=== PATIENT | female | born 1985 | race Caucasian/White ===

== ENCOUNTER 2020-06-14 09:11 | Outpatient (CLI) | payer OTHER, SELFPAY ==
--- NOTE | 2020-06-14 09:13 | US_ITS ---
WS: [id number] BIOPHYSICAL PROFILE AND LIMITED OB. HISTORY: SUPERVISION OF NORMAL COMPARISON: None available. Presentation: Cephalic. Cervix: Closed and normal length. Cervical length 4.1 cm. Placenta: Anterior, no previa or abruption. Grade: 1 HEART: FHR of 138BPM. measurements: BPD = 8.0 cm = 32w2d HC = 29.3 cm = 32w2d AC = 27.1 cm = 31w1d FL = 6.0 cm = 31w1d FARIDA: 10.8 centimeters, between the fifth and 50th percentile. Largest vertical pocket 3.3 cm. EFW: 1755g; 43rd %. AGA by ultrasound: 31w5d LUZ by ultrasound: 08/11/2020 Biometry is internally concordant. No prior studies for comparison. Biophysical profile: Parameters are as follows: Breathin Movement: 2 Tone: 2 Fluid volume: 2 US/US OB lmt w/ BPP wo NST IMPRESSION: 1. Biophysical profile score: 8/8. 2. Single intrauterine gestation of 31w5d and 08/11/2020. 3. Normal amniotic fluid index. 4. Estimated weight 1755 g at the 43rd percentile.
== END 2020-06-14 09:12 | disposition home or self-care (01) ==
PROVIDERS: PCP Family Medicine; Visit Provider Family Medicine
DX: O09.90 Supervision of high risk pregnancy, unspecified, unspecified trimester (principal); O24.419 Gestational diabetes mellitus in pregnancy, unspecified control; Z3A.31 31 weeks gestation of pregnancy
CPT/HCPCS: 76815; 76819

== ENCOUNTER 2020-06-14 10:11 | Outpatient (CLI) | payer OTHER, SELFPAY ==
[2020-06-14 10:22] VITALS: TEMP 36.4
[2020-06-14 10:23] VITALS: BP 116/64; PULSE 93
[2020-06-14 10:30] VITALS: RESP 18
[2020-06-14 10:35] VITALS: BMI 35.2
[2020-06-14 10:45] VITALS: BP 118/66; PULSE 102
[2020-06-14 10:50] VITALS: BP 118/66; PULSE 102; RESP 18
== END 2020-06-14 11:00 | disposition home or self-care (01) ==
LOC: OPOB 10:14 → OBGYN 10:18
PROVIDERS: PCP Family Medicine; Visit Provider Family Medicine
DX: O26.899 Other specified pregnancy related conditions, unspecified trimester (principal); Z3A.00 Weeks of gestation of pregnancy not specified
CPT/HCPCS: 59025; 99211

== ENCOUNTER 2020-06-21 09:59 | Outpatient (CLI) | payer OTHER, SELFPAY ==
--- NOTE | 2020-06-21 | US_ITS ---
WS: [id number] ULTRASOUND OB LIMITED TECHNIQUE: Limited ultrasound examination of the fetus. CLINICAL INFORMATION: HIGH RISK /GESTATIONAL DIABETES COMPARISON: June 14, 2020 FINDINGS: Cervix measures 5.4 cm Single interuterine gestation. presentation is vertex Placental location is anterior. Placenta grade: 0. heart rate 160 BPM. Normal FARIDA 12.6 cm. Anatomy: EGA by ultrasound: Dating measurements not obtained today. US/US OB lmt w/ BPP wo NST IMPRESSION: 1. Single intrauterine gestation with vertex presentation. 2. BPP 8 out of 8. 3. Normal cervix. 4. FARIDA normal.
--- NOTE | 2020-06-21 10:03 | US_ITS ---
WS: [id number] ULTRASOUND OB LIMITED TECHNIQUE: Limited ultrasound examination of the fetus. CLINICAL INFORMATION: HIGH RISK /GESTATIONAL DIABETES COMPARISON: June 14, 2020 FINDINGS: Cervix measures 5.4 cm Single interuterine gestation. presentation is vertex Placental location is anterior. Placenta grade: 0. heart rate 160 BPM. Normal FARIDA 12.6 cm. Anatomy: EGA by ultrasound: Dating measurements not obtained today.
== END 2020-06-21 10:00 | disposition home or self-care (01) ==
LOC: US 10:00
PROVIDERS: PCP Family Medicine; Visit Provider Family Medicine
DX: O09.899 Supervision of other high risk pregnancies, unspecified trimester (principal); O24.419 Gestational diabetes mellitus in pregnancy, unspecified control
CPT/HCPCS: 76815; 76816; 76819

== ENCOUNTER 2020-06-21 10:50 | Outpatient (CLI) | payer OTHER, SELFPAY ==
[2020-06-21 11:02] VITALS: BP 127/77; PULSE 96
[2020-06-21 11:11] VITALS: BMI 35.2
[2020-06-21 11:17] VITALS: BP 119/69; PULSE 90
[2020-06-21 11:26] VITALS: BP 119/69; PULSE 90
== END 2020-06-21 11:27 | disposition home or self-care (01) ==
LOC: OPOB 10:51 → OBGYN 10:57
PROVIDERS: PCP Family Medicine; Visit Provider Family Medicine
DX: O26.899 Other specified pregnancy related conditions, unspecified trimester (principal); Z3A.00 Weeks of gestation of pregnancy not specified
CPT/HCPCS: 59025

== ENCOUNTER 2020-06-28 08:58 | Outpatient (CLI) | payer OTHER, SELFPAY ==
--- NOTE | 2020-06-28 09:04 | US_ITS ---
WS: [id number] BIOPHYSICAL PROFILE AND LIMITED OB. HISTORY: HIGH RISK /GESTATIONAL DIABETES COMPARISON: 06/21/2020 Presentation: Vertex. Cervix: Closed, 3.8 cm in length. Placenta: Anterior, no previa or abruption. Grade: 1. HEART: FHR of 141BPM. FARIDA: 14.1 centimeters, near the 50th percentile. Biophysical profile: Parameters are as follows: Breathin Movement: 2 Tone: 2 Fluid volume: 2 Largest vertical pocket of amniotic fluid is 5.3 cm. US/US OB F/U w BPP wo NST IMPRESSION: 1. Biophysical profile score: 8/8. 2. Normal amniotic fluid index.
== END 2020-06-28 08:59 | disposition home or self-care (01) ==
LOC: RAD 09:02
PROVIDERS: PCP Family Medicine; Visit Provider Family Medicine
DX: O09.90 Supervision of high risk pregnancy, unspecified, unspecified trimester (principal); O24.419 Gestational diabetes mellitus in pregnancy, unspecified control
CPT/HCPCS: 76816; 76819

== ENCOUNTER 2020-06-28 09:39 | Outpatient (CLI) | payer OTHER, SELFPAY ==
[2020-06-28 10:08] VITALS: BP 119/69; PULSE 98
[2020-06-28 10:10] VITALS: BMI 35.3
[2020-06-28 10:13] VITALS: TEMP 36.8
== END 2020-06-28 10:16 | disposition home or self-care (01) ==
LOC: OPOB 09:40 → OBGYN 09:41
PROVIDERS: PCP Family Medicine; Visit Provider Family Medicine
DX: O26.899 Other specified pregnancy related conditions, unspecified trimester (principal); Z3A.00 Weeks of gestation of pregnancy not specified
CPT/HCPCS: 59025

== ENCOUNTER 2020-07-05 09:04 | Outpatient (CLI) | payer OTHER, SELFPAY ==
--- NOTE | 2020-07-05 09:11 | US_ITS ---
WS: [id number] ULTRASOUND OB LIMITED TECHNIQUE: Limited ultrasound examination of the fetus. CLINICAL INFORMATION: HIGH RISK /GESTATIONAL DIABETES COMPARISON: June 28, 2020 FINDINGS: Normal cervix measuring 4.1 cm Single interuterine gestation. presentation is vertex Placental location is anterior. heart rate 147 BPM. Normal FARIDA Biophysical profile 8 out of 8. breathin movement: 2 tone: 2 Amniotic fluid: 2 IMPRESSION Normal biophysical profile 8 out of 8
== END 2020-07-05 09:05 | disposition home or self-care (01) ==
LOC: RAD 09:06
PROVIDERS: PCP Family Medicine; Visit Provider Family Medicine
DX: O09.90 Supervision of high risk pregnancy, unspecified, unspecified trimester (principal); O24.419 Gestational diabetes mellitus in pregnancy, unspecified control
CPT/HCPCS: 76815; 76819

== ENCOUNTER 2020-07-05 10:20 | Outpatient (CLI) | payer OTHER, SELFPAY ==
[2020-07-05 10:25] VITALS: BP 134/77; PULSE 83; TEMP 36.5
[2020-07-05 10:30] VITALS: BMI 38.9
[2020-07-05 10:45] VITALS: BP 133/77; PULSE 100
[2020-07-05 11:05] VITALS: BP 137/79; PULSE 106
[2020-07-05 11:10] VITALS: BP 137/79; PULSE 106; RESP 16; TEMP 36.5
== END 2020-07-05 11:10 | disposition home or self-care (01) ==
LOC: OPOB 10:20 → OBGYN 10:21
PROVIDERS: PCP Family Medicine; Visit Provider Family Medicine
DX: O24.419 Gestational diabetes mellitus in pregnancy, unspecified control (principal); Z3A.00 Weeks of gestation of pregnancy not specified
CPT/HCPCS: 59025; 99211

== ENCOUNTER 2020-07-09 09:25 | Outpatient (CLI) | payer OTHER, SELFPAY ==
[2020-07-09 09:37] VITALS: BMI 35.4
[2020-07-09 10:00] VITALS: BP 118/70; PULSE 89
[2020-07-09 10:04] VITALS: BP 118/70; PULSE 89; RESP 18; TEMP 36.7
== END 2020-07-09 11:00 | disposition home or self-care (01) ==
LOC: OPOB 09:28 → OBGYN 09:30
PROVIDERS: PCP Family Medicine; Visit Provider Family Medicine
DX: O24.419 Gestational diabetes mellitus in pregnancy, unspecified control (principal); Z3A.00 Weeks of gestation of pregnancy not specified
CPT/HCPCS: 59025; 99211

== ENCOUNTER 2020-07-12 10:07 | Outpatient (CLI) | payer OTHER, SELFPAY ==
[2020-07-12 10:10] VITALS: BMI 36.2
[2020-07-12 10:12] VITALS: BP 133/70; PULSE 85
[2020-07-12 10:27] VITALS: BP 123/68; PULSE 89
[2020-07-12 10:42] VITALS: BP 123/67; PULSE 88
[2020-07-12 10:56] VITALS: BP 123/67; PULSE 88
== END 2020-07-12 10:57 | disposition home or self-care (01) ==
LOC: OPOB 10:08 → OBGYN 10:09
PROVIDERS: PCP Family Medicine; Visit Provider Family Medicine
DX: O24.419 Gestational diabetes mellitus in pregnancy, unspecified control (principal); Z3A.00 Weeks of gestation of pregnancy not specified
CPT/HCPCS: 59025

== ENCOUNTER 2020-07-16 09:22 | Outpatient (CLI) | payer OTHER, SELFPAY ==
[2020-07-16 09:29] VITALS: BP 128/68; PULSE 85; RESP 16
[2020-07-16 09:52] VITALS: BMI 36.2
[2020-07-16 10:02] VITALS: BP 131/78; PULSE 85
[2020-07-16 10:13] VITALS: BP 131/78; PULSE 85; RESP 16
== END 2020-07-16 10:06 | disposition home or self-care (01) ==
LOC: OPOB 09:26 → OBGYN 09:27
PROVIDERS: PCP Family Medicine; Visit Provider Family Medicine
DX: O24.419 Gestational diabetes mellitus in pregnancy, unspecified control (principal); Z3A.00 Weeks of gestation of pregnancy not specified
CPT/HCPCS: 59025

== ENCOUNTER 2020-07-19 09:56 | Observation (INO) | payer OTHER, SELFPAY ==
[2020-07-19 10:09] VITALS: TEMP 36.1
[2020-07-19 10:25] VITALS: BP 131/76; PULSE 93
[2020-07-19 10:55] VITALS: BP 131/76; PULSE 93
== END 2020-07-19 10:40 | disposition home or self-care (01) ==
PROVIDERS: Admitting Provider Family Medicine; PCP Family Medicine; Visit Provider Family Medicine
DX: O24.419 Gestational diabetes mellitus in pregnancy, unspecified control (principal); Z3A.00 Weeks of gestation of pregnancy not specified
CPT/HCPCS: G0378; G0379

== ENCOUNTER 2020-07-23 13:35 | Outpatient (CLI) | payer OTHER, SELFPAY ==
[2020-07-23 13:49] VITALS: BP 117/72; PULSE 82
[2020-07-23 13:53] VITALS: RESP 16
[2020-07-23 13:54] VITALS: BMI 35.5
[2020-07-23 14:04] VITALS: BP 116/66; PULSE 83
== END 2020-07-23 14:24 | disposition home or self-care (01) ==
LOC: OPOB 13:44 → OBGYN 13:45
PROVIDERS: PCP Family Medicine; Visit Provider Family Medicine
DX: O24.419 Gestational diabetes mellitus in pregnancy, unspecified control (principal); Z3A.00 Weeks of gestation of pregnancy not specified
CPT/HCPCS: 59025

== ENCOUNTER 2020-07-26 09:01 | Outpatient (RCR) | payer OTHER, SELFPAY ==
--- NOTE | 2020-07-12 09:18 | US_ITS ---
WS: [id number] BIOPHYSICAL PROFILE AND LIMITED OB. HISTORY: HIGH RISK /GESTATIONAL DIABETES COMPARISON: 07/05/2020, 06/14/2020 Presentation: Vertex. Cervix: Closed and normal length. Placenta: Anterior, no previa or abruption. Grade: 1 HEART: FHR of 131BPM. Biophysical profile: Parameters are as follows: Breathin Movement: 2 Tone: 2 Fluid volume: 2 Amniotic fluid index: 15.2 cm which is near the 50th percentile. Largest single vertical pocket of fl uid is 4.7 cm. US/US OB lmt w/ BPP wo NST IMPRESSION: 1. Biophysical profile score: 8/8. 2. Vertex. 3. Normal amniotic fluid index.
--- NOTE | 2020-07-19 09:07 | US_ITS ---
WS: [id number] ULTRASOUND OB LIMITED TECHNIQUE: Limited ultrasound examination of the fetus. CLINICAL INFORMATION: SUPERVISION HIGH RISK COMPARISON: None. FINDINGS: Cervix measures 3.8 cm Single interuterine gestation. presentation is cephalic Placental location is anterior. Placenta grade: 1 heart rate 150 BPM. Normal FARIDA Anatomy: BDP: 9.4 cm = 38w3d HC: 34.2 cm = 39w3d AC: 33.7 cm = 37w4d FEMUR LENGTH: 7.4 cm = 37w6d Estimated weight: 3355 g., %. EGA by ultrasound: 38w2d LUZ by ultrasound: 07/31/2020 Biophysical profile 8 out of 8. breathin movement: 2 tone: 2 Amniotic fluid: 2 Normal biophysical profile 8 out of 8 US/[place] [id number] IMPRESSION: Normal biophysical profile 8 out of 8
--- NOTE | 2020-07-26 09:07 | US_ITS ---
WS: [id number] ULTRASOUND OB LIMITED TECHNIQUE: Limited ultrasound examination of the fetus. CLINICAL INFORMATION: HIGH RISK /GESTATIONAL DIABETES COMPARISON: None. FINDINGS: Cervix measures 4.1 cm Single interuterine gestation. presentation is breech Placental location is anterior. Placenta grade: 1 heart rate 133 BPM. Normal FARIDA Biophysical profile 8 out of 8. breathin movement: 2 tone: 2 Amniotic fluid: 2 US/US OB F/U w BPP wo NST IMPRESSION: 1. Presentation is breech. 2. Normal biophysical profile 8 out of 8 3. Cervix measures 4.1 cm .
== END 2020-08-08 23:59 | disposition home or self-care (01) ==
LOC: RAD 09:01
PROVIDERS: PCP Family Medicine; Visit Provider Family Medicine
DX: O09.00 Supervision of pregnancy with history of infertility, unspecified trimester (principal)
CPT/HCPCS: 76815; 76816; 76819

== ENCOUNTER 2020-07-26 09:44 | Outpatient (CLI) | payer OTHER, SELFPAY ==
[2020-07-26 09:54] VITALS: RESP 17; O2SAT 98
[2020-07-26 09:55] VITALS: TEMP 36.2; BMI 37.3
[2020-07-26 09:56] VITALS: BP 125/77; PULSE 76
[2020-07-26 10:14] VITALS: BP 111/66; PULSE 82
== END 2020-07-26 10:25 | disposition home or self-care (01) ==
LOC: OPOB 09:49 → OBGYN 09:50
PROVIDERS: PCP Family Medicine; Visit Provider Family Medicine
DX: O24.419 Gestational diabetes mellitus in pregnancy, unspecified control (principal); Z3A.00 Weeks of gestation of pregnancy not specified
CPT/HCPCS: 59025; 99211

== ENCOUNTER 2020-07-30 10:03 | Outpatient (CLI) | payer OTHER, SELFPAY ==
[2020-07-30 10:09] VITALS: BP 126/78; PULSE 68
[2020-07-30 10:10] VITALS: BMI 35.9
[2020-07-30 10:29] VITALS: BP 127/73; PULSE 75
[2020-07-30 12:35] VITALS: BP 126/73; PULSE 104; TEMP 36.4
--- NOTE | 2020-07-30 14:07 | PC.NURSE ---
THE 1235 VITALS ARE NOT FOR THIS PATIENT. WE HAVE ROOM PLACEMENT ISSUE. PT WAS DISCHARGED AT 1030.
[2020-07-30 14:30] VITALS: BP 126/73; PULSE 104; TEMP 36.4
== END 2020-07-30 12:40 | disposition home or self-care (01) ==
LOC: OPOB 10:04 → OBGYN 10:05
PROVIDERS: PCP Family Medicine; Visit Provider Family Medicine
DX: O24.419 Gestational diabetes mellitus in pregnancy, unspecified control (principal); Z3A.00 Weeks of gestation of pregnancy not specified
CPT/HCPCS: 59025; 99211

== ENCOUNTER 2020-08-02 18:13 | Inpatient (IN) | payer OTHER, SELFPAY ==
[2020-08-02] VITALS (13 sets, daily range): BP systolic 125–145; BP diastolic 72–88; PULSE 65–85; RESP 17; TEMP 36.4–36.8; BMI 36.7
[2020-08-02] MEDS: miSOPROStol 100 mcg tablet 25 MCG VAGINAL (19:41)
[2020-08-02 20:00] LABS: Basophils % 0.3 %; Eosinophils # 0.1 10^3/uL (0.0-0.8); Eosinophils % 0.6 %; Hematocrit 33.4 % (37.0-47.0); Hemoglobin 11.6 g/dL (11.5-15.3); Lymphocytes # 2.2 10^3/uL (0.8-4.8); Lymphocytes % 22.5 %; Mean Corpuscular HGB Conc 34.7 g/dL (30.0-36.0); Mean Corpuscular Hemoglobin 31.7 pg (28.0-34.0); Mean Corpuscular Volume 91.3 fL (81-99); Monocytes # 0.5 10^3/uL (0.2-0.9); Monocytes % 5.4 %; Neutrophils # 6.96 10^3/uL (1.8-7.7); Neutrophils % 70.9 %; Nucleated Red Blood Cells % 0 %; Platelet Count 205 10^3/cmm (130-400); Red Blood Count 3.66 10^6/uL (4.1-5.3); Red Cell Distribution Width 14.8 % (12.1-15.1); White Blood Count 9.8 10^3/uL (4.0-10.0)
--- NOTE | 2020-08-02 21:06 | PM.HP ---
Providers/Chief Complaint Admitting Physician: Kurt Carpio MD Primary Care Provider: Kurt Carpio MD History of Present Illness Tiffany Solomon is a 34 year old @ 39.1 weeks by LMP consistent with 8 week US. Her is complicated by gestational diabetes that is diet controlled, history of blood transfusion as a child. The patient presents for induction of labor secondary to gestational diabetes. The patient is feeling well at this time. She denies any fevers, cough, headache, nausea, vomiting, diarrhea, constipation, dysuria, leakage of fluid, vaginal bleeding. She is feeling well at this time. Medications/Allergies Home Medications Medication Instructions Recorded Confirmed Last Taken Type 1 cap PO DAILY 06/21/20 08/02/20 07/09/20 History 0800 Allergies Allergy/AdvReac Type Severity Reaction Status Date / Time No Known Allergies Allergy Verified 08/02/20 18:23 PFSH Acute PFSH: Surgical History (Updated 08/02/20 @ 21:08 by Kurt Carpio MD) No significant past surgical history Social History (Updated 08/02/20 @ 21:09 by Kurt Carpio MD) Smoking and tobacco status: never smoked Alcohol intake: never Substance/Drug Use: never Female Reproductive History: : 5 Vitals/I&O/Wt Last Vital Signs Temp 97.5 F L 08/02/20 18:28 Pulse 70 08/02/20 20:29 Resp 17 08/02/20 18:51 BP 138/77 08/02/20 20:29 Weight last 48 hrs Weight 214 lb Physical Exam Narrative: EXAM NARRATIVE: General: Alert and oriented x3 Eyes: Pupils equal round and reactive to light and accommodation Mouth: Mucous membranes moist, pharynx non-erythematous Cardiac: Regular rate and rhythm without murmurs Lungs: Clear to auscultation bilaterally without wheezes, crackles or rhonchi Abdomen: Soft, non-tender, fundus consistent with gestational age Extremities: Trace edema in the bilateral lower extremities Data : 08/02/20 19:10 A&P Additional A&P Information Patient is doing well at this time. We will proceed with induction of labor using Cytotec. She is 1 cm and thick upon admission. The patient is GBS negative. She is Covid negative. There is a category 1 heart tone tracing. Routine induction was discussed with the patient. All questions were answered. We will monitor blood sugars and give insulin if needed. Proceed with routine induction otherwise. Attestations Medical Necessity Statement*: The patient will be here for greater than 2 midnights due to routine intrapartum and management of labor and delivery. 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
[2020-08-02 21:15] LABS: Glucose Point of Care 104 mg/dL (70-110)
[2020-08-02] MEDS: dextrose 5%-lactated ringers 1,000 ML 125 ML IV (22:14)
[2020-08-03] VITALS (76 sets, daily range): BP systolic 89–148; BP diastolic 51–95; PULSE 62–100; RESP 15–18; TEMP 36.3–36.8; O2SAT 96–100
[2020-08-03 00:06] LABS: Glucose Point of Care 77 mg/dL (70-110)
[2020-08-03 03:19] LABS: Glucose Point of Care 73 mg/dL (70-110)
[2020-08-03] MEDS: oxytocin 30 UNIT/500 ML BAG IV (06:21)
[2020-08-03 06:33] LABS: Glucose Point of Care 89 mg/dL (70-110)
[2020-08-03 08:44] LABS: Glucose Point of Care 94 mg/dL (70-110)
[2020-08-03] MEDS: lactated ringers 1,000 ML 999 ML IV ×3 (10:20→16:07)
[2020-08-03 12:21] LABS: Glucose Point of Care 68 mg/dL (70-110)
[2020-08-03] MEDS: dextrose 50% syringe 50 mL 25 ML IVP (13:13)
[2020-08-03] MEDS: dextrose 5%-lactated ringers 1,000 ML 125 ML IV (13:18)
[2020-08-03] MEDS: alum-mag-hydroxide-sime 30 mL UDC PO (13:19)
--- NOTE | 2020-08-03 13:28 | P.ANESASSM_ITS ---
Pre-Anesthetic Assessment Pre-Anesthetic Assessment: Height/Weight: Height 1.63 m Weight 97.069 kg Temp Pulse Resp BP Pulse Ox 97.3 F L 70 15 128/78 99 08/03/20 11:47 08/03/20 13:25 08/03/20 09:30 08/03/20 13:25 08/03/20 12:34 Preop Diagnosis: IUP Proposed Procedure: Epidural Familial anesthetic complications: none Last intake: icechips Social: Social History: No alcohol and No tobacco Exam: Pre-Anes Outpt Exam: alert, oriented x 3, clear to auscultation bilaterally and regular rate & rhythm Airway: MP: 3 Dentition: Full Metabolic: Metabolic: Morbid obesity Anesthetic Plan: ASA status: 2 Anesthesia: Regional (specify below) Risk of > 500 ml blood loss (7ml/kg in children): Yes, adequate IV access and fluids planned Meds/Allergies Current Medications: Current Medications Generic Name Dose Route Start Last Admin Trade Name Freq PRN Reason Stop Dose Admin Al Hydrox/Mg Wales[place] x/Simethicone 30 ml 08/02/20 18:51 08/03/20 13:19 Xzol-Jty-Lpzifrx de-Donna 30 Ml Udc PO 30 ml Q4H PRN Administration INDIGESTION Dextrose 25 ml 08/02/20 20:56 08/03/20 13:13 Dextrose 50% Syr be 50 Ml IVP 25 ml ONCE PRN Administration hypoglycemia prot ocol Protocol Dextrose/Lactated Ringer's 1,000 mls @ 125 m ls/hr 08/02/20 19:00 08/03/20 13:18 Dextrose 5%-Lact ated Ringers IV 125 mls/hr .Q8H SHARLENE Administration Lactated Ringer's 1,000 mls @ 999 m ls/hr 08/02/20 18:51 08/03/20 12:17 Lactated Ringers IV Infused .Q1H1M PRN Infusion Per L&D Rescitati on Protocol Oxytocin 30 unit in 500 ml s @ 1 mls/hr 08/03/20 06:15 08/03/20 13:24 Pitocin IV 0 milliunit/min .Q24H SHARLENE 0 mls/hr Titration Protocol 1 MILLIUNIT/MIN Ropivacaine 200 mg in 100 mls @ 13 mls/hr 08/03/20 12:15 08/03/20 12:44 Naropin Premix EPIDURAL 13 mls/hr .Q7H42M SHARLENE Administration Lactated Ringer's 1,000 mls @ 999 m ls/hr 08/03/20 12:01 08/03/20 12:17 Lactated Ringers IV 999 mls/hr .Q1H1M PRN Administration See label comment s PFSH Anesthesia PFSH: Surgical History (Updated 08/02/20 @ 21:08 by Kurt Carpio MD) No significant past surgical history Social History (Updated 08/02/20 @ 21:09 by Kurt Carpio MD) Smoking and tobacco status: never smoked Alcohol intake: never Substance/Drug Use: never Female Reproductive History: : 5 Data Anesthesia CBC & Chem 7: 08/02/20 19:10 Other Labs: Laboratory Results - last 48 hr 08/02/20 08/02/20 08/03/20 19:10 21:10 00:00 WBC 9.8 RBC 3.66 L Hgb 11.6 Hct 33.4 L MCV 91.3 MCH 31.7 MCHC 34.7 RDW 14.8 Plt Count 205 MPV 12.0 H Neut % (Auto) 70.9 Lymph % (Auto) 22.5 [place] % (Auto) 5.4 Eos % (Auto) 0.6 Baso % (Auto) 0.3 Neut # (Auto) 6.96 Lymph # (Auto) 2.2 [place] # (Auto) 0.5 Eos # (Auto) 0.1 Baso # (Auto) 0.0 Nucleated RBC % (auto) 0 Nucleated RBCs # 0.0 POC Glucose 104 77 08/03/20 08/03/20 08/03/20 03:16 06:24 08:40 WBC RBC Hgb Hct MCV MCH MCHC RDW Plt Count MPV Neut % (Auto) Lymph % (Auto) [place] % (Auto) Eos % (Auto) Baso % (Auto) Neut # (Auto) Lymph # (Auto) [place] # (Auto) Eos # (Auto) Baso # (Auto) Nucleated RBC % (auto) Nucleated RBCs # POC Glucose 73 89 94 08/03/20 12:19 WBC RBC Hgb Hct MCV MCH MCHC RDW Plt Count MPV Neut % (Auto) Lymph % (Auto) [place] % (Auto) Eos % (Auto) Baso % (Auto) Neut # (Auto) Lymph # (Auto) [place] # (Auto) Eos # (Auto) Baso # (Auto) Nucleated RBC % (auto) Nucleated RBCs # POC Glucose 68 L Cardiac Studies: No Data to Display
--- NOTE | 2020-08-03 13:29 | ANES.PROC ---
Anesthesia Procedures Procedure/Date: 08/03/20 Epidural: Time Out Performed: Yes Consents Signed: Procedure Consent and NPO Consent Consent: requested by attending/covering physician, from patient, from other, risks and benefits reviewed and patient agrees to proceed Lumbar Level: L3-L4 Epidural position: sitting Epidural procedure: sterile prep of area, 1% lidocaine to numb the area, 18 g needle, negative for paresthesia passed, neg for paresthesia, test dose given, 1.5% xylocaine 1:200k epi (5 cc (divided dose)), 0.2% Ropivacaine bolus ml (5 cc), placed PCEA, no systemic response, sterile dressing applied, L.U.D. no apparent complications and 0.2% Ropiavacaine @ mls/hr (13) Additional Comments: YAZMIN at 7 cm, threaded to 13 cm at the skin
[2020-08-03 13:41] LABS: Glucose Point of Care 127 mg/dL (70-110)
[2020-08-03 15:31] LABS: Glucose Point of Care 86 mg/dL (70-110)
[2020-08-03] MEDS: citric acid-sodium citrate 30 mL UDC PO (16:06)
[2020-08-03] MEDS: metoclopramide 5 mg/mL SDV 2 mL 10 MG IVP (16:06)
[2020-08-03] MEDS: famotidine 20 mg/2 mL INJ IVP (16:06)
[2020-08-03] MEDS: clindamycin 900 MG/50 ML PREMIX 100 MG IV (17:09)
--- NOTE | 2020-08-03 18:13 | P.OP_ITS ---
Operative Report Date of procedure: August 03, 2020 Pre-op Diagnosis: IUP Pre-op Diagnosis: 1. Intrauterine at 39.2 weeks gestation 2. Gestational diabetes diet controlled 3. intolerance of labor with non-reassuring heart tones Post-op Diagnosis: 1. Intrauterine status post primary low transverse section at 39.2 weeks gestation 2. Gestational diabetes diet controlled 3. intolerance of labor with non-reassuring heart tones 4. Delivery of healthy female weighing 7 pounds 7 ounces with Apgars of 6 and 9 Post-op Findings: 1. Intact placenta with moderate to heavy calcifications and area of old necrosis 2. Nuchal cord x1 Procedure Done: Primary low transverse section Specimens removed/disposition: Placenta sent to pathology Pathology: Placenta Surgeon: Kurt Carpio Anesthesia: Epidural Estimated blood loss (mL): 750 Complications: None Condition: stable Disposition: floor Brief History: Tiffany Solomon is a 34 year old G5 Now P3 status post primary low transverse section@ 39.2 weeks by LMP consistent with 8 week US. Her was complicated by gestational diabetes that is diet controlled, history of blood transfusion as a child, now with non-reassuring heart tones. The patient presented to labor and delivery on 08/02/2020 for a scheduled induction secondary to gestational diabetes. She was 1/thick/high upon presentation and she was given Cytotec x1. She made good change with this and by the morning she was 3 cm dilated. The patient was started on IV Pitocin and began to have regular contractions. There were a couple of periods of late decelerations that resolved with position change and decreasing Pitocin dosing. The patient received a laboring epidural and again had some late decelerations that improved with fluid bolus and stopping IV Pitocin. The patient was 4 cm dilated but there was not good pressure on the cervix with contractions and she was not making adequate change. For this reason IV Pitocin was restarted. With this initially the patient did well. AROM was performed to augment labor and clear fluid was noted. Initially there were no late decelerations, however they started approximately 5 to 10 minutes after AROM. The patient was checked and continued to be 4 to 5 cm dilated without any prolapsed cord. Position changes were again done and Pitocin was stopped. IV fluid boluses were done. The patient continued to have late decelerations and because of this it was felt best to proceed with a primary low transverse section due to nonreassuring heart tones. Procedure: After informed consent was obtained, the patient was taken to the operating room and the patient was prepped and draped in a normal sterile fashion in the dorsal supine position. A spinal epidural was placed and adequate anesthesia was confirmed. At 1639 on 08/03/2020, a Pfannenstiel skin incision was made and carried through to the underlying layer of fascia using a scalpel. The fascial incision was then extended laterally using curved Mayos. The fascia was then grasped with Brandie clamps and the underlying rectus muscles were dissected off taking care to avoid injury to the underlying tissues. The peritoneum was entered bluntly with one digit. It was then bluntly. The bladder blade was placed and the vesicouterine peritoneum was well below the lower uterine segment of the uterus. The uterine incision was made in the lower uterine segment in a transverse fashion with the scalpel at 1642. The amniotic membrane was entered bluntly and a small amount of clear fluid was noted. The 's head delivered atraumatically without difficulty at 1643. There was a nuchal cord. The mouth and nose were suctioned. The rest of the delivered without difficulty. The infant was crying immediately upon delivery. The cord was clamped and cut and the infant was handed to the awaiting pediatric nurses. The placenta was then manually expressed. The uterus was then exteriorized from the abdomen and a wet lap was used to clear the uterus of clots and debris. The bladder blade was reinserted and the uterine incision was closed using 0 chromic in a running locking fashion. A second layer of the same suture was used in the same manner. Excellent hemostasis was obtained. Next the posterior cul-de-sac was inspected and was cleared of any blood. The uterus was then placed back into the abdomen. The gutters were cleared of any further clots and debris and the uterine incision was again inspected and hemostasis was noted. The subfascial tissue was inspected for hemostasis and the peritoneum was re-approximated using 2-0 plain in a running fashion. The fascia was then re-approximated using 0 Vicryl in a running fashion. The subcutaneous tissue was inspected for hemostasis. Olesya's fascia was then re- approximated using 3-0 plain in a running fashion. Good hemostasis was noted. The subcutaneous tissue was then re-approximated using a subcuticular stitch. The patient tolerated the procedure well and was recovered in stable condition. Estimated blood loss was 750 mL. Urine in the Conway catheter was clear. The patient was taken to recovery in good condition.
--- NOTE | 2020-08-03 18:20 | PC.NURSE ---
Removed by anesthesia in OR following procedure.
--- NOTE | 2020-08-03 18:50 | PC.NURSE ---
Notified anesthesia at 1556, reaching Will from anesthesia. Will reported he will notify Dr. Peterson of section being called. Notified Dr. Lee of section at 1558, and requested his presence during procedure. At 1600, notified housekeeper cleaning cooking requesting a lug loader nurse for section. Aurora reported she would call the air pollution auditor RN to come in for procedure, which is Donavan Ba.
[2020-08-04] VITALS (9 sets, daily range): BP systolic 116–144; BP diastolic 73–84; PULSE 70–86; RESP 16–18; TEMP 36.7–36.8; O2SAT 100
[2020-08-04] MEDS: ketorolac 30 mg/mL INJ IVP ×2 (00:01→06:22)
[2020-08-04] MEDS: clindamycin 600 MG/50 ML PREMIX 100 MG IV ×2 (00:43→09:04)
[2020-08-04] MEDS: dextrose 5%-lactated ringers 1,000 ML 125 ML IV (04:10)
[2020-08-04 07:40] LABS: Hematocrit 27.6 % (37.0-47.0); Hemoglobin 9.5 g/dL (11.5-15.3); Mean Corpuscular HGB Conc 34.4 g/dL (30.0-36.0); Mean Corpuscular Hemoglobin 32.3 pg (28.0-34.0); Mean Corpuscular Volume 93.9 fL (81-99); Mean Platelet Volume 11.4 fL (7.4-10.4); Platelet Count 154 10^3/cmm (130-400); Red Blood Count 2.94 10^6/uL (4.1-5.3); Red Cell Distribution Width 15.3 % (12.1-15.1); White Blood Count 9.4 10^3/uL (4.0-10.0)
--- NOTE | 2020-08-04 07:44 | PM.PN ---
Subjective Subjective: Interval history: Patient is feeling well at this time. Her pain is well controlled. She is ambulating, and tolerating liquids by mouth. Her bleeding is decreasing well. She has no concerns at this time. Vitals/I&O/Wt Last Vital Signs Temp 98.3 F 08/04/20 02:25 Pulse 70 08/04/20 04:15 Resp 18 08/04/20 04:15 BP 116/73 08/04/20 04:15 Pulse Ox 100 08/04/20 02:25 08/03/20 08/04/20 08/04/20 22:59 06:59 14:59 Intake Total 4191.367 / 6194.084 Output Total 1200 / 1200 700 / 1900 Balance 2991.367 / 4994.084 -700 / 4294.084 Weight last 48 hrs Weight 214 lb Physical Exam Narrative: EXAM NARRATIVE: General: Alert and oriented x3 Cardiac: Regular rate and rhythm without murmurs Lungs: Clear to auscultation bilaterally without wheezes, crackles or rhonchi Abdomen: Soft, non-tender, fundus consistent with gestational age Extremities: +1 pitting edema in the bilateral lower extremities Urinary Catheter Management^: Conway: Cath Placed During This Visit: yes Reason for Continuing Indwelling Catheter: Perioperative Use in Selected Surgeries Urinary Catheter Date of Insertion: 08/03/20 Urinary Catheter Time of Insertion: 13:40 Data : 08/04/20 06:20 A&P Additional A&P Information The patient is doing well after having a section yesterday. We will continue with clindamycin every 8 hours for a total of 3 doses. After this, she may have her IV taken out. We we will remove her Conway catheter today. She may shower. Routine instructions regarding risk for infection and dehiscence of her incision were discussed. Routine care instructions were discussed. We will continue with current care and if she continues to do well plan for discharge home tomorrow. Attestations Medical Necessity Statement*: Patient will be here for greater than 2 midnights due to routine intrapartum and management after section. 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
[2020-08-04] MEDS: ferrous sulfate EC 325 mg Tablet PO (09:04)
[2020-08-04] MEDS: docusate sodium 100 mg Capsule PO ×2 (09:04→21:00)
[2020-08-04] MEDS: prenatal vitamin Capsule 1 CAP PO (09:04)
[2020-08-04] MEDS: oxyCODONE-APAP 5-325 mg Tablet PO ×3 (10:49→20:59)
[2020-08-04] MEDS: ibuprofen 800 mg tablet PO ×2 (16:29→21:00)
[2020-08-05 02:05] VITALS: RESP 18
[2020-08-05] MEDS: oxyCODONE-APAP 5-325 mg Tablet PO ×3 (02:05→12:14)
--- NOTE | 2020-08-05 02:39 | PC.NURSE ---
charted on incorrect patient. SUSAN DOLAN
[2020-08-05 04:00] VITALS: BP 116/74; PULSE 80; RESP 18; TEMP 36.7
[2020-08-05 07:48] VITALS: RESP 15
[2020-08-05] MEDS: prenatal vitamin Capsule 1 CAP PO (07:48)
[2020-08-05] MEDS: ferrous sulfate EC 325 mg Tablet PO (07:48)
--- NOTE | 2020-08-05 08:19 | P.DS_ITS ---
Discharge Providers Date of Admission: 08/02/20 18:13 Date of Discharge: August 05, 2020 Attending Provider at Admission: Kurt Carpio MD Attending Provider at Discharge: Kurt Carpio MD Primary Care Provider: Kurt Carpio MD Diagnoses at Discharge Other Information Additional DC diagnoses/information: 1. Intrauterine status post primary low transverse section at 39.2 weeks gestation 2. Gestational diabetes diet controlled 3. intolerance of labor with non-reassuring heart tones 4. Delivery of healthy infant female weighing 7 pounds 7 ounces with Apgars of 6 and 9 Hospital Course Hospital Course The patient presented for induction of labor secondary to gestational diabetes. She was started on Cytotec and initially made good change, however had late decelerations and for this reason had to have a primary low transverse section. Please see operative note for full details. The patient did not have any complications afterwards. She is currently ambulating, voiding, passing gas and tolerating food by mouth. Her pain is well controlled. Overall she is doing well. We will plan to discharge her home today and follow-up in 2 to 3 days. Routine discharge instructions were discussed. All questions were answered. The patient and her are in agreement with the current plan of care. Physical Exam Narrative: EXAM NARRATIVE: General: Alert and oriented x3 Cardiac: Regular rate and rhythm without murmurs Lungs: Clear to auscultation bilaterally without wheezes, crackles or rhonchi Abdomen: Soft, moderate tenderness to palpation. Fundus is firm and 2 cm below the umbilicus. Incision is clean and dry without signs of infection or dehiscence. Extremities: +1 pitting edema in the bilateral lower extremities Urinary Catheter Management^: Conway: Cath Placed During This Visit: yes, but has since been removed by the nurse Reason for Continuing Indwelling Catheter: Decision to DC Catheter Urinary Catheter Date of Insertion: 08/03/20 Urinary Catheter Time of Insertion: 13:40 Date Urinary Catheter Removed: 08/04/20 Time Urinary Catheter Discontinued: 10:45 Discharge Data Data Completed and Pending: Pending at discharge Category Date Time Status Pathology: Surgic al [PTH] Routine Pth 08/03/20 18:22 Ordered Vitals: Last Vital Signs Temp 98.0 F 08/05/20 04:00 Pulse 80 08/05/20 04:00 Resp 15 03/28/21 07:48 BP 116/74 08/05/20 04:00 Pulse Ox 100 08/04/20 02:25 Discharge Plan Discharge Patient Disposition: Home Condition: Good Prescriptions: New oxycodone-acetaminophen 5-325 mg Tablet 1 - 2 tab PO Q4H PRN (Reason: Moderate To Severe Pain) Qty: 30 RF: 0 ferrous sulfate 325 mg (65 mg iron) Tablet,Delayed Release (Dr/Ec) 325 mg PO BIDWM 15 Days Qty: 30 RF: 0 ibuprofen 800 mg Tablet 800 mg PO TID Qty: 60 RF: 0 Continued capsule 1 cap PO DAILY RF: 0 Discharge Orders: Discharge Order (Routine); Ordered 08/05/20 Ordered By: Kurt Carpio Referrals: Kurt Carpio MD [Primary Care Provider] - 1-3 days (Please call [facility] for an appointment at 2-3 days, 2 weeks and 6 weeks . ) Discharge Diet: Advance as tolerated Discharge Activity: Limit activity as instructed Patient Instructions: , Section (DC), Depression (GEN), and Nipple Soreness (DC), Breast Fullness Versus Breast Engorgement (DC), and Your Diet (DC), Breast Care for the Breast Feeding Mother (DC), Pre-eclampsia and Eclampsia (DC), Bleedi ng (DC), OB Discharge Report, OB Food/Drug Interaction Guide, OB Your Care - [facility] Care, OB Proud Parent Packet, Abnormal Bleeding Activity Restrictions/Additional Instructions: Do not lift anything heavier than your in the car seat for the first 3 weeks, then gradually increase. Nothing per vagina for 6 weeks. If you have any concern for infection in your incision site, please see Dr. Carpio right away. Discharge Attestations Time Spent in Discharge Care*: less than 30 min Quality Metrics Clinical Quality Measures During this hospital stay, did patient experience: None Coding Level of Care Code Acute Chg FW DC note
[2020-08-05 09:00] VITALS: BP 133/82; PULSE 76; RESP 16; TEMP 36.8
[2020-08-05] MEDS: docusate sodium 100 mg Capsule PO (09:05)
[2020-08-05] MEDS: ibuprofen 800 mg tablet PO (09:06)
[2020-08-05 12:14] VITALS: RESP 15
[2020-08-05 12:20] VITALS: BP 138/83; PULSE 94; RESP 16; TEMP 36.7
== END 2020-08-05 12:35 | disposition home or self-care (01) | DRG 788 ==
PROVIDERS: Admitting Provider Family Medicine; PCP Family Medicine; Visit Provider Family Medicine
PROC: 10D00Z1 Extraction of Products of Conception, Low, Open Approach (ICD-10-PCS; CPT 59514; principal; 2020-08-03 17:00)
DX: O24.420 Gestational diabetes mellitus in childbirth, diet controlled (principal); O76 Abnormality in fetal heart rate and rhythm complicating labor and delivery; O69.81X0 Labor and delivery complicated by cord around neck, without compression, not applicable or unspecified; O43.893 Other placental disorders, third trimester; Z37.0 Single live birth; Z3A.39 39 weeks gestation of pregnancy
CPT/HCPCS: 36415; 36416; 51702; 59025; 59409; 82962; 85025; 85027; 88307; G0378; J0690; J1885; J2274; J2405; J2765; J2795; J3010; J3490; J7030

== ENCOUNTER → 2023-11-23 11:38 | Outpatient (BNVA) | payer OTHER, SELFPAY | PROVIDERS: PCP Family Medicine; Visit Provider Family Medicine | DX: Z34.90 Encounter for supervision of normal pregnancy, unspecified, unspecified trimester (principal) | CPT/HCPCS: 80307; 81000; 81025; 83036; 84144; 84443; 84702; 85025; 86592; 86762; 86803; 86850; 86900; 87086; 87340; 87491; 87591; 87624; 87806 ==

== ENCOUNTER 2023-12-03 12:42 | Outpatient (CLI) | payer OTHER, SELFPAY ==
--- NOTE | 2023-12-03 12:45 | US_ITS ---
WS: [id number] Early obstetrical ultrasound. HISTORY: Follow-up ultrasound 11/24/2023. Transvaginal imaging is submitted. Intrauterine gestational sac is identified. Sac measurement corres ponds to a gestation of 6 weeks and 6 days. No significant increase in size of the sac since the prio r study. There is a crown-rump length measuring 0.6 cm which corresponds to a gestation of 6 weeks an d 4 days with no increase in size. No heart rate is identified. The gestational sac is becoming irregular and slightly elongated. The cervix is closed. US/US OB lmt with transvaginal IMPRESSION: 1. Early embryonic demise. There is no growth or cardiac activity identi fied as compared to 11/24/2023. 2. [place]-rump length corresponds to a gestation of 6 weeks and 4 days. There i s been no increase in size of the embryo since 11/24/2023.
== END 2023-12-03 12:43 | disposition home or self-care (01) ==
PROVIDERS: PCP Family Medicine; Visit Provider Family Medicine
DX: O09.529 Supervision of elderly multigravida, unspecified trimester (principal); Z3A.01 Less than 8 weeks gestation of pregnancy
CPT/HCPCS: 76815; 76817; 84702

== ENCOUNTER 2025-04-27 04:57 | Inpatient (IN) | payer OTHER, SELFPAY ==
--- NOTE | 2025-04-12 10:19 | ANES.PREANE2 ---
Pre-Anesthetic Assessment Height/Weight: Height 1.63 m Operation Date: 04/27/25 07:20 Proposed Procedures p Section Repeat With Tubal(Bilateral) - Calvin Maldonado MD Familial anesthetic complications: None Was Beta Alli taken within 24 hours: N/A Was Clonidine taken within 24 hours: N/A Last intake: > 8hrs Social No alcohol and No tobacco Exam alert, oriented x 3, clear to auscultation bilaterally and regular rate & rhythm CV/HEM one blood transfusion at age 7 or 8 d/t low blood cell count, unknown etiology. Wasn't leukemia. Only occurred once, and no issues since. Metabolic gestational DM Anesthetic Plan ASA status: 2 Anesthesia: Regional (specify below) Risk of > 500 ml blood loss (7ml/kg in children): Yes, adequate IV access and fluids planned Medications/Allergies Home Medications ?Medication ?Instructions ?Recorded ?Confirmed ?Last Taken ?Type 1 cap PO DAILY 06/21/20 11/23/23 07/09/20 History 0800 doxylamine succinate 25 mg tablet See Rx Instructions .Route 11/23/23 11/23/23 Unknown Rx .COMPLEX PRN allergy symptoms #30 tabs pyridoxine (vitamin B6) 100 mg 100 mg PO BID PRN Nausea #60 tabs 11/23/23 11/23/23 Unknown Rx tablet misoprostol 200 mcg tablet 200 mcg vaginal ONCE #4 tabs 12/04/23 Unknown Rx Allergies Allergy/AdvReac Type Severity Reaction Status Date / Time No Known Allergies Allergy Verified 08/02/20 18:23 [facility] Anesthesia Surgical History (Updated 11/23/23 @ 11:20 by Kurt Carpio MD) Hx of section No significant past surgical history Social History Smoking and tobacco/nicotine status: never used tobacco/nicotine Alcohol intake: never Substance/Drug Use: never
[2025-04-27] VITALS (54 sets, daily range): BP systolic 97–196; BP diastolic 44–114; PULSE 60–86; RESP 16; TEMP 36.5–36.6; O2SAT 94–99; BMI 36.4
--- OUTSIDE RECORDS SUMMARY | 2025-04-27 05:00 | XMS_ITS | Continuity of Care Document ---
Author Organization [facility], L.LClement[facility], [facility] ([facility]) Address [address] [place] [address] Care Team Providers Care Lump Inspector Name Role Phone MARGE MARIE Primary Care Provider Unavailabl e Assessment No assessment recorded. Plan of Treatment Reminders Order Date Submit Date Provider Last Modified By Organization Details Last Modified Time Details Appointments RETURN OB 2024 10:20A M Calvin Maldonado MD Not available Not available Not available RETURN OB 2024 10:20A M Calvin Maldonado MD Not available Not available Not available Lab None recorded . Referral None recorded . Procedures None recorded . Surgeries None recorded . Imaging None recorded . Medication Orders None recorded . Patient TargetsNo targets recorded. Patient InstructionsNo instructions recorded. Reason for Referral None Reported. Results Created Date Observation Date Name Description Value Unit Range Abnormal Flag Note LastModifiedBy Organization Detail LastModifiedTime 11/03/1911/02/2024 GLUCO SE glucose 121.0 mg/dL 60.0-9 9.0 high Not Available [facility] [address] [facility] [address], [place], [address], 11/02/2024 12:02:10 11/03/19 25 11/03/2024 HIV 1/2 ANTIG EN/AN TIBOD Y,FOU RTH GENER ATION W/RFL HIV final interpretati on HIV Negat carrie HIV-1 antig en and HIV-1 /HIV- 2 antib odies were not detec britney. There is no labor atory evide nce of HIV infec tion. Not Available [address], [address], 11/03/2024 23:21:44 11/03/1911/03/2024 HIV 1/2 ANTIG EN/AN TIBOD Y,FOU RTH GENER ATION W/RFL HIV Ag/Ab, 4TH gen NON-RE ACTIVE non-re active normal Not Available [address], [address], 11/03/2024 23:21:44 11/03/1911/03/2024 URINA LYSIS , COMPL ETE color YELLOW yellow normal Not Available [address], [address], 11/03/2024 23:21:45 11/03/19 25 11/03/2024 URINA LYSIS , COMPL ETE appearance CLEAR clear normal Not Available [address], [address], 11/03/2024 23:21:45 11/03/19 25 11/03/2024 URINA LYSIS , COMPL ETE specific gravity 1.002 1.001- 1.035 normal Not Available [address], [address], 11/03/2024 23:21:45 11/03/1911/03/2024 URINA LYSIS , COMPL ETE pH 6.5 5.0-8. 0 normal Not Available [address], [address], 11/03/2024 23:21:45 11/03/19 25 11/03/2024 URINA LYSIS , COMPL ETE glucose NEGATI VE negati ve normal Not Available [address], [address], 11/03/2024 23:21:45 11/03/19 25 11/03/2024 URINA LYSIS , COMPL ETE bilirubin NEGATI VE negati ve normal Not Available [address], [address], 11/03/2024 23:21:45 11/03/19 25 11/03/2024 URINA LYSIS , COMPL ETE ketones NEGATI VE negati ve normal Not Available [address], [address], 11/03/2024 23:21:45 11/03/19 25 11/03/2024 URINA LYSIS , COMPL ETE occult blood NEGATI VE negati ve normal Not Available [address], [address], 11/03/2024 23:21:45 11/03/19 25 11/03/2024 URINA LYSIS , COMPL ETE protein NEGATI VE negati ve normal Not Available [address], [address], 11/03/2024 23:21:45 11/03/19 25 11/03/2024 URINA LYSIS , COMPL ETE nitrite NEGATI VE negati ve normal Not Available [address], [address], 11/03/2024 23:21:45 11/03/19 25 11/03/2024 URINA LYSIS , COMPL ETE leukocyte esterase NEGATI VE negati ve normal Not Available [address], [address], 11/03/2024 23:21:45 11/03/19 25 11/03/2024 URINA LYSIS , COMPL ETE WBC NONE SEEN /hpf < or = 5 normal Not Available [address], [address], 11/03/2024 23:21:45 11/03/19 25 11/03/2024 URINA LYSIS , COMPL ETE RBC NONE SEEN /hpf < or = 2 normal Not Available [facility] [address], [address], 11/03/2024 23:21:45 11/03/1911/03/2024 URINA LYSIS , COMPL ETE squamous epithelial cells NONE SEEN /hpf < or = 5 normal Not Available [address], [address], 11/03/2024 23:21:45 11/03/1911/03/2024 URINA LYSIS , COMPL ETE bacteria NONE SEEN /hpf none seen normal Not Available [facility] [address], [address], 11/03/2024 23:21:45 11/03/1911/03/2024 URINA LYSIS , COMPL ETE hyaline cast NONE SEEN /lpf none seen normal Not Available [address], [address], 11/03/2024 23:21:45 11/03/1911/03/2024 URINA LYSIS , COMPL ETE note This urine was camilo zed for the prese nce of WBC, RBC, bacte glenys, casts , and other forme d eleme nts. Only those eleme nts seen were repor britney. Not Available [address], [address], 11/03/2024 23:21:45 11/03/1911/03/2024 CBC (INCL UDES DIFF/ PLT) white blood cell count 8.3 thous and/u L 3.8-10 .8 normal Not Available [address], [address], 11/03/2024 23:21:47 11/03/1911/03/2024 CBC (INCL UDES DIFF/ PLT) red blood cell count 3.94 nancy on/uL 3.80-5 .10 normal Not Available [address], [address], 11/03/2024 23:21:47 11/03/1911/03/2024 CBC (INCL UDES DIFF/ PLT) hemoglobin 12.6 g/dL 11.7-1 5.5 normal Not Available [address], [address], 11/03/2024 23:21:47 11/03/1911/03/2024 CBC (INCL UDES DIFF/ PLT) hematocrit 37.7 % 35.0-4 5.0 normal Not Available [facility] [address], [address], 11/03/2024 23:21:47 11/03/1911/03/2024 CBC (INCL UDES DIFF/ PLT) MCV 95.7 fL 80.0-1 00.0 normal Not Available [address], [address], 11/03/2024 23:21:47 11/03/1911/03/2024 CBC (INCL UDES DIFF/ PLT) MCH 32.0 pg 27.0-3 3.0 normal Not Available [address], [address], 11/03/2024 23:21:47 11/03/1911/03/2024 CBC (INCL UDES DIFF/ PLT) MCHC 33.4 g/dL 32.0-3 6.0 normal For adult s, a sligh t decre ase in the calcu lated MCHC value (in the range of 30 to 32 g/dL) is most likel y not clini aisha signi sharan t; merry er, it shoul d be inter prete d with cauti on in corre latio n with other red cell apoorva eters and the patie nt's clini sury condi tion. Not Available [address], [address], 11/03/2024 23:21:47 11/03/1911/03/2024 CBC (INCL UDES DIFF/ PLT) RDW 13.6 % 11.0-1 5.0 normal Not Available [address], [address], 11/03/2024 23:21:47 11/03/1911/03/2024 CBC (INCL UDES DIFF/ PLT) platelet count 259 thous and/u L 140-40 0 normal Not Available [address], [address], 11/03/2024 23:21:47 11/03/1911/03/2024 CBC (INCL UDES DIFF/ PLT) MPV 10.1 fL 7.5-12 .5 normal Not Available [address], [address], 11/03/2024 23:21:47 11/03/19 25 11/03/2024 CBC (INCL UDES DIFF/ PLT) absolute neutrophils 6524 cells /uL 1500-7 800 normal Not Available [address], [address], 11/03/2024 23:21:47 11/03/19 25 11/03/2024 CBC (INCL UDES DIFF/ PLT) absolute lymphocytes 1361 cells /uL 850-39 00 normal Not Available [address], [address], 11/03/2024 23:21:47 11/03/1911/03/2024 CBC (INCL UDES DIFF/ PLT) absolute monocytes 332 cells /uL 200-95 0 normal Not Available [address], [address], 11/03/2024 23:21:47 11/03/19 25 11/03/2024 CBC (INCL UDES DIFF/ PLT) absolute eosinophils 50 cells /uL 15-500 normal Not Available [address], [address], 11/03/2024 23:21:47 11/03/1911/03/2024 CBC (INCL UDES DIFF/ PLT) absolute basophils 33 cells /uL 0-200 normal Not Available [address], [address], 11/03/2024 23:21:47 11/03/1911/03/2024 CBC (INCL UDES DIFF/ PLT) neutrophils 78.6 % normal Not Available [address], [address], 11/03/2024 23:21:47 11/03/1911/03/2024 CBC (INCL UDES DIFF/ PLT) lymphocytes 16.4 % normal Not Available [address], [address], 11/03/2024 23:21:47 11/03/1911/03/2024 CBC (INCL UDES DIFF/ PLT) monocytes 4.0 % normal Not Available [address], [address], 11/03/2024 23:21:47 11/03/1911/03/2024 CBC (INCL UDES DIFF/ PLT) eosinophils 0.6 % normal Not Available [address], [address], 11/03/2024 23:21:47 11/03/1911/03/2024 CBC (INCL UDES DIFF/ PLT) basophils 0.4 % normal Not Available [address], [address], 11/03/2024 23:21:47 11/03/1911/03/2024 HEPAT ITIS B SURFA CE ANTIG EN W/REF L CONFI RM hepatitis B surface antigen NON-RE ACTIVE non-re active normal For addit ional infor mason mei e refer to http: //[facility] [place].que stdia gnost ics.c om/fa q/FAQ 202 (This link is being provi ded for infor matio nal/ educa chitra l purpo ses only. ) Not Available [facility] [address] [address] [place], [address], 11/03/2024 23:21:47 11/03/1911/03/2024 HEPAT ITIS C AB W/REF L TO HCV RNA, QN, PCR hepatitis C antibody NON-RE ACTIVE non-re active normal HCV antib jani was non-r eacti ve. There is no labor atory evide nce of HCV infec tion. In most cases , no furth er actio n is requi red. Howev er, if recen t HCV expos ure is suspe cted, a test for HCV RNA (test code 26716 ) is sugge sted. For addit ional radhar antonino cuevas e refer to http: //[facility] n.kay stdia gnost ics.c om/fa q/FAQ 22v1 (This link is being provi ded for infor matio nal/ educa chitra l purpo ses only. ) Not Available [facility] [address] [address] [place], [address], 11/03/2024 23:21:48 11/03/1911/03/2024 RUBEL LA AB (IGG) , IMMUN E STATU S rubella Ab (IgG), immune status 5.38 index normal Index Inter preta tion ----- ----- ----- ---- <0.90 Not consi stent with immun ity 0.90- 0.99 Equiv ocal > or = 1.00 Consi stent with immun ity The prese nce of rubel la IgG antib jani sugge sts immun izati on or past or curre nt infec tion with rubel la virus . Not Available [facility] [address] [address] [place], [address], 11/03/2024 23:21:49 11/03/1911/03/2024 HEMOG LOBIN A1C hemoglobin A1C 4.7 % <5.7 normal For the purpo se of jose combs for the prese nce of diabe hbarati: <5.7% Consi stent with the absen ce of diabe bharati 5.7-6 .4% Consi stent with incre ased risk for diabe bharati (pred iabet es) > or =6.5% Consi stent with diabe bharati This assay resul t is consi stent with a decre ased risk of diabe bharati. Curre ntly, no conse nsus exist s cipriano shepherd use of hemog lobin A1c for diagn osis of diabe bharati in child lindsey. Accor ding to Ameri can Diabe bharati Assoc iatio n (ADA) guide lines , hemog lobin A1c <7.0% repre sents optim al contr ol in non-p regna nt diabe tic patie nts. Diffe rent metri cs may apply to speci fic patie nt popul ation s. Stand ards of Medic al Care in Diabe bharati(A DA). Not Available [employer] [facility] [address] [place], [address], 11/03/2024 23:21:50 11/03/1911/03/2024 RPR (DX) W/REF L TITER AND T. PALLI DUM AB, IA RPR (DX) w/refl titer and confirmatory testing NON-RE ACTIVE non-re active normal No labor atory evide nce of syphi lis. If recen t expos ure is suspe cted, submi t a new sampl e in 2-4 weeks . Not Available [facility] [address] [place], [address], 11/03/2024 23:21:51 11/03/1911/03/2024 ABO GROUP AND RH TYPE ABO group O Not Available [facility] [address] [place], [address], 11/03/2024 23:21:52 11/03/1911/03/2024 ABO GROUP AND RH TYPE Rh type RH(D) POSITI VE For addit ional infor mason mei e refer to http: //spike benson ics.c om/fa q/FAQ 111 (This link is being provi ded for infor antonino akhtar/ educchiquita parra purpo ses only. ) Not Available [facility] [address] [address] [address], [place], [address], 11/03/2024 23:21:52 11/03/1911/03/2024 DRUG MONIT OR, PANEL 1, SCREE N, URINE amphetamines NEGATI VE NG/mL <500 See Note A See Note A Not Available [facility] [address] [address], [place], [address], 11/03/2024 23:21:53 11/03/1911/03/2024 DRUG MONIT OR, PANEL 1, SCREE N, URINE barbiturates NEGATI VE NG/mL <300 See Note A See Note A Not Available [facility] [address] [address] [address], [place], [address], 11/03/2024 23:21:53 11/03/1911/03/2024 DRUG MONIT OR, PANEL 1, SCREE N, URINE benzodiazepi kendell NEGATI VE NG/mL <100 See Note A See Note A Not Available [facility] [address] [address] [address], [place], [address], 11/03/2024 23:21:53 11/03/1911/03/2024 DRUG MONIT OR, PANEL 1, SCREE N, URINE cocaine metabolite NEGATI VE NG/mL <150 See Note A See Note A Not Available [facility] [address] [address], [place], [address], 11/03/2024 23:21:53 11/03/19 25 11/03/2024 DRUG MONIT OR, PANEL 1, SCREE N, URINE marijuana metabolite NEGATI VE NG/mL <20 See Note A See Note A Not Available [employer] [address] [address], [place], [address], 11/03/2024 23:21:53 11/03/1911/03/2024 DRUG MONIT OR, PANEL 1, SCREE N, URINE methadone metabolite NEGATI VE NG/mL <100 See Note A See Note A Not Available [address] [address], [place], [address], 11/03/2024 23:21:53 11/03/1911/03/2024 DRUG MONIT OR, PANEL 1, SCREE N, URINE opiates NEGATI VE NG/mL <100 See Note A See Note A Not Available [facility] [address] [address] [address], [place], [address], 11/03/2024 23:21:53 11/03/1911/03/2024 DRUG MONIT OR, PANEL 1, SCREE N, URINE oxycodone NEGATI VE NG/mL <100 See Note A See Note A Not Available [address] [address], [place], [address], 11/03/2024 23:21:53 11/03/1911/03/2024 DRUG MONIT OR, PANEL 1, SCREE N, URINE phencyclidin e NEGATI VE NG/mL <25 See Note A See Note A Not Available [facility] [address] [address] [address], [place], [address], 11/03/2024 23:21:53 11/03/1911/03/2024 DRUG MONIT OR, PANEL 1, SCREE N, URINE creatinine 8.6 mg/dL > or = 20.0 low Not Available [address] [address], [place], [address], 11/03/2024 23:21:53 11/03/1911/03/2024 DRUG MONIT OR, PANEL 1, SCREE N, URINE specific gravity 1.003 > or = 1.003 Not Available [address] [address], [place], [address], 11/03/2024 23:21:53 11/03/1911/03/2024 DRUG MONIT OR, PANEL 1, SCREE N, URINE pH 6.6 4.5-9. 0 Not Available [address] [address], [place], [address], 11/03/2024 23:21:53 11/03/1911/03/2024 DRUG MONIT OR, PANEL 1, SCREE N, URINE oxidant NEGATI VE mcg/m L <200 Not Available [facility] [address] [address], [place], [address], 11/03/2024 23:21:53 11/03/1911/03/2024 DRUG MONIT ORING TEMPL ATE notes and comments This drug testi ng is for medic al treat ment only. Camilo sis was perfo rmed as non-f orens ic testi ng and these resul ts shoul d be used only by [facility] ders to rende r diagn osis or treat ment, or to monit or progr ess of medic al condi tions . Note A: The resul ts are presu mptiv e; based only on jose kendall, and they have not been confi rmed by a defin itive lakesha mcgowan. [facility] Provi ders needi ng Inter preta tion simba tance , pleas e conta ct us at 1.877 .40.R XTOX (1.87 7.407 .[phone] ) M-F, 8am to 10pm EST Not Available [address] [address] , [place], [address], 11/03/2024 23:21:53 11/03/1911/03/2024 CULTU RE, URINE , ROUTI NE culture, urine, routine SEE NOTE CULTU RE, URINE , ROUTI NE Micro Numbe r: [id number] Test Statu s: Final Speci men Sourc e: Urine Speci men Quali ty: Adequ ate Resul t: No Growt h Not Available [facility] - [address] [place], [address], 11/03/2024 23:21:54 11/03/19 25 11/07/2024 THINP REP TIS PAP (REFL ) HPV MRNA E6/E7 clinical information: normal Pregn ant Not Available [address], [address], 11/07/2024 18:47:29 11/03/19 25 11/07/2024 THINP REP TIS PAP (REFL ) HPV MRNA E6/E7 LMP: normal NONE GIVEN Not Available [address], [address], 11/07/2024 18:47:29 11/03/19 25 11/07/2024 THINP REP TIS PAP (REFL ) HPV MRNA E6/E7 prev. Pap: normal NONE GIVEN Not Available [address], [address], 11/07/2024 18:47:29 11/03/19 25 11/07/2024 THINP REP TIS PAP (REFL ) HPV MRNA E6/E7 prev. BX: normal NONE GIVEN Not Available [address], [address], 11/07/2024 18:47:29 11/03/19 25 11/07/2024 THINP REP TIS PAP (REFL ) HPV MRNA E6/E7 source: normal Cervi x, Endoc ervix Not Available [address], [address], 11/07/2024 18:47:29 11/03/19 25 11/07/2024 THINP REP TIS PAP (REFL ) HPV MRNA E6/E7 statement of adequacy: normal Satis facto ry for evalu ation . Endoc ervic al/tr ansfo rmati on zone compo nent absen t. Not Available [address], [address], 11/07/2024 18:47:29 11/03/19 25 11/07/2024 THINP REP TIS PAP (REFL ) HPV MRNA E6/E7 interpretati on/result: normal Cytol ogy Resul ts: Negat carrie for intra epith elial lesio n or malig aranza . Not Available [address] [address] [place], [address], 11/07/2024 18:47:29 11/03/1911/07/2024 THINP REP TIS PAP (REFL ) HPV MRNA E6/E7 infection: normal Funga l organ isms morph ologi aisha consi stent with Janie da spp. Not Available [address], [address], 11/07/2024 18:47:29 11/03/19 25 11/07/2024 THINP REP TIS PAP (REFL ) HPV MRNA E6/E7 comment: normal This Pap test has been evalu ated with compu ter simba britney techn ology . Not Available [address] [address] [place], [address], 11/07/2024 18:47:29 11/03/1911/07/2024 THINP REP TIS PAP (REFL ) HPV MRNA E6/E7 cytotechnolo gist: normal MEF, CT( CP) CT scree lauryn locat ion: [address] [address] [place] [address] Not Available [address] [address] [place], [address], 11/07/2024 18:47:29 11/03/19 25 11/07/2024 THINP REP TIS PAP (REFL ) HPV MRNA E6/E7 comment EXPLA NATOR Y NOTE: The Pap is a scree lauryn test for cervi sury cance r. It is not a diagn ostic test and is subje ct to false negat carrie and false posit carrie resul ts. It is most relia ble when a satis facto ry sampl e, regul juliano obtai natalya, is submi tted with relev ant clini sury findi ngs and histo ry, and when the Pap resul t is evalu ated along with histo heriberto and curre nt clini sury infor antonino n. Not Available [facility] [address] [address], [place], [address], 11/07/2024 18:47:29 11/03/1911/02/2024 CT + NG + TV, DNA, urine /swab CT + NG + TV, DNA, urine/swab negati ve Not Available [facility] ([facility]) [address] [place], [address], 11/02/2024 10:59:56 01/21/2001/20/2025 CBC WBC 7.7 x10 4.0-10 .5 Not Available [facility] [address] [facility] [address], [place], [address], 01/20/2025 13:18:07 01/21/2001/20/2025 CBC RBC 3.41 x10 3.50-5 .50 low Not Available [facility] [address] [facility] [address], [place], [address], 01/20/2025 13:18:07 01/21/2001/20/2025 CBC HGB 10.9 g/dL 12.0-1 6.0 low Not Available [facility] [address] [facility] [address], [place], [address], 01/20/2025 13:18:07 01/21/2001/20/2025 CBC HCT 32.5 % 37.0-4 7.0 low Not Available [facility] [address] [facility] [address], [address], 01/20/2025 13:18:07 01/21/2001/20/2025 CBC MCV 95.2 fL 80.0-9 9.9 Not Available [facility] [address] [facility], [place], [address], 01/20/2025 13:18:07 01/21/2001/20/2025 CBC MCH 31.9 pg 27.0-3 2.0 Not Available [facility] [address] [facility], [place], [address], 01/20/2025 13:18:07 01/21/2001/20/2025 CBC MCHC 33.4 g/dL 32.0-3 6.0 Not Available [facility] [address] [facility] [address], [place], [address], 01/20/2025 13:18:07 01/21/2001/20/2025 CBC RDW 15.4 % 11.5-1 4.5 high Not Available [facility] [address] [facility] [address], [place], [address], 01/20/2025 13:18:07 01/21/2001/20/2025 CBC plt 240.5 x10 140.0- 451.0 Not Available [facility] [address] [facility] [address], [place], [address], 01/20/2025 13:18:07 01/21/2001/20/2025 CBC lymphocytes % 14.6 % 20.0-5 0.0 low Not Available [facility] [address] [facility], [place], [address], 01/20/2025 13:18:07 01/21/2001/20/2025 CBC granulcytes % 81.0 % 30.0-7 0.0 high Not Available [facility] [address] [facility], [place], [address], 01/20/2025 13:18:07 01/21/2001/20/2025 CBC monocytes % 3.6 % 2.0-16 .0 Not Available [facility] [address] [facility], [place], [address], 01/20/2025 13:18:07 01/21/2001/20/2025 CBC granulcytes# 6.2 x10 Not Renetta ilable [facility] [address] [facility], [place], [address], 01/20/2025 13:18:07 01/21/2001/20/2025 CBC lymphocytes # 1.1 x10 Not Available [facility] [address] [facility], [place], [address], 01/20/2025 13:18:07 01/21/20 25 01/20/2025 CBC monocytes # 0.3 x10 Not Avai lable [facility] [address] [facility], [place], [address], 01/20/2025 13:18:07 01/21/2001/20/2025 HBA1C hemaglobin A1C 4.2 4.2-6. 5 Not Available [facility] [address] [facility], [place], [address], 01/20/2025 13:18:19 01/21/2001/20/2025 GLUCO SE SCREE N glucose screen 199.0 mg/dL Not Available [facility] [address] [facility], [place], [address], 01/20/2025 14:42:21 02/16/2002/15/2025 CMP (FEMA LE) glucose 100.0 mg/dL 60.0-9 9.0 high Not Available [facility] [address] [facility], [place], [address], 02/15/2025 12:46:12 02/16/2002/15/2025 CMP (FEMA LE) BUN (blood urea nitrogen) 5.0 mg/dL 10.0-2 6.0 low Not Available [facility] [address] [facility], [place], [address], 02/15/2025 12:46:12 02/16/20 25 02/15/2025 CMP (FEMA LE) creatinine (serum) 0.5 mg/dL 0.4-1. 5 Not Available [facility] [address] [facility], [place], [address], 02/15/2025 12:46:12 02/16/2002/15/2025 CMP (FEMA LE) BUN/creatini ne ratio 10.00 ratio Not Available [facility] [address] [facility], [place], [address], 02/15/2025 12:46:12 02/16/2002/15/2025 CMP (FEMA LE) eGFR calculated 147.6 Not Available [facility] [address] [facility], [place], [address], 02/15/2025 12:46:12 02/16/20 25 02/15/2025 CMP (FEMA LE) total protein 6.8 g/dL 6.0-8. 5 Not Available [facility] [address] [facility], [place], [address], 02/15/2025 12:46:12 02/16/2002/15/2025 CMP (FEMA LE) total bilirubin 0.9 mg/dL 0.2-1. 3 Not Available [facility] [address] [facility], [place], [address], 02/15/2025 12:46:12 02/16/20 25 02/15/2025 CMP (FEMA LE) albumin 3.6 g/dL 3.5-5. 5 Not Available [facility] [address] [facility] [address], [place], [address], 02/15/2025 12:46:12 02/16/2002/15/2025 CMP (FEMA LE) globulin 3.2 calc Not Available [facility] [address] [facility] [address], [place], [address], 02/15/2025 12:46:12 02/16/2002/15/2025 CMP (FEMA LE) AST (SGOT) 25.0 U/L 0.0-46 .0 Not Available [facility] [place] [facility] [address] [facility] [address] [address], [place], [address], 02/15/2025 12:46:12 02/16/20 25 02/15/2025 CMP (FEMA LE) altv (SGPT) 14.0 U/L 13.0-6 9.0 normal Not Available [facility] [place] [facility] [address] [facility] [address] [address], [place], [address], 02/15/2025 12:46:12 02/16/2002/15/2025 CMP (FEMA LE) A/G ratio 1.1 ratio Not Available [facility] [address] [facility], [place], [place], [address], 02/15/2025 12:46:12 02/16/2002/15/2025 CMP (FEMA LE) ALP phos 84.0 U/L 30.0-1 40.0 normal Not Available [facility] [address] [facility] [address], [place], [address], 02/15/2025 12:46:12 02/16/20 25 02/15/2025 CMP (FEMA LE) calcium 9.2 mg/dL 8.4-10 .5 Not Available [facility] [address] [facility] [address], [place], [address], 02/15/2025 12:46:12 02/16/2002/15/2025 CMP (FEMA LE) sodium 133.0 mmol/ L 136.0- 145.0 low Not Available [facility] [address] [facility] [address], [place], [address], 02/15/2025 12:46:12 02/16/2002/15/2025 CMP (FEMA LE) potassium 4.2 mmol/ L 3.5-5. 1 Not Available [facility] [address] [facility], [place], [address], 02/15/2025 12:46:12 02/16/2002/15/2025 CMP (FEMA LE) chloride 105.0 mmol/ L 98.0-1 10.0 normal Not Available [facility] [address] [facility] [address], [place], [address], 02/15/2025 12:46:12 02/16/2002/15/2025 CMP (FEMA LE) C02 23.0 mmol/ L 22.0-3 1.0 Not Available [facility] [address] [facility] [address], [place], [address], 02/15/2025 12:46:12 02/16/2002/15/2025 CMP (FEMA LE) anion gap 5.0 calc Not Available [facility] [address] [facility] [address], [place], [address], 02/15/2025 12:46:12 02/16/2002/15/2025 CMP (FEMA LE) osmolality 272.7 calc Not Available [facility] [address] [facility] [address], [place], [address], 02/15/2025 12:46:12 09/29/19 25 09/22/2024 US, obste tric, 1st trime ster No observ ation record ed. [facility] [address] [place], [address], 09/29/2024 09:27:23 01/01/20 25 12/28/2024 imagi ng/di agnos tic resul t No observ ation record ed. [facility] [address] [place], [address], 01/03/2025 06:49:20 02/21/2002/16/2025 US, obste tric, follo w-up No observ ation record ed. [email or web address] [facility] [address] [place], [address], 02/20/2025 11:18:16 04/03/20 25 03/28/2025 , obste tric, follo w-up No observ ation record ed. [email or web address] [facility] [address] [place], [address], 04/03/2025 13:18:29 Result Notes None recorded. Problems Name Problem SNOMED Code Status Onset Date Resolution Date Notes Provider Name and Address Organization Details Recorded Time Transfusion Completed 201109/22/2024 Transfu kevin; At 5-6 years of age; 012 9:50AM by Mini Roger RN, Office Visit; Promote d; acuity set as *; SAUL Miranda [facility] 14:28:45 23968368 Active 2024 SAUL NOVAK null [facility] 14:28:34 Gestational diabetes mellitus 18575689 Active 2024 Calvin Maldonado MD [address] [place] [address], [phone], [facility] 11:00:57 Heartburn 81363237 Active 2024 Calvin Maldonado MD [address] [place], [address], [facility] 11:07:15 Spasm 54061364 Active 2024 Calvin Maldonado MD [address] [place], [address], [facility] 10:33:23 Problem Notes None recorded. Procedures Surgical History Date Name Laterality Status Provider Name and Address Organization Details Recorded Time 11/03/19 25 Date of Last Pap Smear completed Formerly named [facility] 11/29/2024 12:06:07 11/03/19 25 sampling of cervix for Papanicolaou smear completed Formerly named [facility] 11/29/2024 12:06:50 07/15/19 21 section completed Formerly named [facility] 09/22/2024 14:36:06 transfusion of blood product completed Formerly named [facility] 09/22/2024 14:36:27 Imaging Results None recorded. Procedure Notes None recorded. Medical Equipment None Reported. Allergies No known drug allergies Medications Name Sig Start Date Stop Date Status Note LastModified by Organization Details LastModified Time amoxicill in 500 mg capsule TAKE 1 CAPSULE BY MOUTH EVERY 6 HOURS UNTIL GONE 09/22 completed Not Available Not Available Not Available phentermi ne 37.5 mg tablet TAKE ONE TABLET BY MOUTH ONCE DAILY 09/22 completed Not Available Not Available Not Available amoxicill in 875 mg tablet TAKE 1 TABLET BY MOUTH TWICE DAILY UNTIL GONE 09/22 completed Not Available Not Available Not Available famotidin e 20 mg tablet TAKE 1 TABLET BY MOUTH TWICE DAILY active Not Available Not Available No t Available triamcino lone acetonide 0.1 % topical ointment APPLY A THIN LAYER OF OINTMENT TOPICALL Y TO AFFECTED AREA TWICE DAILY 09/22 completed Not Available Not Available Not Available misoprost ol 200 mcg tablet INSERT 4 TABLETS INTO THE VAGINA ONCE. LIE FLAT FOR ONE HOUR AFTER PLACEMEN T 09/22 completed Not Available Not Available Not Available ibuprofen 600 mg tablet TAKE 1 TABLET BY MOUTH EVERY 6 TO 8 HOURS NEEDED 09/22 completed Not Available Not Available Not Available Tri-Sprin tyler (28) 0.18 mg(7)/0.2 15 mg(7)/0.2 5 mg(7)-0.0 35 mg tablet TAKE 1 TABLET BY MOUTH ONCE DAILY 09/16 completed Not Available Not Available Not Available active Not Available Not Avai lable Not Available Ortho Tri-Cycle n (28) 09/18 completed 0; Recorded 12/30/19 12 8:14AM by Jorje Arredondo CMA, Office Visit; Not Available Not Available Not Available PreNexa daily 09/18 completed VO LB/dc; Recorded 07/14/19 12 10:09AM by Mini Roger RN, Office Visit; Refill Quantity : 30; Capsule; Not Available Not Available Not Available TRUEplus Lancets 28 gauge TEST BLOOD SUGAR 1 HOUR POSTPRAN DIAL TIMES 3 AND FASTING active Not Available Not Available No t Available True Metrix Glucose Test Strip USE 1 STRIP TO CHECK GLUCOSE 4 TIMES DAILY active Not Available Not Available No t Available True Metrix Glucose Meter TEST BLOOD SUGAR 1 HOUR POSTPRAN DIAL TIMES 3 AND FASTING active Not Available Not Available No t Available Vitals None Recorded Social History Question Answer Notes LastModified by Organizat ion Details LastModified Time Tobacco Smoking Status Never Smoker SAUL jerome [facility], [facility] 09/22/2024 14:35:01 Are You Blind Or Do You Have Difficulty Seeing? No Information not available 09/22/2024 Are You Deaf Or Do You Have Serious Difficulty Hearing? No Information not available 09/22/2024 What Was The Date Of Your Most Recent Tobacco Screening? 11/02/2024 Information not available 11/02/2024 What Is Your Relationship Status? Information not available 09/22/2024 Are You Sexually Active? Yes Information not available 09/22/2024 Do You Have Difficulty Walking Or Climbing Stairs? No Information not available 09/22/2024 Sex: Unknown Functional Status Question Answer Note LastModified by Organizat ion Details LastModified Time Do you use any illicit or recreational drugs? No [email or web address] Information not available 09/16/2022 Do you or have you ever used any other forms of tobacco or nicotine? No [email or web address] Information not available 09/16/2022 What is your level of alcohol consumption? Occasional Information not available 09/16/2022 Are you currently employed? No Information not available 09/22/2024 Are you able to care for yourself independently? Yes Information not available 09/22/2024 Mental Status Question Answer Note LastModified by Organization D etails LastModified Time Do you have difficulty concentrating, remembering or making decisions? No Information no t available 09/22/2024 Family History Relationship Description Onset Age of this Age Resolved Age Notes LastModified by Organization Details LastModified Time Father Essential hypertension [email or web address] Not available 09/22/2024 14:34:16 Maternal Grandfather Diabetes mellitus [email or web address] Not available 14:34:29 Medical History Condition Response Coronary Artery Disease N Other N Gout N Kidney Stones N Blood Diseases N Hyperthyroidism N Breast Cancer N Blood Transfusion Y Depression N Hypothyroidism N Lung Disease N COPD N Developmental or Behavioral Disorders N Defects or Inherited Disease N Breast Problem N Difficulty Swallowing N Anesthesia Complications N Anxiety Disorder N Meniere's disease N Muscle, Joint, or Bone Problems N Vision or Eye Problems N Arthritis N Infertility N Polyps N Cancer N Stroke N Varicosities N Endometriosis N Bladder or Kidney Problems N High Cholesterol N Liver Disease N Fibromyalgia N Headaches N Kidney Disease N Allergies/Hayfever N Heart Problems N Ear or Hearing Problems N Fatigue N Hospitalizations N Thyroid Problems N GI Problems N ADD/ADHD N Skin Problems N Eating Disorder N Anemia N Constipation N Mental Illness N Ovarian Cancer N Diabetes N Bedwetting N Seizures/Epilepsy N Tuberculosis N Pain N Eczema N Diverticulitis N Abuse/Domestic Violence N Asthma N Reflux/GERD N Hepatitis N Heart Disease N Pulmonary Embolism N Pre-Eclampsia N Hypertension N Chronic Ear Infections N Osteoporosis N Chicken Pox Y Autism Spectrum Disorder (ASD) N Thrombophilias N Gynecological History Statement/Question Response Abnormal Pap N Date of Last Pap Smear 11/02/2024 Obstetrics History GPAL:G 7 P 3 0 3 3 Type Value Full Term 3 Spontaneous 3 Living 3 Total 7 Immunizations Vaccine Type Date Status Note Provider Nam e and Address Organization Details Recorded Time Influenza, split virus, trivalent, preservative 0 completed Not Available [facility] 12/06/2022 02:28:54 Past Encounters Encounter ID Performer Location Encounter Start Date Encounter Closed Date Diagnosis/Indication Diagnosis SNOMED-CT Code Diagnosis ICD10 Code Diagnosis IMO Codes Diagnosis Note [id number] Calvin Maldonado MD [facility] ([facility]) [address] [place] [phone] 01/24/2025 09:45:51 01/24/2025 11:09:12 88940990 Z34.90 Multigravida 288460442 Z 34.82 42904465 Gestationa l diabetes mellitus 01472046 O24.410 73561382 Heartburn 13376538 R12 24208 [id number] Calvin Maldonado MD [facility] ([facility]) [address] [place] [phone] 02/15/2025 09:47:31 02/15/2025 11:37:45 Gestational diabetes mellitus 86239200 O24.410 [id number] - Maintain current dietary and glucose monitoring practices. - No immediate need for medication ; monitor potential increase in glucose levels. 90343844 Z34.9 0 Gestation period, 28 weeks 02885115 Z3A.28 5770369 Spasm 99605883 M62.838 40510 - Increase dietary magnesium and hydration as preventive measures. - Reevaluate if spasms continue or intensify, considerin g electrolyt e testing. [id number] Calvin Maldonado MD [facility] ([facility]) [address] [place] [phone] 02/16/2025 11:57:30 02/17/2025 10:02:55 Health Concerns Section Related Observation LastModified by Organization Detai ls LastModified Time None Recorded Concern Status LastModified by Organization Details LastModified Time None Recorded Payers Encounter Date Sequence Insurance Name Policy Number Policy Walsh Covered Member ID Walsh Member ID Guarantor Name 02/16/2025 1 CHELSY [id number] Tiffany Solomon [id number] Tiffany Solomon OBGyn Episode Ob Episode Information Episode Created Date Number of Fetuses Patient Bloodtype Patient rh Status Prepregnancy Weight lbs Domestic Partner Domestic Partner Phone Father Name [employer] Man Status 09/23/19 25 1 O Positive Wallace OPEN Fetus Data First Name Last Name Admitted to NICU Weight (g) Sex Living Outcome Pediatric Complications Fetus ID Race Codes Race Delivery Type [id number] Luz Calculation Initial Luz Date Initial Exam Date Initial Exam Provider Initial Ultrasound Date Last Menstrual Period Date Ultra Sound Weeks Gestation 09/22/2024 09/22/2024 07/20/2024 7 Eighteen To Twenty Week Luz Update Ultra Sound Date Fundal Height At Umbil Quickening Date Ultra Sound Latest Weeks Gestation Final Luz Confirmed By Final Luz Confirmed Date Final Luz Date Ultra Sound Latest Days Gestation 0 05/10/20 25 0 Pre-tye Flowsheet Flowsheet Date 09/22/2024 Herrera Score Blood Edema Fundus Height Fundus Units Glucose Ketones Leukocytes Nitrite Labor Signs Protein Cervic Dilation Cervic Effacement Cervic Station Type Weight in lbs Pre/Post Dialysis Refused Weight 209.170359593735 BP Diastolic BP Location Tested BP Systolic BP Type 80 140 sitting Fetus Heart Rate Present Fetus Movement Comments Flowsheet Date 09/22/2024 Herrera Score Blood Edema Fundus Height Fundus Units Glucose Ketones Leukocytes Nitrite Labor Signs Protein Cervic Dilation Cervic Effacement Cervic Station Type Weight in lbs Pre/Post Dialysis Refused BP Diastolic BP Location Tested BP Systolic BP Type Fetus Heart Rate Present Fetus Movement Comments u/s on 09/22/24, LUZ 05/10/25 , EGA 7.1, FHR 142 Flowsheet Date 11/02/2024 Herrera Score Blood Edema Fundus Height Fundus Units Glucose Ketones Leukocytes Nitrite Labor Signs Protein Cervic Dilation Cervic Effacement Cervic Station Type Weight in lbs Pre/Post Dialysis Refused Weight 208.214190396772 BP Diastolic BP Location Tested BP Systolic BP Type 76 136 sitting Fetus Heart Rate Present A 164 Present Fetus Movement Comments NOB Flowsheet Date 11/29/2024 Herrera Score Blood Edema Fundus Height Fundus Units Glucose Ketones Leukocytes Nitrite Labor Signs Protein Cervic Dilation Cervic Effacement Cervic Station none none Negative neg Type Weight in lbs Pre/Post Dialysis Refused Weight 205.030454307566 BP Diastolic BP Location Tested BP Systolic BP Type 72 132 sitting Fetus Heart Rate Present A 154 Present Fetus Movement Comments headaches Flowsheet Date 11/29/2024 Herrera Score Blood Edema Fundus Height Fundus Units Glucose Ketones Leukocytes Nitrite Labor Signs Protein Cervic Dilation Cervic Effacement Cervic Station Type Weight in lbs Pre/Post Dialysis Refused BP Diastolic BP Location Tested BP Systolic BP Type Fetus Heart Rate Present Fetus Movement Comments Flowsheet Date 12/28/2024 Herrera Score Blood Edema Fundus Height Fundus Units Glucose Ketones Leukocytes Nitrite Labor Signs Protein Cervic Dilation Cervic Effacement Cervic Station Type Weight in lbs Pre/Post Dialysis Refused BP Diastolic BP Location Tested BP Systolic BP Type Fetus Heart Rate Present Fetus Movement Comments Flowsheet Date 12/28/2024 Herrera Score Blood Edema Fundus Height Fundus Units Glucose Ketones Leukocytes Nitrite Labor Signs Protein Cervic Dilation Cervic Effacement Cervic Station 22 cm none none Negative neg Type Weight in lbs Pre/Post Dialysis Refused Weight 204.472822702314 BP Diastolic BP Location Tested BP Systolic BP Type 68 122 sitting Fetus Heart Rate Present A 152 Present Fetus Movement A Yes Comments feeling well Flowsheet Date 01/24/2025 Herrera Score Blood Edema Fundus Height Fundus Units Glucose Ketones Leukocytes Nitrite Labor Signs Protein Cervic Dilation Cervic Effacement Cervic Station 28 cm none none Negative neg Type Weight in lbs Pre/Post Dialysis Refused Weight 205.679124347579 BP Diastolic BP Location Tested BP Systolic BP Type 70 118 sitting Fetus Heart Rate Present A 144 Present Fetus Movement Comments occ SOB Flowsheet Date 02/15/2025 Herrera Score Blood Edema Fundus Height Fundus Units Glucose Ketones Leukocytes Nitrite Labor Signs Protein Cervic Dilation Cervic Effacement Cervic Station 32 cm none 1+ trace Type Weight in lbs Pre/Post Dialysis Refused Weight 207.391541493034 BP Diastolic BP Location Tested BP Systolic BP Type 62 110 Fetus Heart Rate Present A 144 Present Fetus Movement A Yes Comments BS readings:90-129. occasion al heartburn Flowsheet Date 02/16/2025 Herrera Score Blood Edema Fundus Height Fundus Units Glucose Ketones Leukocytes Nitrite Labor Signs Protein Cervic Dilation Cervic Effacement Cervic Station Type Weight in lbs Pre/Post Dialysis Refused BP Diastolic BP Location Tested BP Systolic BP Type Fetus Heart Rate Present Fetus Movement Comments u/s on 02/16/25, Breech, FARIDA 10.85, LUZ 05/01/25, EGA 29.3, estimated wt: 2#13oz Flowsheet Date 03/01/2025 Herrera Score Blood Edema Fundus Height Fundus Units Glucose Ketones Leukocytes Nitrite Labor Signs Protein Cervic Dilation Cervic Effacement Cervic Station none 1+ trace Type Weight in lbs Pre/Post Dialysis Refused Weight 206.919845323535 BP Diastolic BP Location Tested BP Systolic BP Type 70 L arm 124 sitting Fetus Heart Rate Present A 148 Present Fetus Movement A Yes Comments bs readings: 96-113, heartbu rn after meals Flowsheet Date 03/14/2025 Herrera Score Blood Edema Fundus Height Fundus Units Glucose Ketones Leukocytes Nitrite Labor Signs Protein Cervic Dilation Cervic Effacement Cervic Station 33 cm none 1+ trace Type Weight in lbs Pre/Post Dialysis Refused Weight 208.32898498604 BP Diastolic BP Location Tested BP Systolic BP Type 68 116 Fetus Heart Rate Present A 140 Present Fetus Movement A Yes Comments intermittent sciatic pain, i ntermittent heartburnBS readings: 95-115 Flowsheet Date 03/28/2025 Herrera Score Blood Edema Fundus Height Fundus Units Glucose Ketones Leukocytes Nitrite Labor Signs Protein Cervic Dilation Cervic Effacement Cervic Station Type Weight in lbs Pre/Post Dialysis Refused BP Diastolic BP Location Tested BP Systolic BP Type Fetus Heart Rate Present Fetus Movement Comments u/s on 03/28/25, LUZ 05/03/ 5, EGA 34.6, vertex, FARIDA normal Flowsheet Date 03/28/2025 Herrera Score Blood Edema Fundus Height Fundus Units Glucose Ketones Leukocytes Nitrite Labor Signs Protein Cervic Dilation Cervic Effacement Cervic Station 34 cm 1+ 1+ trace Type Weight in lbs Pre/Post Dialysis Refused Weight 209.957035896925 BP Diastolic BP Location Tested BP Systolic BP Type 68 124 sitting Fetus Heart Rate Present A 144 Present Fetus Movement A Yes Comments bs readings: 97/117. Occasio nal vaginal pressure, heartburn Flowsheet Date 04/12/2025 Herrera Score Blood Edema Fundus Height Fundus Units Glucose Ketones Leukocytes Nitrite Labor Signs Protein Cervic Dilation Cervic Effacement Cervic Station 36 cm none 1+ Negative trace Type Weight in lbs Pre/Post Dialysis Refused Weight 213.53628984648 BP Diastolic BP Location Tested BP Systolic BP Type 74 130 sitting Fetus Heart Rate Present A 136 Present Fetus Movement A Yes Comments mild cramping, nausea, heart burn, occ vaginal pressure, low back pain, group B today BS fasting 91-98/ 1 hour after meals 105-109 Flowsheet Date 04/19/2025 Herrera Score Blood Edema Fundus Height Fundus Units Glucose Ketones Leukocytes Nitrite Labor Signs Protein Cervic Dilation Cervic Effacement Cervic Station 37 cm none trace Negative trace Type Weight in lbs Pre/Post Dialysis Refused Weight 218.767532644213 BP Diastolic BP Location Tested BP Systolic BP Type 74 120 sitting Fetus Heart Rate Present A 134 Present Fetus Movement A Yes Comments headache, sob, edema feet, h eartburn, occ vaginal pressure, pelvic pain, fasting BS-80s, after meals 103-115 Flowsheet Date 04/19/2025 Herrera Score Blood Edema Fundus Height Fundus Units Glucose Ketones Leukocytes Nitrite Labor Signs Protein Cervic Dilation Cervic Effacement Cervic Station Type Weight in lbs Pre/Post Dialysis Refused BP Diastolic BP Location Tested BP Systolic BP Type Fetus Heart Rate Present Fetus Movement Comments u/s on 04/19/25, BPP 8/8, AF I 13.97, Flowsheet Date 04/20/2025 Herrera Score Blood Edema Fundus Height Fundus Units Glucose Ketones Leukocytes Nitrite Labor Signs Protein Cervic Dilation Cervic Effacement Cervic Station Type Weight in lbs Pre/Post Dialysis Refused BP Diastolic BP Location Tested BP Systolic BP Type Fetus Heart Rate Present Fetus Movement Comments Group B strep Negative. OB r ecords sent Flowsheet Date 04/26/2025 Herrera Score Blood Edema Fundus Height Fundus Units Glucose Ketones Leukocytes Nitrite Labor Signs Protein Cervic Dilation Cervic Effacement Cervic Station 38 cm none trace Negative trace Type Weight in lbs Pre/Post Dialysis Refused Weight 214.661396780543 BP Diastolic BP Location Tested BP Systolic BP Type 84 140 sitting Fetus Heart Rate Present A 142 Present Fetus Movement A Yes Comments headache for 4 days, edema f eet/legs, heartburn, vaginal pressure, upper back pain, fasting sugars 80s, after meals 107-115 Flowsheet Date 04/26/2025 Herrera Score Blood Edema Fundus Height Fundus Units Glucose Ketones Leukocytes Nitrite Labor Signs Protein Cervic Dilation Cervic Effacement Cervic Station Type Weight in lbs Pre/Post Dialysis Refused BP Diastolic BP Location Tested BP Systolic BP Type Fetus Heart Rate Present Fetus Movement Comments Menstrual History Last Menstrual Date Menses Monthly On Bcp Conception Prior Menses Frequency Hcg Plus Date Menarche Onset Age 0307/20/2024 Genetic Screening And Infection History Question Response Note Patient's Age Will Be 35 Years Or Older At Estim ated Date of Delivery true Thalassemia (Slovak, Polish, Mediterranean, Or Background): MCV < 80 false Neural Tube Defect (Meningomyelocele, Spina Bifi da, Or Anencephaly) false Congenital Heart Defect false Down Syndrome false Wojciech-Sachs (eg, Congregational, Cajun, Finnish-[place]) f alse Enedelia Disease false Sickle Cell Disease Or Trait () false Hemophilia Or Other Blood Disorders false Muscular Dystrophy false Cystic Fibrosis false Giovanna's Chorea false Intellectual Disability/Autism false If Yes, Was Person Tested For Fragile X? false Other Inherited Genetic Or Chromosomal Disorder false Maternal Metabolic Disorder (eg, Type 1 Diabetes , PKU) false Patient Or Baby's Father Had A Child With Defects Not Listed Above false Medications (including Suppl ements, Vitamins, Herbs, OTC Drugs), Illicit/Recreational Drugs, Alcohol false If Yes, Agent(s) And Strength/Dosage false Any Other Genetic History false Live With Someone With TB Or Exposed To TB false Patient Or Partner Has History Of Genital Herpes false Rash Or Viral Illness Since Last Menstrual Perio d false History Of STD, Gonorrhea, Chlamydia, HPV, Syphi lis false Other Infection History false History of HIV false History of Hepatitis false Prior GBS-infected child false Hemoglobinopathy Or Carrier false Other Structural Defect false Recent Travel History Outside of Country false Mental Retardation/Autism false Delivery Information Delivery Date Delivery Type Labor Anesthesia Weeks Gestation Incision Type Labor Labor Length Hrs Delivered By Post Complications Tubal Sterilization Discharge Date Comments Discharge Information Feeding Method Contraceptive Method Maternal HG B and HCT Levels
--- OUTSIDE RECORDS SUMMARY | 2025-04-27 05:00 | XMS_ITS | Continuity of Care Document ---
Author Organization [facility]LC[facility], [facility] ([facility]) Address [address] [place] [address] Care Team Providers Care Partner Marketing Manager Name Role Phone MARGE MARIE Primary Care [...] 121.0 mg/dL 60.0-9 9.0 high Not Available [facility] [address] [facility] [address], [place], [address], 11/02/2024 12:02:10 11/03/19 25 11/03/2024 HIV 1/2 ANTIG EN/AN TIBOD Y,FOU RTH GENER ATION W/RFL HIV final interpretati on HIV Negat carrie HIV-1 antig en and HIV-1 /HIV- 2 antib odies were not detec britney. There is no labor atory evide nce of HIV infec tion. Not Available [address], [address], 11/03/2024 23:21:44 11/03/1911/03/2024 HIV 1/2 ANTIG EN/AN TIBOD Y,FOU RTH GENER ATION W/RFL HIV Ag/Ab, 4TH gen NON-RE ACTIVE non-re active normal Not Available [address], [address], 11/03/2024 23:21:44 11/03/1911/03/2024 URINA LYSIS , COMPL ETE color YELLOW yellow normal Not Available [address], [address], 11/03/2024 23:21:45 11/03/19 25 11/03/2024 URINA LYSIS , COMPL ETE appearance CLEAR clear normal Not Available [address], [address], 11/03/2024 23:21:45 11/03/19 25 11/03/2024 URINA LYSIS , COMPL ETE specific gravity 1.002 1.001- 1.035 normal Not Available [address], [address], 11/03/2024 23:21:45 11/03/1911/03/2024 URINA LYSIS , COMPL ETE pH 6.5 5.0-8. 0 normal Not Available [address], [address], 11/03/2024 23:21:45 11/03/19 25 11/03/2024 URINA LYSIS , COMPL ETE glucose NEGATI VE negati ve normal Not Available [address], [address], 11/03/2024 23:21:45 11/03/19 25 11/03/2024 URINA LYSIS , COMPL ETE bilirubin NEGATI VE negati ve normal Not Available [address], [address], 11/03/2024 23:21:45 11/03/19 25 11/03/2024 URINA LYSIS , COMPL ETE ketones NEGATI VE negati ve normal Not Available [address], [address], 11/03/2024 23:21:45 11/03/19 25 11/03/2024 URINA LYSIS , COMPL ETE occult blood NEGATI VE negati ve normal Not Available [address], [address], 11/03/2024 23:21:45 11/03/19 25 11/03/2024 URINA LYSIS , COMPL ETE protein NEGATI VE negati ve normal Not Available [address], [address], 11/03/2024 23:21:45 11/03/19 25 11/03/2024 URINA LYSIS , COMPL ETE nitrite NEGATI VE negati ve normal Not Available [address], [address], 11/03/2024 23:21:45 11/03/19 25 11/03/2024 URINA LYSIS , COMPL ETE leukocyte esterase NEGATI VE negati ve normal Not Available [address], [address], 11/03/2024 23:21:45 11/03/19 25 11/03/2024 URINA LYSIS , COMPL ETE WBC NONE SEEN /hpf < or = 5 normal Not Available [address], [address], 11/03/2024 23:21:45 11/03/19 25 11/03/2024 URINA LYSIS , COMPL ETE RBC NONE SEEN /hpf < or = 2 normal Not Available [facility] [address], [address], 11/03/2024 23:21:45 11/03/1911/03/2024 URINA LYSIS , COMPL ETE squamous epithelial cells NONE SEEN /hpf < or = 5 normal Not Available [address], [address], 11/03/2024 23:21:45 11/03/1911/03/2024 URINA LYSIS , COMPL ETE bacteria NONE SEEN /hpf none seen normal Not Available [facility] [address], [address], 11/03/2024 23:21:45 11/03/1911/03/2024 URINA LYSIS , COMPL ETE hyaline cast NONE SEEN /lpf none seen normal Not Available [address], [address], 11/03/2024 23:21:45 11/03/1911/03/2024 URINA LYSIS , COMPL ETE note This urine was camilo zed for the prese nce of WBC, RBC, bacte glenys, casts , and other forme d eleme nts. Only those eleme nts seen were repor britney. Not Available [address], [address], 11/03/2024 23:21:45 11/03/1911/03/2024 CBC (INCL UDES DIFF/ PLT) white blood cell count 8.3 thous and/u L 3.8-10 .8 normal Not Available [address], [address], 11/03/2024 23:21:47 11/03/1911/03/2024 CBC (INCL UDES DIFF/ PLT) red blood cell count 3.94 nancy on/uL 3.80-5 .10 normal Not Available [address], [address], 11/03/2024 23:21:47 11/03/1911/03/2024 CBC (INCL UDES DIFF/ PLT) hemoglobin 12.6 g/dL 11.7-1 5.5 normal Not Available [address], [address], 11/03/2024 23:21:47 11/03/1911/03/2024 CBC (INCL UDES DIFF/ PLT) hematocrit 37.7 % 35.0-4 5.0 normal Not Available [facility] [address], [address], 11/03/2024 23:21:47 11/03/1911/03/2024 CBC (INCL UDES DIFF/ PLT) MCV 95.7 fL 80.0-1 00.0 normal Not Available [address], [address], 11/03/2024 23:21:47 11/03/1911/03/2024 CBC (INCL UDES DIFF/ PLT) MCH 32.0 pg 27.0-3 3.0 normal Not Available [address], [address], 11/03/2024 23:21:47 11/03/1911/03/2024 CBC (INCL UDES DIFF/ [...] nt's clini sury condi tion. Not Available [address], [address], 11/03/2024 23:21:47 11/03/1911/03/2024 CBC (INCL UDES DIFF/ PLT) RDW 13.6 % 11.0-1 5.0 normal Not Available [address], [address], 11/03/2024 23:21:47 11/03/1911/03/2024 CBC (INCL UDES DIFF/ PLT) platelet count 259 thous and/u L 140-40 0 normal Not Available [address], [address], 11/03/2024 23:21:47 11/03/1911/03/2024 CBC (INCL UDES DIFF/ PLT) MPV 10.1 fL 7.5-12 .5 normal Not Available [address], [address], 11/03/2024 23:21:47 11/03/19 25 11/03/2024 CBC (INCL UDES DIFF/ PLT) absolute neutrophils 6524 cells /uL 1500-7 800 normal Not Available [address], [address], 11/03/2024 23:21:47 11/03/19 25 11/03/2024 CBC (INCL UDES DIFF/ PLT) absolute lymphocytes 1361 cells /uL 850-39 00 normal Not Available [address], [address], 11/03/2024 23:21:47 11/03/1911/03/2024 CBC (INCL UDES DIFF/ PLT) absolute monocytes 332 cells /uL 200-95 0 normal Not Available [address], [address], 11/03/2024 23:21:47 11/03/19 25 11/03/2024 CBC (INCL UDES DIFF/ PLT) absolute eosinophils 50 cells /uL 15-500 normal Not Available [address], [address], 11/03/2024 23:21:47 11/03/1911/03/2024 CBC (INCL UDES DIFF/ PLT) absolute basophils 33 cells /uL 0-200 normal Not Available [address], [address], 11/03/2024 23:21:47 11/03/1911/03/2024 CBC (INCL UDES DIFF/ PLT) neutrophils 78.6 % normal Not Available [address], [address], 11/03/2024 23:21:47 11/03/1911/03/2024 CBC (INCL UDES DIFF/ PLT) lymphocytes 16.4 % normal Not Available [address], [address], 11/03/2024 23:21:47 11/03/1911/03/2024 CBC (INCL UDES DIFF/ PLT) monocytes 4.0 % normal Not Available [address], [address], 11/03/2024 23:21:47 11/03/1911/03/2024 CBC (INCL UDES DIFF/ PLT) eosinophils 0.6 % normal Not Available [address], [address], 11/03/2024 23:21:47 11/03/1911/03/2024 CBC (INCL UDES DIFF/ PLT) basophils 0.4 % normal Not Available [address], [address], 11/03/2024 23:21:47 11/03/1911/03/2024 HEPAT ITIS B SURFA CE ANTIG EN W/REF L CONFI RM hepatitis B surface antigen NON-RE ACTIVE non-re active normal For addit ional infor mason mei e refer to http: //[facility].que stdia gnost ics.c om/fa q/FAQ 202 (This link is being provi ded for infor matio nal/ educa chitra l purpo ses only. ) Not Available [facility] [address] [address] [place], [address], 11/03/2024 23:21:47 11/03/1911/03/2024 HEPAT ITIS C AB [...] a test for HCV RNA (test code 74489 ) is sugge sted. For addit ional radhar antonino cuevas e refer to http: //[facility] n.kay stdia gnost ics.c om/fa q/FAQ 22v1 (This link is being provi ded for infor matio nal/ educa chitra l purpo ses only. ) Not Available [facility] [address] [address] [place], [address], 11/03/2024 23:21:48 11/03/1911/03/2024 RUBEL LA AB (IGG) [...] la virus . Not Available [facility] [address] [address] [place], [address], 11/03/2024 23:21:49 11/03/1911/03/2024 HEMOG LOBIN A1C hemoglobin A1C 4.7 % <5.7 normal For the purpo se of jose combs for the prese nce of diabe bharati: <5.7% Consi stent with the absen ce [...] Care in Diabe bharati(A DA). Not Available [facility] [address] [place], [address], 11/03/2024 23:21:50 11/03/1911/03/2024 RPR (DX) W/REF L TITER AND T. PALLI DUM AB, IA RPR (DX) w/refl titer and confirmatory testing NON-RE ACTIVE non-re active normal No labor atory evide nce of syphi lis. If recen t expos ure is suspe cted, submi t a new sampl e in 2-4 weeks . Not Available [facility] [address] [place], [address], 11/03/2024 23:21:51 11/03/1911/03/2024 ABO GROUP AND RH TYPE ABO group O Not Available [facility] [address] [place], [address], 11/03/2024 23:21:52 11/03/1911/03/2024 ABO GROUP AND RH TYPE Rh type RH(D) POSITI VE For addit ional infor mason mei e refer to http: //sp[facility] benson ics.c om/fa q/FAQ 111 (This link is being provi ded for infor antonino akhtar/ educchiquita parra purpo ses only. ) Not Available [facility] [address] [address] [address], [place], [address], 11/03/2024 23:21:52 11/03/1911/03/2024 DRUG MONIT OR, PANEL 1, SCREE N, URINE amphetamines NEGATI VE NG/mL <500 See Note A See Note A Not Available [facility] [address] [address] [address], [place], [address], 11/03/2024 23:21:53 11/03/1911/03/2024 DRUG MONIT OR, PANEL 1, SCREE N, URINE barbiturates NEGATI VE NG/mL <300 See Note A See Note A Not Available [facility] [address] [address] [address], [place], [address], 11/03/2024 23:21:53 11/03/1911/03/2024 DRUG MONIT OR, PANEL 1, SCREE N, URINE benzodiazepi kendell NEGATI VE NG/mL <100 See Note A See Note A Not Available [facility] [address] [address] [address], [place], [address], 11/03/2024 23:21:53 11/03/1911/03/2024 DRUG MONIT OR, PANEL 1, SCREE N, URINE cocaine metabolite NEGATI VE NG/mL <150 See Note A See Note A Not Available [facility] [address] [address] [address], [place], [address], 11/03/2024 23:21:53 11/03/19 25 11/03/2024 DRUG MONIT OR, PANEL 1, SCREE N, URINE marijuana metabolite NEGATI VE NG/mL <20 See Note A See Note A Not Available [facility] [address] [address] [address], [place], [address], 11/03/2024 23:21:53 11/03/1911/03/2024 DRUG MONIT OR, PANEL 1, SCREE N, URINE methadone metabolite NEGATI VE NG/mL <100 See Note A See Note A Not Available [address] [address] [address], [place], [address], 11/03/2024 23:21:53 11/03/1911/03/2024 DRUG MONIT OR, PANEL 1, SCREE N, URINE opiates NEGATI VE NG/mL <100 See Note A See Note A Not Available [facility] [address] [address] [address], [place], [address], 11/03/2024 23:21:53 11/03/1911/03/2024 DRUG MONIT OR, PANEL 1, SCREE N, URINE oxycodone NEGATI VE NG/mL <100 See Note A See Note A Not Available [address] [address] [address], [place], [address], 11/03/2024 23:21:53 11/03/1911/03/2024 DRUG MONIT OR, PANEL 1, SCREE N, URINE phencyclidin e NEGATI VE NG/mL <25 See Note A See Note A Not Available [facility] [address] [address] [address], [place], [address], 11/03/2024 23:21:53 11/03/1911/03/2024 DRUG MONIT OR, PANEL 1, SCREE N, URINE creatinine 8.6 mg/dL > or = 20.0 low Not Available [address] [address] [address], [place], [address], 11/03/2024 23:21:53 11/03/1911/03/2024 DRUG MONIT OR, PANEL 1, SCREE N, URINE specific gravity 1.003 > or = 1.003 Not Available [address] [address] [address], [place], [address], 11/03/2024 23:21:53 11/03/1911/03/2024 DRUG MONIT OR, PANEL 1, SCREE N, URINE pH 6.6 4.5-9. 0 Not Available [address] [address] [address], [place], [address], 11/03/2024 23:21:53 11/03/1911/03/2024 DRUG MONIT OR, PANEL 1, SCREE N, URINE oxidant NEGATI VE mcg/m L <200 Not Available [facility] [address] [address] [address], [place], [address], 11/03/2024 23:21:53 11/03/1911/03/2024 DRUG MONIT ORING TEMPL ATE notes and comments This drug testi ng is for medic al treat ment only. Camilo sis was perfo rmed as non-f orens ic testi ng and these resul ts shoul d be used only by [facility] prov[facility] ders to rende r diagn osis or treat ment, or to monit or progr ess of medic al condi tions . Note A: The resul ts are presu mptiv e; based only on jose kendall, and they have not been confi rmed by a defin itive lakesha mcgowan. [facility] Provi ders needi ng Inter preta tion simba tance , pleas e conta ct us at 1.877 .40.R XTOX (1.87 7.407 .9869 ) M-F, 8am to 10pm EST Not Available [address] [address] [address] , [place], [address], 11/03/2024 23:21:53 11/03/1911/03/2024 CULTU RE, URINE , ROUTI NE culture, urine, routine SEE NOTE CULTU RE, URINE , ROUTI NE Micro Numbe r: [id number] Test Statu s: Final Speci men Sourc e: Urine Speci men Quali ty: Adequ ate Resul t: No Growt h Not Available [facility] - [address] [place], [address], 11/03/2024 23:21:54 11/03/19 25 11/07/2024 THINP REP TIS PAP (REFL ) HPV MRNA E6/E7 clinical information: normal Pregn ant Not Available [address], [address], 11/07/2024 18:47:29 11/03/19 25 11/07/2024 THINP REP TIS PAP (REFL ) HPV MRNA E6/E7 LMP: normal NONE GIVEN Not Available [address], [address], 11/07/2024 18:47:29 11/03/19 25 11/07/2024 THINP REP TIS PAP (REFL ) HPV MRNA E6/E7 prev. Pap: normal NONE GIVEN Not Available [address], [address], 11/07/2024 18:47:29 11/03/19 25 11/07/2024 THINP REP TIS PAP (REFL ) HPV MRNA E6/E7 prev. BX: normal NONE GIVEN Not Available [address], [address], 11/07/2024 18:47:29 11/03/19 25 11/07/2024 THINP REP TIS PAP (REFL ) HPV MRNA E6/E7 source: normal Cervi x, Endoc ervix Not Available [address], [address], 11/07/2024 18:47:29 11/03/19 25 11/07/2024 THINP REP TIS PAP (REFL ) HPV MRNA E6/E7 statement of adequacy: normal Satis facto ry for evalu ation . Endoc ervic al/tr ansfo rmati on zone compo nent absen t. Not Available [address], [address], 11/07/2024 18:47:29 11/03/19 25 11/07/2024 THINP REP TIS PAP (REFL ) HPV MRNA E6/E7 interpretati on/result: normal Cytol ogy Resul ts: Negat carrie for intra epith elial lesio n or malig aranza . Not Available [address] [address] [place], [address], 11/07/2024 18:47:29 11/03/1911/07/2024 THINP REP TIS PAP (REFL ) HPV MRNA E6/E7 infection: normal Funga l organ isms morph ologi aisha consi stent with Janie da spp. Not Available [address], [address], 11/07/2024 18:47:29 11/03/19 25 11/07/2024 THINP REP TIS PAP (REFL ) HPV MRNA E6/E7 comment: normal This Pap test has been evalu ated with compu ter simba britney techn ology . Not Available [address] [address] [place], [address], 11/07/2024 18:47:29 11/03/1911/07/2024 THINP REP TIS PAP (REFL ) HPV MRNA E6/E7 cytotechnolo gist: normal MEF, CT( CP) CT scree lauryn locat ion: [address] [address] [place] [address] Not Available [address] [address] [place], [address], 11/07/2024 18:47:29 11/03/19 25 11/07/2024 THINP REP [...] is submi tted with relev ant clini sruy findi ngs and histo ry, and when the Pap resul t is evalu ated along with histo heriberto and curre nt clini sury infor antonino n. Not Available [facility] [address] [address], [place], [address], 11/07/2024 18:47:29 11/03/1911/02/2024 CT + NG + TV, DNA, urine /swab CT + NG + TV, DNA, urine/swab negati ve Not Available [facility] ([facility]) [address] [place], [address], 11/02/2024 10:59:56 01/21/2001/20/2025 CBC WBC 7.7 x10 4.0-10 .5 Not Available [facility] [address] [facility] [address], [place], [address], 01/20/2025 13:18:07 01/21/2001/20/2025 CBC RBC 3.41 x10 3.50-5 .50 low Not Available [facility] [address] [facility] [address], [place], [address], 01/20/2025 13:18:07 01/21/2001/20/2025 CBC HGB 10.9 g/dL 12.0-1 6.0 low Not Available [facility] [address] [facility] [address], [place], [address], 01/20/2025 13:18:07 01/21/2001/20/2025 CBC HCT 32.5 % 37.0-4 7.0 low Not Available [facility] [address] [facility] [place], [address], 01/20/2025 13:18:07 01/21/2001/20/2025 CBC MCV 95.2 fL 80.0-9 9.9 Not Available [facility] [address] [facility], [place], [address], 01/20/2025 13:18:07 01/21/2001/20/2025 CBC MCH 31.9 pg 27.0-3 2.0 Not Available [facility] [address] [facility], [place], [address], 01/20/2025 13:18:07 01/21/2001/20/2025 CBC MCHC 33.4 g/dL 32.0-3 6.0 Not Available [facility] [address] [facility], [place], [address], 01/20/2025 13:18:07 01/21/2001/20/2025 CBC RDW 15.4 % 11.5-1 4.5 high Not Available [facility] [address] [facility] [address], [place], [address], 01/20/2025 13:18:07 01/21/2001/20/2025 CBC plt 240.5 x10 140.0- 451.0 Not Available [facility] [address] [facility] [address], [place], [address], 01/20/2025 13:18:07 01/21/2001/20/2025 CBC lymphocytes % 14.6 % 20.0-5 0.0 low Not Available [facility] [address] [facility], [place], [address], 01/20/2025 13:18:07 01/21/2001/20/2025 CBC granulcytes % 81.0 % 30.0-7 0.0 high Not Available [facility] [address] [facility], [place], [address], 01/20/2025 13:18:07 01/21/2001/20/2025 CBC monocytes % 3.6 % 2.0-16 .0 Not Available [place] [facility] [address] [facility], [place], [address], 01/20/2025 13:18:07 01/21/2001/20/2025 CBC granulcytes# 6.2 x10 Not Renetta ilable [facility] [address] [facility], [place], [address], 01/20/2025 13:18:07 01/21/2001/20/2025 CBC lymphocytes # 1.1 x10 Not Available [facility] [address] [facility], [place], [address], 01/20/2025 13:18:07 01/21/20 25 01/20/2025 CBC monocytes # 0.3 x10 Not Avai lable [facility] [address] [facility], [place], [address], 01/20/2025 13:18:07 01/21/2001/20/2025 HBA1C hemaglobin A1C 4.2 4.2-6. 5 Not Available [place] [facility] [address] [facility], [place], [address], 01/20/2025 13:18:19 01/21/2001/20/2025 GLUCO SE SCREE N glucose screen 199.0 mg/dL Not Available [place] [facility] [address] [facility], [place], [address], 01/20/2025 14:42:21 02/16/2002/15/2025 CMP (FEMA LE) glucose 100.0 mg/dL 60.0-9 9.0 high Not Available [facility] [address] [facility], [place], [address], 02/15/2025 12:46:12 02/16/2002/15/2025 CMP (FEMA LE) BUN (blood urea nitrogen) 5.0 mg/dL 10.0-2 6.0 low Not Available [facility] [address] [facility], [place], [address], 02/15/2025 12:46:12 02/16/20 25 02/15/2025 CMP (FEMA LE) creatinine (serum) 0.5 mg/dL 0.4-1. 5 Not Available [facility] [address] [facility], [place], [address], 02/15/2025 12:46:12 02/16/2002/15/2025 CMP (FEMA LE) BUN/creatini ne ratio 10.00 ratio Not Available [facility] [address] [facility], [place], [address], 02/15/2025 12:46:12 02/16/2002/15/2025 CMP (FEMA LE) eGFR calculated 147.6 Not Available [facility] [address] [facility], [place], [address], 02/15/2025 12:46:12 02/16/20 25 02/15/2025 CMP (FEMA LE) total protein 6.8 g/dL 6.0-8. 5 Not Available [facility] [address] [facility], [place], [address], 02/15/2025 12:46:12 02/16/2002/15/2025 CMP (FEMA LE) total bilirubin 0.9 mg/dL 0.2-1. 3 Not Available [facility] [address] [facility], [place], [address], 02/15/2025 12:46:12 02/16/20 25 02/15/2025 CMP (FEMA LE) albumin 3.6 g/dL 3.5-5. 5 Not Available [facility] [address] [facility] 1, [place], [address], 02/15/2025 12:46:12 02/16/2002/15/2025 CMP (FEMA LE) globulin 3.2 calc Not Available [facility] [address] [place] [address] [facility], [place], [address], 02/15/2025 12:46:12 02/16/2002/15/2025 CMP (FEMA LE) AST (SGOT) 25.0 U/L 0.0-46 .0 Not Available [facility] [address] [facility], [place], [address], 02/15/2025 12:46:12 02/16/20 25 02/15/2025 CMP (FEMA LE) altv (SGPT) 14.0 U/L 13.0-6 9.0 normal Not Available [facility] [address] [facility], [place], [address], 02/15/2025 12:46:12 02/16/2002/15/2025 CMP (FEMA LE) A/G ratio 1.1 ratio Not Available [facility] [address] [place] [facility], [place], [address], 02/15/2025 12:46:12 02/16/2002/15/2025 CMP (FEMA LE) ALP phos 84.0 U/L 30.0-1 40.0 normal Not Available [facility] [address] [facility], [place], [address], 02/15/2025 12:46:12 02/16/20 25 02/15/2025 CMP (FEMA LE) calcium 9.2 mg/dL 8.4-10 .5 Not Available [facility] [address] [facility] [address], [place], [address], 02/15/2025 12:46:12 02/16/2002/15/2025 CMP (FEMA LE) sodium 133.0 mmol/ L 136.0- 145.0 low Not Available [facility] [address] [facility] [address], [place], [address], 02/15/2025 12:46:12 02/16/2002/15/2025 CMP (FEMA LE) potassium 4.2 mmol/ L 3.5-5. 1 Not Available [facility] [address] [facility], [place], [address], 02/15/2025 12:46:12 02/16/2002/15/2025 CMP (FEMA LE) chloride 105.0 mmol/ L 98.0-1 10.0 normal Not Available Mena Kletsel [facility] [address] [facility] [address], [place], [address], 02/15/2025 12:46:12 02/16/2002/15/2025 CMP (FEMA LE) C02 23.0 mmol/ L 22.0-3 1.0 Not Available Mena K[facility]sel [facility] [address] [facility] [address], [place], [address], 02/15/2025 12:46:12 02/16/2002/15/2025 CMP (FEMA LE) anion gap 5.0 calc Not Available [facility] [address] [facility] [address], [place], [address], 02/15/2025 12:46:12 02/16/2002/15/2025 CMP (FEMA LE) osmolality 272.7 calc Not Available Mena Kletsel [facility] [address] [facility] [address], [place], [address], 02/15/2025 12:46:12 09/29/19 25 09/22/2024 US, obste tric, 1st trime ster No observ ation record ed. [email or web address] [facility] [address] [place], [address], 09/29/2024 09:27:23 01/01/20 25 12/28/2024 imagi ng/di agnos tic resul t No observ ation record ed. [facility] [address] [place], [address], 01/03/2025 06:49:20 02/21/2002/16/2025 US, obste tric, follo w-up No observ ation record ed. [email or web address] [facility] [address], [place], [id number], 02/20/2025 11:18:16 04/03/20 25 03/28/2025 , obste tric, follo w-up No observ ation record ed. [email or web address] [facility] [address] [place], [address], 04/03/2025 13:18:29 Result Notes None recorded. Problems Name Problem SNOMED Code Status Onset Date Resolution Date Notes Provider Name and Address Organization Details Recorded Time Transfusion Completed 201109/22/2024 Transfu kevin; At 5-6 years of age; 012 9:50AM by Mini Roger RN, Office Visit; Promote d; acuity set as *; SAUL Miranda [facility] 14:28:45 87895222 Active 2024 SAUL NOVAK null [facility] 14:28:34 Gestational diabetes mellitus 55528262 Active 2024 Calvin Maldonado MD [address] [place] [address], [phone], [facility] 11:00:57 Heartburn 48975523 Active 2024 Calvin Maldonado MD [address] [place], [address], [facility] 11:07:15 Spasm 90196417 Active 2024 Calvin Maldonado MD [address] [place], [address], [facility] 10:33:23 Problem Notes None recorded. Procedures Surgical History Date Name Laterality Status Provider Name and Address Organization Details Recorded Time 11/03/19 25 Date of Last Pap Smear completed [facility] 11/29/2024 12:06:07 11/03/19 25 sampling of cervix for Papanicolaou smear completed [facility] 11/29/2024 12:06:50 07/15/19 21 section completed [facility] 09/22/2024 14:36:06 transfusion of blood product completed [facility] 09/22/2024 14:36:27 Imaging Results None recorded. [...] Available Not Available No t Available Vitals Date Recorded Body height Body mass index (BMI) Body weight Oxygen saturation Heart rate Respiratory rate Body temperature Systolic And Diastolic Provider Name and Address Organization Details Last Updated DateTime 5 160.02 cm 38.7 kg/m2 54565.9 4 g 95 % 116 /min 18 /min 97.9 [degF] 120/74 mm[Hg] SAUL NOVAK [facility] 5 09:54:50 Social History Question Answer Notes LastModified by Organizat ion Details LastModified Time Tobacco Smoking Status Never Smoker SAUL jerome [facility] 09/22/2024 14:35:01 Are You Blind Or Do [...] use any illicit or recreational drugs? No [email or web address] Information not available 09/16/2022 Do you or have you ever used any other forms of tobacco or nicotine? No [email or web address] Information not available 09/16/2022 What is your [...] History Condition Response Coronary Artery Disease N Gout N Other N Blood Diseases N Kidney Stones N Hyperthyroidism N Breast Cancer N Blood Transfusion Y Depression N Lung Disease N Hypothyroidism N COPD N Developmental or Behavioral Disorders N Defects or Inherited Disease N Breast Problem N Difficulty Swallowing N Anesthesia Complications N Meniere's disease N Anxiety Disorder N Muscle, Joint, or Bone Problems N Vision or Eye Problems N Arthritis N Polyps N Infertility N Cancer N Varicosities N Stroke N Endometriosis N Bladder or Kidney Problems [...] preservative 0 completed Not Available [facility] 12/06/2022 02:28:54 Past Encounters Encounter ID Performer Location Encounter Start Date Encounter Closed Date Diagnosis/Indication Diagnosis SNOMED-CT Code Diagnosis ICD10 Code Diagnosis IMO Codes Diagnosis Note [id number] Calvin Maldonado MD [facility]) [address] [place] [address] 03/28/2025 08:59:26 03/28/2025 13:16:29 [id number] Calvin Maldonado MD [facility]) [address] [place] [address] 03/28/2025 09:30:49 04/14/2025 11:57:50 Gestational diabetes mellitus 90513057 O24.410 88157664 - Maintain current dietary and glucose monitoring practices. - No immediate need for medication ; monitor potential increase in glucose levels. 75518008 Z34.9 0 Gestation period, 33 weeks 35364042 Z3A.33 [id number] Calvin Maldonado MD [facility] ([facility]) [address] [place] [address] 04/12/2025 09:36:17 04/12/2025 10:49:52 Gestational diabetes mellitus 33276677 O24.410 54901187 - Maintain current dietary and glucose monitoring practices. - No immediate need for medication ; monitor potential increase in glucose levels. 29327935 Z34.9 0 Gestation period, 36 weeks 94638632 Z3A.36 [id number] Calvin Maldonado MD [facility] ([facility]) [address] [place] [address] 04/19/2025 09:35:28 04/26/2025 03:59:57 Gestational diabetes mellitus 47964173 O24.410 92406255 - Maintain current dietary and glucose monitoring practices. - No immediate need for medication ; monitor potential increase in glucose levels. Multigravida 297341240 Z 34.83 21110120 Gestation period, 37 weeks 17676044 Z3A.37 [id number] Calvin Maldonado MD [facility]) [address] [place] [address] 04/19/2025 12:53:13 04/19/2025 14:15:35 Health Concerns Section Related Observation LastModified by Organization Detai ls LastModified Time None Recorded Concern Status LastModified by Organization Details LastModified Time None Recorded Payers Encounter Date Sequence Insurance Name Policy Number Policy Walsh Covered Member ID Walsh Member ID Guarantor Name 04/19/2025 1 [employer] [id number] Tiffany Solomon [id number] Tiffany Solomon Notes Date Note Type Note Provider Name and Address Organization Details Recorded Time 5 text/html Diabetes in PregnancyReported by PatientHPIFor associated symptoms, patient reportsheadachesbut reportsno dizziness,no increased thirst, andno increased urination. For context, patient reportsgestational diabetes. For self care, patient reportsmonitoring glucose 3 times per day. For review finger sticks, (80s this morning , other readings have been ranging 103-115). jr ob routineReported by PatientHPIFor associated symptoms, patient reportscontractions (irreg),edema (feet),headache, andbreathlessnessbut reportsno abdominal pain,no cramping,normal movement,no bleeding,no vaginal discharge,no vaginal/vulvar itching or irritation,no dysuria,no frequency,no urgency,no hematuria,no fever,no nausea,no emesis,no constipation,no diarrhea/loose stool,no visual changes, andno dizziness.heartburn, occasional vaginal pressure, pelvic painPt denies any alcohol or tobacco use or drug useROS as noted in the HPI Calvin Maldonado MD [address] [place] [address], [phone], [facility] 04/24/2025 21:47:17 OBGyn Episode Ob Episode Information Episode Created Date Number of Fetuses Patient Bloodtype Patient rh Status Prepregnancy Weight lbs Domestic Partner Domestic Partner Phone Father Name Youth Associate Status 09/23/19 1 O Positive Wallace OPEN Fetus Data [...] Latest Days Gestation 0 05/10/20 25 0 Pre- Flowsheet Flowsheet Date 09/22/2024 Herrera Score Blood Edema Fundus Height Fundus Units Glucose Ketones Leukocytes Nitrite Labor Signs Protein Cervic Dilation Cervic Effacement Cervic Station Type Weight in lbs Pre/Post Dialysis Refused Weight 209.460770332661 BP Diastolic BP Location Tested BP Systolic [...] Weight in lbs Pre/Post Dialysis Refused Weight 208.187719629468 BP Diastolic BP Location Tested BP Systolic BP Type 76 136 sitting Fetus Heart Rate Present A 164 Present Fetus Movement Comments NOB Flowsheet Date 11/29/2024 Herrera Score Blood Edema Fundus Height Fundus Units Glucose Ketones Leukocytes Nitrite Labor Signs Protein Cervic Dilation Cervic Effacement Cervic Station none none Negative neg Type Weight in lbs Pre/Post Dialysis Refused Weight 205.183053527154 BP Diastolic BP Location Tested BP Systolic [...] Weight in lbs Pre/Post Dialysis Refused Weight 204.464527471112 BP Diastolic BP Location Tested BP Systolic [...] Weight in lbs Pre/Post Dialysis Refused Weight 205.115371570236 BP Diastolic BP Location Tested BP Systolic BP Type 70 118 sitting Fetus Heart Rate Present A 144 Present Fetus Movement Comments occ SOB Flowsheet Date 02/15/2025 Herrera Score Blood Edema Fundus Height Fundus Units Glucose Ketones Leukocytes Nitrite Labor Signs Protein Cervic Dilation Cervic Effacement Cervic Station 32 cm none 1+ trace Type Weight in lbs Pre/Post Dialysis Refused Weight 207.363593597902 BP Diastolic BP Location Tested BP Systolic [...] Weight in lbs Pre/Post Dialysis Refused Weight 206.961683717811 BP Diastolic BP Location Tested BP Systolic [...] Weight in lbs Pre/Post Dialysis Refused Weight 208.08950605032 BP Diastolic BP Location Tested BP Systolic [...] Fetus Movement Comments u/s on 03/28/25, LUZ 05/03/2 5, EGA 34.6, vertex, FARIDA normal Flowsheet Date 03/28/2025 Herrera Score Blood Edema Fundus Height Fundus Units Glucose Ketones Leukocytes Nitrite Labor Signs Protein Cervic Dilation Cervic Effacement Cervic Station 34 cm 1+ 1+ trace Type Weight in lbs Pre/Post Dialysis Refused Weight 209.856959041278 BP Diastolic BP Location Tested BP Systolic [...] Weight in lbs Pre/Post Dialysis Refused Weight 213.25306373952 BP Diastolic BP Location Tested BP Systolic [...] Weight in lbs Pre/Post Dialysis Refused Weight 218.906298743730 BP Diastolic BP Location Tested BP Systolic [...] Weight in lbs Pre/Post Dialysis Refused Weight 214.326977507273 BP Diastolic BP Location Tested BP Systolic [...] Estim ated Date of Delivery true Thalassemia (East Timorese, Maltese, Mediterranean, Or Background): MCV < 80 false Neural Tube Defect (Meningomyelocele, Spina Bifi da, Or Anencephaly) false Congenital Heart Defect false Down Syndrome false Wojciech-Sachs (eg, Hindu, Cajun, Lao-Nicaraguan) f alse Enedelia Disease false Sickle Cell Disease Or Trait () false Hemophilia Or Other Blood Disorders false Muscular Dystrophy false Cystic Fibrosis false Dayton's Chorea false Intellectual Disability/Autism false If Yes, [...]
--- OUTSIDE RECORDS SUMMARY | 2025-04-27 05:01 | XMS_ITS | Continuity of Care Document ---
Author Organization [facility], [facility] (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 There is no labor atory evide nce of HIV infec tion. Not Available [address], [address], 11/03/2024 23:21:44 11/03/1911/03/2024 HIV 1/2 ANTIG EN/AN TIBOD Y,FOU RTH GENER ATION W/RFL HIV Ag/Ab, 4TH gen NON-RE ACTIVE non-re active normal Not Available [address], [address], 11/03/2024 23:21:44 11/03/1911/03/2024 URINA LYSIS , COMPL ETE color YELLOW yellow normal Not Available [address], [address], 11/03/2024 23:21:45 11/03/19 25 11/03/2024 URINA LYSIS , COMPL ETE appearance CLEAR clear normal Not Available [address], [address], 11/03/2024 23:21:45 11/03/19 25 11/03/2024 URINA LYSIS , COMPL ETE specific gravity 1.002 1.001- 1.035 normal Not Available [address], [address], 11/03/2024 23:21:45 11/03/1911/03/2024 URINA LYSIS , COMPL ETE pH 6.5 5.0-8. 0 normal Not Available [address], [address], 11/03/2024 23:21:45 11/03/19 25 11/03/2024 URINA LYSIS , COMPL ETE glucose NEGATI VE negati ve normal Not Available [address], [address], 11/03/2024 23:21:45 11/03/19 25 11/03/2024 URINA LYSIS , COMPL ETE bilirubin NEGATI VE negati ve normal Not Available [address], [address], 11/03/2024 23:21:45 11/03/19 25 11/03/2024 URINA LYSIS , COMPL ETE ketones NEGATI VE negati ve normal Not Available [address], [address], 11/03/2024 23:21:45 11/03/19 25 11/03/2024 URINA LYSIS , COMPL ETE occult blood NEGATI VE negati ve normal Not Available [address], [address], 11/03/2024 23:21:45 11/03/19 25 11/03/2024 URINA LYSIS , COMPL ETE protein NEGATI VE negati ve normal Not Available [address], [address], 11/03/2024 23:21:45 11/03/19 25 11/03/2024 URINA LYSIS , COMPL ETE nitrite NEGATI VE negati ve normal Not Available [address], [address], 11/03/2024 23:21:45 11/03/19 25 11/03/2024 URINA LYSIS , COMPL ETE leukocyte esterase NEGATI VE negati ve normal Not Available [address], [address], 11/03/2024 23:21:45 11/03/19 25 11/03/2024 URINA LYSIS , COMPL ETE WBC NONE SEEN /hpf < or = 5 normal Not Available [address], [address], 11/03/2024 23:21:45 11/03/19 25 11/03/2024 URINA LYSIS , COMPL ETE RBC NONE SEEN /hpf < or = 2 normal Not Available [facility] [address], [address], 11/03/2024 23:21:45 11/03/1911/03/2024 URINA LYSIS , COMPL ETE squamous epithelial cells NONE SEEN /hpf < or = 5 normal Not Available [address], [address], 11/03/2024 23:21:45 11/03/1911/03/2024 URINA LYSIS , COMPL ETE bacteria NONE SEEN /hpf none seen normal Not Available [facility] [address], [address], 11/03/2024 23:21:45 11/03/1911/03/2024 URINA LYSIS , COMPL ETE hyaline cast NONE SEEN /lpf none seen normal Not Available [address], [address], 11/03/2024 23:21:45 11/03/1911/03/2024 URINA LYSIS , COMPL ETE note This urine was camilo zed for the prese nce of WBC, RBC, bacte glenys, casts , and other forme d eleme nts. Only those eleme nts seen were repor britney. Not Available [address], [address], 11/03/2024 23:21:45 11/03/1911/03/2024 CBC (INCL UDES DIFF/ PLT) white blood cell count 8.3 thous and/u L 3.8-10 .8 normal Not Available [address], [address], 11/03/2024 23:21:47 11/03/1911/03/2024 CBC (INCL UDES DIFF/ PLT) red blood cell count 3.94 nancy on/uL 3.80-5 .10 normal Not Available [address], [address], 11/03/2024 23:21:47 11/03/1911/03/2024 CBC (INCL UDES DIFF/ PLT) hemoglobin 12.6 g/dL 11.7-1 5.5 normal Not Available [address], [address], 11/03/2024 23:21:47 11/03/1911/03/2024 CBC (INCL UDES DIFF/ PLT) hematocrit 37.7 % 35.0-4 5.0 normal Not Available [facility] [address], [address], 11/03/2024 23:21:47 11/03/1911/03/2024 CBC (INCL UDES DIFF/ PLT) MCV 95.7 fL 80.0-1 00.0 normal Not Available [address], [address], 11/03/2024 23:21:47 11/03/1911/03/2024 CBC (INCL UDES DIFF/ PLT) MCH 32.0 pg 27.0-3 3.0 normal Not Available [address], [address], 11/03/2024 23:21:47 11/03/1911/03/2024 CBC (INCL UDES DIFF/ [...] nt's clini sury condi tion. Not Available [address], [address], 11/03/2024 23:21:47 11/03/1911/03/2024 CBC (INCL UDES DIFF/ PLT) RDW 13.6 % 11.0-1 5.0 normal Not Available [address], [address], 11/03/2024 23:21:47 11/03/1911/03/2024 CBC (INCL UDES DIFF/ PLT) platelet count 259 thous and/u L 140-40 0 normal Not Available [address], [address], 11/03/2024 23:21:47 11/03/1911/03/2024 CBC (INCL UDES DIFF/ PLT) MPV 10.1 fL 7.5-12 .5 normal Not Available [address], [address], 11/03/2024 23:21:47 11/03/19 25 11/03/2024 CBC (INCL UDES DIFF/ PLT) absolute neutrophils 6524 cells /uL 1500-7 800 normal Not Available [address], [address], 11/03/2024 23:21:47 11/03/19 25 11/03/2024 CBC (INCL UDES DIFF/ PLT) absolute lymphocytes 1361 cells /uL 850-39 00 normal Not Available [address], [address], 11/03/2024 23:21:47 11/03/1911/03/2024 CBC (INCL UDES DIFF/ PLT) absolute monocytes 332 cells /uL 200-95 0 normal Not Available [address], [address], 11/03/2024 23:21:47 11/03/19 25 11/03/2024 CBC (INCL UDES DIFF/ PLT) absolute eosinophils 50 cells /uL 15-500 normal Not Available [address], [address], 11/03/2024 23:21:47 11/03/1911/03/2024 CBC (INCL UDES DIFF/ PLT) absolute basophils 33 cells /uL 0-200 normal Not Available [address], [address], 11/03/2024 23:21:47 11/03/1911/03/2024 CBC (INCL UDES DIFF/ PLT) neutrophils 78.6 % normal Not Available [address], [address], 11/03/2024 23:21:47 11/03/1911/03/2024 CBC (INCL UDES DIFF/ PLT) lymphocytes 16.4 % normal Not Available [address], [address], 11/03/2024 23:21:47 11/03/1911/03/2024 CBC (INCL UDES DIFF/ PLT) monocytes 4.0 % normal Not Available [address], [address], 11/03/2024 23:21:47 11/03/1911/03/2024 CBC (INCL UDES DIFF/ PLT) eosinophils 0.6 % normal Not Available [address], [address], 11/03/2024 23:21:47 11/03/1911/03/2024 CBC (INCL UDES DIFF/ PLT) basophils 0.4 % normal Not Available [address], [address], 11/03/2024 23:21:47 11/03/1911/03/2024 HEPAT ITIS B SURFA CE ANTIG EN W/REF L CONFI RM hepatitis B surface antigen NON-RE ACTIVE non-re active normal For addit ional infor mason mei e refer to http: //[facility].que stdia gnost ics.c om/fa q/FAQ 202 (This link is being provi ded for infor matio nal/ educa chitra l purpo ses only. ) Not Available [facility] [address] [address] [place], [address], 11/03/2024 23:21:47 11/03/1911/03/2024 HEPAT ITIS C AB [...] a test for HCV RNA (test code 49871 ) is sugge sted. For addit ional radhar antonino cuevas e refer to http: //[facility] n.kay stdia gnost ics.c om/fa q/FAQ 22v1 (This link is being provi ded for infor matio nal/ educa chitra l purpo ses only. ) Not Available [email or web address] [address] [address] [place], [address], 11/03/2024 23:21:48 11/03/1911/03/2024 RUBEL LA AB (IGG) [...] la virus . Not Available [facility] [address] [address] [place], [address], 11/03/2024 23:21:49 11/03/1911/03/2024 HEMOG LOBIN A1C hemoglobin [...] Care in Diabe bharati(A DA). Not Available [facility] [address] [place], [address], 11/03/2024 23:21:50 11/03/1911/03/2024 RPR (DX) W/REF L TITER AND T. PALLI DUM AB, IA RPR (DX) w/refl titer and confirmatory testing NON-RE ACTIVE non-re active normal No labor atory evide nce of syphi lis. If recen t expos ure is suspe cted, submi t a new sampl e in 2-4 weeks . Not Available [email or web address] [address] [place], [address], 11/03/2024 23:21:51 11/03/1911/03/2024 ABO GROUP AND RH TYPE ABO group O Not Available [email or web address] [address] [place], [address], 11/03/2024 23:21:52 11/03/1911/03/2024 ABO GROUP AND RH TYPE Rh type RH(D) POSITI VE For addit ional infor mason mei e refer to http: //spike benson ics.c om/fa q/FAQ 111 (This link is being provi ded for infor antonino akhtar/ educchiquita parra purpo ses only. ) Not Available [facility] [address] [address] [address], [place], [address], 11/03/2024 23:21:52 11/03/1911/03/2024 DRUG MONIT OR, PANEL 1, SCREE N, URINE amphetamines NEGATI VE NG/mL <500 See Note A See Note A Not Available [email or web address] [address] [address] [address], [place], [address], 11/03/2024 23:21:53 11/03/1911/03/2024 DRUG MONIT OR, PANEL 1, SCREE N, URINE barbiturates NEGATI VE NG/mL <300 See Note A See Note A Not Available [facility] [address] [address] [address], [place], [address], 11/03/2024 23:21:53 11/03/1911/03/2024 DRUG MONIT OR, PANEL 1, SCREE N, URINE benzodiazepi kendell NEGATI VE NG/mL <100 See Note A See Note A Not Available [facility] [address] [address] [address], [place], [address], 11/03/2024 23:21:53 11/03/1911/03/2024 DRUG MONIT OR, PANEL 1, SCREE N, URINE cocaine metabolite NEGATI VE NG/mL <150 See Note A See Note A Not Available [email or web address] [address] [address] [address], [place], [address], 11/03/2024 23:21:53 11/03/19 25 11/03/2024 DRUG MONIT OR, PANEL 1, SCREE N, URINE marijuana metabolite NEGATI VE NG/mL <20 See Note A See Note A Not Available [facility] [address] [address] [address], [place], [address], 11/03/2024 23:21:53 11/03/1911/03/2024 DRUG MONIT OR, PANEL 1, SCREE N, URINE methadone metabolite NEGATI VE NG/mL <100 See Note A See Note A Not Available [address] [address] [address], [place], [address], 11/03/2024 23:21:53 11/03/1911/03/2024 DRUG MONIT OR, PANEL 1, SCREE N, URINE opiates NEGATI VE NG/mL <100 See Note A See Note A Not Available [email or web address] [address] [address] [address], [place], [address], 11/03/2024 23:21:53 11/03/1911/03/2024 DRUG MONIT OR, PANEL 1, SCREE N, URINE oxycodone NEGATI VE NG/mL <100 See Note A See Note A Not Available [address] [address] [address], [place], [address], 11/03/2024 23:21:53 11/03/1911/03/2024 DRUG MONIT OR, PANEL 1, SCREE N, URINE phencyclidin e NEGATI VE NG/mL <25 See Note A See Note A Not Available [email or web address] [address] [address] [address], [place], [address], 11/03/2024 23:21:53 11/03/1911/03/2024 DRUG MONIT OR, PANEL 1, SCREE N, URINE creatinine 8.6 mg/dL > or = 20.0 low Not Available [address] [address] [address], [place], [address], 11/03/2024 23:21:53 11/03/1911/03/2024 DRUG MONIT OR, PANEL 1, SCREE N, URINE specific gravity 1.003 > or = 1.003 Not Available [address] [address] [address], [place], [address], 11/03/2024 23:21:53 11/03/1911/03/2024 DRUG MONIT OR, PANEL 1, SCREE N, URINE pH 6.6 4.5-9. 0 Not Available [address] [address] [address], [place], [address], 11/03/2024 23:21:53 11/03/1911/03/2024 DRUG MONIT OR, PANEL 1, SCREE N, URINE oxidant NEGATI VE mcg/m L <200 Not Available [facility] [address] [address] [address], [place], [address], 11/03/2024 23:21:53 11/03/1911/03/2024 DRUG MONIT ORING TEMPL ATE notes and comments This drug testi ng is for medic al treat ment only. Camilo sis was perfo rmed as non-f orens ic testi ng and these resul ts shoul d be used only by [facility] prov[facility] ders to rende r diagn osis or treat ment, or to monit or progr ess of medic al condi tions . Note A: The resul ts are presu mptiv e; based only on jose kendall, and they have not been confi rmed by a defin itive lakesha mcgowan. [facility] Provi ders needi ng Inter preta tion simba tance , pleas e conta ct us at 1.877 .40.R XTOX (1.87 [phone] .9869 ) M-F, 8am to 10pm EST Not Available [address] [address] [address] , [place], [address], 11/03/2024 23:21:53 11/03/1911/03/2024 CULTU RE, URINE , ROUTI NE culture, urine, routine SEE NOTE CULTU RE, URINE , ROUTI NE Micro Numbe r: [id number] Test Statu s: Final Speci men Sourc e: Urine Speci men Quali ty: Adequ ate Resul t: No Growt h Not Available [facility] - [address] [place], [address], 11/03/2024 23:21:54 11/03/19 25 11/07/2024 THINP REP TIS PAP (REFL ) HPV MRNA E6/E7 clinical information: normal Pregn ant Not Available [address], [address], 11/07/2024 18:47:29 11/03/19 25 11/07/2024 THINP REP TIS PAP (REFL ) HPV MRNA E6/E7 LMP: normal NONE GIVEN Not Available [address], [address], 11/07/2024 18:47:29 11/03/19 25 11/07/2024 THINP REP TIS PAP (REFL ) HPV MRNA E6/E7 prev. Pap: normal NONE GIVEN Not Available [address], [address], 11/07/2024 18:47:29 11/03/19 25 11/07/2024 THINP REP TIS PAP (REFL ) HPV MRNA E6/E7 prev. BX: normal NONE GIVEN Not Available [address], [address], 11/07/2024 18:47:29 11/03/19 25 11/07/2024 THINP REP TIS PAP (REFL ) HPV MRNA E6/E7 source: normal Cervi x, Endoc ervix Not Available [address], [address], 11/07/2024 18:47:29 11/03/19 25 11/07/2024 THINP REP TIS PAP (REFL ) HPV MRNA E6/E7 statement of adequacy: normal Satis facto ry for evalu ation . Endoc ervic al/tr ansfo rmati on zone compo nent absen t. Not Available [address], [address], 11/07/2024 18:47:29 11/03/19 25 11/07/2024 THINP REP TIS PAP (REFL ) HPV MRNA E6/E7 interpretati on/result: normal Cytol ogy Resul ts: Negat carrie for intra epith elial lesio n or malig aranza . Not Available [address] [address] [place], [address], 11/07/2024 18:47:29 11/03/1911/07/2024 THINP REP TIS PAP (REFL ) HPV MRNA E6/E7 infection: normal Funga l organ isms morph ologi aisha consi stent with Janie da spp. Not Available [address], [address], 11/07/2024 18:47:29 11/03/19 25 11/07/2024 THINP REP TIS PAP (REFL ) HPV MRNA E6/E7 comment: normal This Pap test has been evalu ated with compu ter simba britney techn ology . Not Available [address] [address] [place], [address], 11/07/2024 18:47:29 11/03/1911/07/2024 THINP REP TIS PAP (REFL ) HPV MRNA E6/E7 cytotechnolo gist: normal MEF, CT( CP) CT scree lauryn locat ion: [address] [address] [place] [address] Not Available [address] [address] [place], [address], 11/07/2024 18:47:29 11/03/19 25 11/07/2024 THINP REP [...] clini sury infor antonino n. Not Available [email or web address] [address] [address], [place], [address], 11/07/2024 18:47:29 11/03/1911/02/2024 CT + NG + TV, DNA, urine /swab CT + NG + TV, DNA, urine/swab negati ve Not Available [facility]) [address] [place], [address], 11/02/2024 10:59:56 01/21/2001/20/2025 CBC WBC 7.7 x10 4.0-10 .5 Not Available [facility] [address] [facility] [address], [place], [address], 01/20/2025 13:18:07 01/21/2001/20/2025 CBC RBC 3.41 x10 3.50-5 .50 low Not Available [facility] [address] [facility] [address], [place], [address], 01/20/2025 13:18:07 01/21/2001/20/2025 CBC HGB 10.9 g/dL 12.0-1 6.0 low Not Available [facility] [address] [facility] [address], [place], [address], 01/20/2025 13:18:07 01/21/2001/20/2025 CBC HCT 32.5 % 37.0-4 7.0 low Not Available [facility] [address] [facility] [address], [address], 01/20/2025 13:18:07 01/21/2001/20/2025 CBC MCV 95.2 fL 80.0-9 9.9 Not Available [facility] [address] [facility], [place], [address], 01/20/2025 13:18:07 01/21/2001/20/2025 CBC MCH 31.9 pg 27.0-3 2.0 Not Available [facility] [address] [facility] [address], [place], [address], 01/20/2025 13:18:07 01/21/2001/20/2025 CBC MCHC 33.4 g/dL 32.0-3 6.0 Not Available [facility] [address] [facility] [address], [place], [address], 01/20/2025 13:18:07 01/21/2001/20/2025 CBC RDW 15.4 % 11.5-1 4.5 high Not Available [facility] [address] [facility] [address], [place], [address], 01/20/2025 13:18:07 01/21/2001/20/2025 CBC plt 240.5 x10 140.0- 451.0 Not Available [facility] [address] [facility] [address], [place], [address], 01/20/2025 13:18:07 01/21/2001/20/2025 CBC lymphocytes % 14.6 % 20.0-5 0.0 low Not Available [facility] [address] [facility] [address], [place], [address], 01/20/2025 13:18:07 01/21/2001/20/2025 CBC granulcytes % 81.0 % 30.0-7 0.0 high Not Available [facility] [address] [facility] [address], [place], [address], 01/20/2025 13:18:07 01/21/2001/20/2025 CBC monocytes % 3.6 % 2.0-16 .0 Not Available [facility] [address] [facility] [address], [place], [address], 01/20/2025 13:18:07 01/21/2001/20/2025 CBC granulcytes# 6.2 x10 Not Renetta ilable [facility] [address] [facility] [address], [place], [address], 01/20/2025 13:18:07 01/21/2001/20/2025 CBC lymphocytes # 1.1 x10 Not Available [facility] [address] [facility] [address], [place], [address], 01/20/2025 13:18:07 01/21/20 25 01/20/2025 CBC monocytes # 0.3 x10 Not Avai lable [facility] [address] [facility] [address], [place], [address], 01/20/2025 13:18:07 01/21/2001/20/2025 HBA1C hemaglobin A1C 4.2 4.2-6. 5 Not Available [facility] [address] [facility] [address], [place], [address], 01/20/2025 13:18:19 01/21/2001/20/2025 GLUCO SE SCREE N glucose screen 199.0 mg/dL Not Available [facility] [address] [facility] [address], [place], [address], 01/20/2025 14:42:21 02/16/2002/15/2025 CMP (FEMA LE) glucose 100.0 mg/dL 60.0-9 9.0 high Not Available [facility] [address] [facility] [address], [place], [address], 02/15/2025 12:46:12 02/16/2002/15/2025 CMP (FEMA LE) BUN (blood urea nitrogen) 5.0 mg/dL 10.0-2 6.0 low Not Available [facility] [address] [facility] [address] [address], [place], [address], 02/15/2025 12:46:12 02/16/20 25 02/15/2025 CMP (FEMA LE) creatinine (serum) 0.5 mg/dL 0.4-1. 5 Not Available [facility] [address] [facility] MauricioMaria [facility], [place], [address], 02/15/2025 12:46:12 02/16/2002/15/2025 CMP (FEMA LE) BUN/creatini ne ratio 10.00 ratio Not Available [facility] [address] [facility] MauricioMaria [facility], [place], [address], 02/15/2025 12:46:12 02/16/2002/15/2025 CMP (FEMA LE) eGFR calculated 147.6 Not Available [facility] [address] [facility] MauricioMaria [facility], [place], [address], 02/15/2025 12:46:12 02/16/20 25 02/15/2025 CMP (FEMA LE) total protein 6.8 g/dL 6.0-8. 5 Not Available [facility] [address] [facility] MauricioMaria [facility], [place], [address], 02/15/2025 12:46:12 02/16/2002/15/2025 CMP (FEMA LE) total bilirubin 0.9 mg/dL 0.2-1. 3 Not Available [facility] [address] [facility] MauricioMaria [facility], [place], [address], 02/15/2025 12:46:12 02/16/20 25 02/15/2025 CMP (FEMA LE) albumin 3.6 g/dL 3.5-5. 5 Not Available [facility] [address] [facility] 1, [place], [address], 02/15/2025 12:46:12 02/16/2002/15/2025 CMP (FEMA LE) globulin 3.2 calc Not Available [facility] [address] [facility], [place], [address], 02/15/2025 12:46:12 02/16/2002/15/2025 CMP (FEMA LE) AST (SGOT) 25.0 U/L 0.0-46 .0 Not Available [facility] [address] [facility], [place], [address], 02/15/2025 12:46:12 02/16/20 25 02/15/2025 CMP (FEMA LE) altv (SGPT) 14.0 U/L 13.0-6 9.0 normal Not Available [facility] [address] [facility] 1, [place], [address], 02/15/2025 12:46:12 02/16/2002/15/2025 CMP (FEMA LE) A/G ratio 1.1 ratio Not Available [facility] [address] Maur[facility], [place], [address], 02/15/2025 12:46:12 02/16/2002/15/2025 CMP (FEMA LE) ALP phos 84.0 U/L 30.0-1 40.0 normal Not Available [facility] [address] [facility] [address], [place], [address], 02/15/2025 12:46:12 02/16/20 25 02/15/2025 CMP (FEMA LE) calcium 9.2 mg/dL 8.4-10 .5 Not Available [facility] [address] [facility] [address], [place], [address], 02/15/2025 12:46:12 02/16/2002/15/2025 CMP (FEMA LE) sodium 133.0 mmol/ L 136.0- 145.0 low Not Available [facility] [address] [facility] [address], [place], [address], 02/15/2025 12:46:12 02/16/2002/15/2025 CMP (FEMA LE) potassium 4.2 mmol/ L 3.5-5. 1 Not Available [facility] [address] [facility] 1, [place], [address], 02/15/2025 12:46:12 02/16/2002/15/2025 CMP (FEMA LE) chloride 105.0 mmol/ L 98.0-1 10.0 normal Not Available [facility] [address] [facility] 1, [place], [address], 02/15/2025 12:46:12 02/16/2002/15/2025 CMP (FEMA LE) C02 23.0 mmol/ L 22.0-3 1.0 Not Available [facility] [address] [facility] 1, [place], [address], 02/15/2025 12:46:12 02/16/2002/15/2025 CMP (FEMA LE) anion gap 5.0 calc Not Available [facility] [address] [facility] 1, [place], [address], 02/15/2025 12:46:12 02/16/2002/15/2025 CMP (FEMA LE) osmolality 272.7 calc Not Available [facility] [address] [facility] [address], [place], [address], 02/15/2025 12:46:12 09/29/19 25 09/22/2024 US, obste tric, 1st trime ster No observ ation record ed. [facility] [address] [place], [address], 09/29/2024 09:27:23 01/01/20 25 12/28/2024 imagi ng/di agnos tic resul t No observ ation record ed. [facility] [address] [place], [address], 01/03/2025 06:49:20 02/21/2002/16/2025 US, obste tric, follo w-up No observ ation record ed. [email or web address] [facility] [address] [place], [address], 02/20/2025 11:18:16 04/03/20 25 03/28/2025 , obste tric, follo w-up No observ ation record ed. [email or web address] [facility] [address] [place], [address], 04/03/2025 13:18:29 Result Notes None recorded. Problems Name Problem SNOMED Code Status Onset Date Resolution Date Notes Provider Name and Address Organization Details Recorded Time Transfusion Completed 201109/22/2024 Transfu kevin; At 5-6 years of age; 012 9:50AM by Mini Roger RN, Office Visit; Promote d; acuity set as *; SAUL Miranda [facility] 14:28:45 [id number] Active 2024 SAUL NOVAK null [facility] 14:28:34 Gestational diabetes mellitus 35550444 Active 2024 Calvin Maldonado MD [address] [place] [address], [id number], [facility] 11:00:57 Heartburn 10613468 Active 2024 Calvin Maldonado MD [address] [place], [address], [facility] 11:07:15 Spasm [id number] Active 2024 Calvin Maldonado MD [address] [place], [address], [facility] 10:33:23 Problem Notes None recorded. Procedures Surgical History Date Name Laterality Status Provider Name and Address Organization Details Recorded Time 11/03/19 25 Date of Last Pap Smear completed [facility] 11/29/2024 12:06:07 11/03/19 25 sampling of cervix for Papanicolaou smear completed [facility] 11/29/2024 12:06:50 07/15/19 21 section completed [facility] 09/22/2024 14:36:06 transfusion of blood product completed [facility] 09/22/2024 14:36:27 Imaging Results None recorded. [...] height Body mass index (BMI) Body weight Respiratory rate Body temperature Heart rate Oxygen saturation Systolic And Diastolic Provider Name and Address Organization Details Last Updated DateTime 5 160.02 cm 37 kg/m2 99486.5 1 g 18 /min 98 [degF] 74 /min 99 % 124/68 mm[Hg] MAGUI HAHN [facility], [facility] 5 09:42:13 Date Recorded Body height Body mass index (BMI) Body weight Oxygen saturation Heart rate Respiratory rate Body temperature Systolic And Diastolic Provider Name and Address Organization Details Last Updated DateTime 5 160.02 cm 37.8 kg/m2 26009.2 7 g 98 % 63 /min 18 /min 99.2 [degF] 130/74 mm[Hg] SAUL NOVAK [facility] 10:02:38 Social History Question Answer Notes LastModified by Organizat ion Details LastModified Time Tobacco Smoking Status Never Smoker SAUL jerome [facility] 09/22/2024 14:35:01 Are You Blind Or Do [...] use any illicit or recreational drugs? No [email or web address] Information not available 09/16/2022 Do you or have you ever used any other forms of tobacco or nicotine? No [email or web address] Information not available 09/16/2022 What is your [...] Diseases N Kidney Stones N Hyperthyroidism N Blood Transfusion Y Breast Cancer N COPD N Depression N Lung Disease N Hypothyroidism N Defects or Inherited Disease N Developmental or Behavioral Disorders N Breast Problem N Difficulty Swallowing N [...] Problems N GI Problems N ADD/ADHD N Eating Disorder N Skin Problems N Anemia N Constipation N Mental Illness N Diabetes N Ovarian Cancer N Bedwetting N Seizures/Epilepsy N Tuberculosis N Pain N Eczema N Abuse/Domestic Violence N Diverticulitis N Asthma N Reflux/GERD N Hepatitis N Heart Disease N Pulmonary Embolism N Chronic Ear Infections N Pre-Eclampsia N Hypertension N Chicken Pox Y Autism Spectrum Disorder (ASD) N Osteoporosis N Thrombophilias N Gynecological History Statement/Question Response Abnormal Pap N Date of Last Pap Smear 11/02/2024 Obstetrics History GPAL:G 7 P 3 0 3 3 Type Value Full Term 3 Spontaneous 3 Living 3 Total 7 Immunizations Vaccine Type Date Status Note Provider Nam e and Address Organization Details Recorded Time Influenza, split virus, trivalent, preservative 0 completed Not Available [facility] 12/06/2022 02:28:54 Past Encounters Encounter ID Performer Location Encounter Start Date Encounter Closed Date Diagnosis/Indication Diagnosis SNOMED-CT Code Diagnosis ICD10 Code Diagnosis IMO Codes Diagnosis Note [id number] Calvin Maldonado MD [facility] ([facility]) [address] [place] [address] 03/01/2025 09:39:38 03/01/2025 11:23:39 Gestational diabetes mellitus 31889014 O24.410 78027940 - Maintain current dietary and glucose monitoring practices. - No immediate need for medication ; monitor potential increase in glucose levels. 17436405 Z34.9 0 Gestation period, 30 weeks 31943997 Z3A.30 [id number] Calvin Maldonado MD [facility] ([facility]) [address] [place] [phone] 03/14/2025 10:16:59 03/14/2025 10:47:44 Gestational diabetes mellitus 59003066 O24.410 18197254 - Maintain current dietary and glucose monitoring practices. - No immediate need for medication ; monitor potential increase in glucose levels. 65923011 Z34.9 0 Gestation period, 31 weeks 87418627 Z3A.31 [id number] Calvin Maldonado MD [facility] ([facility]) [address] [place] [phone] 03/28/2025 08:59:26 03/28/2025 13:16:29 [id number] Calvin Maldonado MD [facility]) [address] [place] [phone] 03/28/2025 09:30:49 04/14/2025 11:57:50 Gestational diabetes mellitus 49985864 O24.410 87909896 - Maintain current dietary and glucose monitoring practices. - No immediate need for medication ; monitor potential increase in glucose levels. 87924526 Z34.9 0 Gestation period, 33 weeks 67482936 Z3A.33 [id number] Health Concerns Section Related Observation LastModified by Organization Detai ls LastModified Time None Recorded Concern Status LastModified by Organization Details LastModified Time None Recorded Payers Encounter Date Sequence Insurance Name Policy Number Policy Walsh Covered Member ID Walsh Member ID Guarantor Name 03/28/2025 1 CHELSY [id number] Tiffany Solomon [id number] Tiffany Solomon Notes Date Note Type Note Provider Name and Address Organization Details Recorded Time 03/28/2025 text/html Diabetes in PregnancyReported by PatientHPIFor context, patient reportsgestational diabetes. For self care, patient reportsmonitoring glucose 3 times per day. For associated symptoms, patient reportsno dizziness,no headaches,no increased thirst, andno increased urination. For review finger sticks, (106 this morning , other readings have been ranging 97-117). jr ob routineReported by PatientHPIFor associated symptoms, patient reportsnauseabut reportsno abdominal pain,no cramping,no contractions,normal movement,no bleeding,no vaginal discharge,no vaginal/vulvar itching or irritation,no dysuria,no frequency,no urgency,no hematuria,no fever,no emesis,no constipation,no diarrhea/loose stool,no edema,no visual changes,no headache,no dizziness, andno breathlessness.heartbur n, occasional vaginal pressure,Pt denies any alcohol or tobacco use or drug useROS as noted in the HPI Calvin Maldonado MD [address] [place] [address], [phone], [facility] 04/14/2025 10:45:22 04/12/2025 text/html Diabetes in PregnancyReported by PatientHPIFor context, patient reportsgestational diabetes. For self care, patient reportsmonitoring glucose 3 times per day. For associated symptoms, patient reportsno dizziness,no headaches,no increased thirst, andno increased urination. For review finger sticks, (101 this morning , other readings have been ranging 105-109). jr ob routineReported by PatientHPIFor associated symptoms, patient reportscramping (mild)andnauseabut reportsno abdominal pain,no contractions,normal movement,no bleeding,no vaginal discharge,no vaginal/vulvar itching or irritation,no dysuria,no frequency,no urgency,no hematuria,no fever,no emesis,no constipation,no diarrhea/loose stool,no edema,no visual changes,no headache,no dizziness, andno breathlessness.heartbur n, occasional vaginal pressure, low back painPt denies any alcohol or tobacco use or drug useROS as noted in the HPI Calvin Maldonado MD [address] [place] [address], [phone], [facility] 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 Status 09/23/19 25 1 O Positive Wallace [...] Weight in lbs Pre/Post Dialysis Refused Weight 209.593814310659 BP Diastolic BP Location Tested BP Systolic [...] Weight in lbs Pre/Post Dialysis Refused Weight 208.140110278527 BP Diastolic BP Location Tested BP Systolic BP Type 76 136 sitting Fetus Heart Rate Present A 164 Present Fetus Movement Comments NOB Flowsheet Date 11/29/2024 Herrera Score Blood Edema Fundus Height Fundus Units Glucose Ketones Leukocytes Nitrite Labor Signs Protein Cervic Dilation Cervic Effacement Cervic Station none none Negative neg Type Weight in lbs Pre/Post Dialysis Refused Weight 205.671452830960 BP Diastolic BP Location Tested BP Systolic [...] Weight in lbs Pre/Post Dialysis Refused Weight 204.600056937688 BP Diastolic BP Location Tested BP Systolic [...] Weight in lbs Pre/Post Dialysis Refused Weight 205.217028500023 BP Diastolic BP Location Tested BP Systolic BP Type 70 118 sitting Fetus Heart Rate Present A 144 Present Fetus Movement Comments occ SOB Flowsheet Date 02/15/2025 Herrera Score Blood Edema Fundus Height Fundus Units Glucose Ketones Leukocytes Nitrite Labor Signs Protein Cervic Dilation Cervic Effacement Cervic Station 32 cm none 1+ trace Type Weight in lbs Pre/Post Dialysis Refused Weight 207.437150951788 BP Diastolic BP Location Tested BP Systolic [...] Weight in lbs Pre/Post Dialysis Refused Weight 206.876455076169 BP Diastolic BP Location Tested BP Systolic [...] Weight in lbs Pre/Post Dialysis Refused Weight 208.62533735841 BP Diastolic BP Location Tested BP Systolic [...] Fetus Movement Comments u/s on 03/28/25, LUZ 5, EGA 34.6, vertex, FARIDA normal Flowsheet Date 03/28/2025 Herrera Score Blood Edema Fundus Height Fundus Units Glucose Ketones Leukocytes Nitrite Labor Signs Protein Cervic Dilation Cervic Effacement Cervic Station 34 cm 1+ 1+ trace Type Weight in lbs Pre/Post Dialysis Refused Weight 209.343368065956 BP Diastolic BP Location Tested BP Systolic [...] Weight in lbs Pre/Post Dialysis Refused Weight 213.06883940400 BP Diastolic BP Location Tested BP Systolic [...] Weight in lbs Pre/Post Dialysis Refused Weight 218.219897979565 BP Diastolic BP Location Tested BP Systolic [...] Weight in lbs Pre/Post Dialysis Refused Weight 214.498863172430 BP Diastolic BP Location Tested BP Systolic [...] Estim ated Date of Delivery true Thalassemia (Nauruan, Canadian, Mediterranean, Or Background): MCV < 80 false Neural Tube Defect (Meningomyelocele, Spina Bifi da, Or Anencephaly) false Congenital Heart Defect false Down Syndrome false Wojciech-Sachs (eg, Yazidism, Cajun, Niuean-Cypriot) f alse Enedelia Disease false Sickle Cell [...]
--- OUTSIDE RECORDS SUMMARY | 2025-04-27 05:01 | XMS_ITS | Data Portability ---
Author Organization [place] Rajesh Cai [facility], [facility] Address [address] [place] [address] Care Team Providers Care Gate Watch Name Role Phone QUINN, MARGE Primary Care Provider Unavailabl e Assessment Encounter Date Assessment Date Assessment LastModified by Organization Details LastModified Time 04/26/2025 04/26/2025 We once again discussed risks of ltcs and btl. She and her have no further questions and wish to proceed. Not available 04/26/2025 10:30:31 Plan of Treatment Reminders Order Date Submit Date Provider Last Modified By Organization Details Last Modified Time Details Appointments RETURN OB 2024 10:20A M Calvin Maldonado MD Not available Not available Not available RETURN OB 2024 10:20A M Calvin Maldonado MD Not available Not available Not available Lab streptoco ccus group B, culture, unspecifi ed specimen 2024 025 [facility], [address] [place] [address], [facility] [address] [place], [address], 04/16/2025 20:40:16 Referral None recorded. Procedures None recorded. Surgeries None recorded. Imaging US, obstetric , biophysic al profile - [id number] 2024 025 [facility], [address] [place] [address], [address], 04/26/2025 18:35:37 US, obstetric , biophysic al profile - [id number] 2024 025 [email or web address] [facility], [address] [place], [address], 04/19/2025 13:27:31 Medication Orders None recorded. Patient TargetsNo targets recorded. Patient Instructions Encounter Date Encounter Id Patient Instructions Last Modified By Organization Details Last Modified Time 04/26/2025 [id number] section : before your surgery Not available 04/26/2025 10:30:31 Reason for Referral None Reported. Results Created Date Observation Date Name Description Value Unit Range Abnormal Flag Note LastModifiedBy Organization Detail LastModifiedTime 04/03/2003/28/2025 US, obste tric, follo w-up No observ ation record ed. [email or web address] [facility] [address] [place], [address], 04/03/2025 13:18:29 Result Notes None recorded. Problems Name Problem SNOMED Code Status Onset Date Resolution Date Notes Provider Name and Address Organization Details Recorded Time Transfusion Completed 201109/22/2024 Transfu kevin; At 5-6 years of age; 012 9:50AM by Mini Roger RN, Office Visit; Promote d; acuity set as *; [facility] 14:28:45 38705376 Active 2024 SAUL Miranda [facility] L[facility]paCCompa 5 14:28:34 Gestational diabetes mellitus 59116003 Active 2024 Calvin Maldonado MD [address] [place], [address], [facility] 5 11:00:57 Heartburn 67619216 Active 2024 Calvin Maldonado MD [address] [place], [address], [facility] 11:07:15 Spasm 35495756 Active 2024 Calvin Maldonado MD [address] [place] [address], [address], [facility], Viviana 10:33:23 Problem Notes None recorded. Procedures Surgical History Date Name Laterality Status Provider Name and Address Organization Details Recorded Time 11/03/19 25 Date of Last Pap Smear completed [facility], [place] 11/29/2024 12:06:07 11/03/19 25 sampling of cervix for Papanicolaou smear completed [facility], [place] 11/29/2024 12:06:50 07/15/19 21 section completed [facility], [place] 09/22/2024 14:36:06 transfusion of blood product completed [facility], [place] 09/22/2024 14:36:27 Imaging Results None recorded. Procedure [...] 0; Recorded 12/30/19 12 8:14AM by Jorje rAredondo CMA, Office Visit; Not Available Not Available Not Available PreNexa daily 09/18 completed VO LB/dc; Recorded 07/14/19 12 10:09AM by iMni Roger RN, Office Visit; Refill Quantity : [...] Updated DateTime 5 160.02 cm 37.8 kg/m2 91955.2 7 g 98 % 63 /min 18 /min 99.2 [degF] 130/74 mm[Hg] SAUL DOUGLAS [facility] 5 10:02:38 Date Recorded Body height Body mass index (BMI) Body weight Oxygen saturation Heart rate Respiratory rate Body temperature Systolic And Diastolic Provider Name and Address Organization Details Last Updated DateTime 5 160.02 cm 38.7 kg/m2 64755.9 4 g 95 % 116 /min 18 /min 97.9 [degF] 120/74 mm[Hg] SAUL DOUGLAS [facility] 5 09:54:50 Date Recorded Body height Body mass index (BMI) Body weight Oxygen saturation Heart rate Respiratory rate Body temperature Systolic And Diastolic Provider Name and Address Organization Details Last Updated DateTime 5 160.02 cm 38 kg/m2 83515.8 7 g 99 % 61 /min 18 /min 97.8 [degF] 140/84 mm[Hg] SAUL NOVAK [facility] L[facility]CCompa 5 10:03:09 Social History Question Answer Notes LastModified by [employer] Details LastModified Time Tobacco Smoking Status Never Smoker SAUL jerome [facility]CCompa 09/22/2024 14:35:01 Are You Blind Or Do [...] Functional Status Question Answer Note LastModified by [employer] Details LastModified Time Do you use any illicit or recreational drugs? No [email or web address] Information not available 09/16/2022 Do you or have you ever used any other forms of tobacco or nicotine? No Information not available 09/16/2022 What is your level of alcohol consumption? Occasional [email or web address] Information not available 09/16/2022 Are you currently [...] N Breast Cancer N Blood Transfusion Y COPD N Depression N Lung Disease N [...] virus, trivalent, preservative 0 completed Not Available [facility] 12/06/2022 02:28:54 Past Encounters Encounter ID Performer Location Encounter Start Date Encounter Closed Date Diagnosis/Indication Diagnosis SNOMED-CT Code Diagnosis ICD10 Code Diagnosis IMO Codes Diagnosis Note [id number] Marge Quinn DO [facility] ([facility]) [address] [place] [address] 09/16/2022 15:50:03 09/16/2022 18:49:09 Burn of skin 479435460 T30.0 appears to have acute sun reaction vs severe sunburn, 2nd degree, on b/l arms and b/l shins. .cx on sun exposure, suppliment s, prevention . tp to use vit e oil and will give short courese of topical steroids. [id number] Calvin Maldonado MD [facility] ([facility]) [address] [place] [address] 09/22/2024 14:13:13 09/26/2024 10:40:23 Multigravida 817418476 Z34.81 [id number] Calvin Maldonado MD [facility] ([facility]) [address] [place] [address] 09/22/2024 16:26:16 09/23/2024 10:26:58 [id number] Calvin Maldonado MD [facility] ([facility]) [address] [place] [address] 11/02/2024 09:54:22 11/02/2024 11:14:07 Multigravida 230525955 Z34.81 58983146 Gestation period, 13 weeks 35166738 Z3A.13 5904136 Normal pre gnancy in primigravida 8782434996 93197 Z34.01 Z34.02 Z34.03 Past pregn jett history of gestational diabetes mellitus 550626127 Z86.32 5758988 [id number] Calvin Maldonado MD [facility] ([facility]) [address] [place] [address] 11/29/2024 10:40:18 11/29/2024 12:43:16 Normal 33032929 Z34.82 3512131 Gestation period, 16 weeks 54675470 Z3A.16 6900760 [id number] Calvin Maldonado MD [facility] ([facility]) [address] [place] [address] 11/29/2024 12:32:47 11/29/2024 12:49:53 [id number] Calvin Maldonado MD [facility] ([facility]) [address] [place] [address] 5 12/28/2024 10:23:08 12/28/2024 11:45:07 Multigravida 548583333 Z34.82 30669009 Gestation period, 20 weeks 28691899 Z3A.20 9864449 [id number] Calvin Maldonado MD [facility] ([facility]) [address] [place] [address] 5 12/28/2024 09:31:30 12/30/2024 15:46:39 [id number] Calvin Maldonado MD [facility] ([facility]) [address] [place] [address] 01/24/2025 09:45:51 01/24/2025 11:09:12 01364832 Z34.90 Multigravida 732248701 Z 34.82 38074987 Gestationa l diabetes mellitus 45247822 O24.410 84129851 Heartburn 94076292 R12 [id number] Calvin Maldonado MD [facility] ([facility]) [address] [place] [address] 02/15/2025 09:47:31 02/15/2025 11:37:45 Gestational diabetes mellitus 74750412 O24.410 67124324 - Maintain current dietary and glucose monitoring practices. - No immediate need for medication ; monitor potential increase in glucose levels. 40861686 Z34.9 0 Gestation period, 28 weeks 33250454 Z3A.28 6317662 Spasm 62629871 M62.838 98418 - Increase dietary magnesium and hydration as preventive measures. - Reevaluate if spasms continue or intensify, considerin g electrolyt e testing. [id number] Calvin Maldonado MD [facility] ([facility]) [address] [place] [address] 02/16/2025 11:57:30 02/17/2025 10:02:55 [id number] Calvin Maldonado MD [facility] ([facility]) [address] [place] [id number] 03/01/2025 09:39:38 03/01/2025 11:23:39 Gestational diabetes mellitus 59464489 O24.410 08423789 - Maintain current dietary and glucose monitoring practices. - No immediate need for medication ; monitor potential increase in glucose levels. 57822120 Z34.9 0 Gestation period, 30 weeks 90433477 Z3A.30 1690744 [id number] Calvin Maldonado MD [facility] ([facility]) [address] [place] [address] 03/14/2025 10:16:59 03/14/2025 10:47:44 Gestational diabetes mellitus 15956112 O24.410 38707111 - Maintain current dietary and glucose monitoring practices. - No immediate need for medication ; monitor potential increase in glucose levels. 22439531 Z34.9 0 Gestation period, 31 weeks 36082418 Z3A.31 0762827 [id number] Calvin Maldonado MD [facility] ([facility]) [address] [place] [address] 03/28/2025 08:59:26 03/28/2025 13:16:29 [id number] Calvin Maldonado MD [facility] ([facility]) [address] [place] [id number] 5 03/28/2025 09:30:49 04/14/2025 11:57:50 Gestational diabetes mellitus 90607593 O24.410 37694770 - Maintain current dietary and glucose monitoring practices. - No immediate need for medication ; monitor potential increase in glucose levels. 94640416 Z34.9 0 Gestation period, 33 weeks 95679424 Z3A.33 8822049 [id number] Calvin Maldonado MD [facility] ([facility]) [address] [place] [address] 5 04/12/2025 09:36:17 04/12/2025 10:49:52 Gestational diabetes mellitus 01088201 O24.410 25494404 - Maintain current dietary and glucose monitoring practices. - No immediate need for medication ; monitor potential increase in glucose levels. 06017715 Z34.9 0 Gestation period, 36 weeks 78006506 Z3A.36 3705943 [id number] Calvin Maldonado MD [facility]) [address] [place] [address] 04/19/2025 09:35:28 04/26/2025 03:59:57 Gestational diabetes mellitus 05076716 O24.410 65239240 - Maintain current dietary and glucose monitoring practices. - No immediate need for medication ; monitor potential increase in glucose levels. Multigravida 258815378 Z 34.83 58721418 Gestation period, 37 weeks 44601242 Z3A.37 0275674 [id number] Calvin Maldonado MD [facility] ([facility]) [address] [place] [address] 5 04/19/2025 12:53:13 04/19/2025 14:15:35 [id number] Calvin Maldonado MD [facility]) [address] [place] [address] 5 04/26/2025 09:43:14 04/26/2025 10:37:53 68203883 Z34.90 Gestationa l diabetes mellitus 13834945 O24.410 22777973 - Maintain current dietary and glucose monitoring practices. - No immediate need for medication ; monitor potential increase in glucose levels. Gestation period, 38 weeks 21018023 Z3A.38 9195421 [id number] Calvin Maldonado MD [facility] ([facility]) [address] [place] [address] 5 04/26/2025 14:39:25 04/26/2025 15:02:14 Gestational diabetes mellitus 05714357 O24.410 44796653 - Maintain current dietary and glucose monitoring practices. - No immediate need for medication ; monitor potential increase in glucose levels. Health Concerns Section Related Observation LastModified by Organization Detai ls LastModified Time None Recorded Concern Status LastModified by Organization Details LastModified Time None Recorded Advance Directives Directive None Recorded Payers Insurance Date Sequence Insurance Name Policy Number Policy Walsh Covered Member ID Walsh Member ID Guarantor Name 04/23/2025 1 CHELSY [id number] Tiffany Solomon [id number] Tiffany Solomon Notes Date Note Type Note Provider Name and Address Organization Details Recorded Time 5 text/html Diabetes in PregnancyReported by PatientHPIFor context, [...] stool,no edema,no visual changes,no headache,no dizziness, andno breathlessness.heartburn, occasional vaginal pressure, low back painPt denies any alcohol or tobacco use or drug useROS as noted in the HPI Calvin Maldonado MD [address] [place] [address], [phone], [facility] 04/12/2025 10:42:21 5 text/html Diabetes in PregnancyReported by PatientHPIFor [...] noted in the HPI Calvin Maldonado MD [address] [place] [address], [phone], [facility] 04/24/2025 21:47:17 5 text/html Diabetes in PregnancyReported by PatientHPIFor associated symptoms, patient reportsheadachesbut reportsno dizziness,no increased thirst, andno increased urination. For context, patient reportsgestational diabetes. For self care, patient reportsmonitoring glucose 3 times per day. For review finger sticks, (80s this morning , other readings have been ranging 107-115). jr ob routineReported by PatientHPIFor associated symptoms, patient reportscramping (mild),contractions (irreg),edema (feet,legs), andheadachebut reportsno abdominal pain,normal movement,no bleeding,no vaginal discharge,no vaginal/vulvar itching or irritation,no dysuria,no frequency,no urgency,no hematuria,no fever,no nausea,no emesis,no constipation,no diarrhea/loose stool,no visual changes,no dizziness, andno breathlessness.heartburn, occasional vaginal pressure, pelvic painPt denies any alcohol or tobacco use or drug useROS as noted in the HPI Gravid Calvin Maldonado MD [address] [place] [address], [phone] 04/26/2025 10:30:40 OBGyn Episode Ob Episode Information Episode Created Date Number of Fetuses Patient Bloodtype Patient rh Status Prepregnancy Weight lbs Domestic Partner Domestic Partner Phone Father Name Acid Painter Status 09/23/19 25 1 O Positive Wallace [...] Weight in lbs Pre/Post Dialysis Refused Weight 209.679846933469 BP Diastolic BP Location Tested BP Systolic [...] Weight in lbs Pre/Post Dialysis Refused Weight 208.274832412869 BP Diastolic BP Location Tested BP Systolic BP Type 76 136 sitting Fetus Heart Rate Present A 164 Present Fetus Movement Comments NOB Flowsheet Date 11/29/2024 Herrera Score Blood Edema Fundus Height Fundus Units Glucose Ketones Leukocytes Nitrite Labor Signs Protein Cervic Dilation Cervic Effacement Cervic Station none none Negative neg Type Weight in lbs Pre/Post Dialysis Refused Weight 205.020242952966 BP Diastolic BP Location Tested BP Systolic [...] Weight in lbs Pre/Post Dialysis Refused Weight 204.793286432068 BP Diastolic BP Location Tested BP Systolic [...] Weight in lbs Pre/Post Dialysis Refused Weight 205.106485218882 BP Diastolic BP Location Tested BP Systolic BP Type 70 118 sitting Fetus Heart Rate Present A 144 Present Fetus Movement Comments occ SOB Flowsheet Date 02/15/2025 Herrera Score Blood Edema Fundus Height Fundus Units Glucose Ketones Leukocytes Nitrite Labor Signs Protein Cervic Dilation Cervic Effacement Cervic Station 32 cm none 1+ trace Type Weight in lbs Pre/Post Dialysis Refused Weight 207.019838359871 BP Diastolic BP Location Tested BP Systolic BP Type 62 110 Fetus Heart Rate Present A 144 Present Fetus Movement A Yes Comments BS readings:90-129. occasio nal heartburn Flowsheet Date 02/16/2025 Herrera Score Blood [...] Weight in lbs Pre/Post Dialysis Refused Weight 206.992457707610 BP Diastolic BP Location Tested BP Systolic [...] Weight in lbs Pre/Post Dialysis Refused Weight 208.57051062703 BP Diastolic BP Location Tested BP Systolic [...] Weight in lbs Pre/Post Dialysis Refused Weight 209.000519636538 BP Diastolic BP Location Tested BP Systolic [...] Weight in lbs Pre/Post Dialysis Refused Weight 213.04591682108 BP Diastolic BP Location Tested BP Systolic [...] Weight in lbs Pre/Post Dialysis Refused Weight 218.872657015228 BP Diastolic BP Location Tested BP Systolic [...] Weight in lbs Pre/Post Dialysis Refused Weight 214.718940521166 BP Diastolic BP Location Tested BP Systolic [...] Estim ated Date of Delivery true Thalassemia (Chilean, Maldivian, Mediterranean, Or Background): MCV < 80 false Neural Tube Defect (Meningomyelocele, Spina Bifi da, Or Anencephaly) false Congenital Heart Defect false Down Syndrome false Wojciech-Sachs (eg, Orthodox, Cajun, Guinean-[place]) f alse Enedelia Disease false Sickle Cell [...] Method Maternal HG B and HCT Levels Ob Episode Information Episode Created Date Number of Fetuses Patient Bloodtype Patient rh Status Prepregnancy Weight lbs Domestic Partner Domestic Partner Phone Father Name Acid Painter Status 09/23/19 25 1 CLOSED Fetus Data First Name Last Name Admitted to NICU Weight (g) Sex Living Outcome Pediatric Complications Fetus ID Race Codes Race Delivery Type 3628.73 6 F Full Term 8226 VAGINAL Luz Calculation Initial Luz Date Initial Exam Date Initial Exam Provider Initial Ultrasound Date Last Menstrual Period Date Ultra Sound Weeks Gestation 0 Eighteen To Twenty Week Luz Update Ultra Sound Date Fundal Height At Umbil Quickening Date Ultra Sound Latest Weeks Gestation Final Luz Confirmed By Final Luz Confirmed Date Final Luz Date Ultra Sound Latest Days Gestation 0 0 Menstrual History Last Menstrual Date Menses Monthly On Bcp Conception Prior Menses Frequency Hcg Plus Date Menarche Onset Age Delivery Information Delivery Date Delivery Type Labor Anesthesia Weeks Gestation Incision Type Labor Labor Length Hrs Delivered By Post Complications Tubal Sterilization Discharge Date Comments 4 38 Gestatio n al diabetes- Luciana Discharge Information Feeding Method Contraceptive Method Maternal HG B and HCT Levels Ob Episode Information Episode Created Date Number of Fetuses Patient Bloodtype Patient rh Status Prepregnancy Weight lbs Domestic Partner Domestic Partner Phone Father Name Acid Painter Status 09/23/19 25 1 CLOSED Fetus Data First Name Last Name Admitted to NICU Weight (g) Sex Living Outcome Pediatric Complications Fetus ID Race Codes Race Delivery Type 2948.34 8 M Full Term 8227 VAGINAL Luz Calculation Initial Luz Date Initial Exam Date Initial Exam Provider Initial Ultrasound Date Last Menstrual Period Date Ultra Sound Weeks Gestation 0 Eighteen To Twenty Week Luz Update Ultra Sound Date Fundal Height At Umbil Quickening Date Ultra Sound Latest Weeks Gestation Final Luz Confirmed By Final Luz Confirmed Date Final Luz Date Ultra Sound Latest Days Gestation 0 0 Menstrual History Last Menstrual Date Menses Monthly On Bcp Conception Prior Menses Frequency Hcg Plus Date Menarche Onset Age Delivery Information Delivery Date Delivery Type Labor Anesthesia Weeks Gestation Incision Type Labor Labor Length Hrs Delivered By Post Complications Tubal Sterilization Discharge Date Comments 7 38 gestatio n al diabetes- Ayaan Discharge Information Feeding Method Contraceptive Method Maternal HG B and HCT Levels Ob Episode Information Episode Created Date Number of Fetuses Patient Bloodtype Patient rh Status Prepregnancy Weight lbs Domestic Partner Domestic Partner Phone Father Name Acid Painter Status 09/23/19 25 1 CLOSED Fetus Data First Name Last Name Admitted to NICU Weight (g) Sex Living Outcome Pediatric Complications Fetus ID Race Codes Race Delivery Type 3373.36 3704 F Full Term 8228 Luz Calculation Initial Luz Date Initial Exam Date Initial Exam Provider Initial Ultrasound Date Last Menstrual Period Date Ultra Sound Weeks Gestation 0 Eighteen To Twenty Week Luz Update Ultra Sound Date Fundal Height At Umbil Quickening Date Ultra Sound Latest Weeks Gestation Final Luz Confirmed By Final Luz Confirmed Date Final Luz Date Ultra Sound Latest Days Gestation 0 0 Menstrual History Last Menstrual Date Menses Monthly On Bcp Conception Prior Menses Frequency Hcg Plus Date Menarche Onset Age Delivery Information Delivery Date Delivery Type Labor Anesthesia Weeks Gestation Incision Type Labor Labor Length Hrs Delivered By Post Complications Tubal Sterilization Discharge Date Comments 1 38 gestatio n al diabetes, distress- Magda Discharge Information Feeding Method Contraceptive Method Maternal HG B and HCT Levels
--- OUTSIDE RECORDS SUMMARY | 2025-04-27 05:01 | XMS_ITS | Continuity of Care Document ---
Author Organization [facility], LWally, [facility] ([facility]) Address [address] [place] [address] Care Team Providers Care Manager Learning Name Role Phone MARIE, MARGE Primary Care Provider Unavailabl e Assessment Encounter Date Assessment Date Assessment LastModified by Organization Details LastModified Time 03/14/2025 03/14/2025 Tentatively set up ltcs for 04/27 Not available 03/14/2025 10:46:43 Plan of Treatment Reminders Order Date Submit Date Provider Last Modified By Organization Details Last Modified Time Details Appointments RETURN OB 2024 10:20A M Calvin Maldonado MD Not available Not available Not available RETURN OB 2024 10:20A Isaias Maldonado MD Not available Not available Not available Lab None recorded . Referral None recorded . Procedures None recorded . Surgeries None recorded . Imaging US, obstetri c, follow-u p - [id number] 2024 025 [facility], [address] [place], [address], 04/03/2025 13:18:29 Medication Orders None recorded . Patient TargetsNo targets recorded. Patient InstructionsNo instructions recorded. Reason for Referral None Reported. Results Created Date Observation Date Name Description Value Unit Range Abnormal Flag Note LastModifiedBy Organization Detail LastModifiedTime 11/03/19 25 11/02/2024 GLUCO SE glucose 121.0 mg/dL 60.0-9 9.0 high Not Available [facility] [address], [address], 11/02/2024 12:02:10 11/03/19 25 11/03/2024 HIV 1/2 ANTIG EN/AN TIBOD Y,FOU RTH GENER ATION W/RFL HIV final interpretati on HIV Negat carrie HIV-1 antig en and HIV-1 /HIV- 2 antib odies were not detec britney. There is no labor atory evide nce of HIV infec tion. Not Available [address], [address], 11/03/2024 23:21:44 11/03/19 25 11/03/2024 HIV 1/2 ANTIG EN/AN TIBOD Y,FOU RTH GENER ATION W/RFL HIV Ag/Ab, 4TH gen NON-RE ACTIVE non-re active normal Not Available [address], [address], 11/03/2024 23:21:44 11/03/19 25 11/03/2024 URINA LYSIS , COMPL ETE color YELLOW yellow normal Not Available [address], [address], 11/03/2024 23:21:45 11/03/19 25 11/03/2024 URINA LYSIS , COMPL ETE appearance CLEAR clear normal Not Available [address], [address], 11/03/2024 23:21:45 11/03/1911/03/2024 URINA LYSIS , COMPL ETE specific gravity 1.002 1.001- 1.035 normal Not Available [address], [address], 11/03/2024 23:21:45 11/03/19 25 11/03/2024 URINA LYSIS , COMPL ETE pH 6.5 5.0-8. 0 normal Not Available [address], [address], 11/03/2024 23:21:45 11/03/19 25 11/03/2024 URINA LYSIS , COMPL ETE glucose NEGATI VE negati ve normal Not Available [facility] [address] [place], [address], 11/03/2024 23:21:45 11/03/19 25 11/03/2024 URINA LYSIS , COMPL ETE bilirubin NEGATI VE negati ve normal Not Available [facility] [address] [place], [address], 11/03/2024 23:21:45 11/03/19 25 11/03/2024 URINA LYSIS , COMPL ETE ketones NEGATI VE negati ve normal Not Available [facility] [address], [address], 11/03/2024 23:21:45 11/03/19 25 11/03/2024 URINA LYSIS , COMPL ETE occult blood NEGATI VE negati ve normal Not Available [facility] [address], [address], 11/03/2024 23:21:45 11/03/19 25 11/03/2024 URINA LYSIS , COMPL ETE protein NEGATI VE negati ve normal Not Available [facility] [address] [place], [address], 11/03/2024 23:21:45 11/03/19 25 11/03/2024 URINA LYSIS , COMPL ETE nitrite NEGATI VE negati ve normal Not Available [facility] [address], [address], 11/03/2024 23:21:45 11/03/19 25 11/03/2024 URINA LYSIS , COMPL ETE leukocyte esterase NEGATI VE negati ve normal Not Available [facility] [address] [place], [address], 11/03/2024 23:21:45 11/03/19 25 11/03/2024 URINA LYSIS , COMPL ETE WBC NONE SEEN /hpf < or = 5 normal Not Available [address], [address], 11/03/2024 23:21:45 11/03/19 25 11/03/2024 URINA LYSIS , COMPL ETE RBC NONE SEEN /hpf < or = 2 normal Not Available [address], [address], 11/03/2024 23:21:45 11/03/19 25 11/03/2024 URINA LYSIS , COMPL ETE squamous epithelial cells NONE SEEN /hpf < or = 5 normal Not Available [address], [address], 11/03/2024 23:21:45 11/03/19 25 11/03/2024 URINA LYSIS , COMPL ETE bacteria NONE SEEN /hpf none seen normal Not Available [address], [address], 11/03/2024 23:21:45 11/03/19 25 11/03/2024 URINA LYSIS , COMPL ETE hyaline cast NONE SEEN /lpf none seen normal Not Available [address], [address], 11/03/2024 23:21:45 11/03/19 25 11/03/2024 URINA LYSIS , COMPL ETE note This urine was camilo zed for the prese nce of WBC, RBC, bacte glenys, casts , and other forme d eleme nts. Only those eleme nts seen were repor britney. Not Available [address], [address], 11/03/2024 23:21:45 11/03/19 25 11/03/2024 CBC (INCL UDES DIFF/ PLT) white blood cell count 8.3 thous and/u L 3.8-10 .8 normal Not Available [address], [address], 11/03/2024 23:21:47 11/03/1911/03/2024 CBC (INCL UDES DIFF/ PLT) red blood cell count 3.94 nancy on/uL 3.80-5 .10 normal Not Available [address], [address], 11/03/2024 23:21:47 11/03/1911/03/2024 CBC (INCL UDES DIFF/ PLT) hemoglobin 12.6 g/dL 11.7-1 5.5 normal Not Available [address], [address], 11/03/2024 23:21:47 11/03/1911/03/2024 CBC (INCL UDES DIFF/ PLT) hematocrit 37.7 % 35.0-4 5.0 normal Not Available [address], [address], 11/03/2024 23:21:47 11/03/1911/03/2024 CBC (INCL UDES DIFF/ PLT) MCV 95.7 fL 80.0-1 00.0 normal Not Available [address], [address], 11/03/2024 23:21:47 11/03/1911/03/2024 CBC (INCL UDES DIFF/ PLT) MCH 32.0 pg 27.0-3 3.0 normal Not Available [address], [address], 11/03/2024 23:21:47 11/03/1911/03/2024 CBC (INCL UDES DIFF/ PLT) MCHC 33.4 g/dL 32.0-3 6.0 normal For adult s, a sligh t decre ase in the calcu lated MCHC value (in the range of 30 to 32 g/dL) is most likel y not clini aisha tsang t; merry er, it shoul d be inter prete d with cauti on in [facility] n with other red cell apoorva eters and the patie nt's clini sury condi tion. Not Available [facility] [address], [address], 11/03/2024 23:21:47 11/03/1911/03/2024 CBC (INCL UDES DIFF/ PLT) RDW 13.6 % 11.0-1 5.0 normal Not Available [facility] [address], [address], 11/03/2024 23:21:47 11/03/1911/03/2024 CBC (INCL UDES DIFF/ PLT) platelet count 259 thous and/u L 140-40 0 normal Not Available [facility] [address], [address], 11/03/2024 23:21:47 11/03/1911/03/2024 CBC (INCL UDES DIFF/ PLT) MPV 10.1 fL 7.5-12 .5 normal Not Available [address], [address], 11/03/2024 23:21:47 11/03/1911/03/2024 CBC (INCL UDES DIFF/ PLT) absolute neutrophils 6524 cells /uL 1500-7 800 normal Not Available [facility] [address], [address], 11/03/2024 23:21:47 11/03/1911/03/2024 CBC (INCL UDES DIFF/ PLT) absolute lymphocytes 1361 cells /uL 850-39 00 normal Not Available [facility] [address], [address], 11/03/2024 23:21:47 11/03/1911/03/2024 CBC (INCL UDES DIFF/ PLT) absolute monocytes 332 cells /uL 200-95 0 normal Not Available [address], [address], 11/03/2024 23:21:47 11/03/19 25 11/03/2024 CBC (INCL UDES DIFF/ PLT) absolute eosinophils 50 cells /uL 15-500 normal Not Available [facility] [address], [address], 11/03/2024 23:21:47 11/03/1911/03/2024 CBC (INCL UDES DIFF/ PLT) absolute basophils 33 cells /uL 0-200 normal Not Available [address], [address], 11/03/2024 23:21:47 11/03/1911/03/2024 CBC (INCL UDES DIFF/ PLT) neutrophils 78.6 % normal Not Available [address], [address], 11/03/2024 23:21:47 11/03/1911/03/2024 CBC (INCL UDES DIFF/ PLT) lymphocytes 16.4 % normal Not Available [facility] [address], [address], 11/03/2024 23:21:47 11/03/1911/03/2024 CBC (INCL UDES DIFF/ PLT) monocytes 4.0 % normal Not Available [facility] [address], [address], 11/03/2024 23:21:47 11/03/1911/03/2024 CBC (INCL UDES DIFF/ PLT) eosinophils 0.6 % normal Not Available [facility] [address], [address], 11/03/2024 23:21:47 0611/03/2024 CBC (INCL UDES DIFF/ PLT) basophils 0.4 % normal Not Available [facility] [address] [address] [place], [address], 11/03/2024 23:21:47 11/03/1911/03/2024 HEPAT ITIS B SURFA CE ANTIG EN W/REF L CONFI RM hepatitis B surface antigen NON-RE ACTIVE non-re active normal For addit ional infor antonino starkey, mason e refer to http: //[facility] [place].que stdia gnost ics.c om/fa q/FAQ 202 (This link is being provi ded for infor matio nal/ educa chitra l purpo ses only. ) Not Available [facility] [address] [address] [place], [address], 11/03/2024 23:21:47 11/03/1911/03/2024 HEPAT ITIS C AB [...] a test for HCV RNA (test code 43219 ) is sugge sted. For addit ional infor antonino cuevas e refer to http: //[facility] [place].[facility] stdia gnost ics.c om/fa q/FAQ 22v1 (This link is being provi ded for infor matio nal/ educa chitra l purpo ses only. ) Not Available [facility] [address] [address] [place], [address], 11/03/2024 23:21:48 11/03/1911/03/2024 RUBEL LA AB (IGG) [...] with rubel la virus . Not Available [facility] [address] [place], [address], 11/03/2024 23:21:49 11/03/1911/03/2024 HEMOG LOBIN A1C hemoglobin A1C 4.7 % <5.7 normal For the purpo se of scree lauryn for the prese nce of diabe bharati: [...] Care in Diabe bharati(A DA). Not Available [facility] [address] [address], [place], [address], 11/03/2024 23:21:50 11/03/1911/03/2024 RPR (DX) W/REF L TITER AND T. PALLI DUM AB, IA RPR (DX) w/refl titer and confirmatory testing NON-RE ACTIVE non-re active normal No labor atory evide nce of syphi lis. If recen t expos ure is suspe cted, submi t a new sampl e in 2-4 weeks . Not Available [facility] [address] [address], [place], [address], 11/03/2024 23:21:51 11/03/1911/03/2024 ABO GROUP AND RH TYPE ABO group O Not Available [address] [address] [address], [place], [address], 11/03/2024 23:21:52 11/03/1911/03/2024 ABO GROUP AND RH TYPE Rh type RH(D) POSITI VE For addit ional infor mason mei e refer to http: //[facility] shanta Salmeron gnost ics.c om/fa q/FAQ 111 (This link is being provi ded for infor antonino akhtar/ ina parra purpo ses only. ) Not Available [facility] [address] [address] [address], [place], [address], 11/03/2024 23:21:52 11/03/1911/03/2024 DRUG MONIT OR, PANEL 1, SCREE N, URINE amphetamines NEGATI VE NG/mL <500 See Note A See Note A Not Available [address] [address] [address], [place], [address], 11/03/2024 23:21:53 11/03/1911/03/2024 DRUG MONIT OR, PANEL 1, SCREE N, URINE barbiturates NEGATI VE NG/mL <300 See Note A See Note A Not Available [address] [address] [address], [place], [address], 11/03/2024 23:21:53 11/03/1911/03/2024 DRUG MONIT OR, PANEL 1, SCREE N, URINE benzodiazepi kendell NEGATI VE NG/mL <100 See Note A See Note A Not Available [facility] [address] [address] [address], [place], [address], 11/03/2024 23:21:53 11/03/1911/03/2024 DRUG MONIT OR, PANEL 1, SCREE N, URINE cocaine metabolite NEGATI VE NG/mL <150 See Note A See Note A Not Available [address] [address] [address], [place], [address], 11/03/2024 23:21:53 11/03/1911/03/2024 DRUG MONIT OR, PANEL 1, SCREE N, URINE marijuana metabolite NEGATI VE NG/mL <20 See Note A See Note A Not Available [address] [address] [address], [place], [address], 11/03/2024 23:21:53 11/03/1911/03/2024 DRUG MONIT OR, PANEL 1, SCREE N, URINE methadone metabolite NEGATI VE NG/mL <100 See Note A See Note A Not Available [facility] [address] [address] [address], [place], [address], 11/03/2024 23:21:53 11/03/1911/03/2024 DRUG MONIT OR, PANEL 1, SCREE N, URINE opiates NEGATI VE NG/mL <100 See Note A See Note A Not Available [facility] [address] [address] [address], [place], [address], 11/03/2024 23:21:53 11/03/1911/03/2024 DRUG MONIT OR, PANEL 1, SCREE N, URINE oxycodone NEGATI VE NG/mL <100 See Note A See Note A Not Available [facility] [address] [address] [address], [place], [address], 11/03/2024 23:21:53 11/03/1911/03/2024 DRUG MONIT OR, PANEL 1, SCREE N, URINE phencyclidin e NEGATI VE NG/mL <25 See Note A See Note A Not Available [facility] [address] [address] [address], [place], [address], 11/03/2024 23:21:53 06/25/20 25 11/03/2024 DRUG MONIT OR, PANEL 1, SCREE N, URINE creatinine 8.6 mg/dL > or = 20.0 low Not Available [address] [address] [place], [address], 11/03/2024 23:21:53 11/03/1911/03/2024 DRUG MONIT OR, PANEL 1, SCREE N, URINE specific gravity 1.003 > or = 1.003 Not Available [address] [address] [address], [place], [address], 11/03/2024 23:21:53 11/03/1911/03/2024 DRUG MONIT OR, PANEL 1, SCREE N, URINE pH 6.6 4.5-9. 0 Not Available [address] [address] [address] , [place], [address], 11/03/2024 23:21:53 11/03/1911/03/2024 DRUG MONIT OR, PANEL 1, SCREE N, URINE oxidant NEGATI VE mcg/m L <200 Not Available [address] [address] [address] , [place], [address], 11/03/2024 23:21:53 11/03/1911/03/2024 DRUG MONIT ORING TEMPL ATE notes and comments This drug testi ng is for medic al treat ment only. Camilo sis was perfo rmed as non-f orens ic testi ng and these resul ts shoul d be used only by [facility] provi ders to rende r diagn osis or treat ment, or to monit or progr ess of medic al condi tions . Note A: The resul ts are presu mptiv e; based only on jose kendall, and they have not been confi rmed by a defin itive lakesha mcgowan. [facility] Provi ders needi ng Inter preta tion simba tance , pleas e conta ct us at 1.877 .40.R XTOX (1.87 [phone] ) M-F, 8am to 10pm EST Not Available [facility] [address] [place], [address], 11/03/2024 23:21:53 11/03/1911/03/2024 CULTU RE, URINE , ROUTI NE culture, urine, routine SEE NOTE CULTU RE, URINE , ROUTI NE Micro Numbe r: [id number] Test Statu s: Final Speci men Sourc e: Urine Speci men Quali ty: Adequ ate Resul t: No Growt h Not Available [address], [address], 11/03/2024 23:21:54 11/03/19 25 11/07/2024 THINP REP TIS PAP (REFL ) HPV MRNA E6/E7 clinical information: normal Pregn ant Not Available [address], [address], 11/07/2024 18:47:29 11/03/19 25 11/07/2024 THINP REP TIS PAP (REFL ) HPV MRNA E6/E7 LMP: normal NONE GIVEN Not Available [address], [address], 11/07/2024 18:47:29 11/03/19 25 11/07/2024 THINP REP TIS PAP (REFL ) HPV MRNA E6/E7 prev. Pap: normal NONE GIVEN Not Available [address], [address], 11/07/2024 18:47:29 11/03/19 25 11/07/2024 THINP REP TIS PAP (REFL ) HPV MRNA E6/E7 prev. BX: normal NONE GIVEN Not Available [address], [address], 11/07/2024 18:47:29 11/03/19 25 11/07/2024 THINP REP TIS PAP (REFL ) HPV MRNA E6/E7 source: normal Cervi x, Endoc ervix Not Available [address] [address] [place], [address], 11/07/2024 18:47:29 11/03/19 25 11/07/2024 THINP REP TIS PAP (REFL ) HPV MRNA E6/E7 statement of adequacy: normal Satis facto ry for evalu ation . Endoc ervic al/tr ansfo rmati on zone compo nent absen t. Not Available [address] [address] [place], [address], 11/07/2024 18:47:29 11/03/19 25 11/07/2024 THINP REP TIS PAP (REFL ) HPV MRNA E6/E7 interpretati on/result: normal Cytol ogy Resul ts: Negat carrie for intra epith elial lesio n or earl cobian . Not Available [address] [address] [address] , [place], [address], 11/07/2024 18:47:29 11/03/19 25 11/07/2024 THINP REP TIS PAP (REFL ) HPV MRNA E6/E7 infection: normal Funga l organ isms morph ologi aisha consi stent with Janie da spp. Not Available [address] [address] [place], [address], 11/07/2024 18:47:29 11/03/19 25 11/07/2024 THINP REP TIS PAP (REFL ) HPV MRNA E6/E7 comment: normal This Pap test has been evalu ated with compu ter simba britney techn ology . Not Available [address] [address] [place], [address], 11/07/2024 18:47:29 11/03/19 25 11/07/2024 THINP REP TIS PAP (REFL ) HPV MRNA E6/E7 cytotechnolo gist: normal MEF, CT( CP) CT scree lauryn locat ion: [address] [address] [place] [address] Not Available [address] [address] [place], [address], 11/07/2024 18:47:29 11/03/19 25 11/07/2024 THINP REP [...] heriberto and curre nt clini sury infor matleeann n. Not Available [facility] [address] [place], [address], 11/07/2024 18:47:29 11/03/19 25 11/02/2024 CT + NG + TV, DNA, urine /swab CT + NG + TV, DNA, urine/swab negati ve Not Available [facility]) [address] [place], [address], 11/02/2024 10:59:56 01/21/2001/20/2025 CBC WBC 7.7 x10 4.0-10 .5 Not Available [facility] [address] [facility] [address], [address], 01/20/2025 13:18:07 01/21/20 25 01/20/2025 CBC RBC 3.41 x10 3.50-5 .50 low Not Available [facility] [address] [facility] [address], [place], [address], 01/20/2025 13:18:07 01/21/20 25 01/20/2025 CBC HGB 10.9 g/dL 12.0-1 6.0 low Not Available [facility] [address] [facility] [address], [address], 01/20/2025 13:18:07 01/21/2001/20/2025 CBC HCT 32.5 % 37.0-4 7.0 low Not Available [facility] [address], [place], [address], 01/20/2025 13:18:07 01/21/2001/20/2025 CBC MCV 95.2 fL 80.0-9 9.9 Not Available [facility] [address], [place], [address], 01/20/2025 13:18:07 01/21/2001/20/2025 CBC MCH 31.9 pg 27.0-3 2.0 Not Available [facility] [address] [facility], [place], [address], 01/20/2025 13:18:07 01/21/2001/20/2025 CBC MCHC 33.4 g/dL 32.0-3 6.0 Not Available [facility] [address] [facility] [facility] [address] [facility], [place], [address], 01/20/2025 13:18:07 01/21/2001/20/2025 CBC RDW 15.4 % 11.5-1 4.5 high Not Available [facility] [address] [facility], [place], [address], 01/20/2025 13:18:07 01/21/2001/20/2025 CBC plt 240.5 x10 140.0- 451.0 Not Available [facility] [address] [facility] [address] [facility], [place], [address], 01/20/2025 13:18:07 01/21/2001/20/2025 CBC lymphocytes % 14.6 % 20.0-5 0.0 low Not Available [facility] [address] [facility] [address] [facility], [place], [address], 01/20/2025 13:18:07 01/21/20 25 01/20/2025 CBC granulcytes % 81.0 % 30.0-7 0.0 high Not Available [facility] [address] [facility] [address] [facility], [place], [address], 01/20/2025 13:18:07 01/21/2001/20/2025 CBC monocytes % 3.6 % 2.0-16 .0 Not Available [facility] [address] [facility] [address] [facility], [place], [address], 01/20/2025 13:18:07 01/21/2001/20/2025 CBC granulcytes# 6.2 x10 Not Renetta ilable [facility] [address] [facility], [place], [address], 01/20/2025 13:18:07 01/21/2001/20/2025 CBC lymphocytes # 1.1 x10 Not Available [facility] [address] [facility] [address] [facility], [place], [address], 01/20/2025 13:18:07 01/21/2001/20/2025 CBC monocytes # 0.3 x10 Not Avai lable [facility] [address] [facility], [place], [address], 01/20/2025 13:18:07 01/21/2001/20/2025 HBA1C hemaglobin A1C 4.2 4.2-6. 5 Not Available [facility] [address] [facility], [place], [address], 01/20/2025 13:18:19 01/21/20 25 01/20/2025 GLUCO SE SCREE N glucose screen 199.0 mg/dL Not Available [facility] [address] [facility], [place], [address], 01/20/2025 14:42:21 02/16/2002/15/2025 CMP (FEMA LE) glucose 100.0 mg/dL 60.0-9 9.0 high Not Available [facility] [address] [facility], [place], [address], 02/15/2025 12:46:12 02/16/2002/15/2025 CMP (FEMA LE) BUN (blood urea nitrogen) 5.0 mg/dL 10.0-2 6.0 low Not Available [facility] [address] [facility], [place], [address], 02/15/2025 12:46:12 02/16/2002/15/2025 CMP (FEMA LE) creatinine (serum) 0.5 mg/dL 0.4-1. 5 Not Available [facility] [address] [facility] [address] [facility], [place], [address], 02/15/2025 12:46:12 02/16/2002/15/2025 CMP (FEMA LE) BUN/creatini ne ratio 10.00 ratio Not Available [facility] [address] [facility] [address] [facility], [place], [address], 02/15/2025 12:46:12 02/16/2002/15/2025 CMP (FEMA LE) eGFR calculated 147.6 Not Available [facility] [address] [facility] [address] [facility], [place], [address], 02/15/2025 12:46:12 02/16/20 25 02/15/2025 CMP (FEMA LE) total protein 6.8 g/dL 6.0-8. 5 Not Available [facility] [address] [facility], [place], [address], 02/15/2025 12:46:12 02/16/20 25 02/15/2025 CMP (FEMA LE) total bilirubin 0.9 mg/dL 0.2-1. 3 Not Available [facility] [address] [facility], [place], [address], 02/15/2025 12:46:12 02/16/2002/15/2025 CMP (FEMA LE) albumin 3.6 g/dL 3.5-5. 5 Not Available [facility] [address] [place] [facility], [place], [address], 02/15/2025 12:46:12 02/16/2002/15/2025 CMP (FEMA LE) globulin 3.2 calc Not Available [facility] [address] [facility] [address], [place], [address], 02/15/2025 12:46:12 02/16/2002/15/2025 CMP (FEMA LE) AST (SGOT) 25.0 U/L 0.0-46 .0 Not Available [facility] [address] [facility] 1, [place], [address], 02/15/2025 12:46:12 02/16/2002/15/2025 CMP (FEMA LE) altv (SGPT) 14.0 U/L 13.0-6 9.0 normal Not Available [facility] [address] [place] [facility], [place], [address], 02/15/2025 12:46:12 02/16/2002/15/2025 CMP (FEMA LE) A/G ratio 1.1 ratio Not Available [facility] [address] [facility] 1, [place], [address], 02/15/2025 12:46:12 10/08/20 25 02/15/2025 CMP (FEMA LE) ALP phos 84.0 U/L 30.0-1 40.0 normal Not Available [facility] [address] [facility] [address] [facility] [address], [place], [address], 02/15/2025 12:46:12 02/16/2002/15/2025 CMP (FEMA LE) calcium 9.2 mg/dL 8.4-10 .5 Not Available [facility] [address] [facility], [place], [address], 02/15/2025 12:46:12 02/16/2002/15/2025 CMP (FEMA LE) sodium 133.0 mmol/ L 136.0- 145.0 low Not Available [facility] [address] [facility] [address], [place], [address], 02/15/2025 12:46:12 02/16/2002/15/2025 CMP (FEMA LE) potassium 4.2 mmol/ L 3.5-5. 1 Not Available [facility] [address] [facility] [address], [place], [address], 02/15/2025 12:46:12 02/16/2002/15/2025 CMP (FEMA LE) chloride 105.0 mmol/ L 98.0-1 10.0 normal Not Available [facility] [address] [facility], [place], [address], 02/15/2025 12:46:12 02/16/2002/15/2025 CMP (FEMA LE) C02 23.0 mmol/ L 22.0-3 1.0 Not Available [facility] [address] [facility] [address] [facility] [address], [place], [address], 02/15/2025 12:46:12 02/16/2002/15/2025 CMP (FEMA LE) anion gap 5.0 calc Not Available [facility] [address] [facility] [address], [place], [address], 02/15/2025 12:46:12 02/16/2002/15/2025 CMP (FEDERICO ALVAREZ) osmolality 272.7 calc Not Available [facility] [address] [facility] [address], [place], [address], 02/15/2025 12:46:12 09/29/19 25 09/22/2024 US, obste tric, 1st trime ster No observ ation record ed. [email or web address] [facility] [address] [place], [address], 09/29/2024 09:27:23 01/01/20 25 12/28/2024 imagi ng/di agnos tic resul t No observ ation record ed. [facility] [address] [place], [address], 01/03/2025 06:49:20 02/21/20 25 02/16/2025 US, obste tric, follo w-up No observ ation record ed. [email or web address] [facility] [address] [place], [address], 02/20/2025 11:18:16 04/03/20 25 03/28/2025 US, obste tric, follo w-up No observ ation record ed. [email or web address] [address] [place], [address], 04/03/2025 13:18:29 Result Notes None recorded. Problems Name Problem SNOMED Code Status Onset Date Resolution Date Notes Provider Name and Address Organization Details Recorded Time Transfusion Completed 201109/22/2024 Transfu kevin; At 5-6 years of age; 012 9:50AM by Mini Roger RN, Office Visit; Promote d; acuity set as *; SAUL DOUGLAS KISHORE null, [facility] 5 14:28:45 02934387 Active 2024 SAUL DOUGLAS KISHORE null, [facility], LCompaL.CCompa 5 14:28:34 Gestational diabetes mellitus 35423327 Active 2024 Calvin Maldonado MD [address] [place] [address] 5, [facility], KathiL.CCompa 11:00:57 Heartburn 65747490 Active 2024 Calvin Maldonado MD [address] [place] [address] 5, [facility], Viviana 11:07:15 Spasm 74118755 Active 2024 Calvin Maldonado MD [address] [place] [address] 5, [facility], KathiLCompaCCompa 10:33:23 Problem Notes None recorded. Procedures Surgical History Date Name Laterality Status Provider Name and Address Organization Details Recorded Time 11/03/19 25 Date of Last Pap Smear completed [facility] [place]note 2], L.L.CCompa 11/29/2024 12:06:07 11/03/19 25 sampling of cervix for Papanicolaou smear completed [facility] [place]note 2], L.L.CCompa 11/29/2024 12:06:50 07/15/19 21 section completed [facility] [place]note 2], LCompaLCompaCCompa 09/22/2024 14:36:06 transfusion of blood product completed [facility] [place][note 2], L.LCompaCCompa 09/22/2024 14:36:27 Imaging Results None recorded. Procedure [...] height Body mass index (BMI) Body weight Heart rate Respiratory rate Body temperature Systolic And Diastolic Provider Name and Address Organization Details Last Updated DateTime 160.02 cm 36.9 kg/m2 22071.3 1 g 88 /min 18 /min 98.8 [degF] 116/68 mm[Hg] MAGUI HAHN [facility] 10:25:13 Social History Question Answer Notes LastModified by Organizat ion Details LastModified Time Tobacco Smoking Status Never Smoker SAUL jerome [facility] 09/22/2024 14:35:01 Are You Blind Or [...] use any illicit or recreational drugs? No [email or web address] Information not available 09/16/2022 Do you or have you ever used any other forms of tobacco or nicotine? No [email or web address] Information not available 09/16/2022 What is your level of alcohol consumption? Occasional [email or web address] Information not available 09/16/2022 Are you currently [...] virus, trivalent, preservative 0 completed Not Available [facility] 12/06/2022 02:28:54 Past Encounters Encounter ID Performer Location Encounter Start Date Encounter Closed Date Diagnosis/Indication Diagnosis SNOMED-CT Code Diagnosis ICD10 Code Diagnosis IMO Codes Diagnosis Note [id number] Calvin Maldonado MD [facility] ([facility]) [address] [place] [address] 02/15/2025 09:47:31 02/15/2025 11:37:45 Gestational diabetes mellitus 97564040 O24.410 73646144 - Maintain current dietary and glucose monitoring practices. - No immediate need for medication ; monitor potential increase in glucose levels. 30275535 Z34.9 0 Gestation period, 28 weeks 18786757 Z3A.28 0951803 Spasm 32148663 M62.838 72992 - Increase dietary magnesium and hydration as preventive measures. - Reevaluate if spasms continue or intensify, considerin g electrolyt e testing. [id number] Calvin Maldonado MD [facility] ([facility]) [address] [place] [phone] 02/16/2025 11:57:30 02/17/2025 10:02:55 [id number] Calvin Maldonado MD [facility] ([facility]) [address] [place] [phone] 03/01/2025 09:39:38 03/01/2025 11:23:39 Gestational diabetes mellitus 34691187 O24.410 75512141 - Maintain current dietary and glucose monitoring practices. - No immediate need for medication ; monitor potential increase in glucose levels. 31306016 Z34.9 0 Gestation period, 30 weeks 08609027 Z3A.30 0693442 [id number] Calvin Maldonado MD [facility] ([facility]) [address] [place] [phone] 03/14/2025 10:16:59 03/14/2025 10:47:44 Gestational diabetes mellitus 42009358 O24.410 92092374 - Maintain current dietary and glucose monitoring practices. - No immediate need for medication ; monitor potential increase in glucose levels. 01827469 Z34.9 0 Gestation period, 31 weeks 72363379 Z3A.31 6413122 Health Concerns Section Related Observation LastModified by Organization Detai ls LastModified Time None Recorded Concern Status LastModified by Organization Details LastModified Time None Recorded Payers Encounter Date Sequence Insurance Name Policy Number Policy Walsh Covered Member ID Walsh Member ID Guarantor Name 03/14/2025 1 CHELSY [id number] Tiffany Solomon [id number] Tiffany Solomon Notes Date Note Type Note Provider Name and Address Organization Details Recorded Time 03/14/2025 text/html Diabetes in PregnancyReported by PatientHPIFor context, patient reportsgestational diabetes. For self care, patient reportsmonitoring glucose 3 times per day. For associated symptoms, patient reportsno dizziness,no headaches,no increased thirst, andno increased urination. For review finger sticks, (95 this morning , other readings have been ranging 105-115). jr ob routineReported by PatientHPIFor associated symptoms, patient reportsno abdominal pain,no cramping,no contractions,normal movement,no bleeding,no vaginal discharge,no vaginal/vulvar itching or irritation,no dysuria,no frequency,no urgency,no hematuria,no fever,no nausea,no emesis,no constipation,no diarrhea/loose stool,no edema,no visual changes,no headache,no dizziness, andno breathlessness.heartbur n- intermittent,Pt denies any alcohol or tobacco use or drug useROS as noted in the HPI Calvin Maldonado MD [address] [place] [address], [phone], [facility] 03/14/2025 10:47:10 OBGyn Episode Ob Episode Information Episode Created Date Number of Fetuses Patient Bloodtype Patient rh Status Prepregnancy Weight lbs Domestic Partner Domestic Partner Phone Father Name Distribution Estimator Status 09/23/19 25 1 O Positive Wallace [...] Weight in lbs Pre/Post Dialysis Refused Weight 209.664864722301 BP Diastolic BP Location Tested BP Systolic [...] Weight in lbs Pre/Post Dialysis Refused Weight 208.095546655398 BP Diastolic BP Location Tested BP Systolic BP Type 76 136 sitting Fetus Heart Rate Present A 164 Present Fetus Movement Comments NOB Flowsheet Date 11/29/2024 Herrera Score Blood Edema Fundus Height Fundus Units Glucose Ketones Leukocytes Nitrite Labor Signs Protein Cervic Dilation Cervic Effacement Cervic Station none none Negative neg Type Weight in lbs Pre/Post Dialysis Refused Weight 205.723889534296 BP Diastolic BP Location Tested BP Systolic [...] Weight in lbs Pre/Post Dialysis Refused Weight 204.788477289933 BP Diastolic BP Location Tested BP Systolic [...] Weight in lbs Pre/Post Dialysis Refused Weight 205.791444095948 BP Diastolic BP Location Tested BP Systolic BP Type 70 118 sitting Fetus Heart Rate Present A 144 Present Fetus Movement Comments occ SOB Flowsheet Date 02/15/2025 Herrera Score Blood Edema Fundus Height Fundus Units Glucose Ketones Leukocytes Nitrite Labor Signs Protein Cervic Dilation Cervic Effacement Cervic Station 32 cm none 1+ trace Type Weight in lbs Pre/Post Dialysis Refused Weight 207.369443876192 BP Diastolic BP Location Tested BP Systolic [...] Weight in lbs Pre/Post Dialysis Refused Weight 206.551626815996 BP Diastolic BP Location Tested BP Systolic [...] Weight in lbs Pre/Post Dialysis Refused Weight 208.37921793479 BP Diastolic BP Location Tested BP Systolic [...] Weight in lbs Pre/Post Dialysis Refused Weight 209.048629471622 BP Diastolic BP Location Tested BP Systolic [...] Weight in lbs Pre/Post Dialysis Refused Weight 213.98946599213 BP Diastolic BP Location Tested BP Systolic [...] Weight in lbs Pre/Post Dialysis Refused Weight 218.647174486246 BP Diastolic BP Location Tested BP Systolic [...] Weight in lbs Pre/Post Dialysis Refused Weight 214.623824279988 BP Diastolic BP Location Tested BP Systolic [...] Estim ated Date of Delivery true Thalassemia (Korean, Cymro, Mediterranean, Or Background): MCV < 80 false Neural Tube Defect (Meningomyelocele, Spina Bifi da, Or Anencephaly) false Congenital Heart Defect false Down Syndrome false Wojciech-Sachs (eg, Scientologist, Cajun, Congolese-[place]) f alse Enedelia Disease false Sickle Cell Disease Or Trait () false Hemophilia Or Other Blood Disorders false Muscular Dystrophy false Cystic Fibrosis false Calhoun's Chorea false Intellectual Disability/Autism false If Yes, [...]
--- OUTSIDE RECORDS SUMMARY | 2025-04-27 05:01 | XMS_ITS | Continuity of Care Document ---
Author Organization [facility], [facility] ([facility]) Address [address] [place] [address] Care Team Providers Care Clinical Nursing Assistant Name Role Phone MARGE MARIE Primary Care [...] 121.0 mg/dL 60.0-9 9.0 high Not Available [facility] [address] [facility] [address], [place], [address], 11/02/2024 12:02:10 11/03/19 25 11/03/2024 HIV 1/2 ANTIG EN/AN TIBOD Y,FOU RTH GENER ATION W/RFL HIV final interpretati on HIV Negat carrie HIV-1 antig en and HIV-1 /HIV- 2 antib odies were not detec britney. There is no labor atory evide nce of HIV infec tion. Not Available [address], [address], 11/03/2024 23:21:44 11/03/1911/03/2024 HIV 1/2 ANTIG EN/AN TIBOD Y,FOU RTH GENER ATION W/RFL HIV Ag/Ab, 4TH gen NON-RE ACTIVE non-re active normal Not Available [address], [address], 11/03/2024 23:21:44 11/03/1911/03/2024 URINA LYSIS , COMPL ETE color YELLOW yellow normal Not Available [address], [address], 11/03/2024 23:21:45 11/03/19 25 11/03/2024 URINA LYSIS , COMPL ETE appearance CLEAR clear normal Not Available [address], [address], 11/03/2024 23:21:45 11/03/19 25 11/03/2024 URINA LYSIS , COMPL ETE specific gravity 1.002 1.001- 1.035 normal Not Available [address], [address], 11/03/2024 23:21:45 11/03/1911/03/2024 URINA LYSIS , COMPL ETE pH 6.5 5.0-8. 0 normal Not Available [address], [address], 11/03/2024 23:21:45 11/03/19 25 11/03/2024 URINA LYSIS , COMPL ETE glucose NEGATI VE negati ve normal Not Available [address], [address], 11/03/2024 23:21:45 11/03/19 25 11/03/2024 URINA LYSIS , COMPL ETE bilirubin NEGATI VE negati ve normal Not Available [address], [address], 11/03/2024 23:21:45 11/03/19 25 11/03/2024 URINA LYSIS , COMPL ETE ketones NEGATI VE negati ve normal Not Available [address], [address], 11/03/2024 23:21:45 11/03/19 25 11/03/2024 URINA LYSIS , COMPL ETE occult blood NEGATI VE negati ve normal Not Available [address], [address], 11/03/2024 23:21:45 11/03/19 25 11/03/2024 URINA LYSIS , COMPL ETE protein NEGATI VE negati ve normal Not Available [address], [address], 11/03/2024 23:21:45 11/03/19 25 11/03/2024 URINA LYSIS , COMPL ETE nitrite NEGATI VE negati ve normal Not Available [address], [address], 11/03/2024 23:21:45 11/03/19 25 11/03/2024 URINA LYSIS , COMPL ETE leukocyte esterase NEGATI VE negati ve normal Not Available [address], [address], 11/03/2024 23:21:45 11/03/19 25 11/03/2024 URINA LYSIS , COMPL ETE WBC NONE SEEN /hpf < or = 5 normal Not Available [address], [address], 11/03/2024 23:21:45 11/03/19 25 11/03/2024 URINA LYSIS , COMPL ETE RBC NONE SEEN /hpf < or = 2 normal Not Available [facility] [address], [address], 11/03/2024 23:21:45 11/03/1911/03/2024 URINA LYSIS , COMPL ETE squamous epithelial cells NONE SEEN /hpf < or = 5 normal Not Available [address], [address], 11/03/2024 23:21:45 11/03/1911/03/2024 URINA LYSIS , COMPL ETE bacteria NONE SEEN /hpf none seen normal Not Available [facility] [address], [address], 11/03/2024 23:21:45 11/03/1911/03/2024 URINA LYSIS , COMPL ETE hyaline cast NONE SEEN /lpf none seen normal Not Available [address], [address], 11/03/2024 23:21:45 11/03/1911/03/2024 URINA LYSIS , COMPL ETE note This urine was camilo zed for the prese nce of WBC, RBC, bacte glenys, casts , and other forme d eleme nts. Only those eleme nts seen were repor britney. Not Available [address], [address], 11/03/2024 23:21:45 11/03/1911/03/2024 CBC (INCL UDES DIFF/ PLT) white blood cell count 8.3 thous and/u L 3.8-10 .8 normal Not Available [address], [address], 11/03/2024 23:21:47 11/03/1911/03/2024 CBC (INCL UDES DIFF/ PLT) red blood cell count 3.94 nancy on/uL 3.80-5 .10 normal Not Available [address], [address], 11/03/2024 23:21:47 11/03/1911/03/2024 CBC (INCL UDES DIFF/ PLT) hemoglobin 12.6 g/dL 11.7-1 5.5 normal Not Available [address], [address], 11/03/2024 23:21:47 11/03/1911/03/2024 CBC (INCL UDES DIFF/ PLT) hematocrit 37.7 % 35.0-4 5.0 normal Not Available [facility] [address], [address], 11/03/2024 23:21:47 11/03/1911/03/2024 CBC (INCL UDES DIFF/ PLT) MCV 95.7 fL 80.0-1 00.0 normal Not Available [address], [address], 11/03/2024 23:21:47 11/03/1911/03/2024 CBC (INCL UDES DIFF/ PLT) MCH 32.0 pg 27.0-3 3.0 normal Not Available [address], [address], 11/03/2024 23:21:47 11/03/1911/03/2024 CBC (INCL UDES DIFF/ [...] nt's clini sury condi tion. Not Available [address], [address], 11/03/2024 23:21:47 11/03/1911/03/2024 CBC (INCL UDES DIFF/ PLT) RDW 13.6 % 11.0-1 5.0 normal Not Available [address], [address], 11/03/2024 23:21:47 11/03/1911/03/2024 CBC (INCL UDES DIFF/ PLT) platelet count 259 thous and/u L 140-40 0 normal Not Available [address], [address], 11/03/2024 23:21:47 11/03/1911/03/2024 CBC (INCL UDES DIFF/ PLT) MPV 10.1 fL 7.5-12 .5 normal Not Available [address], [address], 11/03/2024 23:21:47 11/03/19 25 11/03/2024 CBC (INCL UDES DIFF/ PLT) absolute neutrophils 6524 cells /uL 1500-7 800 normal Not Available [address], [address], 11/03/2024 23:21:47 11/03/19 25 11/03/2024 CBC (INCL UDES DIFF/ PLT) absolute lymphocytes 1361 cells /uL 850-39 00 normal Not Available [address], [address], 11/03/2024 23:21:47 11/03/1911/03/2024 CBC (INCL UDES DIFF/ PLT) absolute monocytes 332 cells /uL 200-95 0 normal Not Available [address], [address], 11/03/2024 23:21:47 11/03/19 25 11/03/2024 CBC (INCL UDES DIFF/ PLT) absolute eosinophils 50 cells /uL 15-500 normal Not Available [address], [address], 11/03/2024 23:21:47 11/03/1911/03/2024 CBC (INCL UDES DIFF/ PLT) absolute basophils 33 cells /uL 0-200 normal Not Available [address], [address], 11/03/2024 23:21:47 11/03/1911/03/2024 CBC (INCL UDES DIFF/ PLT) neutrophils 78.6 % normal Not Available [address], [address], 11/03/2024 23:21:47 11/03/1911/03/2024 CBC (INCL UDES DIFF/ PLT) lymphocytes 16.4 % normal Not Available [address], [address], 11/03/2024 23:21:47 11/03/1911/03/2024 CBC (INCL UDES DIFF/ PLT) monocytes 4.0 % normal Not Available [address], [address], 11/03/2024 23:21:47 11/03/1911/03/2024 CBC (INCL UDES DIFF/ PLT) eosinophils 0.6 % normal Not Available [address], [address], 11/03/2024 23:21:47 11/03/1911/03/2024 CBC (INCL UDES DIFF/ PLT) basophils 0.4 % normal Not Available [address], [address], 11/03/2024 23:21:47 11/03/1911/03/2024 HEPAT ITIS B SURFA CE ANTIG EN W/REF L CONFI RM hepatitis B surface antigen NON-RE ACTIVE non-re active normal For addit ional infor mason mei e refer to http: //[facility].que stdia gnost ics.c om/fa q/FAQ 202 (This link is being provi ded for infor matio nal/ educa chitra l purpo ses only. ) Not Available [facility] [address] [address] [place], [address], 11/03/2024 23:21:47 11/03/1911/03/2024 HEPAT ITIS C AB [...] a test for HCV RNA (test code 90568 ) is sugge sted. For addit ional radhar antonino cuevas e refer to http: //[facility] n.kay stdia gnost ics.c om/fa q/FAQ 22v1 (This link is being provi ded for infor matio nal/ educa chitra l purpo ses only. ) Not Available [facility] [address] [address] [place], [address], 11/03/2024 23:21:48 11/03/1911/03/2024 RUBEL LA AB (IGG) [...] la virus . Not Available [facility] [address] [address] [place], [address], 11/03/2024 23:21:49 11/03/1911/03/2024 HEMOG LOBIN A1C hemoglobin [...] Care in Diabe bharati(A DA). Not Available [facility] [address] [place], [address], 11/03/2024 23:21:50 11/03/1911/03/2024 RPR (DX) W/REF L TITER AND T. PALLI DUM AB, IA RPR (DX) w/refl titer and confirmatory testing NON-RE ACTIVE non-re active normal No labor atory evide nce of syphi lis. If recen t expos ure is suspe cted, submi t a new sampl e in 2-4 weeks . Not Available [facility] [address] [place], [address], 11/03/2024 23:21:51 11/03/1911/03/2024 ABO GROUP AND RH TYPE ABO group O Not Available [facility] [address] [place], [address], 11/03/2024 23:21:52 11/03/1911/03/2024 ABO GROUP AND RH TYPE Rh type RH(D) POSITI VE For addit ional infor mason mei e refer to http: //spike benson ics.c om/fa q/FAQ 111 (This link is being provi ded for infor antonino akhtar/ educchiquita parra purpo ses only. ) Not Available [facility] [address] [address] [address], [place], [address], 11/03/2024 23:21:52 11/03/1911/03/2024 DRUG MONIT OR, PANEL 1, SCREE N, URINE amphetamines NEGATI VE NG/mL <500 See Note A See Note A Not Available [facility] [address] [address] [address], [place], [address], 11/03/2024 23:21:53 11/03/1911/03/2024 DRUG MONIT OR, PANEL 1, SCREE N, URINE barbiturates NEGATI VE NG/mL <300 See Note A See Note A Not Available [facility] [address] [address] [address], [place], [address], 11/03/2024 23:21:53 11/03/1911/03/2024 DRUG MONIT OR, PANEL 1, SCREE N, URINE benzodiazepi kendell NEGATI VE NG/mL <100 See Note A See Note A Not Available [facility] [address] [address] [address], [place], [address], 11/03/2024 23:21:53 11/03/1911/03/2024 DRUG MONIT OR, PANEL 1, SCREE N, URINE cocaine metabolite NEGATI VE NG/mL <150 See Note A See Note A Not Available [facility] [address] [address] [address], [place], [address], 11/03/2024 23:21:53 11/03/19 25 11/03/2024 DRUG MONIT OR, PANEL 1, SCREE N, URINE marijuana metabolite NEGATI VE NG/mL <20 See Note A See Note A Not Available [facility] [address] [address] [address], [place], [address], 11/03/2024 23:21:53 11/03/1911/03/2024 DRUG MONIT OR, PANEL 1, SCREE N, URINE methadone metabolite NEGATI VE NG/mL <100 See Note A See Note A Not Available [address] [address] [address], [place], [address], 11/03/2024 23:21:53 11/03/1911/03/2024 DRUG MONIT OR, PANEL 1, SCREE N, URINE opiates NEGATI VE NG/mL <100 See Note A See Note A Not Available [facility] [address] [address] [address], [place], [address], 11/03/2024 23:21:53 11/03/1911/03/2024 DRUG MONIT OR, PANEL 1, SCREE N, URINE oxycodone NEGATI VE NG/mL <100 See Note A See Note A Not Available [address] [address] [address], [place], [address], 11/03/2024 23:21:53 11/03/1911/03/2024 DRUG MONIT OR, PANEL 1, SCREE N, URINE phencyclidin e NEGATI VE NG/mL <25 See Note A See Note A Not Available [facility] [address] [address] [address], [place], [address], 11/03/2024 23:21:53 11/03/1911/03/2024 DRUG MONIT OR, PANEL 1, SCREE N, URINE creatinine 8.6 mg/dL > or = 20.0 low Not Available [address] [address] [address], [place], [address], 11/03/2024 23:21:53 11/03/1911/03/2024 DRUG MONIT OR, PANEL 1, SCREE N, URINE specific gravity 1.003 > or = 1.003 Not Available [address] [address] [address], [place], [address], 11/03/2024 23:21:53 11/03/1911/03/2024 DRUG MONIT OR, PANEL 1, SCREE N, URINE pH 6.6 4.5-9. 0 Not Available [address] [address] [address], [place], [address], 11/03/2024 23:21:53 11/03/1911/03/2024 DRUG MONIT OR, PANEL 1, SCREE N, URINE oxidant NEGATI VE mcg/m L <200 Not Available [facility] [address] [address] [address], [place], [address], 11/03/2024 23:21:53 11/03/1911/03/2024 DRUG MONIT ORING TEMPL ATE notes and comments This drug testi ng is for medic al treat ment only. Camilo sis was perfo rmed as non-f orens ic testi ng and these resul ts shoul d be used only by [facility] ders to rende r diagn osis or treat ment, or to monit or progr ess of medic al condi tions . Note A: The resul ts are presu mptiv e; based only on jose kendall, and they have not been confi rmed by a defin itive lakesha mcgowan. [facility] Provi ders needi ng Inter preta tion simba tance , pleas e conta ct us at 1.877 .40.R XTOX (1.87 [phone] .[phone] ) M-F, 8am to 10pm EST Not Available [address] [address] [address] , [place], [address], 11/03/2024 23:21:53 11/03/1911/03/2024 CULTU RE, URINE , ROUTI NE culture, urine, routine SEE NOTE CULTU RE, URINE , ROUTI NE Micro Numbe r: [id number] Test Statu s: Final Speci men Sourc e: Urine Speci men Quali ty: Adequ ate Resul t: No Growt h Not Available [facility] - [address] [place], [address], 11/03/2024 23:21:54 11/03/19 25 11/07/2024 THINP REP TIS PAP (REFL ) HPV MRNA E6/E7 clinical information: normal Pregn ant Not Available [address], [address], 11/07/2024 18:47:29 11/03/19 25 11/07/2024 THINP REP TIS PAP (REFL ) HPV MRNA E6/E7 LMP: normal NONE GIVEN Not Available [address], [address], 11/07/2024 18:47:29 11/03/19 25 11/07/2024 THINP REP TIS PAP (REFL ) HPV MRNA E6/E7 prev. Pap: normal NONE GIVEN Not Available [address], [address], 11/07/2024 18:47:29 11/03/19 25 11/07/2024 THINP REP TIS PAP (REFL ) HPV MRNA E6/E7 prev. BX: normal NONE GIVEN Not Available [address], [address], 11/07/2024 18:47:29 11/03/19 25 11/07/2024 THINP REP TIS PAP (REFL ) HPV MRNA E6/E7 source: normal Cervi x, Endoc ervix Not Available [address], [address], 11/07/2024 18:47:29 11/03/19 25 11/07/2024 THINP REP TIS PAP (REFL ) HPV MRNA E6/E7 statement of adequacy: normal Satis facto ry for evalu ation . Endoc ervic al/tr ansfo rmati on zone compo nent absen t. Not Available [address], [address], 11/07/2024 18:47:29 11/03/19 25 11/07/2024 THINP REP TIS PAP (REFL ) HPV MRNA E6/E7 interpretati on/result: normal Cytol ogy Resul ts: Negat carrie for intra epith elial lesio n or malig aranza . Not Available [address] [address] [place], [address], 11/07/2024 18:47:29 11/03/1911/07/2024 THINP REP TIS PAP (REFL ) HPV MRNA E6/E7 infection: normal Funga l organ isms morph ologi aisha consi stent with Janie da spp. Not Available [address], [address], 11/07/2024 18:47:29 11/03/19 25 11/07/2024 THINP REP TIS PAP (REFL ) HPV MRNA E6/E7 comment: normal This Pap test has been evalu ated with compu ter simba britney techn ology . Not Available [address] [address] [place], [address], 11/07/2024 18:47:29 11/03/1911/07/2024 THINP REP TIS PAP (REFL ) HPV MRNA E6/E7 cytotechnolo gist: normal MEF, CT( CP) CT scree lauryn locat ion: [address] [address] [place] [address] Not Available [address] [address] [place], [address], 11/07/2024 18:47:29 11/03/19 25 11/07/2024 THINP REP [...] clini sury infor antonino n. Not Available [facility] [address] [address], [place], [address], 11/07/2024 18:47:29 11/03/1911/02/2024 CT + NG + TV, DNA, urine /swab CT + NG + TV, DNA, urine/swab negati ve Not Available [facility]) [address] [place], [address], 11/02/2024 10:59:56 01/21/2001/20/2025 CBC WBC 7.7 x10 4.0-10 .5 Not Available [facility] [address] [facility] [address], [place], [address], 01/20/2025 13:18:07 01/21/2001/20/2025 CBC RBC 3.41 x10 3.50-5 .50 low Not Available [facility] [address] [facility] [address], [place], [address], 01/20/2025 13:18:07 01/21/2001/20/2025 CBC HGB 10.9 g/dL 12.0-1 6.0 low Not Available [facility] [address] [facility] [address], [place], [address], 01/20/2025 13:18:07 01/21/2001/20/2025 CBC HCT 32.5 % 37.0-4 7.0 low Not Available [facility] [address] [facility] [address], [address], 01/20/2025 13:18:07 01/21/2001/20/2025 CBC MCV 95.2 fL 80.0-9 9.9 Not Available [facility] [address] [facility], [place], [address], 01/20/2025 13:18:07 01/21/2001/20/2025 CBC MCH 31.9 pg 27.0-3 2.0 Not Available [facility] [address] [facility] [address], [place], [address], 01/20/2025 13:18:07 01/21/2001/20/2025 CBC MCHC 33.4 g/dL 32.0-3 6.0 Not Available [facility] [address] [facility] [address], [place], [address], 01/20/2025 13:18:07 01/21/2001/20/2025 CBC RDW 15.4 % 11.5-1 4.5 high Not Available [facility] [address] [facility] [address], [place], [address], 01/20/2025 13:18:07 01/21/2001/20/2025 CBC plt 240.5 x10 140.0- 451.0 Not Available [facility] [address] [facility] [address], [place], [address], 01/20/2025 13:18:07 01/21/2001/20/2025 CBC lymphocytes % 14.6 % 20.0-5 0.0 low Not Available [facility] [address] [facility] [address], [place], [address], 01/20/2025 13:18:07 01/21/2001/20/2025 CBC granulcytes % 81.0 % 30.0-7 0.0 high Not Available [facility] [address] [facility] [address], [place], [address], 01/20/2025 13:18:07 01/21/2001/20/2025 CBC monocytes % 3.6 % 2.0-16 .0 Not Available [facility] [address] [facility], [place], [address], 01/20/2025 13:18:07 01/21/2001/20/2025 CBC granulcytes# 6.2 x10 Not Renetta ilable [facility] [address] [facility], [place], [address], 01/20/2025 13:18:07 01/21/2001/20/2025 CBC lymphocytes # 1.1 x10 Not Available [facility] [address] [facility] [address], [place], [address], 01/20/2025 13:18:07 01/21/20 25 01/20/2025 CBC monocytes # 0.3 x10 Not Avai lable [facility] [address] [facility], [place], [address], 01/20/2025 13:18:07 01/21/2001/20/2025 HBA1C hemaglobin A1C 4.2 4.2-6. 5 Not Available [facility] [address] [facility], [place], [address], 01/20/2025 13:18:19 01/21/2001/20/2025 GLUCO SE SCREE N glucose screen 199.0 mg/dL Not Available [facility] [address] [facility], [place], [address], 01/20/2025 14:42:21 02/16/2002/15/2025 CMP (FEMA LE) glucose 100.0 mg/dL 60.0-9 9.0 high Not Available [facility] [address] [facility], [place], [address], 02/15/2025 12:46:12 02/16/2002/15/2025 CMP (FEMA LE) BUN (blood urea nitrogen) 5.0 mg/dL 10.0-2 6.0 low Not Available [facility] [address] [facility], [place], [address], 02/15/2025 12:46:12 02/16/20 25 02/15/2025 CMP (FEMA LE) creatinine (serum) 0.5 mg/dL 0.4-1. 5 Not Available [facility] [address] [facility], [place], [address], 02/15/2025 12:46:12 02/16/2002/15/2025 CMP (FEMA LE) BUN/creatini ne ratio 10.00 ratio Not Available [facility] [address] [facility], [place], [address], 02/15/2025 12:46:12 02/16/2002/15/2025 CMP (FEMA LE) eGFR calculated 147.6 Not Available [facility] [address] [facility], [place], [address], 02/15/2025 12:46:12 02/16/20 25 02/15/2025 CMP (FEMA LE) total protein 6.8 g/dL 6.0-8. 5 Not Available [facility] [address] [facility], [place], [address], 02/15/2025 12:46:12 02/16/2002/15/2025 CMP (FEMA LE) total bilirubin 0.9 mg/dL 0.2-1. 3 Not Available [facility] [address] [facility], [place], [address], 02/15/2025 12:46:12 02/16/20 25 02/15/2025 CMP (FEMA LE) albumin 3.6 g/dL 3.5-5. 5 Not Available [facility] [address] [facility], [place], [address], 02/15/2025 12:46:12 02/16/2002/15/2025 CMP (FEMA LE) globulin 3.2 calc Not Available [facility] [address] [place] [address] [facility], [place], [address], 02/15/2025 12:46:12 02/16/2002/15/2025 CMP (FEMA LE) AST (SGOT) 25.0 U/L 0.0-46 .0 Not Available [facility] [address] [facility], [place], [address], 02/15/2025 12:46:12 02/16/20 25 02/15/2025 CMP (FEMA LE) altv (SGPT) 14.0 U/L 13.0-6 9.0 normal Not Available [facility] [address] [facility], [place], [address], 02/15/2025 12:46:12 02/16/2002/15/2025 CMP (FEMA LE) A/G ratio 1.1 ratio Not Available [facility] [address] [place] [facility], [place], [address], 02/15/2025 12:46:12 02/16/2002/15/2025 CMP (FEMA LE) ALP phos 84.0 U/L 30.0-1 40.0 normal Not Available [facility] [address] [facility], [place], [address], 02/15/2025 12:46:12 02/16/20 25 02/15/2025 CMP (FEMA LE) calcium 9.2 mg/dL 8.4-10 .5 Not Available [facility] [address] [facility] [address], [place], [address], 02/15/2025 12:46:12 02/16/2002/15/2025 CMP (FEMA LE) sodium 133.0 mmol/ L 136.0- 145.0 low Not Available [facility] [address] [facility] [address], [place], [address], 02/15/2025 12:46:12 02/16/2002/15/2025 CMP (FEMA LE) potassium 4.2 mmol/ L 3.5-5. 1 Not Available [facility] [address] [facility], [place], [address], 02/15/2025 12:46:12 02/16/2002/15/2025 CMP (FEMA LE) chloride 105.0 mmol/ L 98.0-1 10.0 normal Not Available [facility] [address] [facility], [place], [address], 02/15/2025 12:46:12 02/16/2002/15/2025 CMP (FEMA LE) C02 23.0 mmol/ L 22.0-3 1.0 Not Available [facility] [address] [facility], [place], [address], 02/15/2025 12:46:12 02/16/2002/15/2025 CMP (FEMA LE) anion gap 5.0 calc Not Available [facility] [address] [facility] [address], [place], [address], 02/15/2025 12:46:12 02/16/2002/15/2025 CMP (FEMA LE) osmolality 272.7 calc Not Available [facility] [address] [facility] [address], [place], [address], 02/15/2025 12:46:12 09/29/19 25 09/22/2024 US, obste tric, 1st trime ster No observ ation record ed. [email or web address] [facility] [address] [place], [address], 09/29/2024 09:27:23 01/01/20 25 12/28/2024 imagi ng/di agnos tic resul t No observ ation record ed. [facility] [address] [place], [address], 01/03/2025 06:49:20 02/21/2002/16/2025 US, obste tric, follo w-up No observ ation record ed. [email or web address] [facility] [address] [place], [address], 02/20/2025 11:18:16 04/03/20 25 03/28/2025 , obste tric, follo w-up No observ ation record ed. [email or web address] [facility] [address] [place], [address], 04/03/2025 13:18:29 Result Notes None recorded. Problems Name Problem SNOMED Code Status Onset Date Resolution Date Notes Provider Name and Address Organization Details Recorded Time Transfusion Completed 201109/22/2024 Transfu kevin; At 5-6 years of age; 012 9:50AM by Mini Roger RN, Office Visit; Promote d; acuity set as *; SAUL Miranda [facility] 14:28:45 [id number] Active [address] [facility] 14:28:34 Gestational diabetes mellitus 92659635 Active 2024 Calvin Maldonado MD [address] [place] [address], [phone], [facility] 11:00:57 Heartburn 85091721 Active 2024 Calvin Maldonado MD [address] [place], [address], [facility] 11:07:15 Spasm 87907714 Active 2024 Calvin Maldonado MD [address] [place], [address], [facility] 10:33:23 Problem Notes None recorded. Procedures Surgical History Date Name Laterality Status Provider Name and Address Organization Details Recorded Time 11/03/19 25 Date of Last Pap Smear completed [facility] 11/29/2024 12:06:07 11/03/19 25 sampling of cervix for Papanicolaou smear completed [facility] 11/29/2024 12:06:50 07/15/19 [address] [facility] 09/22/2024 14:36:06 transfusion of blood product completed [facility] 09/22/2024 14:36:27 Imaging Results None recorded. [...] Updated DateTime 5 160.02 cm 37 kg/m2 04423.5 1 g 18 /min 98 [degF] 74 /min 99 % 124/68 mm[Hg] MAGUI HAHN [facility] 5 09:42:13 Social History Question Answer Notes LastModified by Organizat ion Details LastModified Time Tobacco Smoking Status Never Smoker SAUL jerome [facility], [place] 09/22/2024 14:35:01 Are You Blind Or Do [...] use any illicit or recreational drugs? No [email or web address] Information not available 09/16/2022 Do you or have you ever used any other forms of tobacco or nicotine? No [email or web address] Information not available 09/16/2022 What is your level of alcohol consumption? Occasional [email or web address] Information not available 09/16/2022 Are you currently [...] virus, trivalent, preservative 0 completed Not Available [facility] 12/06/2022 02:28:54 Past Encounters Encounter ID Performer Location Encounter Start Date Encounter Closed Date Diagnosis/Indication Diagnosis SNOMED-CT Code Diagnosis ICD10 Code Diagnosis IMO Codes Diagnosis Note [id number] Calvin Maldonado MD [facility] ([facility]) [address] [place] [phone] 03/01/2025 09:39:38 03/01/2025 11:23:39 Gestational diabetes mellitus 79573761 O24.410 37651494 - Maintain current dietary and glucose monitoring practices. - No immediate need for medication ; monitor potential increase in glucose levels. 14328936 Z34.9 0 Gestation period, 30 weeks 06734866 Z3A.30 [id number] Calvin Maldonado MD [facility] ([facility]) [address] [place] [phone] 03/14/2025 10:16:59 03/14/2025 10:47:44 Gestational diabetes mellitus 35513398 O24.410 11432511 - Maintain current dietary and glucose monitoring practices. - No immediate need for medication ; monitor potential increase in glucose levels. 17156699 Z34.9 0 Gestation period, 31 weeks 11866276 Z3A.31 [id number] Calivn Maldonado MD [facility] ([facility]) [address] [place] [address] 03/28/2025 08:59:26 03/28/2025 13:16:29 [id number] Calvin Maldonado MD [facility] ([facility]) [address] [place] [address] 03/28/2025 09:30:49 04/14/2025 11:57:50 Gestational diabetes mellitus 00425838 O24.410 45978962 - Maintain current dietary and glucose monitoring practices. - No immediate need for medication ; monitor potential increase in glucose levels. 79329705 Z34.9 0 Gestation period, 33 weeks 87101389 Z3A.33 [id number] Health Concerns Section Related Observation LastModified by Organization Detai ls LastModified Time None Recorded Concern Status LastModified by Organization Details LastModified Time None Recorded Payers Encounter Date Sequence Insurance Name Policy Number Policy Walsh Covered Member ID Walsh Member ID Guarantor Name 03/28/2025 [id number] Tiffany Solomon [id number] Tiffany Solomon Notes Date Note Type [...] noted in the HPI Calvin Maldonado MD [address] [place], [address]25 10:45:22 OBGyn Episode Ob Episode Information Episode Created Date Number of Fetuses Patient Bloodtype Patient rh Status Prepregnancy Weight lbs Domestic Partner Domestic Partner Phone Father Name Ortho Rn Status 09/23/19 25 1 O Positive Wallace [...] Weight in lbs Pre/Post Dialysis Refused Weight 209.112427550153 BP Diastolic BP Location Tested BP Systolic [...] Weight in lbs Pre/Post Dialysis Refused Weight 208.617615895445 BP Diastolic BP Location Tested BP Systolic BP Type 76 136 sitting Fetus Heart Rate Present A 164 Present Fetus Movement Comments NOB Flowsheet Date 11/29/2024 Herrera Score Blood Edema Fundus Height Fundus Units Glucose Ketones Leukocytes Nitrite Labor Signs Protein Cervic Dilation Cervic Effacement Cervic Station none none Negative neg Type Weight in lbs Pre/Post Dialysis Refused Weight 205.111726495883 BP Diastolic BP Location Tested BP Systolic [...] Weight in lbs Pre/Post Dialysis Refused Weight 204.858216070556 BP Diastolic BP Location Tested BP Systolic [...] Weight in lbs Pre/Post Dialysis Refused Weight 205.052877506189 BP Diastolic BP Location Tested BP Systolic BP Type 70 118 sitting Fetus Heart Rate Present A 144 Present Fetus Movement Comments occ SOB Flowsheet Date 02/15/2025 Herrera Score Blood Edema Fundus Height Fundus Units Glucose Ketones Leukocytes Nitrite Labor Signs Protein Cervic Dilation Cervic Effacement Cervic Station 32 cm none 1+ trace Type Weight in lbs Pre/Post Dialysis Refused Weight 207.984849397928 BP Diastolic BP Location Tested BP Systolic [...] Weight in lbs Pre/Post Dialysis Refused Weight 206.243872142301 BP Diastolic BP Location Tested BP Systolic [...] Weight in lbs Pre/Post Dialysis Refused Weight 208.21114411841 BP Diastolic BP Location Tested BP Systolic [...] Weight in lbs Pre/Post Dialysis Refused Weight 209.928246161693 BP Diastolic BP Location Tested BP Systolic [...] Weight in lbs Pre/Post Dialysis Refused Weight 213.99924480747 BP Diastolic BP Location Tested BP Systolic [...] Weight in lbs Pre/Post Dialysis Refused Weight 218.117778203523 BP Diastolic BP Location Tested BP Systolic [...] Weight in lbs Pre/Post Dialysis Refused Weight 214.258005214327 BP Diastolic BP Location Tested BP Systolic [...] Estim ated Date of Delivery true Thalassemia (Belarusian, Grenadian, Mediterranean, Or Background): MCV < 80 false Neural Tube Defect (Meningomyelocele, Spina Bifi da, Or Anencephaly) false Congenital Heart Defect false Down Syndrome false Wojciech-Sachs (eg, Anabaptist, Cajun, [place]) f alse Enedelia Disease false Sickle Cell Disease Or Trait () false Hemophilia Or Other Blood Disorders false Muscular Dystrophy false Cystic Fibrosis false [place]'s Chorea false Intellectual Disability/Autism false If Yes, [...]
--- OUTSIDE RECORDS SUMMARY | 2025-04-27 05:01 | XMS_ITS | Continuity of Care Document ---
Author Organization [facility] L[facility]LC[facility], [facility] ([facility]) Address [address] [place] [address] Care Team Providers Care Advertising Space Clerk Name Role Phone MARGE MARIE Primary Care [...] 121.0 mg/dL 60.0-9 9.0 high Not Available [facility] [address] [facility] [address], [place], [address], 11/02/2024 12:02:10 11/03/19 25 11/03/2024 HIV 1/2 ANTIG EN/AN TIBOD Y,FOU RTH GENER ATION W/RFL HIV final interpretati on HIV Negat carrie HIV-1 antig en and HIV-1 /HIV- 2 antib odies were not detec britney. There is no labor atory evide nce of HIV infec tion. Not Available [address], [address], 11/03/2024 23:21:44 11/03/1911/03/2024 HIV 1/2 ANTIG EN/AN TIBOD Y,FOU RTH GENER ATION W/RFL HIV Ag/Ab, 4TH gen NON-RE ACTIVE non-re active normal Not Available [address], [address], 11/03/2024 23:21:44 11/03/1911/03/2024 URINA LYSIS , COMPL ETE color YELLOW yellow normal Not Available [address], [address], 11/03/2024 23:21:45 11/03/19 25 11/03/2024 URINA LYSIS , COMPL ETE appearance CLEAR clear normal Not Available [address], [address], 11/03/2024 23:21:45 11/03/19 25 11/03/2024 URINA LYSIS , COMPL ETE specific gravity 1.002 1.001- 1.035 normal Not Available [address], [address], 11/03/2024 23:21:45 11/03/1911/03/2024 URINA LYSIS , COMPL ETE pH 6.5 5.0-8. 0 normal Not Available [address], [address], 11/03/2024 23:21:45 11/03/19 25 11/03/2024 URINA LYSIS , COMPL ETE glucose NEGATI VE negati ve normal Not Available [address], [address], 11/03/2024 23:21:45 11/03/19 25 11/03/2024 URINA LYSIS , COMPL ETE bilirubin NEGATI VE negati ve normal Not Available [address], [address], 11/03/2024 23:21:45 11/03/19 25 11/03/2024 URINA LYSIS , COMPL ETE ketones NEGATI VE negati ve normal Not Available [address], [address], 11/03/2024 23:21:45 11/03/19 25 11/03/2024 URINA LYSIS , COMPL ETE occult blood NEGATI VE negati ve normal Not Available [address], [address], 11/03/2024 23:21:45 11/03/19 25 11/03/2024 URINA LYSIS , COMPL ETE protein NEGATI VE negati ve normal Not Available [address], [address], 11/03/2024 23:21:45 11/03/19 25 11/03/2024 URINA LYSIS , COMPL ETE nitrite NEGATI VE negati ve normal Not Available [address], [address], 11/03/2024 23:21:45 11/03/19 25 11/03/2024 URINA LYSIS , COMPL ETE leukocyte esterase NEGATI VE negati ve normal Not Available [address], [address], 11/03/2024 23:21:45 11/03/19 25 11/03/2024 URINA LYSIS , COMPL ETE WBC NONE SEEN /hpf < or = 5 normal Not Available [address], [address], 11/03/2024 23:21:45 11/03/19 25 11/03/2024 URINA LYSIS , COMPL ETE RBC NONE SEEN /hpf < or = 2 normal Not Available [facility] [address], [address], 11/03/2024 23:21:45 11/03/1911/03/2024 URINA LYSIS , COMPL ETE squamous epithelial cells NONE SEEN /hpf < or = 5 normal Not Available [address], [address], 11/03/2024 23:21:45 11/03/1911/03/2024 URINA LYSIS , COMPL ETE bacteria NONE SEEN /hpf none seen normal Not Available [facility] [address], [address], 11/03/2024 23:21:45 11/03/1911/03/2024 URINA LYSIS , COMPL ETE hyaline cast NONE SEEN /lpf none seen normal Not Available [address], [address], 11/03/2024 23:21:45 11/03/1911/03/2024 URINA LYSIS , COMPL ETE note This urine was camilo zed for the prese nce of WBC, RBC, bacte glenys, casts , and other forme d eleme nts. Only those eleme nts seen were repor britney. Not Available [address], [address], 11/03/2024 23:21:45 11/03/1911/03/2024 CBC (INCL UDES DIFF/ PLT) white blood cell count 8.3 thous and/u L 3.8-10 .8 normal Not Available [address], [address], 11/03/2024 23:21:47 11/03/1911/03/2024 CBC (INCL UDES DIFF/ PLT) red blood cell count 3.94 nancy on/uL 3.80-5 .10 normal Not Available [address], [address], 11/03/2024 23:21:47 11/03/1911/03/2024 CBC (INCL UDES DIFF/ PLT) hemoglobin 12.6 g/dL 11.7-1 5.5 normal Not Available [address], [address], 11/03/2024 23:21:47 11/03/1911/03/2024 CBC (INCL UDES DIFF/ PLT) hematocrit 37.7 % 35.0-4 5.0 normal Not Available [facility] [address], [address], 11/03/2024 23:21:47 11/03/1911/03/2024 CBC (INCL UDES DIFF/ PLT) MCV 95.7 fL 80.0-1 00.0 normal Not Available [address], [address], 11/03/2024 23:21:47 11/03/1911/03/2024 CBC (INCL UDES DIFF/ PLT) MCH 32.0 pg 27.0-3 3.0 normal Not Available [address], [address], 11/03/2024 23:21:47 11/03/1911/03/2024 CBC (INCL UDES DIFF/ [...] nt's clini sury condi tion. Not Available [address], [address], 11/03/2024 23:21:47 11/03/1911/03/2024 CBC (INCL UDES DIFF/ PLT) RDW 13.6 % 11.0-1 5.0 normal Not Available [address], [address], 11/03/2024 23:21:47 11/03/1911/03/2024 CBC (INCL UDES DIFF/ PLT) platelet count 259 thous and/u L 140-40 0 normal Not Available [address], [address], 11/03/2024 23:21:47 11/03/1911/03/2024 CBC (INCL UDES DIFF/ PLT) MPV 10.1 fL 7.5-12 .5 normal Not Available [address], [address], 11/03/2024 23:21:47 11/03/19 25 11/03/2024 CBC (INCL UDES DIFF/ PLT) absolute neutrophils 6524 cells /uL 1500-7 800 normal Not Available [address], [address], 11/03/2024 23:21:47 11/03/19 25 11/03/2024 CBC (INCL UDES DIFF/ PLT) absolute lymphocytes 1361 cells /uL 850-39 00 normal Not Available [address], [address], 11/03/2024 23:21:47 11/03/1911/03/2024 CBC (INCL UDES DIFF/ PLT) absolute monocytes 332 cells /uL 200-95 0 normal Not Available [address], [address], 11/03/2024 23:21:47 11/03/19 25 11/03/2024 CBC (INCL UDES DIFF/ PLT) absolute eosinophils 50 cells /uL 15-500 normal Not Available [address], [address], 11/03/2024 23:21:47 11/03/1911/03/2024 CBC (INCL UDES DIFF/ PLT) absolute basophils 33 cells /uL 0-200 normal Not Available [address], [address], 11/03/2024 23:21:47 11/03/1911/03/2024 CBC (INCL UDES DIFF/ PLT) neutrophils 78.6 % normal Not Available [address], [address], 11/03/2024 23:21:47 11/03/1911/03/2024 CBC (INCL UDES DIFF/ PLT) lymphocytes 16.4 % normal Not Available [address], [address], 11/03/2024 23:21:47 11/03/1911/03/2024 CBC (INCL UDES DIFF/ PLT) monocytes 4.0 % normal Not Available [address], [address], 11/03/2024 23:21:47 11/03/1911/03/2024 CBC (INCL UDES DIFF/ PLT) eosinophils 0.6 % normal Not Available [address], [address], 11/03/2024 23:21:47 11/03/1911/03/2024 CBC (INCL UDES DIFF/ PLT) basophils 0.4 % normal Not Available [address], [address], 11/03/2024 23:21:47 11/03/1911/03/2024 HEPAT ITIS B SURFA CE ANTIG EN W/REF L CONFI RM hepatitis B surface antigen NON-RE ACTIVE non-re active normal For addit ional infor mason mei e refer to http: //[facility] stdia gnost [facility].c om/fa q/FAQ 202 (This link is being provi ded for infor matio nal/ educa chitra l purpo ses only. ) Not Available [facility] [address] [address] [place], [address], 11/03/2024 23:21:47 11/03/1911/03/2024 HEPAT ITIS C AB [...] a test for HCV RNA (test code 95289 ) is sugge sted. For addit ional radhar antonino cuevas e refer to http: //[facility] n.kay stdia gnost ics.c om/fa q/FAQ 22v1 (This link is being provi ded for infor matio nal/ educa chitra l purpo ses only. ) Not Available [facility] [address] [address] [place], [address], 11/03/2024 23:21:48 11/03/1911/03/2024 RUBEL LA AB (IGG) [...] la virus . Not Available [facility] [address] [address] [place], [address], 11/03/2024 23:21:49 11/03/1911/03/2024 HEMOG LOBIN A1C hemoglobin [...] Care in Diabe bharati(A DA). Not Available [facility] [address] [place], [address], 11/03/2024 23:21:50 11/03/1911/03/2024 RPR (DX) W/REF L TITER AND T. PALLI DUM AB, IA RPR (DX) w/refl titer and confirmatory testing NON-RE ACTIVE non-re active normal No labor atory evide nce of syphi lis. If recen t expos ure is suspe cted, submi t a new sampl e in 2-4 weeks . Not Available [facility] [address] [place], [address], 11/03/2024 23:21:51 11/03/1911/03/2024 ABO GROUP AND RH TYPE ABO group O Not Available [facility] [address] [place], [address], 11/03/2024 23:21:52 11/03/1911/03/2024 ABO GROUP AND RH TYPE Rh type RH(D) POSITI VE For addit ional infor mason mei e refer to http: //sp[facility]enson ics.c om/fa q/FAQ 111 (This link is being provi ded for infor antonino akhtar/ educchiquita parra purpo ses only. ) Not Available [facility] [address] [address] [address], [place], [address], 11/03/2024 23:21:52 11/03/1911/03/2024 DRUG MONIT OR, PANEL 1, SCREE N, URINE amphetamines NEGATI VE NG/mL <500 See Note A See Note A Not Available [facility] [address] [address] [address], [place], [address], 11/03/2024 23:21:53 11/03/1911/03/2024 DRUG MONIT OR, PANEL 1, SCREE N, URINE barbiturates NEGATI VE NG/mL <300 See Note A See Note A Not Available [facility] [address], [place], [address], 11/03/2024 23:21:53 11/03/1911/03/2024 DRUG MONIT OR, PANEL 1, SCREE N, URINE benzodiazepi kendell NEGATI VE NG/mL <100 See Note A See Note A Not Available [facility] [address] [address] [address], [place], [address], 11/03/2024 23:21:53 11/03/1911/03/2024 DRUG MONIT OR, PANEL 1, SCREE N, URINE cocaine metabolite NEGATI VE NG/mL <150 See Note A See Note A Not Available [facility] [address] [address] [address], [place], [address], 11/03/2024 23:21:53 11/03/19 25 11/03/2024 DRUG MONIT OR, PANEL 1, SCREE N, URINE marijuana metabolite NEGATI VE NG/mL <20 See Note A See Note A Not Available [facility] [address] [address] [address], [place], [address], 11/03/2024 23:21:53 11/03/1911/03/2024 DRUG MONIT OR, PANEL 1, SCREE N, URINE methadone metabolite NEGATI VE NG/mL <100 See Note A See Note A Not Available [address] [address], [place], [address], 11/03/2024 23:21:53 11/03/1911/03/2024 DRUG MONIT OR, PANEL 1, SCREE N, URINE opiates NEGATI VE NG/mL <100 See Note A See Note A Not Available [facility] [address] [address] [address], [place], [address], 11/03/2024 23:21:53 11/03/1911/03/2024 DRUG MONIT OR, PANEL 1, SCREE N, URINE oxycodone NEGATI VE NG/mL <100 See Note A See Note A Not Available [address] [address] [address], [place], [address], 11/03/2024 23:21:53 11/03/1911/03/2024 DRUG MONIT OR, PANEL 1, SCREE N, URINE phencyclidin e NEGATI VE NG/mL <25 See Note A See Note A Not Available [facility] [address] [address] [address], [place], [address], 11/03/2024 23:21:53 11/03/1911/03/2024 DRUG MONIT OR, PANEL 1, SCREE N, URINE creatinine 8.6 mg/dL > or = 20.0 low Not Available [address] [address] [address], [place], [address], 11/03/2024 23:21:53 11/03/1911/03/2024 DRUG MONIT OR, PANEL 1, SCREE N, URINE specific gravity 1.003 > or = 1.003 Not Available [address] [address], [place], [address], 11/03/2024 23:21:53 11/03/1911/03/2024 DRUG MONIT OR, PANEL 1, SCREE N, URINE pH 6.6 4.5-9. 0 Not Available [address] [address], [place], [address], 11/03/2024 23:21:53 11/03/1911/03/2024 DRUG MONIT OR, PANEL 1, SCREE N, URINE oxidant NEGATI VE mcg/m L <200 Not Available [facility] [address] [address] [address], [place], [address], 11/03/2024 23:21:53 11/03/1911/03/2024 DRUG MONIT ORING TEMPL ATE notes and comments This drug testi ng is for medic al treat ment only. Camilo sis was perfo rmed as non-f orens ic testi ng and these resul ts shoul d be [facility] only [facility] to rende r diagn osis [...] M-F, 8am to 10pm EST Not Available [address] [address] [address] , [place], [address], 11/03/2024 23:21:53 11/03/1911/03/2024 CULTU RE, URINE , ROUTI NE culture, urine, routine SEE NOTE CULTU RE, URINE , ROUTI NE Micro Numbe r: [id number] Test Statu s: Final Speci men Sourc e: Urine Speci men Quali ty: Adequ ate Resul t: No Growt h Not Available [facility] - [address] [place], [address], 11/03/2024 23:21:54 11/03/19 25 11/07/2024 THINP REP TIS PAP (REFL ) HPV MRNA E6/E7 clinical information: normal Pregn ant Not Available [address], [address], 11/07/2024 18:47:29 11/03/19 25 11/07/2024 THINP REP TIS PAP (REFL ) HPV MRNA E6/E7 LMP: normal NONE GIVEN Not Available [address], [address], 11/07/2024 18:47:29 11/03/19 25 11/07/2024 THINP REP TIS PAP (REFL ) HPV MRNA E6/E7 prev. Pap: normal NONE GIVEN Not Available [address], [address], 11/07/2024 18:47:29 11/03/19 25 11/07/2024 THINP REP TIS PAP (REFL ) HPV MRNA E6/E7 prev. BX: normal NONE GIVEN Not Available [address], [address], 11/07/2024 18:47:29 11/03/19 25 11/07/2024 THINP REP TIS PAP (REFL ) HPV MRNA E6/E7 source: normal Cervi x, Endoc ervix Not Available [address], [address], 11/07/2024 18:47:29 11/03/19 25 11/07/2024 THINP REP TIS PAP (REFL ) HPV MRNA E6/E7 statement of adequacy: normal Satis facto ry for evalu ation . Endoc ervic al/tr ansfo rmati on zone compo nent absen t. Not Available [address], [address], 11/07/2024 18:47:29 11/03/19 25 11/07/2024 THINP REP TIS PAP (REFL ) HPV MRNA E6/E7 interpretati on/result: normal Cytol ogy Resul ts: Negat carrie for intra epith elial lesio n or malig aranza . Not Available [address] [address] [place], [address], 11/07/2024 18:47:29 11/03/1911/07/2024 THINP REP TIS PAP (REFL ) HPV MRNA E6/E7 infection: normal Funga l organ isms morph ologi aisha consi stent with Janie da spp. Not Available [address], [address], 11/07/2024 18:47:29 11/03/19 25 11/07/2024 THINP REP TIS PAP (REFL ) HPV MRNA E6/E7 comment: normal This Pap test has been evalu ated with compu ter simba britney techn ology . Not Available [address] [address] [place], [address], 11/07/2024 18:47:29 11/03/1911/07/2024 THINP REP TIS PAP (REFL ) HPV MRNA E6/E7 cytotechnolo gist: normal MEF, CT( CP) CT scree lauryn locat ion: [address] [address] [place] [address] Not Available [address] [address] [place], [address], 11/07/2024 18:47:29 11/03/19 25 11/07/2024 THINP REP [...] clini sury infor antonino n. Not Available [facility] [address] [address], [place], [address], 11/07/2024 18:47:29 11/03/1911/02/2024 CT + NG + TV, DNA, urine /swab CT + NG + TV, DNA, urine/swab negati ve Not Available [facility] [address] [place], [address], 11/02/2024 10:59:56 01/21/2001/20/2025 CBC WBC 7.7 x10 4.0-10 .5 Not Available [facility] [address] [facility] [address], [place], [address], 01/20/2025 13:18:07 01/21/2001/20/2025 CBC RBC 3.41 x10 3.50-5 .50 low Not Available [facility] [address] [facility] [address], [place], [address], 01/20/2025 13:18:07 01/21/2001/20/2025 CBC HGB 10.9 g/dL 12.0-1 6.0 low Not Available [facility] [address] [facility] [address], [place], [address], 01/20/2025 13:18:07 01/21/2001/20/2025 CBC HCT 32.5 % 37.0-4 7.0 low Not Available [facility] [address] [facility] [place], [address], 01/20/2025 13:18:07 01/21/2001/20/2025 CBC MCV 95.2 fL 80.0-9 9.9 Not Available [facility] [address] [facility], [place], [address], 01/20/2025 13:18:07 01/21/2001/20/2025 CBC MCH 31.9 pg 27.0-3 2.0 Not Available [facility] [address] [facility], [place], [address], 01/20/2025 13:18:07 01/21/2001/20/2025 CBC MCHC 33.4 g/dL 32.0-3 6.0 Not Available [facility] [address] [facility], [place], [address], 01/20/2025 13:18:07 01/21/2001/20/2025 CBC RDW 15.4 % 11.5-1 4.5 high Not Available [facility] [address] [facility] [address], [place], [address], 01/20/2025 13:18:07 01/21/2001/20/2025 CBC plt 240.5 x10 140.0- 451.0 Not Available [facility] [address] [facility], [place], [address], 01/20/2025 13:18:07 01/21/2001/20/2025 CBC lymphocytes % 14.6 % 20.0-5 0.0 low Not Available [facility] [address] [facility], [place], [address], 01/20/2025 13:18:07 01/21/2001/20/2025 CBC granulcytes % 81.0 % 30.0-7 0.0 high Not Available [facility] [address] [facility], [place], [address], 01/20/2025 13:18:07 01/21/2001/20/2025 CBC monocytes % 3.6 % 2.0-16 .0 Not Available [facility] [address] [facility], [place], [address], 01/20/2025 13:18:07 01/21/2001/20/2025 CBC granulcytes# 6.2 x10 Not Renetta [facility] [address] [facility], [place], [address], 01/20/2025 13:18:07 01/21/2001/20/2025 CBC lymphocytes # 1.1 x10 Not Available [facility] [address] [facility], [place], [address], 01/20/2025 13:18:07 01/21/20 25 01/20/2025 CBC monocytes # 0.3 x10 Not Avai lable [facility] [address] [facility], [place], [address], 01/20/2025 13:18:07 01/21/2001/20/2025 HBA1C hemaglobin A1C 4.2 4.2-6. 5 Not Available [facility] [address] [facility], [place], [address], 01/20/2025 13:18:19 01/21/2001/20/2025 GLUCO SE SCREE N glucose screen 199.0 mg/dL Not Available [facility] [address] [facility], [place], [address], 01/20/2025 14:42:21 02/16/2002/15/2025 CMP (FEMA LE) glucose 100.0 mg/dL 60.0-9 9.0 high Not Available [facility] [address] [facility], [place], [address], 02/15/2025 12:46:12 02/16/2002/15/2025 CMP (FEMA LE) BUN (blood urea nitrogen) 5.0 mg/dL 10.0-2 6.0 low Not Available [facility] [address] [facility], [place], [address], 02/15/2025 12:46:12 02/16/20 25 02/15/2025 CMP (FEMA LE) creatinine (serum) 0.5 mg/dL 0.4-1. 5 Not Available [facility] [address] [facility], [place], [address], 02/15/2025 12:46:12 02/16/2002/15/2025 CMP (FEMA LE) BUN/creatini ne ratio 10.00 ratio Not Available [facility] [address] [facility], [place], [address], 02/15/2025 12:46:12 02/16/2002/15/2025 CMP (FEMA LE) eGFR calculated 147.6 Not Available [facility] [address] [facility], [place], [address], 02/15/2025 12:46:12 02/16/20 25 02/15/2025 CMP (FEMA LE) total protein 6.8 g/dL 6.0-8. 5 Not Available [facility] [address] [facility], [place], [address], 02/15/2025 12:46:12 02/16/2002/15/2025 CMP (FEMA LE) total bilirubin 0.9 mg/dL 0.2-1. 3 Not Available [facility] [address] [facility], [place], [address], 02/15/2025 12:46:12 02/16/20 25 02/15/2025 CMP (FEMA LE) albumin 3.6 g/dL 3.5-5. 5 Not Available [facility] [address] [facility] [facility], [place], [address], 02/15/2025 12:46:12 02/16/2002/15/2025 CMP (FEMA LE) globulin 3.2 calc Not Available [facility] [address] [place] [facility], [place], [address], 02/15/2025 12:46:12 02/16/2002/15/2025 CMP (FEMA LE) AST (SGOT) 25.0 U/L 0.0-46 .0 Not Available [facility] [address] [facility], [place], [address], 02/15/2025 12:46:12 02/16/20 25 02/15/2025 CMP (FEMA LE) altv (SGPT) 14.0 U/L 13.0-6 9.0 normal Not Available [facility] [address] [facility], [place], [address], 02/15/2025 12:46:12 02/16/2002/15/2025 CMP (FEMA LE) A/G ratio 1.1 ratio Not Available [facility] [address] [place] [facility], [place], [address], 02/15/2025 12:46:12 02/16/2002/15/2025 CMP (FEMA LE) ALP phos 84.0 U/L 30.0-1 40.0 normal Not Available [facility] [address] [facility], [place], [address], 02/15/2025 12:46:12 02/16/20 25 02/15/2025 CMP (FEMA LE) calcium 9.2 mg/dL 8.4-10 .5 Not Available [facility] [address] [facility] [address], [place], [address], 02/15/2025 12:46:12 02/16/2002/15/2025 CMP (FEMA LE) sodium 133.0 mmol/ L 136.0- 145.0 low Not Available [facility] [address] [facility] [address], [place], [address], 02/15/2025 12:46:12 02/16/2002/15/2025 CMP (FEMA LE) potassium 4.2 mmol/ L 3.5-5. 1 Not Available [facility] [address] [facility], [place], [address], 02/15/2025 12:46:12 02/16/2002/15/2025 CMP (FEMA LE) chloride 105.0 mmol/ L 98.0-1 10.0 normal Not Available [facility] [address] [facility], [place], [address], 02/15/2025 12:46:12 02/16/2002/15/2025 CMP (FEMA LE) C02 23.0 mmol/ L 22.0-3 1.0 Not Available [facility] [address] [facility], [place], [address], 02/15/2025 12:46:12 02/16/2002/15/2025 CMP (FEMA LE) anion gap 5.0 calc Not Available [facility] [address] [facility], [place], [address], 02/15/2025 12:46:12 02/16/2002/15/2025 CMP (FEMA LE) osmolality 272.7 calc Not Available [facility] [address] [facility], [place], [address], 02/15/2025 12:46:12 09/29/19 25 09/22/2024 US, obste tric, 1st trime ster No observ ation record ed. [email or web address] [facility] [address] [place], [address], 09/29/2024 09:27:23 01/01/20 25 12/28/2024 imagi ng/di agnos tic resul t No observ ation record ed. [facility] [address] [place], [address], 01/03/2025 06:49:20 02/21/2002/16/2025 [place], obste tric, follo w-up No observ ation record ed. [email or web address] [facility] [address] [place], [address], 02/20/2025 11:18:16 04/03/20 25 03/28/2025 , obste tric, follo w-up No observ ation record ed. [email or web address] [facility] [address] [place], [address], 04/03/2025 13:18:29 Result Notes None recorded. Problems Name Problem SNOMED Code Status Onset Date Resolution Date Notes Provider Name and Address Organization Details Recorded Time Transfusion Completed 201109/22/2024 Transfu kevin; At 5-6 years of age; 012 9:50AM by Mini Roger RN, Office Visit; Promote d; acuity set as *; SAUL Miranda [facility] 14:28:45 [id number] Active 2024 SAUL NOVAK null [facility] 14:28:34 Gestational diabetes mellitus 18096962 Active 2024 Calvin Maldonado MD [address] [place] [address], [id number], [facility] 11:00:57 Heartburn 76615068 Active 2024 Calvin Maldonado MD [address] [place], [address], [facility] 11:07:15 Spasm 39849453 Active 2024 Calvin Maldonado MD [address] [place], [address], [facility] 10:33:23 Problem Notes None recorded. Procedures Surgical History Date Name Laterality Status Provider Name and Address Organization Details Recorded Time 11/03/19 25 Date of Last Pap Smear completed [facility], KathiL.CCompa 11/29/2024 12:06:07 11/03/19 25 sampling of cervix for Papanicolaou smear completed [facility], L.L.CCompa 11/29/2024 12:06:50 07/15/19 21 section completed [facility], L.L.C[facility]pa 09/22/2024 14:36:06 transfusion of blood product completed [facility], L.L.C[facility] 09/22/2024 14:36:27 Imaging Results None [...] Updated DateTime 5 160.02 cm 38.7 kg/m2 77011.9 4 g 95 % 116 /min 18 /min 97.9 [degF] 120/74 mm[Hg] SAUL NOVAK [facility], L.L.CCompa 5 09:54:50 Social History Question Answer Notes LastModified by Organizat ion Details LastModified Time Tobacco Smoking Status Never Smoker SAUL jerome [facility], BcCompa 09/22/2024 14:35:01 Are You Blind Or [...] use any illicit or recreational drugs? No [email or web address] Information not available 09/16/2022 Do you or have you ever used any other forms of tobacco or nicotine? No [email or web address] Information not available 09/16/2022 What is your level of alcohol consumption? Occasional [email or web address] Information not available 09/16/2022 Are you currently [...] virus, trivalent, preservative 0 completed Not Available [facility] 12/06/2022 02:28:54 Past Encounters Encounter ID Performer Location Encounter Start Date Encounter Closed Date Diagnosis/Indication Diagnosis SNOMED-CT Code Diagnosis ICD10 Code Diagnosis IMO Codes Diagnosis Note [id number] Calvin Maldonado MD [facility]) [address] [place] [phone] 5 03/28/2025 08:59:26 03/28/2025 13:16:29 [id number] Calvin Maldonado MD [facility]) [address] [place] [phone] 5 03/28/2025 09:30:49 04/14/2025 11:57:50 Gestational diabetes mellitus 13781137 O24.410 37806950 - Maintain current dietary and glucose monitoring practices. - No immediate need for medication ; monitor potential increase in glucose levels. 01124277 Z34.9 0 Gestation period, 33 weeks 22549794 Z3A.33 4741551 [id number] Calvin Maldonado MD [facility] ([facility]) [address] [place] [address] 04/12/2025 09:36:17 04/12/2025 10:49:52 Gestational diabetes mellitus 53685093 O24.410 66071736 - Maintain current dietary and glucose monitoring practices. - No immediate need for medication ; monitor potential increase in glucose levels. 94825022 Z34.9 0 Gestation period, 36 weeks 18021068 Z3A.36 9528711 [id number] Calvin Maldonado MD [facility] ([facility]) [address] [place] [id number] 5 04/19/2025 09:35:28 04/26/2025 03:59:57 Gestational diabetes mellitus 49238822 O24.410 48870357 - Maintain current dietary and glucose monitoring practices. - No immediate need for medication ; monitor potential increase in glucose levels. Multigravida 323111510 Z 34.83 16603027 Gestation period, 37 weeks 43148269 Z3A.37 9260230 [id number] Calvin Maldonado MD [facility]) [address] [place] [phone] 5 04/19/2025 12:53:13 04/19/2025 14:15:35 Health Concerns Section Related Observation LastModified by Organization Detai ls LastModified Time None Recorded Concern Status LastModified by Organization Details LastModified Time None Recorded Payers Encounter Date Sequence Insurance Name Policy Number Policy Walsh Covered Member ID Walsh Member ID Guarantor Name 04/19/2025 1 [id number] Tiffany Solomon [id number] Tiffany Solomon Notes Date Note Type [...] noted in the HPI Calvin Maldonado MD [address] [place] [address], [phone], [facility] 04/24/2025 21:47:17 OBGyn Episode Ob Episode Information Episode Created Date Number of Fetuses Patient Bloodtype Patient rh Status Prepregnancy Weight lbs Domestic Partner Domestic Partner Phone Father Name Small 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 09/23/19 1 O Positive Wallace OPEN [...] Weight in lbs Pre/Post Dialysis Refused Weight 209.800239337426 BP Diastolic BP Location Tested BP Systolic [...] Weight in lbs Pre/Post Dialysis Refused Weight 208.668461585707 BP Diastolic BP Location Tested BP Systolic BP Type 76 136 sitting Fetus Heart Rate Present A 164 Present Fetus Movement Comments NOB Flowsheet Date 11/29/2024 Herrera Score Blood Edema Fundus Height Fundus Units Glucose Ketones Leukocytes Nitrite Labor Signs Protein Cervic Dilation Cervic Effacement Cervic Station none none Negative neg Type Weight in lbs Pre/Post Dialysis Refused Weight 205.422127171108 BP Diastolic BP Location Tested BP Systolic [...] Weight in lbs Pre/Post Dialysis Refused Weight 204.242535305978 BP Diastolic BP Location Tested BP Systolic [...] Weight in lbs Pre/Post Dialysis Refused Weight 205.778557988823 BP Diastolic BP Location Tested BP Systolic BP Type 70 118 sitting Fetus Heart Rate Present A 144 Present Fetus Movement Comments occ SOB Flowsheet Date 02/15/2025 Herrera Score Blood Edema Fundus Height Fundus Units Glucose Ketones Leukocytes Nitrite Labor Signs Protein Cervic Dilation Cervic Effacement Cervic Station 32 cm none 1+ trace Type Weight in lbs Pre/Post Dialysis Refused Weight 207.512061444257 BP Diastolic BP Location Tested BP Systolic [...] Weight in lbs Pre/Post Dialysis Refused Weight 206.826085624180 BP Diastolic BP Location Tested BP Systolic [...] Weight in lbs Pre/Post Dialysis Refused Weight 208.68529822611 BP Diastolic BP Location Tested BP Systolic [...] Weight in lbs Pre/Post Dialysis Refused Weight 209.723671150113 BP Diastolic BP Location Tested BP Systolic [...] Weight in lbs Pre/Post Dialysis Refused Weight 213.95421752621 BP Diastolic BP Location Tested BP Systolic [...] Weight in lbs Pre/Post Dialysis Refused Weight 218.948036710894 BP Diastolic BP Location Tested BP Systolic [...] Weight in lbs Pre/Post Dialysis Refused Weight 214.903710527895 BP Diastolic BP Location Tested BP Systolic [...] Estim ated Date of Delivery true Thalassemia (South Korean, Kyrgyz, Mediterranean, Or Background): MCV < 80 false Neural Tube Defect (Meningomyelocele, Spina Bifi da, Or Anencephaly) false Congenital Heart Defect false Down Syndrome false Wojciech-Sachs (eg, Mormonism, Cajun, Kiswahili-Honduran) f alse Enedelia Disease false Sickle Cell Disease Or Trait () false Hemophilia Or Other Blood Disorders false Muscular Dystrophy false Cystic Fibrosis false Maybee's Chorea false Intellectual Disability/Autism false If Yes, [...]
--- OUTSIDE RECORDS SUMMARY | 2025-04-27 05:01 | XMS_ITS | Patient Health Record ---
Author Organization [facility] Address [address] [place] [address] Care Team Providers Care Studio Coordinator Name Role Phone Garcia, [facility] Primary Care Provider [phone] Allergies No Known Allergies Reason For Referral No Information Immunizations Vaccine Route Administration Date Status Comme nts Flucelvax Trivalent, Syringe 0.5 mL, PF Unknown 024 Refused Social History Social History Depression Screening Social Info Question Answer Notes depression screening findings Findings Negative (0 -4) PHQ-9 Little interest or p danielito in doing things Not at all Feeling down, depressed, or hopeless Not at all Trouble falling or staying asleep, or sleeping t oo much Not at all Feeling tired or having little energy Not at all Poor appetite or overeating Not at all Feeling bad about yourself, or that you are a failure, or have let yourself or your family down Not at all Trouble concentrating on thi ngs, such as reading the newspaper or watching television Not at all Moving or speaking so slowly that other people could have noticed. Or the opposite ? being so fidgety or restless that you have been moving around a lot more than usual Not at all Thoughts that you would be b miki off , or of hurting yourself in some way Not at all Total Score 0 Section Notes: Depression screen completed 03/10/2024 score 0 Problems Problem Type SNOMED Code ICD Code Onset Dates Problem Status W/U Status Risk Notes Problem Obesity (658257993) Obesity (BMI 30-39.9) (E66.9) Active confirmed Plan Of Treatment No Information Medical (General) History Medical History History ICD Code blood transfusion Surgical History Surgery Date(Month/Year) section Hospitalization History Reason Date(Month/Year) childbirth
--- OUTSIDE RECORDS SUMMARY | 2025-04-27 05:01 | XMS_ITS | Continuity of Care Document ---
Author Organization FELIX [facility], L.Destiny, [facility] ([facility]) Address [address] [place] [address] Care Team Providers Care Credit Verifier Name Role Phone ELEAZAR MARIEK Primary Care Provider Unavailabl e Assessment Encounter Date Assessment Date Assessment LastModified by Organization Details LastModified Time 02/15/2025 02/15/2025 - 39-year-old female with history of gestational diabetes mellitus presenting with consultation for diabetes management, care at 28 weeks gestation, and muscle spasms. - Gestational diabetes mellitus is generally under control with current glucose monitoring showing transient hyperglycemia. - care aligned with patient's decision for delivery. - Muscle spasm occurrence increases at night, but not symptomatic of severe deficiency. , 28 Weeks Gestation: - Scheduled between 38 and 39 weeks. - Ensure regular monitoring and visits remain consistent. [email or web address] Not available 02/15/2025 10:43:08 Plan of Treatment Reminders Order Date Submit Date Provider Last Modified By Organization Details Last Modified Time Details Appointments RETURN OB 2024 10:20A Isaias Maldonado MD Not available Not available Not available RETURN OB 2024 10:20A Isaias Maldonado MD Not available Not available Not available Lab CMP, serum or plasma 2024 025 [facility], [address] [facility], [facility], [place], [address], 02/15/2025 12:46:12 Referral None recorded . Procedures None recorded . Surgeries None recorded . Imaging US, obstetri c, follow-u p - [id number] 2024 025 [facility], [address] [facility], [place], [address], 02/20/2025 11:18:16 Medication Orders None recorded . Patient TargetsNo targets recorded. Patient Instructions Encounter Date Encounter Id Patient Instructions Last Modified By Organization Details Last Modified Time 02/15/2025 [id number] - Continue adhering to the recommended diet for gestational diabetes. - Check blood sugar regularly and report significantly elevated readings. - Plan for a around week 38 to 39, pending further appointments. - Drink plenty of water and consider taking a magnesium supplement for muscle cramps. - Avoid stretching legs when lying down to potentially prevent spasms. - Follow up for routine visits and report any concerning symptoms. [email or web address] Not available 02/15/2025 10:43:10 During the consultation, I explained the importance of continued dietary control and glucose monitoring for gestational diabetes mellitus, noting that current levels are well-managed but could necessitate medication if trends of hyperglycemia appear. The patient expressed a preference for a delivery, which aligns with her medical profile; we discussed scheduling options and anticipated timeframe at 38 to 39 weeks gestation. Understanding of the delivery plan and possible need for changes was confirmed. For muscle spasms, I advised dietary adjustments, hydration, and potential use of magnesium supplements while discussing possible causes, such as normal changes versus deficiencies. A plan to re-evaluate if symptoms persist was established. [email or web address] Not available 02/15/2025 10:43:11 Reason for Referral None Reported. Results Created Date Observation Date Name Description Value Unit Range Abnormal Flag Note LastModifiedBy Organization Detail LastModifiedTime 11/03/1911/02/2024 GLUCO SE glucose 121.0 mg/dL 60.0-9 9.0 high Not Available [facility] [address] [facility], [place], [address], 11/02/2024 12:02:10 11/03/19 25 11/03/2024 HIV 1/2 ANTIG EN/AN TIBOD Y,FOU RTH GENER ATION W/RFL HIV final interpretati on HIV Negat carrie HIV-1 antig en and HIV-1 /HIV- 2 antib odies were not detec britney. There is no labor atory evide nce of HIV infec tion. Not Available [address], [address], 11/03/2024 23:21:44 11/03/1911/03/2024 HIV 1/2 ANTIG EN/AN TIBOD Y,FOU RTH GENER ATION W/RFL HIV Ag/Ab, 4TH gen NON-RE ACTIVE non-re active normal Not Available [address], [address], 11/03/2024 23:21:44 11/03/1911/03/2024 URINA LYSIS , COMPL ETE color YELLOW yellow normal Not Available [address], [address], 11/03/2024 23:21:45 11/03/1911/03/2024 URINA LYSIS , COMPL ETE appearance CLEAR clear normal Not Available [address], [address], 11/03/2024 23:21:45 11/03/1911/03/2024 URINA LYSIS , COMPL ETE specific gravity 1.002 1.001- 1.035 normal Not Available [address], [address], 11/03/2024 23:21:45 11/03/1911/03/2024 URINA LYSIS , COMPL ETE pH 6.5 5.0-8. 0 normal Not Available [address], [address], 11/03/2024 23:21:45 11/03/1911/03/2024 URINA LYSIS , COMPL ETE glucose NEGATI VE negati ve normal Not Available [address], [address], 11/03/2024 23:21:45 11/03/19 25 11/03/2024 URINA LYSIS , COMPL ETE bilirubin NEGATI VE negati ve normal Not Available [address], [address], 11/03/2024 23:21:45 11/03/19 25 11/03/2024 URINA LYSIS , COMPL ETE ketones NEGATI VE negati ve normal Not Available [address], [address], 11/03/2024 23:21:45 11/03/19 25 11/03/2024 URINA LYSIS , COMPL ETE occult blood NEGATI VE negati ve normal Not Available [address], [address], 11/03/2024 23:21:45 11/03/19 25 11/03/2024 URINA LYSIS , COMPL ETE protein NEGATI VE negati ve normal Not Available [address], [address], 11/03/2024 23:21:45 11/03/19 25 11/03/2024 URINA LYSIS , COMPL ETE nitrite NEGATI VE negati ve normal Not Available [address], [address], 11/03/2024 23:21:45 11/03/19 25 11/03/2024 URINA LYSIS , COMPL ETE leukocyte esterase NEGATI VE negati ve normal Not Available [address], [address], 11/03/2024 23:21:45 11/03/19 25 11/03/2024 URINA LYSIS , COMPL ETE WBC NONE SEEN /hpf < or = 5 normal Not Available [address], [address], 11/03/2024 23:21:45 11/03/1911/03/2024 URINA LYSIS , COMPL ETE RBC NONE SEEN /hpf < or = 2 normal Not Available [address], [address], 11/03/2024 23:21:45 11/03/19 25 11/03/2024 URINA LYSIS , COMPL ETE squamous epithelial cells NONE SEEN /hpf < or = 5 normal Not Available [address], [address], 11/03/2024 23:21:45 11/03/1911/03/2024 URINA LYSIS , COMPL ETE bacteria NONE SEEN /hpf none seen normal Not Available [address], [address], 11/03/2024 23:21:45 11/03/1911/03/2024 URINA LYSIS , COMPL ETE hyaline cast NONE SEEN /lpf none seen normal Not Available [address], [address], 11/03/2024 23:21:45 11/03/1911/03/2024 URINA LYSIS , COMPL ETE note This urine was camilo zed for the prese nce of WBC, RBC, bacte glenys, casts , and other forme d eleme nts. Only those eleme nts seen were repor britney. Not Available [address], [address], 11/03/2024 23:21:45 11/03/1911/03/2024 CBC (INCL UDES DIFF/ PLT) white blood cell count 8.3 thous and/u L 3.8-10 .8 normal Not Available [address], [address], 11/03/2024 23:21:47 11/03/19 25 11/03/2024 CBC (INCL UDES DIFF/ PLT) red blood cell count 3.94 nancy on/uL 3.80-5 .10 normal Not Available [address], [address], 11/03/2024 23:21:47 11/03/1911/03/2024 CBC (INCL UDES DIFF/ PLT) hemoglobin 12.6 g/dL 11.7-1 5.5 normal Not Available [address], [address], 11/03/2024 23:21:47 11/03/1911/03/2024 CBC (INCL UDES DIFF/ PLT) hematocrit 37.7 % 35.0-4 5.0 normal Not Available [address], [address], 11/03/2024 23:21:47 11/03/1911/03/2024 CBC (INCL UDES DIFF/ PLT) MCV 95.7 fL 80.0-1 00.0 normal Not Available [address], [address], 11/03/2024 23:21:47 11/03/1911/03/2024 CBC (INCL UDES DIFF/ PLT) MCH 32.0 pg 27.0-3 3.0 normal Not Available [address], [address], 11/03/2024 23:21:47 11/03/1911/03/2024 CBC (INCL UDES DIFF/ [...] clini sury condi tion. Not Available [facility] [address] [address], [place], [address], 11/03/2024 23:21:47 11/03/1911/03/2024 CBC (INCL UDES DIFF/ PLT) RDW 13.6 % 11.0-1 5.0 normal Not Available [address], [address], 11/03/2024 23:21:47 11/03/1911/03/2024 CBC (INCL UDES DIFF/ PLT) platelet count 259 thous and/u L 140-40 0 normal Not Available [facility] [address], [address], 11/03/2024 23:21:47 11/03/1911/03/2024 CBC (INCL UDES DIFF/ PLT) MPV 10.1 fL 7.5-12 .5 normal Not Available [address], [address], 11/03/2024 23:21:47 11/03/1911/03/2024 CBC (INCL UDES DIFF/ PLT) absolute neutrophils 6524 cells /uL 1500-7 800 normal Not Available [address], [address], 11/03/2024 23:21:47 11/03/1911/03/2024 CBC (INCL UDES DIFF/ PLT) absolute lymphocytes 1361 cells /uL 850-39 00 normal Not Available [address], [address], 11/03/2024 23:21:47 11/03/1911/03/2024 CBC (INCL UDES DIFF/ PLT) absolute monocytes 332 cells /uL 200-95 0 normal Not Available [address], [address], 11/03/2024 23:21:47 11/03/1911/03/2024 CBC (INCL UDES DIFF/ PLT) absolute eosinophils 50 cells /uL 15-500 normal Not Available [address], [address], 11/03/2024 23:21:47 11/03/1911/03/2024 CBC (INCL UDES DIFF/ PLT) absolute basophils 33 cells /uL 0-200 normal Not Available [facility] [address], [address], 11/03/2024 23:21:47 11/03/1911/03/2024 CBC (INCL UDES DIFF/ PLT) neutrophils 78.6 % normal Not Available [address], [address], 11/03/2024 23:21:47 11/03/1911/03/2024 CBC (INCL UDES DIFF/ PLT) lymphocytes 16.4 % normal Not Available [address], [address], 11/03/2024 23:21:47 11/03/1911/03/2024 CBC (INCL UDES DIFF/ PLT) monocytes 4.0 % normal Not Available [address], [address], 11/03/2024 23:21:47 11/03/1911/03/2024 CBC (INCL UDES DIFF/ PLT) eosinophils 0.6 % normal Not Available [address], [address], 11/03/2024 23:21:47 11/03/1911/03/2024 CBC (INCL UDES DIFF/ PLT) basophils 0.4 % normal Not Available [address], [address], 11/03/2024 23:21:47 11/03/1911/03/2024 HEPAT ITIS B SURFA CE ANTIG EN W/REF L CONFI RM hepatitis B surface antigen NON-RE ACTIVE non-re active normal For addit ional [facility] starkey, mason e refer to http: //[facility] stdia gnost ics.c om/fa q/FAQ 202 (This link is being provi ded for infor matio nal/ educa chitra l purpo ses only. ) Not Available [facility] [address], [address], 11/03/2024 23:21:47 11/03/1911/03/2024 HEPAT ITIS C AB [...] a test for HCV RNA (test code 21858 ) is sugge sted. For addit ional [facility] e refer to http: //[facility] stdia gnost ics.c om/fa q/FAQ 22v1 (This link is being provi ded for infor matio nal/ educa chitra l purpo ses only. ) Not Available [facility] [address], [address], 11/03/2024 23:21:48 11/03/1911/03/2024 RUBEL LA AB (IGG) [...] la virus . Not Available [facility] [address] [address] [place], [address], 11/03/2024 23:21:49 11/03/1911/03/2024 HEMOG LOBIN A1C hemoglobin A1C 4.7 % <5.7 normal For the purpo se of jose zepedag for the prese nce of diabe bharati: [...] Care in Diabe bharati(A DA). Not Available [facility] [address] [address] [place], [address], 11/03/2024 23:21:50 11/03/1911/03/2024 RPR (DX) W/REF L TITER AND T. PALLI DUM AB, IA RPR (DX) w/refl titer and confirmatory testing NON-RE ACTIVE non-re active normal No labor atory evide nce of syphi lis. If recen t expos ure is suspe cted, submi t a new sampl e in 2-4 weeks . Not Available [facility] [address] [address] [place], [address], 11/03/2024 23:21:51 11/03/1911/03/2024 ABO GROUP AND RH TYPE ABO group O Not Available [facility] [address] [place], [address], 11/03/2024 23:21:52 11/03/1911/03/2024 ABO GROUP AND RH TYPE Rh type RH(D) POSITI VE For addit ional infor mason mei refer to http: //spike Mcnulty stDia gnost ics.c om/fa q/FAQ 111 (This link is being provi ded for infor antonino akhtar/ ian parra purpo ses only. ) Not Available [address] [address] [address], [place], [address], 11/03/2024 23:21:52 11/03/1911/03/2024 DRUG MONIT OR, PANEL 1, SCREE N, URINE amphetamines NEGATI VE NG/mL <500 See Note A See Note A Not Available [facility] [address] [address] [address], [place], [address], 11/03/2024 23:21:53 11/03/1911/03/2024 DRUG MONIT OR, PANEL 1, SCREE N, URINE barbiturates NEGATI VE NG/mL <300 See Note A See Note A Not Available [facility] [address] [address] [address], [place], [address], 11/03/2024 23:21:53 11/03/1911/03/2024 DRUG MONIT OR, PANEL 1, SCREE N, URINE benzodiazepi kendell NEGATI VE NG/mL <100 See Note A See Note A Not Available [facility] [address] [address] [address], [place], [address], 11/03/2024 23:21:53 11/03/1911/03/2024 DRUG MONIT OR, PANEL 1, SCREE N, URINE cocaine metabolite NEGATI VE NG/mL <150 See Note A See Note A Not Available [facility] [address] [address] [address], [place], [address], 11/03/2024 23:21:53 11/03/1911/03/2024 DRUG MONIT OR, PANEL 1, SCREE N, URINE marijuana metabolite NEGATI VE NG/mL <20 See Note A See Note A Not Available [address] [address] [address], [place], [address], 11/03/2024 23:21:53 11/03/1911/03/2024 DRUG MONIT OR, PANEL 1, SCREE N, URINE methadone metabolite NEGATI VE NG/mL <100 See Note A See Note A Not Available [address] [address] [address], [place], [address], 11/03/2024 23:21:53 11/03/1911/03/2024 DRUG MONIT OR, PANEL 1, SCREE N, URINE opiates NEGATI VE NG/mL <100 See Note A See Note A Not Available [address] [address] [address], [place], [address], 11/03/2024 23:21:53 11/03/1911/03/2024 DRUG MONIT OR, PANEL 1, SCREE N, URINE oxycodone NEGATI VE NG/mL <100 See Note A See Note A Not Available [address] [address] [address], [place], [address], 11/03/2024 23:21:53 11/03/1911/03/2024 DRUG MONIT OR, PANEL 1, SCREE N, URINE phencyclidin e NEGATI VE NG/mL <25 See Note A See Note A Not Available [address] [address] [address], [place], [address], 11/03/2024 23:21:53 11/03/1911/03/2024 DRUG MONIT OR, PANEL 1, SCREE N, URINE creatinine 8.6 mg/dL > or = 20.0 low Not Available [address] [address] [address], [place], [address], 11/03/2024 23:21:53 11/03/1911/03/2024 DRUG MONIT OR, PANEL 1, SCREE N, URINE specific gravity 1.003 > or = 1.003 Not Available [address] [address] [place], [address], 11/03/2024 23:21:53 11/03/1911/03/2024 DRUG MONIT OR, PANEL 1, SCREE N, URINE pH 6.6 4.5-9. 0 Not Available [facility] [address] [address] [place], [address], 11/03/2024 23:21:53 11/03/1911/03/2024 DRUG MONIT OR, PANEL 1, SCREE N, URINE oxidant NEGATI VE mcg/m L <200 Not Available [facility] [address] [address] [place], [address], 11/03/2024 23:21:53 11/03/1911/03/2024 DRUG MONIT ORING TEMPL ATE notes and comments This drug testi ng is for medic al treat ment only. Camilo sis was perfo rmed as non-f orens ic testi ng and these resul ts shoul d be used only by [facility] provi ders to rende r diagn osis or treat ment, or to monit or progr ess of medic al condi tions . Note A: The resul ts are presu mptiv e; based only on screted combs methaidan ds, and they have not been confi rmed by a defin itive methaidan mcgowan. [facility] Provi ders needi ng Inter preta tion simba tance , pleas e conta ct us at 1.877 .40.R XTOX (1.87 [phone] ) M-F, 8am to 10pm EST Not Available [address] [address] [place], [address], 11/03/2024 23:21:53 11/03/1911/03/2024 CULTU RE, URINE , ROUTI NE culture, urine, routine SEE NOTE CULTU RE, URINE , ROUTI NE Micro Numbe r: [id number] Test Statu s: Final Speci men Sourc e: Urine Speci men Quali ty: Adequ ate Resul t: No Growt h Not Available [address], [address], 11/03/2024 23:21:54 11/03/19 25 11/07/2024 THINP REP TIS PAP (REFL ) HPV MRNA E6/E7 clinical information: normal Pregn ant Not Available [address], [address], 11/07/2024 18:47:29 11/03/19 25 11/07/2024 THINP REP TIS PAP (REFL ) HPV MRNA E6/E7 LMP: normal NONE GIVEN Not Available [address], [address], 11/07/2024 18:47:29 11/03/19 25 11/07/2024 THINP REP TIS PAP (REFL ) HPV MRNA E6/E7 prev. Pap: normal NONE GIVEN Not Available [address], [address], 11/07/2024 18:47:29 11/03/19 25 11/07/2024 THINP REP TIS PAP (REFL ) HPV MRNA E6/E7 prev. BX: normal NONE GIVEN Not Available [address], [address], 11/07/2024 18:47:29 11/03/19 25 11/07/2024 THINP REP TIS PAP (REFL ) HPV MRNA E6/E7 source: normal Cervi x, Endoc ervix Not Available [address], [address], 11/07/2024 18:47:29 11/03/19 25 11/07/2024 THINP REP TIS PAP (REFL ) HPV MRNA E6/E7 statement of adequacy: normal Satis facto ry for evalu ation . Endoc ervic al/tr ansfo rmati on zone compo nent absen t. Not Available [address] [address] [place], [address], 11/07/2024 18:47:29 11/03/19 25 11/07/2024 THINP REP TIS PAP (REFL ) HPV MRNA E6/E7 interpretati on/result: normal Cytol ogy Resul ts: Negat carrie for intra epith elial lesio n or malig aranza . Not Available [address] [address] [place], [address], 11/07/2024 18:47:29 11/03/19 25 11/07/2024 THINP REP TIS PAP (REFL ) HPV MRNA E6/E7 infection: normal Funga l organ isms morph ologi aisha consi stent with Janie da spp. Not Available [address] [address] [place], [address], 11/07/2024 18:47:29 11/03/19 25 11/07/2024 THINP REP TIS PAP (REFL ) HPV MRNA E6/E7 comment: normal This Pap test has been evalu ated with compu ter simba britney techn ology . Not Available [address] [address] [place], [address], 11/07/2024 18:47:29 11/03/19 25 11/07/2024 THINP REP TIS PAP (REFL ) HPV MRNA E6/E7 cytotechnolo gist: normal MEF, CT( CP) CT scree lauryn locat ion: [address] [place] [address] Not Available [address] [address] [place], [address], 11/07/2024 18:47:29 11/03/19 25 11/07/2024 THINP REP [...] heriberto and curre nt clini sury infor matio n. Not Available [facility] [address] [place], [address], 11/07/2024 18:47:29 11/03/1911/02/2024 CT + NG + TV, DNA, urine /swab CT + NG + TV, DNA, urine/swab negati ve Not Available [facility] ([facility]) [address] [place], [address], 11/02/2024 10:59:56 01/21/2001/20/2025 CBC WBC 7.7 x10 4.0-10 .5 Not Available [facility] [address] [facility] [address], [place], [address], 01/20/2025 13:18:07 01/21/2001/20/2025 CBC RBC 3.41 x10 3.50-5 .50 low Not Available [facility] [address] [facility] [address], [place], [address], 01/20/2025 13:18:07 01/21/2001/20/2025 CBC HGB 10.9 g/dL 12.0-1 6.0 low Not Available [facility] [address] [facility] [address], [place], [address], 01/20/2025 13:18:07 01/21/2001/20/2025 CBC HCT 32.5 % 37.0-4 7.0 low Not Available [facility] [address] [facility] [address], [place], [address], 01/20/2025 13:18:07 01/21/2001/20/2025 CBC MCV 95.2 fL 80.0-9 9.9 Not Available [facility] [address] [facility], [place], [address], 01/20/2025 13:18:07 01/21/20 25 01/20/2025 CBC MCH 31.9 pg 27.0-3 2.0 Not Available [facility] [address] [facility], [place], [address], 01/20/2025 13:18:07 01/21/2001/20/2025 CBC MCHC 33.4 g/dL 32.0-3 6.0 Not Available [facility] [address] [facility], [place], [address], 01/20/2025 13:18:07 01/21/2001/20/2025 CBC RDW 15.4 % 11.5-1 4.5 high Not Available [facility] [address] [facility], [place], [address], 01/20/2025 13:18:07 01/21/2001/20/2025 CBC plt 240.5 x10 140.0- 451.0 Not Available [facility] [address] [facility], [place], [address], 01/20/2025 13:18:07 01/21/2001/20/2025 CBC lymphocytes % 14.6 % 20.0-5 0.0 low Not Available [facility] [address] [facility], [place], [address], 01/20/2025 13:18:07 01/21/2001/20/2025 CBC granulcytes % 81.0 % 30.0-7 0.0 high Not Available [facility] [address] [facility], [place], [address], 01/20/2025 13:18:07 01/21/20 25 01/20/2025 CBC monocytes % 3.6 % 2.0-16 .0 Not Available [facility] [address] [facility] [address], [place], [address], 01/20/2025 13:18:07 01/21/20 25 01/20/2025 CBC granulcytes# 6.2 x10 Not Renetta ilable [facility] [address] [facility] [address], [place], [address], 01/20/2025 13:18:07 01/21/20 25 01/20/2025 CBC lymphocytes # 1.1 x10 Not Available [facility] [address] [facility], [place], [address], 01/20/2025 13:18:07 01/21/20 25 01/20/2025 CBC monocytes # 0.3 x10 Not Avai lable [facility] [address] [facility], [place], [address], 01/20/2025 13:18:07 01/21/20 25 01/20/2025 HBA1C hemaglobin A1C 4.2 4.2-6. 5 Not Available [facility] [address] [facility], [place], [address], 01/20/2025 13:18:19 01/21/20 25 01/20/2025 GLUCO SE SCREE N glucose screen 199.0 mg/dL Not Available [facility] [address] [facility], [place], [address], 01/20/2025 14:42:21 02/16/20 25 02/15/2025 CMP (FEMA LE) glucose 100.0 mg/dL 60.0-9 9.0 high Not Available [facility] [address] [facility], [place], [address], 02/15/2025 12:46:12 02/16/2002/15/2025 CMP (FEMA LE) BUN (blood urea nitrogen) 5.0 mg/dL 10.0-2 6.0 low Not Available [facility] [address] [facility], [place], [address], 02/15/2025 12:46:12 02/16/2002/15/2025 CMP (FEMA LE) creatinine (serum) 0.5 mg/dL 0.4-1. 5 Not Available [facility] [address] [facility], [place], [address], 02/15/2025 12:46:12 02/16/2002/15/2025 CMP (FEMA LE) BUN/creatini ne ratio 10.00 ratio Not Available [facility] [address] [facility], [place], [address], 02/15/2025 12:46:12 02/16/2002/15/2025 CMP (FEMA LE) eGFR calculated 147.6 Not Available [facility] [address] [facility], [place], [address], 02/15/2025 12:46:12 02/16/2002/15/2025 CMP (FEMA LE) total protein 6.8 g/dL 6.0-8. 5 Not Available [facility] [address] [facility], [place], [address], 02/15/2025 12:46:12 02/16/2002/15/2025 CMP (FEMA LE) total bilirubin 0.9 mg/dL 0.2-1. 3 Not Available [facility] [address] [facility], [place], [address], 02/15/2025 12:46:12 02/16/20 25 02/15/2025 CMP (FEMA LE) albumin 3.6 g/dL 3.5-5. 5 Not Available [facility] [address] [facility], [place], [address], 02/15/2025 12:46:12 02/16/2002/15/2025 CMP (FEMA LE) globulin 3.2 calc Not Available [facility] [address] [facility] [address], [place], [address], 02/15/2025 12:46:12 02/16/2002/15/2025 CMP (FEMA LE) AST (SGOT) 25.0 U/L 0.0-46 .0 Not Available [facility] [address] [facility] [address], [place], [address], 02/15/2025 12:46:12 02/16/20 25 02/15/2025 CMP (FEMA LE) altv (SGPT) 14.0 U/L 13.0-6 9.0 normal Not Available [facility] [address] [facility], [place], [address], 02/15/2025 12:46:12 02/16/20 25 02/15/2025 CMP (FEMA LE) A/G ratio 1.1 ratio Not Available [facility] Lab [address] [facility] [address], [place], [address], 02/15/2025 12:46:12 02/16/20 25 02/15/2025 CMP (FEMA LE) ALP phos 84.0 U/L 30.0-1 40.0 normal Not Available [facility] [address] [facility], [place], [address], 02/15/2025 12:46:12 02/16/20 25 02/15/2025 CMP (FEMA LE) calcium 9.2 mg/dL 8.4-10 .5 Not Available [facility] [address] [facility] [address], [place], [address], 02/15/2025 12:46:12 02/16/2002/15/2025 CMP (FEMA LE) sodium 133.0 mmol/ L 136.0- 145.0 low Not Available [facility] [address] [facility] [address], [place], [address], 02/15/2025 12:46:12 02/16/2002/15/2025 CMP (FEMA LE) potassium 4.2 mmol/ L 3.5-5. 1 Not Available [facility] [address] [facility] [address], [place], [address], 02/15/2025 12:46:12 02/16/2002/15/2025 CMP (FEMA LE) chloride 105.0 mmol/ L 98.0-1 10.0 normal Not Available [facility] [address] [facility] [address], [place], [address], 02/15/2025 12:46:12 02/16/2002/15/2025 CMP (FEMA LE) C02 23.0 mmol/ L 22.0-3 1.0 Not Available [facility] [address] [facility] [address], [place], [address], 02/15/2025 12:46:12 02/16/2002/15/2025 CMP (FEMA LE) anion gap 5.0 calc Not Available [facility] [address] [facility] [address], [place], [address], 02/15/2025 12:46:12 02/16/2002/15/2025 CMP (FEMA LE) osmolality 272.7 calc Not Available [facility] [address] [facility] [address], [place], [address], 02/15/2025 12:46:12 09/29/1909/22/2024 US, obste tric, 1st trime ster No observ ation record ed. [email or web address] [facility] [address] [place], [address], 09/29/2024 09:27:23 01/01/2012/28/2024 imagi ng/di agnos tic resul t No observ ation record ed. [facility] [address] [place], [address], 01/03/2025 06:49:20 02/21/2002/16/2025 US, obste tric, follo w-up No observ ation record ed. [email or web address] [facility] [address] [place], [address], 02/20/2025 11:18:16 04/03/20 25 03/28/2025 US, obste tric, follo w-up No observ ation record ed. [email or web address] [facility] [address] [place], [address], 04/03/2025 13:18:29 Result Notes None recorded. Problems Name Problem SNOMED Code Status Onset Date Resolution Date Notes Provider Name and Address Organization Details Recorded Time Transfusion Completed 201109/22/2024 Transfu kevin; At 5-6 years of age; 012 9:50AM by Mini Roger RN, Office Visit; Promote d; acuity set as *; [facility] 14:28:45 86732123 Active 2024 SAUL [facility] 14:28:34 Gestational diabetes mellitus 08676757 Active 2024 Calvin Maldonado MD [address] [place], [address], [facility], [place] 11:00:57 Heartburn 35186009 Active 2024 Calvin Maldonado MD [address] [place], [address], [facility], [place] 11:07:15 Spasm 34737651 Active 2024 Calvin Maldonado MD [address] [place], [address], [facility], [place] 10:33:23 Problem Notes None recorded. Procedures Surgical History Date Name Laterality Status Provider Name and Address Organization Details Recorded Time 11/03/19 25 Date of Last Pap Smear completed [facility], [place] 11/29/2024 12:06:07 11/03/19 25 sampling of cervix for Papanicolaou smear [facility] 11/29/2024 12:06:50 07/15/19 21 [facility] 09/22/2024 14:36:06 transfusion of blood product [facility] 09/22/2024 14:36:27 Imaging Results None recorded. Procedure [...] mass index (BMI) Body weight Respiratory rate Heart rate Oxygen saturation Body temperature Systolic And Diastolic Provider Name and Address Organization Details Last Updated DateTime 5 160.02 cm 36.7 kg/m2 03093.0 2 g 20 /min 72 /min 99 % 98 [degF] 110/62 mm[Hg] MAGUI HAHN [facility], L.L.CCompa 10:15:24 Social History Question Answer Notes LastModified by Organizat ion Details LastModified Time Tobacco Smoking Status Never Smoker SAUL jerome, [facility] 09/22/2024 14:35:01 Are You Blind Or Do [...] use any illicit or recreational drugs? No Information not available 09/16/2022 Do you or have you ever used any other forms of tobacco or nicotine? No [email or web address] Information not available 09/16/2022 What is your level of alcohol consumption? Occasional [email or web address] Information not available 09/16/2022 Are you currently [...] virus, trivalent, preservative 0 completed Not Available [facility] 12/06/2022 02:28:54 Past Encounters Encounter ID Performer Location Encounter Start Date Encounter Closed Date Diagnosis/Indication Diagnosis SNOMED-CT Code Diagnosis ICD10 Code Diagnosis IMO Codes Diagnosis Note [id number] Calvin Maldonado MD [facility] ([facility]) [address] [place] [phone] 01/24/2025 09:45:51 01/24/2025 11:09:12 67518065 Z34.90 Multigravida 201666515 Z 34.82 70191122 Gestationa l diabetes mellitus 50285825 O24.410 58417560 Heartburn 21473950 R12 59297 [id number] Calvin Maldonado MD [facility] ([facility]) [address] [place] [phone] 02/15/2025 09:47:31 02/15/2025 11:37:45 Gestational diabetes mellitus 64136961 O24.410 27716466 - Maintain current dietary and glucose monitoring practices. - No immediate need for medication ; monitor potential increase in glucose levels. 36466965 Z34.9 0 Gestation period, 28 weeks 72387230 Z3A.28 2859589 Spasm 60002432 M62.838 54748 - Increase dietary magnesium and hydration as preventive measures. - Reevaluate if spasms continue or intensify, considerin g electrolyt e testing. Health Concerns Section Related Observation LastModified by Organization Detai ls LastModified Time None Recorded Concern Status LastModified by Organization Details LastModified Time None Recorded Payers Encounter Date Sequence Insurance Name Policy Number Policy Walsh Covered Member ID Walsh Member ID Guarantor Name 02/15/2025 1 [employer]LSY [id number] Tiffany Solomon [id number] Tiffany Solomon Notes Date Note Type Note Provider Name and Address Organization Details Recorded Time 02/15/2025 text/html Diabetes in PregnancyReported by PatientHPIFor review finger sticks, patient reportsfastin-108,post lunch: 90-128, andpost dinner: 90-129(90-129). For context, patient reportsgestational diabetes. For self care, patient reportsmonitoring glucose 3 times per day. For associated symptoms, patient reportsno dizziness,no headaches,no increased thirst, andno increased urination. jr ob routineReported by PatientHPIFor associated symptoms, patient reportsno abdominal pain,no cramping,no contractions,normal movement,no bleeding,no vaginal discharge,no vaginal/vulvar itching or irritation,no dysuria,no frequency,no urgency,no hematuria,no fever,no nausea,no emesis,no constipation,no diarrhea/loose stool,no edema,no visual changes,no headache,no dizziness, andno breathlessness.heartbur n,Pt denies any alcohol or tobacco use or drug useROS as noted in the HPI The patient is a 39-year-old female presenting with gestational diabetes mellitus, at 28 weeks gestation, and muscle spasms. Gestational diabetes mellitus: - Notable for a one-hour glucose level of 199 mg/dL. - A1C remains within optimal range at 4.2%. , 28 weeks gestation: - Plans to proceed with as the mode of delivery. Muscle spasm: - Recent increase in nocturnal muscle cramps noted. 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 09/23/19 1 O Positive Wallace OPEN [...] Weight in lbs Pre/Post Dialysis Refused Weight 209.271354573391 BP Diastolic BP Location Tested BP Systolic [...] Weight in lbs Pre/Post Dialysis Refused Weight 208.444682434699 BP Diastolic BP Location Tested BP Systolic BP Type 76 136 sitting Fetus Heart Rate Present A 164 Present Fetus Movement Comments NOB Flowsheet Date 11/29/2024 Herrera Score Blood Edema Fundus Height Fundus Units Glucose Ketones Leukocytes Nitrite Labor Signs Protein Cervic Dilation Cervic Effacement Cervic Station none none Negative neg Type Weight in lbs Pre/Post Dialysis Refused Weight 205.165500937200 BP Diastolic BP Location Tested BP Systolic [...] Weight in lbs Pre/Post Dialysis Refused Weight 204.836264348699 BP Diastolic BP Location Tested BP Systolic [...] Weight in lbs Pre/Post Dialysis Refused Weight 205.066473688219 BP Diastolic BP Location Tested BP Systolic BP Type 70 118 sitting Fetus Heart Rate Present A 144 Present Fetus Movement Comments occ SOB Flowsheet Date 02/15/2025 Herrera Score Blood Edema Fundus Height Fundus Units Glucose Ketones Leukocytes Nitrite Labor Signs Protein Cervic Dilation Cervic Effacement Cervic Station 32 cm none 1+ trace Type Weight in lbs Pre/Post Dialysis Refused Weight 207.759322929754 BP Diastolic BP Location Tested BP Systolic [...] Weight in lbs Pre/Post Dialysis Refused Weight 206.150798061044 BP Diastolic BP Location Tested BP Systolic [...] Weight in lbs Pre/Post Dialysis Refused Weight 208.79069053712 BP Diastolic BP Location Tested BP Systolic [...] Weight in lbs Pre/Post Dialysis Refused Weight 209.047088669481 BP Diastolic BP Location Tested BP Systolic [...] Weight in lbs Pre/Post Dialysis Refused Weight 213.78468952980 BP Diastolic BP Location Tested BP Systolic [...] Weight in lbs Pre/Post Dialysis Refused Weight 218.634240850936 BP Diastolic BP Location Tested BP Systolic [...] Weight in lbs Pre/Post Dialysis Refused Weight 214.751223962470 BP Diastolic BP Location Tested BP Systolic [...] Estim ated Date of Delivery true Thalassemia (Tamazight, Irish, Mediterranean, Or Background): MCV < 80 false Neural Tube Defect (Meningomyelocele, Spina Bifi da, Or Anencephaly) false Congenital Heart Defect false Down Syndrome false Wojciech-Sachs (eg, Zoroastrian, Cajun, Salv[place]) f alse Enedelia Disease false Sickle Cell [...]
--- OUTSIDE RECORDS SUMMARY | 2025-04-27 05:01 | XMS_ITS | Continuity of Care Document ---
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, [address] [place] [address], [facility] [address] [place], [address], 04/16/2025 20:40:16 Referral None recorded. Procedures None recorded. Surgeries None recorded. Imaging US, obstetric , biophysic al profile - [id number] 2024 [address] [facility] [address] [place] [address] Imaging, [address] [place] [address], [address], 04/19/2025 13:27:31 Medication Orders None recorded. Patient TargetsNo targets recorded. Patient InstructionsNo instructions recorded. Reason for Referral None Reported. Results Created Date Observation Date Name Description Value Unit Range Abnormal Flag Note LastModifiedBy Organization Detail LastModifiedTime 11/03/19 25 11/02/2024 GLUCO SE glucose 121.0 mg/dL 60.0-9 9.0 high Not Available [facility] [address] [facility] [address], [place], [address], 11/02/2024 12:02:10 11/03/19 25 11/03/2024 HIV 1/2 ANTIG EN/AN TIBOD Y,FOU RTH GENER ATION W/RFL HIV final interpretati on HIV Negat carrie HIV-1 antig en and HIV-1 /HIV- 2 antib odies were not detec britney. There is no labor atory evide nce of HIV infec tion. Not Available [address], [address], 11/03/2024 23:21:44 11/03/19 25 11/03/2024 HIV 1/2 ANTIG EN/AN TIBOD Y,FOU RTH GENER ATION W/RFL HIV Ag/Ab, 4TH gen NON-RE ACTIVE non-re active normal Not Available [facility] [address], [address], 11/03/2024 23:21:44 11/03/19 25 11/03/2024 URINA LYSIS , COMPL ETE color YELLOW yellow normal Not Available [facility] [address], [address], 11/03/2024 23:21:45 11/03/19 25 11/03/2024 URINA LYSIS , COMPL ETE appearance CLEAR clear normal Not Available [facility] [address] [place], [address], 11/03/2024 23:21:45 11/03/1911/03/2024 URINA LYSIS , COMPL ETE specific gravity 1.002 1.001- 1.035 normal Not Available [facility] [address] [place], [address], 11/03/2024 23:21:45 11/03/19 25 11/03/2024 URINA LYSIS , COMPL ETE pH 6.5 5.0-8. 0 normal Not Available [address] [place], [address], 11/03/2024 23:21:45 11/03/19 25 11/03/2024 URINA LYSIS , COMPL ETE glucose NEGATI VE negati ve normal Not Available [facility] [address], [address], 11/03/2024 23:21:45 11/03/19 25 11/03/2024 URINA LYSIS , COMPL ETE bilirubin NEGATI VE negati ve normal Not Available [facility] [address], [address], 11/03/2024 23:21:45 11/03/19 25 11/03/2024 URINA LYSIS , COMPL ETE ketones NEGATI VE negati ve normal Not Available [address], [address], 11/03/2024 23:21:45 11/03/19 25 11/03/2024 URINA LYSIS , COMPL ETE occult blood NEGATI VE negati ve normal Not Available [address], [address], 11/03/2024 23:21:45 11/03/19 25 11/03/2024 URINA LYSIS , COMPL ETE protein NEGATI VE negati ve normal Not Available [facility] [address], [address], 11/03/2024 23:21:45 11/03/19 25 11/03/2024 URINA LYSIS , COMPL ETE nitrite NEGATI VE negati ve normal Not Available [address], [address], 11/03/2024 23:21:45 11/03/19 25 11/03/2024 URINA LYSIS , COMPL ETE leukocyte esterase NEGATI VE negati ve normal Not Available [facility] - [address], [address], 11/03/2024 23:21:45 11/03/19 25 11/03/2024 URINA LYSIS , COMPL ETE WBC NONE SEEN /hpf < or = 5 normal Not Available [address], [address], 11/03/2024 23:21:45 11/03/19 25 11/03/2024 URINA LYSIS , COMPL ETE RBC NONE SEEN /hpf < or = 2 normal Not Available [facility] [address], [address], 11/03/2024 23:21:45 11/03/19 25 11/03/2024 URINA LYSIS , COMPL ETE squamous epithelial cells NONE SEEN /hpf < or = 5 normal Not Available [address], [address], 11/03/2024 23:21:45 11/03/19 25 11/03/2024 URINA LYSIS , COMPL ETE bacteria NONE SEEN /hpf none seen normal Not Available [address], [address], 11/03/2024 23:21:45 11/03/19 25 11/03/2024 URINA LYSIS , COMPL ETE hyaline cast NONE SEEN /lpf none seen normal Not Available [address], [address], 11/03/2024 23:21:45 11/03/19 25 11/03/2024 URINA LYSIS , COMPL ETE note This urine was camilo zed for the prese nce of WBC, RBC, bacte glenys, casts , and other forme d eleme nts. Only those eleme nts seen were repor britney. Not Available [address], [address], 11/03/2024 23:21:45 11/03/19 25 11/03/2024 CBC (INCL UDES DIFF/ PLT) white blood cell count 8.3 thous and/u L 3.8-10 .8 normal Not Available [address], [address], 11/03/2024 23:21:47 11/03/19 25 11/03/2024 CBC (INCL UDES DIFF/ PLT) red blood cell count 3.94 nancy on/uL 3.80-5 .10 normal Not Available [address], [address], 11/03/2024 23:21:47 11/03/1911/03/2024 CBC (INCL UDES DIFF/ PLT) hemoglobin 12.6 g/dL 11.7-1 5.5 normal Not Available [address], [address], 11/03/2024 23:21:47 11/03/1911/03/2024 CBC (INCL UDES DIFF/ PLT) hematocrit 37.7 % 35.0-4 5.0 normal Not Available [address], [address], 11/03/2024 23:21:47 11/03/1911/03/2024 CBC (INCL UDES DIFF/ PLT) MCV 95.7 fL 80.0-1 00.0 normal Not Available [address], [address], 11/03/2024 23:21:47 11/03/1911/03/2024 CBC (INCL UDES DIFF/ PLT) MCH 32.0 pg 27.0-3 3.0 normal Not Available [address], [address], 11/03/2024 23:21:47 11/03/1911/03/2024 CBC (INCL UDES DIFF/ PLT) MCHC 33.4 g/dL 32.0-3 6.0 normal For adult s, a sligh t decre ase in the calcu lated MCHC value (in the range of 30 to 32 g/dL) is most likel y not clini aisha tsang t; merry er, it shoul d be inter prete d with cauti on in [facility] n with other red cell apoorva eters and the patie nt's clini sury condi tion. Not Available [facility] [address], [address], 11/03/2024 23:21:47 11/03/1911/03/2024 CBC (INCL UDES DIFF/ PLT) RDW 13.6 % 11.0-1 5.0 normal Not Available [facility] [address], [address], 11/03/2024 23:21:47 11/03/1911/03/2024 CBC (INCL UDES DIFF/ PLT) platelet count 259 thous and/u L 140-40 0 normal Not Available [facility] [address], [address], 11/03/2024 23:21:47 11/03/1911/03/2024 CBC (INCL UDES DIFF/ PLT) MPV 10.1 fL 7.5-12 .5 normal Not Available [facility] [address], [address], 11/03/2024 23:21:47 11/03/1911/03/2024 CBC (INCL UDES DIFF/ PLT) absolute neutrophils 6524 cells /uL 1500-7 800 normal Not Available [facility] [address], [address], 11/03/2024 23:21:47 11/03/1911/03/2024 CBC (INCL UDES DIFF/ PLT) absolute lymphocytes 1361 cells /uL 850-39 00 normal Not Available [facility] [address], [address], 11/03/2024 23:21:47 11/03/19 25 11/03/2024 CBC (INCL UDES DIFF/ PLT) absolute monocytes 332 cells /uL 200-95 0 normal Not Available [address], [address], 11/03/2024 23:21:47 11/03/1911/03/2024 CBC (INCL UDES DIFF/ PLT) absolute eosinophils 50 cells /uL 15-500 normal Not Available [address], [address], 11/03/2024 23:21:47 11/03/1911/03/2024 CBC (INCL UDES DIFF/ PLT) absolute basophils 33 cells /uL 0-200 normal Not Available [address], [address], 11/03/2024 23:21:47 11/03/1911/03/2024 CBC (INCL UDES DIFF/ PLT) neutrophils 78.6 % normal Not Available [facility] [address], [address], 11/03/2024 23:21:47 11/03/1911/03/2024 CBC (INCL UDES DIFF/ PLT) lymphocytes 16.4 % normal Not Available [address], [address], 11/03/2024 23:21:47 11/03/1911/03/2024 CBC (INCL UDES DIFF/ PLT) monocytes 4.0 % normal Not Available [facility] [address], [address], 11/03/2024 23:21:47 11/03/1911/03/2024 CBC (INCL UDES DIFF/ PLT) eosinophils 0.6 % normal Not Available [address], [address], 11/03/2024 23:21:47 11/03/19 25 11/03/2024 CBC (INCL UDES DIFF/ PLT) basophils 0.4 % normal Not Available [address], [address], 11/03/2024 23:21:47 11/03/1911/03/2024 HEPAT ITIS B SURFA CE ANTIG EN W/REF L CONFI RM hepatitis B surface antigen NON-RE ACTIVE non-re active normal For addit ional infor antonino starkey, mason e refer to http: //[facility] n.que stdia gnost ics.c om/fa q/FAQ 202 (This link is being provi ded for infor matio nal/ educa chitra l purpo ses only. ) Not Available [facility] [address], [address], 11/03/2024 23:21:47 11/03/19 25 11/03/2024 HEPAT ITIS C AB W/REF L TO [...] a test for HCV RNA (test code 37510 ) is sugge sted. For addit ional infor antonino n pleghazal e refer to http: //[facility] n.que stdia gnost ics.c om/fa q/FAQ 22v1 (This link is being provi ded for infor matio nal/ educa chitra l purpo ses only. ) Not Available [address], [address], 11/03/2024 23:21:48 11/03/1911/03/2024 RUBEL LA AB (IGG) [...] with rubel la virus . Not Available [facility] [address] [place], [address], 11/03/2024 23:21:49 11/03/1911/03/2024 HEMOG LOBIN A1C hemoglobin [...] bharati. 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 Not Available [facility] [address] [place], [address], 11/03/2024 23:21:50 11/03/1911/03/2024 RPR (DX) W/REF L TITER AND T. PALLI DUM AB, IA RPR (DX) w/refl titer and confirmatory testing NON-RE ACTIVE non-re active normal No labor atory evide nce of syphi lis. If recen t expos ure is suspe cted, submi t a new sampl e in 2-4 weeks . Not Available [address] [address] [address] [place], [address], 11/03/2024 23:21:51 11/03/1911/03/2024 ABO GROUP AND RH TYPE ABO group O Not Available [address] [address] [place], [address], 11/03/2024 23:21:52 11/03/1911/03/2024 ABO GROUP AND RH TYPE Rh type RH(D) POSITI VE For addit ional infor mason mei refer to http: //[facility] Salmeron gnost ics.c om/fa q/FAQ 111 (This link is being provi ded for infor antonino akhtar/ educchiquita parra purpo ses only. ) Not Available [facility] [address] [address] [address], [place], [address], 11/03/2024 23:21:52 11/03/1911/03/2024 DRUG MONIT OR, PANEL 1, SCREE N, URINE amphetamines NEGATI VE NG/mL <500 See Note A See Note A Not Available [facility] [address] [address] [address], [place], [address], 11/03/2024 23:21:53 11/03/1911/03/2024 DRUG MONIT OR, PANEL 1, SCREE N, URINE barbiturates NEGATI VE NG/mL <300 See Note A See Note A Not Available [facility] [address] [address] [place], [address], 11/03/2024 23:21:53 11/03/1911/03/2024 DRUG MONIT OR, PANEL 1, SCREE N, URINE benzodiazepi kendell NEGATI VE NG/mL <100 See Note A See Note A Not Available [facility] [address] [address] [place], [address], 11/03/2024 23:21:53 11/03/1911/03/2024 DRUG MONIT OR, PANEL 1, SCREE N, URINE cocaine metabolite NEGATI VE NG/mL <150 See Note A See Note A Not Available [facility] [address] [address] [address], [place], [address], 11/03/2024 23:21:53 11/03/1911/03/2024 DRUG MONIT OR, PANEL 1, SCREE N, URINE marijuana metabolite NEGATI VE NG/mL <20 See Note A See Note A Not Available [facility] [address] [address] [address], [place], [address], 11/03/2024 23:21:53 11/03/1911/03/2024 DRUG MONIT OR, PANEL 1, SCREE N, URINE methadone metabolite NEGATI VE NG/mL <100 See Note A See Note A Not Available [facility] [address] [address] [address], [place], [address], 11/03/2024 23:21:53 11/03/1911/03/2024 DRUG MONIT OR, PANEL 1, SCREE N, URINE opiates NEGATI VE NG/mL <100 See Note A See Note A Not Available [facility] [address] [address] [address], [place], [address], 11/03/2024 23:21:53 11/03/1911/03/2024 DRUG MONIT OR, PANEL 1, SCREE N, URINE oxycodone NEGATI VE NG/mL <100 See Note A See Note A Not Available [facility] [address] [address] [address], [place], [address], 11/03/2024 23:21:53 11/03/1911/03/2024 DRUG MONIT OR, PANEL 1, SCREE N, URINE phencyclidin e NEGATI VE NG/mL <25 See Note A See Note A Not Available [facility] [address] [address] [address], [place], [address], 11/03/2024 23:21:53 11/03/1911/03/2024 DRUG MONIT OR, PANEL 1, SCREE N, URINE creatinine 8.6 mg/dL > or = 20.0 low Not Available [address] [address] [address] , [place], [address], 11/03/2024 23:21:53 11/03/1911/03/2024 DRUG MONIT OR, PANEL 1, SCREE N, URINE specific gravity 1.003 > or = 1.003 Not Available [address] [address] [address], [place], [address], 11/03/2024 23:21:53 11/03/1911/03/2024 DRUG MONIT OR, PANEL 1, SCREE N, URINE pH 6.6 4.5-9. 0 Not Available [address] [address] [address] , [place], [address], 11/03/2024 23:21:53 11/03/1911/03/2024 DRUG MONIT OR, PANEL 1, SCREE N, URINE oxidant NEGATI VE mcg/m L <200 Not Available [place] [address] [facility] [place], [address], 11/03/2024 23:21:53 11/03/1911/03/2024 DRUG MONIT ORING TEMPL ATE notes and comments This drug testi ng is for medic al treat ment only. Camilo sis was perfo rmed as non-f orens ic testi ng and these resul ts shoul d be used only by [facility] provi ders to rende r diagn osis or treat ment, or to monit or progr ess of medic al condi tions . Note A: The resul ts are presu mptiv e; based only on jose kendall, and they have not been confi rmed by a defin itive lakesha mcgowan. [facility] Provi ders needi ng Inter preta tion simba tance , pleas e conta ct us at 1.877 .40.R XTOX (1.87 [phone] ) M-F, 8am to 10pm EST Not Available [address], [address], 11/03/2024 23:21:53 11/03/19 25 11/03/2024 CULTU RE, URINE , ROUTI NE culture, urine, routine SEE NOTE CULTU RE, URINE , ROUTI NE Micro Numbe r: [id number] Test Statu s: Final Speci men Sourc e: Urine Speci men Quali ty: Adequ ate Resul t: No Growt h Not Available [address], [address], 11/03/2024 23:21:54 11/03/19 25 11/07/2024 THINP REP TIS PAP (REFL ) HPV MRNA E6/E7 clinical information: normal Pregn ant Not Available [address], [address], 11/07/2024 18:47:29 11/03/19 25 11/07/2024 THINP REP TIS PAP (REFL ) HPV MRNA E6/E7 LMP: normal NONE GIVEN Not Available [address], [address], 11/07/2024 18:47:29 11/03/19 25 11/07/2024 THINP REP TIS PAP (REFL ) HPV MRNA E6/E7 prev. Pap: normal NONE GIVEN Not Available [address], [address], 11/07/2024 18:47:29 11/03/19 25 11/07/2024 THINP REP TIS PAP (REFL ) HPV MRNA E6/E7 prev. BX: normal NONE GIVEN Not Available [address], [address], 11/07/2024 18:47:29 11/03/19 25 11/07/2024 THINP REP TIS PAP (REFL ) HPV MRNA E6/E7 source: normal Cervi x, Endoc ervix Not Available [address] [address] [place], [address], 11/07/2024 18:47:29 11/03/1911/07/2024 THINP REP TIS PAP (REFL ) HPV MRNA E6/E7 statement of adequacy: normal Satis facto ry for evalu ation . Endoc ervic al/tr ansfo rmati on zone compo nent absen t. Not Available [address] [address] [place], [address], 11/07/2024 18:47:29 11/03/19 25 11/07/2024 THINP REP TIS PAP (REFL ) HPV MRNA E6/E7 interpretati on/result: normal Cytol ogy Resul ts: Negat carrie for intra epith elial lesio n or earl cobian . Not Available [address] [address] [place], [address], 11/07/2024 18:47:29 11/03/19 25 11/07/2024 THINP REP TIS PAP (REFL ) HPV MRNA E6/E7 infection: normal Funga l organ isms morph ologi aisha consi stent with Janie da spp. Not Available [address] [address] [place], [address], 11/07/2024 18:47:29 11/03/19 25 11/07/2024 THINP REP TIS PAP (REFL ) HPV MRNA E6/E7 comment: normal This Pap test has been evalu ated with compu ter simba britney techn ology . Not Available [address] [address] [place], [address], 11/07/2024 18:47:29 11/03/19 25 11/07/2024 THINP REP TIS PAP (REFL ) HPV MRNA E6/E7 cytotechnolo gist: normal MEF, CT( CP) CT scree lauryn locat ion: [place] [address] [place] [address] Not Available [address] [address] [address] [place], [address], 11/07/2024 18:47:29 11/03/1911/07/2024 THINP REP TIS PAP (REFL ) HPV MRNA E6/E7 comment EXPLA NATMARIAA Y NOTE: The Pap is a scree [...] clini sury infor matio n. Not Available [address] [address] [place], [address], 11/07/2024 18:47:29 11/03/19 25 11/02/2024 CT + NG + TV, DNA, urine /swab CT + NG + TV, DNA, urine/swab negati ve Not Available [facility] ([facility] [address] [place], [address], 11/02/2024 10:59:56 01/21/20 25 01/20/2025 CBC WBC 7.7 x10 4.0-10 .5 Not Available [facility] [address], [address], 01/20/2025 13:18:07 01/21/20 25 01/20/2025 CBC RBC 3.41 x10 3.50-5 .50 low Not Available [facility] [address], [address], 01/20/2025 13:18:07 01/21/20 25 01/20/2025 CBC HGB 10.9 g/dL 12.0-1 6.0 low Not Available [facility] [address] [place], [address], 01/20/2025 13:18:07 01/21/2001/20/2025 CBC HCT 32.5 % 37.0-4 7.0 low Not Available [facility] [address], [place], [address], 01/20/2025 13:18:07 01/21/2001/20/2025 CBC MCV 95.2 fL 80.0-9 9.9 Not Available [facility] [address] [address] [facility] 1, [place], [address], 01/20/2025 13:18:07 01/21/2001/20/2025 CBC MCH 31.9 pg 27.0-3 2.0 Not Available [facility] [address] [facility] [facility] 1, [place], [address], 01/20/2025 13:18:07 01/21/2001/20/2025 CBC MCHC 33.4 g/dL 32.0-3 6.0 Not Available [facility] [address] [facility] 1, [place], [address], 01/20/2025 13:18:07 01/21/2001/20/2025 CBC RDW 15.4 % 11.5-1 4.5 high Not Available [facility] [address] [facility] 1, [place], [address], 01/20/2025 13:18:07 01/21/2001/20/2025 CBC plt 240.5 x10 140.0- 451.0 Not Available [facility] [address] [facility] 1, [place], [address], 01/20/2025 13:18:07 01/21/2001/20/2025 CBC lymphocytes % 14.6 % 20.0-5 0.0 low Not Available [facility] [address] [facility] [address] [facility] 1, [place], [address], 01/20/2025 13:18:07 01/21/20 25 01/20/2025 CBC granulcytes % 81.0 % 30.0-7 0.0 high Not Available [facility] [address] [facility] [address] [facility] 1, [place], [address], 01/20/2025 13:18:07 01/21/20 25 01/20/2025 CBC monocytes % 3.6 % 2.0-16 .0 Not Available [facility] [address] [facility] [address] [facility] 1, [place], [address], 01/20/2025 13:18:07 01/21/20 25 01/20/2025 CBC granulcytes# 6.2 x10 Not Renetta ilable [facility] [address] [facility] 1, [place], [address], 01/20/2025 13:18:07 01/21/2001/20/2025 CBC lymphocytes # 1.1 x10 Not Available [facility] [address] [facility] [address] [facility] 1, [place], [address], 01/20/2025 13:18:07 01/21/2001/20/2025 CBC monocytes # 0.3 x10 Not Avai lable [facility] [address] [facility] [address] [facility] 1, [place], [address], 01/20/2025 13:18:07 01/21/2001/20/2025 HBA1C hemaglobin A1C 4.2 4.2-6. 5 Not Available [facility] [address] [facility] [address] [facility] 1, [place], [address], 01/20/2025 13:18:19 09/12/20 25 01/20/2025 GLUCO SE SCREE N glucose screen 199.0 mg/dL Not Available [facility] [address] [facility], [place], [address], 01/20/2025 14:42:21 02/16/2002/15/2025 CMP (FEMA LE) glucose 100.0 mg/dL 60.0-9 9.0 high Not Available [facility] [address] [facility], [place], [address], 02/15/2025 12:46:12 02/16/20 25 02/15/2025 CMP (FEMA LE) BUN (blood urea nitrogen) 5.0 mg/dL 10.0-2 6.0 low Not Available [facility] [address] [facility], [place], [address], 02/15/2025 12:46:12 02/16/2002/15/2025 CMP (FEMA LE) creatinine (serum) 0.5 mg/dL 0.4-1. 5 Not Available [facility] [address] [facility], [place], [address], 02/15/2025 12:46:12 02/16/20 25 02/15/2025 CMP (FEMA LE) BUN/creatini ne ratio 10.00 ratio Not Available [facility] [address] [facility], [place], [address], 02/15/2025 12:46:12 02/16/20 25 02/15/2025 CMP (FEMA LE) eGFR calculated 147.6 Not Available [facility] [address] [facility], [place], [address], 02/15/2025 12:46:12 02/16/20 25 02/15/2025 CMP (FEMA LE) total protein 6.8 g/dL 6.0-8. 5 Not Available [facility] [address] [facility] [place] [address], [place], [address], 02/15/2025 12:46:12 02/16/2002/15/2025 CMP (FEMA LE) total bilirubin 0.9 mg/dL 0.2-1. 3 Not Available [facility] [address] [facility] [address] [facility] 1, [place], [address], 02/15/2025 12:46:12 02/16/20 25 02/15/2025 CMP (FEMA LE) albumin 3.6 g/dL 3.5-5. 5 Not Available [facility] [address] [place] [facility], [place], [address], 02/15/2025 12:46:12 02/16/2002/15/2025 CMP (FEMA LE) globulin 3.2 calc Not Available [facility] [place] [facility] [address] [place] [facility], [place], [address], 02/15/2025 12:46:12 02/16/20 25 02/15/2025 CMP (FEMA LE) AST (SGOT) 25.0 U/L 0.0-46 .0 Not Available [facility] [address] [facility] 1, [place], [address], 02/15/2025 12:46:12 02/16/2002/15/2025 CMP (FEMA LE) altv (SGPT) 14.0 U/L 13.0-6 9.0 normal Not Available [facility] [address] [facility] 1, [place], [address], 02/15/2025 12:46:12 02/16/20 25 02/15/2025 CMP (FEMA LE) A/G ratio 1.1 ratio Not Available [facility] [address] [place] [facility], [place], [address], 02/15/2025 12:46:12 02/16/2002/15/2025 CMP (FEMA LE) ALP phos 84.0 U/L 30.0-1 40.0 normal Not Available [facility] [address] [facility] 1, [place], [address], 02/15/2025 12:46:12 02/16/2002/15/2025 CMP (FEMA LE) calcium 9.2 mg/dL 8.4-10 .5 Not Available [facility] [address] [facility] [address], [place], [address], 02/15/2025 12:46:12 02/16/2002/15/2025 CMP (FEMA LE) sodium 133.0 mmol/ L 136.0- 145.0 low Not Available [facility] [address] [facility] [address], [place], [address], 02/15/2025 12:46:12 02/16/2002/15/2025 CMP (FEMA LE) potassium 4.2 mmol/ L 3.5-5. 1 Not Available [facility] [address] [facility] [address], [place], [address], 02/15/2025 12:46:12 02/16/2002/15/2025 CMP (FEMA LE) chloride 105.0 mmol/ L 98.0-1 10.0 normal Not Available [facility] [address] [facility] [address], [place], [address], 02/15/2025 12:46:12 02/16/2002/15/2025 CMP (FEMA LE) C02 23.0 mmol/ L 22.0-3 1.0 Not Available [facility] [address] [facility] [address], [place], [address], 02/15/2025 12:46:12 02/16/2002/15/2025 CMP (FEMA LE) anion gap 5.0 calc Not Available [facility] [address] [facility] [address], [place], [address], 02/15/2025 12:46:12 02/16/2002/15/2025 CMP (FEMA LE) osmolality 272.7 calc Not Available [facility] [address] [facility] [address], [place], [address], 02/15/2025 12:46:12 09/29/1909/22/2024 US, obste tric, 1st trime ster No observ ation record ed. [email or web address] [facility] [address] [place], [address], 09/29/2024 09:27:23 01/01/2012/28/2024 imagi ng/di agnos tic resul t No observ ation record ed. [facility] [address] [place], [address], 01/03/2025 06:49:20 02/21/2002/16/2025 [place], obste tric, follo w-up No observ ation record ed. [email or web address] [facility] [address] [place], [address], 02/20/2025 11:18:16 04/03/2003/28/2025 US, obste tric, follo w-up No observ ation record ed. [email or web address] [facility] [address] [place], [address], 04/03/2025 13:18:29 Result Notes None recorded. Problems Name Problem SNOMED Code Status Onset Date Resolution Date Notes Provider Name and Address Organization Details Recorded Time Transfusion Completed 201109/22/2024 Transfu kevin; At 5-6 years of age; 012 9:50AM by Mini Roger RN, Office Visit; Promote d; acuity set as *; SAUL DOUGLAS KISHORE null, [facility] 14:28:45 87820800 Active 2024 SAUL MISAEL KISHORE null, [facility] 5 14:28:34 Gestational diabetes mellitus 22482031 Active 2024 Calvin Maldonado MD [address] [place] [address], [phone], [facility] Noreen.L[facility] 11:00:57 Heartburn 97157295 Active 2024 Calvin Maldonado MD [address] [place] [address], [phone], [facility], KathiLCompaCCompa 11:07:15 Spasm 38035036 Active 2024 Calvin Maldonado MD [address] [place] [address], [phone], [facility] 10:33:23 Problem Notes None recorded. Procedures Surgical History Date Name Laterality Status Provider Name and Address Organization Details Recorded Time 11/03/19 25 Date of Last Pap Smear completed [facility] 11/29/2024 12:06:07 11/03/19 25 sampling of cervix for Papanicolaou smear completed [facility] 11/29/2024 12:06:50 07/15/19 21 section completed [facility] 09/22/2024 14:36:06 transfusion of blood product completed [facility] 09/22/2024 14:36:27 Imaging Results None [...] Organization Details Last Updated DateTime 160.02 cm 37.8 kg/m2 75110.2 7 g 98 % 63 /min 18 /min 99.2 [degF] 130/74 mm[Hg] SAUL NOVAK [facility] 10:02:38 Social History Question Answer Notes LastModified by Organizat ion Details LastModified Time Tobacco Smoking Status Never Smoker SAUL jerome [facility] 09/22/2024 14:35:01 Are You Blind Or [...] Status Question Answer Note LastModified by Organizat [employer] Details LastModified Time Do you use any illicit or recreational drugs? No Information not available 09/16/2022 Do you or have you ever used any other forms of tobacco or nicotine? No [email or web address] Information not available 09/16/2022 What is your level of alcohol consumption? Occasional [email or web address] Information not available 09/16/2022 Are you currently [...] virus, trivalent, preservative 0 completed Not Available [facility] 12/06/2022 02:28:54 Past Encounters Encounter ID Performer Location Encounter Start Date Encounter Closed Date Diagnosis/Indication Diagnosis SNOMED-CT Code Diagnosis ICD10 Code Diagnosis IMO Codes Diagnosis Note [id number] Calvin Maldonado MD [facility] ([facility]) [address] [place] [address] 03/14/2025 10:16:59 03/14/2025 10:47:44 Gestational diabetes mellitus 55537406 O24.410 27127772 - Maintain current dietary and glucose monitoring practices. - No immediate need for medication ; monitor potential increase in glucose levels. 54679640 Z34.9 0 Gestation period, 31 weeks 19202166 Z3A.31 [id number] Calvin Maldonado MD [facility] ([facility]) [address] [place] [phone] 03/28/2025 08:59:26 03/28/2025 13:16:29 [id number] Calvin Maldonado MD [facility] ([facility]) [address] [place] [address] 03/28/2025 09:30:49 04/14/2025 11:57:50 Gestational diabetes mellitus 44490412 O24.410 11359413 - Maintain current dietary and glucose monitoring practices. - No immediate need for medication ; monitor potential increase in glucose levels. 73531353 Z34.9 0 Gestation period, 33 weeks 31516853 Z3A.33 5311249 [id number] Calvin Maldonado MD [facility] ([facility]) [address] [place] [phone] 04/12/2025 09:36:17 04/12/2025 10:49:52 Gestational diabetes mellitus 64902413 O24.410 64056243 - Maintain current dietary and glucose monitoring practices. - No immediate need for medication ; monitor potential increase in glucose levels. 77427806 Z34.9 0 Gestation period, 36 weeks 79570521 Z3A.36 [id number] Health Concerns Section Related Observation LastModified by Organization Detai ls LastModified Time None Recorded Concern Status LastModified by Organization Details LastModified Time None Recorded Payers Encounter Date Sequence Insurance Name Policy Number Policy Walsh Covered Member ID Walsh Member ID Guarantor Name 04/12/2025 1 [employer]LSY [id number] Tiffany Solomon [id number] Tiffany Solomon Notes Date Note Type Note Provider Name and Address Organization Details Recorded Time 04/12/2025 text/html Diabetes in PregnancyReported by PatientHPIFor [...] noted in the HPI Calvin Maldonado MD [address] [place] [address], [phone], [facility], [facility] 04/12/2025 10:42:21 OBGyn Episode Ob Episode Information Episode Created Date Number of Fetuses Patient Bloodtype Patient rh Status Prepregnancy Weight lbs Domestic Partner Domestic Partner Phone 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 09/23/19 25 1 O Positive Wallace [...] Weight in lbs Pre/Post Dialysis Refused Weight 209.918540480022 BP Diastolic BP Location Tested BP Systolic [...] Weight in lbs Pre/Post Dialysis Refused Weight 208.343023304091 BP Diastolic BP Location Tested BP Systolic BP Type 76 136 sitting Fetus Heart Rate Present A 164 Present Fetus Movement Comments NOB Flowsheet Date 11/29/2024 Herrera Score Blood Edema Fundus Height Fundus Units Glucose Ketones Leukocytes Nitrite Labor Signs Protein Cervic Dilation Cervic Effacement Cervic Station none none Negative neg Type Weight in lbs Pre/Post Dialysis Refused Weight 205.963590217960 BP Diastolic BP Location Tested BP Systolic [...] Weight in lbs Pre/Post Dialysis Refused Weight 204.576195638365 BP Diastolic BP Location Tested BP Systolic [...] Weight in lbs Pre/Post Dialysis Refused Weight 205.344163707085 BP Diastolic BP Location Tested BP Systolic BP Type 70 118 sitting Fetus Heart Rate Present A 144 Present Fetus Movement Comments occ SOB Flowsheet Date 02/15/2025 Herrera Score Blood Edema Fundus Height Fundus Units Glucose Ketones Leukocytes Nitrite Labor Signs Protein Cervic Dilation Cervic Effacement Cervic Station 32 cm none 1+ trace Type Weight in lbs Pre/Post Dialysis Refused Weight 207.351809175380 BP Diastolic BP Location Tested BP Systolic [...] Weight in lbs Pre/Post Dialysis Refused Weight 206.925240092032 BP Diastolic BP Location Tested BP Systolic [...] Weight in lbs Pre/Post Dialysis Refused Weight 208.70044371160 BP Diastolic BP Location Tested BP Systolic [...] Weight in lbs Pre/Post Dialysis Refused Weight 209.965180854810 BP Diastolic BP Location Tested BP Systolic [...] Weight in lbs Pre/Post Dialysis Refused Weight 213.58391824793 BP Diastolic BP Location Tested BP Systolic [...] Weight in lbs Pre/Post Dialysis Refused Weight 218.478803945588 BP Diastolic BP Location Tested BP Systolic [...] Weight in lbs Pre/Post Dialysis Refused Weight 214.675290209312 BP Diastolic BP Location Tested BP Systolic [...] Estim ated Date of Delivery true Thalassemia (Maltese, New Zealander, Mediterranean, Or Background): MCV < 80 false Neural Tube Defect (Meningomyelocele, Spina Bifi da, Or Anencephaly) false Congenital Heart Defect false Down Syndrome false Wojciech-Sachs (eg, Anabaptism, Cajun, Wolof-[place]) f alse Enedelia Disease false Sickle Cell Disease Or Trait () false Hemophilia Or Other Blood Disorders false Muscular Dystrophy false Cystic Fibrosis false Edgar's Chorea false Intellectual Disability/Autism false If Yes, [...]
--- OUTSIDE RECORDS SUMMARY | 2025-04-27 05:01 | XMS_ITS | Continuity of Care Document ---
Author Organization FELIX - [facility], [place], [facility] ([facility]) Address [address] [facility] [place] [address] Care Team Providers Care Director Of It Operations Name Role Phone MARGE MARIE Primary Care [...] . Imaging None recorded . Medication Orders True Metrix Glucose Test Strip 2024 025 [facility], [address], [place], [address], 03/01/2025 11:20:29 Patient TargetsNo targets recorded. Patient InstructionsNo instructions recorded. Reason for Referral None Reported. Results Created Date Observation Date Name Description Value Unit Range Abnormal Flag Note LastModifiedBy Organization Detail LastModifiedTime 11/03/19 25 11/02/2024 GLUCO SE glucose 121.0 mg/dL 60.0-9 9.0 high Not Available [facility] [address], [place], [address], 11/02/2024 12:02:10 11/03/19 25 11/03/2024 HIV 1/2 ANTIG EN/AN TIBOD Y,FOU RTH GENER ATION W/RFL HIV final interpretati on HIV Negat carrie HIV-1 antig en and HIV-1 /HIV- 2 antib odies were not detec britney. There is no labor atory evide nce of HIV infec tion. Not Available [address], [address], 11/03/2024 23:21:44 11/03/19 25 11/03/2024 HIV 1/2 ANTIG EN/AN TIBOD Y,FOU RTH GENER ATION W/RFL HIV Ag/Ab, 4TH gen NON-RE ACTIVE non-re active normal Not Available [address], [address], 11/03/2024 23:21:44 11/03/19 25 11/03/2024 URINA LYSIS , COMPL ETE color YELLOW yellow normal Not Available [address], [address], 11/03/2024 23:21:45 11/03/19 25 11/03/2024 URINA LYSIS , COMPL ETE appearance CLEAR clear normal Not Available [address], [address], 11/03/2024 23:21:45 11/03/19 25 11/03/2024 URINA LYSIS , COMPL ETE specific gravity 1.002 1.001- 1.035 normal Not Available [address], [address], 11/03/2024 23:21:45 11/03/1911/03/2024 URINA LYSIS , COMPL ETE pH 6.5 5.0-8. 0 normal Not Available [address], [address], 11/03/2024 23:21:45 11/03/19 25 11/03/2024 URINA LYSIS , COMPL ETE glucose NEGATI VE negati ve normal Not Available [address], [address], 11/03/2024 23:21:45 11/03/19 25 11/03/2024 URINA LYSIS , COMPL ETE bilirubin NEGATI VE negati ve normal Not Available [address], [address], 11/03/2024 23:21:45 11/03/19 25 11/03/2024 URINA LYSIS , COMPL ETE ketones NEGATI VE negati ve normal Not Available [address], [address], 11/03/2024 23:21:45 11/03/19 25 11/03/2024 URINA LYSIS , COMPL ETE occult blood NEGATI VE negati ve normal Not Available [address], [address], 11/03/2024 23:21:45 11/03/19 25 11/03/2024 URINA LYSIS , COMPL ETE protein NEGATI VE negati ve normal Not Available [address], [address], 11/03/2024 23:21:45 11/03/19 25 11/03/2024 URINA LYSIS , COMPL ETE nitrite NEGATI VE negati ve normal Not Available [address], [address], 11/03/2024 23:21:45 11/03/19 25 11/03/2024 URINA LYSIS , COMPL ETE leukocyte esterase NEGATI VE negati ve normal Not Available [address], [address], 11/03/2024 23:21:45 11/03/19 25 11/03/2024 URINA LYSIS , COMPL ETE WBC NONE SEEN /hpf < or = 5 normal Not Available [address], [address], 11/03/2024 23:21:45 11/03/19 25 11/03/2024 URINA LYSIS , COMPL ETE RBC NONE SEEN /hpf < or = 2 normal Not Available [address], [address], 11/03/2024 23:21:45 11/03/19 25 11/03/2024 URINA LYSIS , COMPL ETE squamous epithelial cells NONE SEEN /hpf < or = 5 normal Not Available [address], [address], 11/03/2024 23:21:45 11/03/19 25 11/03/2024 URINA LYSIS , COMPL ETE bacteria NONE SEEN /hpf none seen normal Not Available [address], [address], 11/03/2024 23:21:45 11/03/19 25 11/03/2024 URINA LYSIS , COMPL ETE hyaline cast NONE SEEN /lpf none seen normal Not Available [address], [address], 11/03/2024 23:21:45 11/03/19 25 11/03/2024 URINA LYSIS , COMPL ETE note This urine was camilo zed for the prese nce of WBC, RBC, bacte glenys, casts , and other forme d eleme nts. Only those eleme nts seen were repor britney. Not Available [address], [address], 11/03/2024 23:21:45 11/03/1911/03/2024 CBC (INCL UDES DIFF/ PLT) white blood cell count 8.3 thous and/u L 3.8-10 .8 normal Not Available [address], [address], 11/03/2024 23:21:47 11/03/1911/03/2024 CBC (INCL UDES DIFF/ PLT) red blood cell count 3.94 nancy on/uL 3.80-5 .10 normal Not Available [address], [address], 11/03/2024 23:21:47 11/03/1911/03/2024 CBC (INCL UDES DIFF/ PLT) hemoglobin 12.6 g/dL 11.7-1 5.5 normal Not Available [address], [address], 11/03/2024 23:21:47 11/03/1911/03/2024 CBC (INCL UDES DIFF/ PLT) hematocrit 37.7 % 35.0-4 5.0 normal Not Available [address], [address], 11/03/2024 23:21:47 11/03/1911/03/2024 CBC (INCL UDES DIFF/ PLT) MCV 95.7 fL 80.0-1 00.0 normal Not Available [address], [address], 11/03/2024 23:21:47 11/03/1911/03/2024 CBC (INCL UDES DIFF/ PLT) MCH 32.0 pg 27.0-3 3.0 normal Not Available [address], [address], 11/03/2024 23:21:47 11/03/1911/03/2024 CBC (INCL UDES DIFF/ PLT) MCHC 33.4 g/dL 32.0-3 6.0 normal For adult s, a sligh t decre ase in the calcu lated MCHC value (in the range of 30 to 32 g/dL) is most likel y not clini aisha signi ficdonya t; celiaev er, it shoul d be inter prete d with cauti on in corre latio n with other red cell apoorva eters and the patie nt's clini sury condi tion. Not Available [address], [address], 11/03/2024 23:21:47 11/03/1911/03/2024 CBC (INCL UDES DIFF/ PLT) RDW 13.6 % 11.0-1 5.0 normal Not Available [facility] [address], [address], 11/03/2024 23:21:47 11/03/1911/03/2024 CBC (INCL UDES DIFF/ PLT) platelet count 259 thous and/u L 140-40 0 normal Not Available [facility] [address], [address], 11/03/2024 23:21:47 11/03/1911/03/2024 CBC (INCL UDES DIFF/ PLT) MPV 10.1 fL 7.5-12 .5 normal Not Available [address], [address], 11/03/2024 23:21:47 11/03/19 25 11/03/2024 CBC (INCL UDES DIFF/ PLT) absolute neutrophils 6524 cells /uL 1500-7 800 normal Not Available [address], [address], 11/03/2024 23:21:47 11/03/1911/03/2024 CBC (INCL UDES DIFF/ PLT) absolute lymphocytes 1361 cells /uL 850-39 00 normal Not Available [facility] [address], [address], 11/03/2024 23:21:47 11/03/1911/03/2024 CBC (INCL UDES DIFF/ PLT) absolute monocytes 332 cells /uL 200-95 0 normal Not Available [facility] [address], [address], 11/03/2024 23:21:47 11/03/1911/03/2024 CBC (INCL UDES DIFF/ PLT) absolute eosinophils 50 cells /uL 15-500 normal Not Available [address], [address], 11/03/2024 23:21:47 11/03/1911/03/2024 CBC (INCL UDES DIFF/ PLT) absolute basophils 33 cells /uL 0-200 normal Not Available [address], [address], 11/03/2024 23:21:47 11/03/1911/03/2024 CBC (INCL UDES DIFF/ PLT) neutrophils 78.6 % normal Not Available [facility] [address], [address], 11/03/2024 23:21:47 11/03/1911/03/2024 CBC (INCL UDES DIFF/ PLT) lymphocytes 16.4 % normal Not Available [facility] [address], [address], 11/03/2024 23:21:47 11/03/1911/03/2024 CBC (INCL UDES DIFF/ PLT) monocytes 4.0 % normal Not Available [facility] [address], [address], 11/03/2024 23:21:47 11/03/1911/03/2024 CBC (INCL UDES DIFF/ PLT) eosinophils 0.6 % normal Not Available [facility] [address], [address], 11/03/2024 23:21:47 11/03/1911/03/2024 CBC (INCL UDES DIFF/ PLT) basophils 0.4 % normal Not Available [facility] [address], [address], 11/03/2024 23:21:47 11/03/1911/03/2024 HEPAT ITIS B SURFA CE ANTIG EN W/REF L CONFI RM hepatitis B surface antigen NON-RE ACTIVE non-re active normal For addit ional infor antonino starkey, mason e refer to http: //[facility] stdia gnost ics.c om/fa q/FAQ 202 (This link is being provi ded for infor [facility]/ educa chitra l purpo ses only. ) Not Available [address], [address], 11/03/2024 23:21:47 11/03/1911/03/2024 HEPAT ITIS C AB [...] a test for HCV RNA (test code 12480 ) is sugge sted. For addit ional [facility] cue[facility] e refer to http: //[facility] stdia gnost ics.c om/fa q/FAQ 22v1 (This link is being provi ded for infor matio nal/ educa chitra l purpo ses only. ) Not Available [address], [address], 11/03/2024 23:21:48 11/03/1911/03/2024 RUBEL LA AB (IGG) [...] la virus . Not Available [facility] [address] [address] [place], [address], 11/03/2024 23:21:49 11/03/1911/03/2024 HEMOG LOBIN A1C hemoglobin [...] Care in Diabe bharati(A DA). Not Available [facility] [address] [place], [address], 11/03/2024 23:21:50 11/03/1911/03/2024 RPR (DX) W/REF L TITER AND T. PALLI DUM AB, IA RPR (DX) w/refl titer and confirmatory testing NON-RE ACTIVE non-re active normal No labor atory evide nce of syphi lis. If recen t expos ure is suspe cted, submi t a new sampl e in 2-4 weeks . Not Available [facility] [address] [place], [address], 11/03/2024 23:21:51 11/03/1911/03/2024 ABO GROUP AND RH TYPE ABO group O Not Available [facility] [address] [address] [place], [address], 11/03/2024 23:21:52 11/03/1911/03/2024 ABO GROUP AND RH TYPE Rh type RH(D) POSITI VE For addit ional infor mason mei e refer to http: //[facility] shanta Mckeeia gnost ics.c om/fa q/FAQ 111 (This link is being provi ded for infor antonino akhtar/ educa chitra l purpo ses only. ) Not Available [facility] [address] [address] [address], [place], [address], 11/03/2024 23:21:52 11/03/1911/03/2024 DRUG MONIT OR, PANEL 1, SCREE N, URINE amphetamines NEGATI VE NG/mL <500 See Note A See Note A Not Available [facility] [address] [address] [address], [place], [address], 11/03/2024 23:21:53 11/03/1911/03/2024 DRUG MONIT OR, PANEL 1, SCREE N, URINE barbiturates NEGATI VE NG/mL <300 See Note A See Note A Not Available [facility] [address] [address] [address], [place], [address], 11/03/2024 23:21:53 11/03/1911/03/2024 DRUG MONIT OR, PANEL 1, SCREE N, URINE benzodiazepi kendell NEGATI VE NG/mL <100 See Note A See Note A Not Available [facility] [address] [address] [address], [place], [address], 11/03/2024 23:21:53 11/03/1911/03/2024 DRUG MONIT OR, PANEL 1, SCREE N, URINE cocaine metabolite NEGATI VE NG/mL <150 See Note A See Note A Not Available [facility] [address] [address] [place], [address], 11/03/2024 23:21:53 11/03/1911/03/2024 DRUG MONIT OR, PANEL 1, SCREE N, URINE marijuana metabolite NEGATI VE NG/mL <20 See Note A See Note A Not Available [address] [address] [address], [place], [address], 11/03/2024 23:21:53 11/03/1911/03/2024 DRUG MONIT OR, PANEL 1, SCREE N, URINE methadone metabolite NEGATI VE NG/mL <100 See Note A See Note A Not Available [facility] [address] [address] [address], [place], [address], 11/03/2024 23:21:53 11/03/19 25 11/03/2024 DRUG MONIT OR, PANEL 1, SCREE N, URINE opiates NEGATI VE NG/mL <100 See Note A See Note A Not Available [facility] [address] [address] [address], [place], [address], 11/03/2024 23:21:53 11/03/1911/03/2024 DRUG MONIT OR, PANEL 1, SCREE N, URINE oxycodone NEGATI VE NG/mL <100 See Note A See Note A Not Available [address] [address] [address], [place], [address], 11/03/2024 23:21:53 11/03/1911/03/2024 DRUG MONIT OR, PANEL 1, SCREE N, URINE phencyclidin e NEGATI VE NG/mL <25 See Note A See Note A Not Available [facility] [address] [address] [address], [place], [address], 11/03/2024 23:21:53 11/03/19 25 11/03/2024 DRUG MONIT OR, PANEL 1, SCREE N, URINE creatinine 8.6 mg/dL > or = 20.0 low Not Available [facility] [address] [address] [address], [place], [address], 11/03/2024 23:21:53 11/03/1911/03/2024 DRUG MONIT OR, PANEL 1, SCREE N, URINE specific gravity 1.003 > or = 1.003 Not Available [address] [address] [address] , [place], [address], 11/03/2024 23:21:53 11/03/1911/03/2024 DRUG MONIT OR, PANEL 1, SCREE N, URINE pH 6.6 4.5-9. 0 Not Available [facility] [address] [address] [address], [place], [address], 11/03/2024 23:21:53 11/03/1911/03/2024 DRUG MONIT OR, PANEL 1, SCREE N, URINE oxidant NEGATI VE mcg/m L <200 Not Available [facility] [address] [address] [place], [address], 11/03/2024 23:21:53 11/03/1911/03/2024 DRUG MONIT ORING TEMPL ATE notes and comments This drug testi ng is for medic al treat ment only. Camilo sis was perfo rmed as non-f orens ic testi ng and these resul ts shoul d be used only by [facility] provi ders to rende r diagn osis or treat ment, or to monit or progr ess of medic al condi tions . Note A: The resul ts are presu mptiv e; based only on scree lauryn metho ds, and they have not been confi rmed by a defin itive metho d. [facility] Pro[facility] ders needi ng Inter preta tion simba tance , pleas e conta ct us at 1.877 .40.R XTOX (1.87 [phone] .[phone] ) M-F, 8am to 10pm EST Not Available [address] [address] [address] , [place], [address], 11/03/2024 23:21:53 11/03/1911/03/2024 CULTU RE, URINE , ROUTI NE culture, urine, routine SEE NOTE CULTU RE, URINE , ROUTI NE Micro Numbe r: [id number] Test Statu s: Final Speci men Sourc e: Urine Speci men Quali ty: Adequ ate Resul t: No Growt h Not Available [address], [address], 11/03/2024 23:21:54 11/03/1911/07/2024 THINP REP TIS PAP (REFL ) HPV MRNA E6/E7 clinical information: normal Pregn ant Not Available [address], [address], 11/07/2024 18:47:29 11/03/19 25 11/07/2024 THINP REP TIS PAP (REFL ) HPV MRNA E6/E7 LMP: normal NONE GIVEN Not Available [address], [address], 11/07/2024 18:47:29 11/03/19 25 11/07/2024 THINP REP TIS PAP (REFL ) HPV MRNA E6/E7 prev. Pap: normal NONE GIVEN Not Available [address], [address], 11/07/2024 18:47:29 11/03/19 25 11/07/2024 THINP REP TIS PAP (REFL ) HPV MRNA E6/E7 prev. BX: normal NONE GIVEN Not Available [address], [address], 11/07/2024 18:47:29 11/03/19 25 11/07/2024 THINP REP TIS PAP (REFL ) HPV MRNA E6/E7 source: normal Cervi x, Endoc ervix Not Available [address], [address], 11/07/2024 18:47:29 11/03/19 25 11/07/2024 THINP REP TIS PAP (REFL ) HPV MRNA E6/E7 statement of adequacy: normal Satis facto ry for evalu ation . Endoc ervic al/tr ansfo rmati on zone compo nent absen t. Not Available [address] [address] [place], [address], 11/07/2024 18:47:29 11/03/19 25 11/07/2024 THINP REP TIS PAP (REFL ) HPV MRNA E6/E7 interpretati on/result: normal Cytol ogy Resul ts: Negat carrie for intra epith elial lesio n or malig aranza . Not Available [address] [address] [place], [address], 11/07/2024 18:47:29 11/03/19 25 11/07/2024 THINP REP TIS PAP (REFL ) HPV MRNA E6/E7 infection: normal Funga l organ isms morph ologi aisha consi stent with Janie da spp. Not Available [address] [address] [place], [address], 11/07/2024 18:47:29 11/03/19 25 11/07/2024 THINP REP TIS PAP (REFL ) HPV MRNA E6/E7 comment: normal This Pap test has been evalu ated with compu ter simba britney techn ology . Not Available [address] [address] [place], [address], 11/07/2024 18:47:29 11/03/19 25 11/07/2024 THINP REP TIS PAP (REFL ) HPV MRNA E6/E7 cytotechnolo gist: normal MEF, CT( CP) CT scree lauryn locat ion: [address] [address] [place] [address] Not Available [address], [address], 11/07/2024 18:47:29 11/03/19 25 11/07/2024 THINP REP [...] clini sury infor matleeann n. Not Available [facility] [address] [place], [address], 11/07/2024 18:47:29 11/03/1911/02/2024 CT + NG + TV, DNA, urine /swab CT + NG + TV, DNA, urine/swab negati ve Not Available [facility] ([facility] [address] [place], [address], 11/02/2024 10:59:56 01/21/2001/20/2025 CBC WBC 7.7 x10 4.0-10 .5 Not Available [facility] [address] [facility] [address], [address], 01/20/2025 13:18:07 01/21/20 25 01/20/2025 CBC RBC 3.41 x10 3.50-5 .50 low Not Available [facility] [address] [facility] [address], [address], 01/20/2025 13:18:07 01/21/20 25 01/20/2025 CBC HGB 10.9 g/dL 12.0-1 6.0 low Not Available [facility] [address] [facility] [address], [place], [address], 01/20/2025 13:18:07 01/21/20 25 01/20/2025 CBC HCT 32.5 % 37.0-4 7.0 low Not Available [facility] [address] [facility] [address], [place], [address], 01/20/2025 13:18:07 01/21/20 25 01/20/2025 CBC MCV 95.2 fL 80.0-9 9.9 Not Available [facility] [address] [facility] [address], [place], [address], 01/20/2025 13:18:07 01/21/2001/20/2025 CBC MCH 31.9 pg 27.0-3 2.0 Not Available [facility] [address] [facility] [address] [facility], [place], [address], 01/20/2025 13:18:07 01/21/2001/20/2025 CBC MCHC 33.4 g/dL 32.0-3 6.0 Not Available [facility] [address] [facility], [place], [address], 01/20/2025 13:18:07 01/21/20 25 01/20/2025 CBC RDW 15.4 % 11.5-1 4.5 high Not Available [facility] [address] [facility] [address] [facility], [place], [address], 01/20/2025 13:18:07 01/21/2001/20/2025 CBC plt 240.5 x10 140.0- 451.0 Not Available [facility] [address] [facility] [address] [facility], [place], [address], 01/20/2025 13:18:07 01/21/2001/20/2025 CBC lymphocytes % 14.6 % 20.0-5 0.0 low Not Available [facility] [address] [facility] [address], [place], [address], 01/20/2025 13:18:07 01/21/20 25 01/20/2025 CBC granulcytes % 81.0 % 30.0-7 0.0 high Not Available [facility] [address] [facility] [address] [facility], [place], [address], 01/20/2025 13:18:07 01/21/20 25 01/20/2025 CBC monocytes % 3.6 % 2.0-16 .0 Not Available [facility] [address] [facility] [address], [place], [address], 01/20/2025 13:18:07 01/21/20 25 01/20/2025 CBC granulcytes# 6.2 x10 Not Renetta ilable [facility] [address] [facility] [address] [facility], [place], [address], 01/20/2025 13:18:07 01/21/20 25 01/20/2025 CBC lymphocytes # 1.1 x10 Not Available [facility] [address] [facility] [address], [place], [address], 01/20/2025 13:18:07 01/21/20 25 01/20/2025 CBC monocytes # 0.3 x10 Not Avai lable [facility] [address] [facility] [address] [facility], [place], [address], 01/20/2025 13:18:07 01/21/2001/20/2025 HBA1C hemaglobin A1C 4.2 4.2-6. 5 Not Available [facility] [address] [facility] [address] [facility], [place], [address], 01/20/2025 13:18:19 01/21/20 25 01/20/2025 GLUCO SE SCREE N glucose screen 199.0 mg/dL Not Available [facility] [address] [facility] [address] [facility], [place], [address], 01/20/2025 14:42:21 02/16/20 25 02/15/2025 CMP (FEMA LE) glucose 100.0 mg/dL 60.0-9 9.0 high Not Available [facility] [address] [facility], [place], [address], 02/15/2025 12:46:12 02/16/2002/15/2025 CMP (FEMA LE) BUN (blood urea nitrogen) 5.0 mg/dL 10.0-2 6.0 low Not Available [facility] [address] [facility], [place], [address], 02/15/2025 12:46:12 02/16/2002/15/2025 CMP (FEMA LE) creatinine (serum) 0.5 mg/dL 0.4-1. 5 Not Available [facility] [address] [facility], [place], [address], 02/15/2025 12:46:12 02/16/2002/15/2025 CMP (FEMA LE) BUN/creatini ne ratio 10.00 ratio Not Available [facility] [address] [facility], [place], [address], 02/15/2025 12:46:12 02/16/2002/15/2025 CMP (FEMA LE) eGFR calculated 147.6 Not Available [facility] [address] [facility] 1, [place], [address], 02/15/2025 12:46:12 02/16/2002/15/2025 CMP (FEMA LE) total protein 6.8 g/dL 6.0-8. 5 Not Available [facility] [address] [facility], [place], [address], 02/15/2025 12:46:12 02/16/20 25 02/15/2025 CMP (FEMA LE) total bilirubin 0.9 mg/dL 0.2-1. 3 Not Available [facility] [address] [facility], [place], [address], 02/15/2025 12:46:12 02/16/2002/15/2025 CMP (FEMA LE) albumin 3.6 g/dL 3.5-5. 5 Not Available [facility] [address] [facility], [place], [address], 02/15/2025 12:46:12 02/16/2002/15/2025 CMP (FEMA LE) globulin 3.2 calc Not Available [facility] [address] [facility] [address], [place], [address], 02/15/2025 12:46:12 02/16/20 25 02/15/2025 CMP (FEMA LE) AST (SGOT) 25.0 U/L 0.0-46 .0 Not Available [facility] [address] [facility], [place], [address], 02/15/2025 12:46:12 02/16/20 25 02/15/2025 CMP (FEMA LE) altv (SGPT) 14.0 U/L 13.0-6 9.0 normal Not Available [facility] [address] [facility], [place], [address], 02/15/2025 12:46:12 02/16/20 25 02/15/2025 CMP (FEMA LE) A/G ratio 1.1 ratio Not Available [facility] [address] [facility] [address], [place], [address], 02/15/2025 12:46:12 02/16/20 25 02/15/2025 CMP (FEMA LE) ALP phos 84.0 U/L 30.0-1 40.0 normal Not Available [facility] [address] [facility] 1, [place], [address], 02/15/2025 12:46:12 02/16/2002/15/2025 CMP (FEMA LE) calcium 9.2 mg/dL 8.4-10 .5 Not Available [facility] [address] [facility], [place], [address], 02/15/2025 12:46:12 02/16/2002/15/2025 CMP (FEMA LE) sodium 133.0 mmol/ L 136.0- 145.0 low Not Available [facility] [address] [facility] 1, [place], [address], 02/15/2025 12:46:12 02/16/2002/15/2025 CMP (FEMA LE) potassium 4.2 mmol/ L 3.5-5. 1 Not Available [facility] [address] [facility] 1, [place], [address], 02/15/2025 12:46:12 02/16/2002/15/2025 CMP (FEMA LE) chloride 105.0 mmol/ L 98.0-1 10.0 normal Not Available [facility] [address] [facility] [address], [place], [address], 02/15/2025 12:46:12 02/16/2002/15/2025 CMP (FEMA LE) C02 23.0 mmol/ L 22.0-3 1.0 Not Available [facility] [address] [facility] [address], [place], [address], 02/15/2025 12:46:12 02/16/2002/15/2025 CMP (FEMA LE) anion gap 5.0 calc Not Available [facility] [address] [facility] [address], [place], [address], 02/15/2025 12:46:12 02/16/2002/15/2025 CMP (FEMA LE) osmolality 272.7 calc Not Available [facility] [address] [facility] [address], [place], [address], 02/15/2025 12:46:12 09/29/19 25 09/22/2024 US, obste tric, 1st trime ster No observ ation record ed. [email or web address] [facility] [address] [place], [address], 09/29/2024 09:27:23 01/01/2012/28/2024 imagi ng/di agnos tic resul t No observ ation record ed. [facility] [address] [place], [address], 01/03/2025 06:49:20 02/21/20 25 02/16/2025 US, obste tric, follo w-up No observ ation record ed. [email or web address] [facility] [address] [place], [address], 02/20/2025 11:18:16 04/03/2003/28/2025 US, obste tric, follo w-up No observ ation record ed. [email or web address] [facility] [address] [place], [address], 04/03/2025 13:18:29 Result Notes None recorded. Problems Name Problem SNOMED Code Status Onset Date Resolution Date Notes Provider Name and Address Organization Details Recorded Time Transfusion Completed 201109/22/2024 Transfu kevin; At 5-6 years of age; 012 9:50AM by Mini Roger RN, Office Visit; Promote d; acuity set as *; SAUL Miranda [place] - [facility] 14:28:45 [id number] Active 2024 SAUL Miranda [facility] 14:28:34 Gestational diabetes mellitus 66984617 Active 2024 Calvin Maldonado MD [address] [place] [address], [phone], [facility] 11:00:57 Heartburn 91096135 Active 2024 Calvin Maldonado MD [address] [place] [address], [phone], [facility] 11:07:15 Spasm 37204037 Active 2024 Calvin Maldonado MD [address] [place] [address], [phone], [facility] 10:33:23 Problem Notes None recorded. Procedures Surgical History Date Name Laterality Status Provider Name and Address Organization Details Recorded Time 11/03/19 25 Date of Last Pap Smear completed [facility] 11/29/2024 12:06:07 11/03/19 25 sampling of cervix for Papanicolaou smear completed [facility] 11/29/2024 12:06:50 07/15/19 21 section completed [facility] 09/22/2024 14:36:06 transfusion of blood product completed [facility] 09/22/2024 14:36:27 Imaging Results None recorded. [...] Details Last Updated DateTime 5 160.02 cm 36.6 kg/m2 10222.8 3 g 99 % 87 /min 18 /min 98 [degF] 124/70 mm[Hg] MAGUI SELMA [facility] 10:23:46 Social History Question Answer Notes LastModified by Organizat ion Details LastModified Time Tobacco Smoking Status Never Smoker AARONTHERESA DERICK jerome, [facility] 09/22/2024 14:35:01 Are You Blind [...] use any illicit or recreational drugs? No [email or web address] Information not available 09/16/2022 Do you or have you ever used any other forms of tobacco or nicotine? No Information not available 09/16/2022 What is your level of alcohol consumption? Occasional [email or web address] Information not available 09/16/2022 Are you currently [...] virus, trivalent, preservative 0 completed Not Available [facility] 12/06/2022 02:28:54 Past Encounters Encounter ID Performer Location Encounter Start Date Encounter Closed Date Diagnosis/Indication Diagnosis SNOMED-CT Code Diagnosis ICD10 Code Diagnosis IMO Codes Diagnosis Note [id number] Calvin Maldonado MD [facility] ([facility]) [address] [place] [address] 02/15/2025 09:47:31 02/15/2025 11:37:45 Gestational diabetes mellitus 33643165 O24.410 41886263 - Maintain current dietary and glucose monitoring practices. - No immediate need for medication ; monitor potential increase in glucose levels. 31795013 Z34.9 0 Gestation period, 28 weeks 27315910 Z3A.28 4609481 Spasm 14848856 M62.838 32875 - Increase dietary magnesium and hydration as preventive measures. - Reevaluate if spasms continue or intensify, considerin g electrolyt e testing. [id number] Calvin Maldonado MD [facility] ([facility]) [address] [place] [address] 02/16/2025 11:57:30 02/17/2025 10:02:55 [id number] Calvin Maldonado MD [facility] ([facility]) [address] [place] [address] 03/01/2025 09:39:38 03/01/2025 11:23:39 Gestational diabetes mellitus 73031968 O24.410 98062145 - Maintain current dietary and glucose monitoring practices. - No immediate need for medication ; monitor potential increase in glucose levels. 60935281 Z34.9 0 Gestation period, 30 weeks 41031969 Z3A.30 0220900 Health Concerns Section Related Observation LastModified by Organization Detai ls LastModified Time None Recorded Concern Status LastModified by Organization Details LastModified Time None Recorded Payers Encounter Date Sequence Insurance Name Policy Number Policy Walsh Covered Member ID Walsh Member ID Guarantor Name 03/01/2025 1 CHELSY [id number] Tiffany Solomon [id number] Tiffany Solomon Notes Date Note Type Note Provider Name and Address Organization Details Recorded Time 03/01/2025 text/html Diabetes in PregnancyReported by PatientHPIFor review finger sticks, patient reportsfastin-108([id number]). For context, patient reportsgestational diabetes. For self [...] female presenting with gestational diabetes mellitus, at 30 weeks gestation, Gestational diabetes mellitus: - Notable for a one-hour glucose level of 199 mg/dL. - A1C remains within optimal range at 4.2%. , 30.0 weeks gestation: - Plans to proceed with as the mode of delivery. 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 09/23/19 1 O Positive Wallace OPEN [...] Weight in lbs Pre/Post Dialysis Refused Weight 209.254243113875 BP Diastolic BP Location Tested BP Systolic [...] Weight in lbs Pre/Post Dialysis Refused Weight 208.579974846795 BP Diastolic BP Location Tested BP Systolic BP Type 76 136 sitting Fetus Heart Rate Present A 164 Present Fetus Movement Comments NOB Flowsheet Date 11/29/2024 Herrera Score Blood Edema Fundus Height Fundus Units Glucose Ketones Leukocytes Nitrite Labor Signs Protein Cervic Dilation Cervic Effacement Cervic Station none none Negative neg Type Weight in lbs Pre/Post Dialysis Refused Weight 205.632314324690 BP Diastolic BP Location Tested BP Systolic [...] Weight in lbs Pre/Post Dialysis Refused Weight 204.361224533775 BP Diastolic BP Location Tested BP Systolic [...] Weight in lbs Pre/Post Dialysis Refused Weight 205.948034671284 BP Diastolic BP Location Tested BP Systolic BP Type 70 118 sitting Fetus Heart Rate Present A 144 Present Fetus Movement Comments occ SOB Flowsheet Date 02/15/2025 Herrera Score Blood Edema Fundus Height Fundus Units Glucose Ketones Leukocytes Nitrite Labor Signs Protein Cervic Dilation Cervic Effacement Cervic Station 32 cm none 1+ trace Type Weight in lbs Pre/Post Dialysis Refused Weight 207.538462714162 BP Diastolic BP Location Tested BP Systolic [...] Weight in lbs Pre/Post Dialysis Refused Weight 206.495692796089 BP Diastolic BP Location Tested BP Systolic [...] Weight in lbs Pre/Post Dialysis Refused Weight 208.60759020937 BP Diastolic BP Location Tested BP Systolic [...] Weight in lbs Pre/Post Dialysis Refused Weight 209.508742568959 BP Diastolic BP Location Tested BP Systolic [...] Weight in lbs Pre/Post Dialysis Refused Weight 213.59029719871 BP Diastolic BP Location Tested BP Systolic [...] Weight in lbs Pre/Post Dialysis Refused Weight 218.305445532010 BP Diastolic BP Location Tested BP Systolic [...] Weight in lbs Pre/Post Dialysis Refused Weight 214.018826720349 BP Diastolic BP Location Tested BP Systolic [...] Estim ated Date of Delivery true Thalassemia (Tajik, Maori, Mediterranean, Or Background): MCV < 80 false Neural Tube Defect (Meningomyelocele, Spina Bifi da, Or Anencephaly) false Congenital Heart Defect false Down Syndrome false Wojciech-Sachs (eg, Oriental Orthodox, Cajun, [place] Islander[place]) f alse Enedelia Disease false Sickle Cell Disease Or Trait () false Hemophilia Or Other Blood Disorders false Muscular Dystrophy false Cystic Fibrosis false [place]'s Chorea false Intellectual Disability/Autism false If Yes, [...]
--- OUTSIDE RECORDS SUMMARY | 2025-04-27 05:02 | XMS_ITS | Continuity of Care Document ---
Author Organization [place] - [facility]esh [facility], L.LCompaCCompa, [facility] ([facility]) Address [address] [facility] [place] [address] Care Team Providers Care Calender Tender Name Role Phone MARGE MARIE Primary Care Provider Unavailabl e Assessment Encounter [...] By Organization Details Last Modified Time 04/26/2025 [id number] section : before your surgery Not available 04/26/2025 10:30:31 Reason for Referral None Reported. Results Created Date Observation Date Name Description Value Unit Range Abnormal Flag Note LastModifiedBy Organization Detail LastModifiedTime 11/03/19 25 11/02/2024 GLUCO SE glucose 121.0 mg/dL 60.0-9 9.0 high Not Available [facility] [address], [place], [address], 11/02/2024 12:02:10 11/03/19 25 11/03/2024 HIV 1/2 ANTIG EN/AN TIBOD Y,FOU RTH GENER ATION W/RFL HIV final interpretati on HIV Negat carrie HIV-1 antig en and HIV-1 /HIV- 2 antib odies were not detec britney. There is no labor atory evide nce of HIV infec tion. Not Available [address], [address], 11/03/2024 23:21:44 11/03/19 25 11/03/2024 HIV 1/2 ANTIG EN/AN TIBOD Y,FOU RTH GENER ATION W/RFL HIV Ag/Ab, 4TH gen NON-RE ACTIVE non-re active normal Not Available [address], [address], 11/03/2024 23:21:44 11/03/19 25 11/03/2024 URINA LYSIS , COMPL ETE color YELLOW yellow normal Not Available [address], [address], 11/03/2024 23:21:45 11/03/19 25 11/03/2024 URINA LYSIS , COMPL ETE appearance CLEAR clear normal Not Available [address], [address], 11/03/2024 23:21:45 11/03/1911/03/2024 URINA LYSIS , COMPL ETE specific gravity 1.002 1.001- 1.035 normal Not Available [address], [address], 11/03/2024 23:21:45 11/03/1911/03/2024 URINA LYSIS , COMPL ETE pH 6.5 5.0-8. 0 normal Not Available [address], [address], 11/03/2024 23:21:45 11/03/19 25 11/03/2024 URINA LYSIS , COMPL ETE glucose NEGATI VE negati ve normal Not Available [address], [address], 11/03/2024 23:21:45 11/03/19 25 11/03/2024 URINA LYSIS , COMPL ETE bilirubin NEGATI VE negati ve normal Not Available [address], [address], 11/03/2024 23:21:45 11/03/19 25 11/03/2024 URINA LYSIS , COMPL ETE ketones NEGATI VE negati ve normal Not Available [address], [address], 11/03/2024 23:21:45 11/03/19 25 11/03/2024 URINA LYSIS , COMPL ETE occult blood NEGATI VE negati ve normal Not Available [facility] [address], [address], 11/03/2024 23:21:45 11/03/19 25 11/03/2024 URINA LYSIS , COMPL ETE protein NEGATI VE negati ve normal Not Available [facility] [address], [address], 11/03/2024 23:21:45 11/03/19 25 11/03/2024 URINA LYSIS , COMPL ETE nitrite NEGATI VE negati ve normal Not Available [facility] [address], [address], 11/03/2024 23:21:45 11/03/19 25 11/03/2024 URINA LYSIS , COMPL ETE leukocyte esterase NEGATI VE negati ve normal Not Available [facility] [address], [address], 11/03/2024 23:21:45 11/03/19 11/03/2024 URINA LYSIS , COMPL ETE WBC NONE SEEN /hpf < or = 5 normal Not Available [address], [address], 11/03/2024 23:21:45 11/03/19 25 11/03/2024 URINA LYSIS , COMPL ETE RBC NONE SEEN /hpf < or = 2 normal Not Available [address], [address], 11/03/2024 23:21:45 11/03/19 25 11/03/2024 URINA LYSIS , COMPL ETE squamous epithelial cells NONE SEEN /hpf < or = 5 normal Not Available [address], [address], 11/03/2024 23:21:45 11/03/19 25 11/03/2024 URINA LYSIS , COMPL ETE bacteria NONE SEEN /hpf none seen normal Not Available [address], [address], 11/03/2024 23:21:45 11/03/19 25 11/03/2024 URINA LYSIS , COMPL ETE hyaline cast NONE SEEN /lpf none seen normal Not Available [address], [address], 11/03/2024 23:21:45 11/03/1911/03/2024 URINA LYSIS , COMPL ETE note This urine was camilo zed for the prese nce of WBC, RBC, bacte glenys, casts , and other forme d eleme nts. Only those eleme nts seen were repor britney. Not Available [address], [address], 11/03/2024 23:21:45 11/03/19 25 11/03/2024 CBC (INCL UDES DIFF/ PLT) white blood cell count 8.3 thous and/u L 3.8-10 .8 normal Not Available [address], [address], 11/03/2024 23:21:47 11/03/1911/03/2024 CBC (INCL UDES DIFF/ PLT) red blood cell count 3.94 nacny on/uL 3.80-5 .10 normal Not Available [address], [address], 11/03/2024 23:21:47 11/03/1911/03/2024 CBC (INCL UDES DIFF/ PLT) hemoglobin 12.6 g/dL 11.7-1 5.5 normal Not Available [address], [address], 11/03/2024 23:21:47 11/03/1911/03/2024 CBC (INCL UDES DIFF/ PLT) hematocrit 37.7 % 35.0-4 5.0 normal Not Available [address], [address], 11/03/2024 23:21:47 11/03/1911/03/2024 CBC (INCL UDES DIFF/ PLT) MCV 95.7 fL 80.0-1 00.0 normal Not Available [address], [address], 11/03/2024 23:21:47 11/03/1911/03/2024 CBC (INCL UDES DIFF/ PLT) MCH 32.0 pg 27.0-3 3.0 normal Not Available [address], [address], 11/03/2024 23:21:47 11/03/1911/03/2024 CBC (INCL UDES DIFF/ [...] nt's clini sury condi tion. Not Available [address], [address], 11/03/2024 23:21:47 11/03/1911/03/2024 CBC (INCL UDES DIFF/ PLT) RDW 13.6 % 11.0-1 5.0 normal Not Available [facility] [address], [address], 11/03/2024 23:21:47 11/03/1911/03/2024 CBC (INCL UDES DIFF/ PLT) platelet count 259 thous and/u L 140-40 0 normal Not Available [address], [address], 11/03/2024 23:21:47 11/03/1911/03/2024 CBC (INCL UDES DIFF/ PLT) MPV 10.1 fL 7.5-12 .5 normal Not Available [address], [address], 11/03/2024 23:21:47 11/03/1911/03/2024 CBC (INCL UDES DIFF/ PLT) absolute neutrophils 6524 cells /uL 1500-7 800 normal Not Available [address], [address], 11/03/2024 23:21:47 11/03/1911/03/2024 CBC (INCL UDES DIFF/ PLT) absolute lymphocytes 1361 cells /uL 850-39 00 normal Not Available [address], [address], 11/03/2024 23:21:47 11/03/1911/03/2024 CBC (INCL UDES DIFF/ PLT) absolute monocytes 332 cells /uL 200-95 0 normal Not Available [address], [address], 11/03/2024 23:21:47 11/03/1911/03/2024 CBC (INCL UDES DIFF/ PLT) absolute eosinophils 50 cells /uL 15-500 normal Not Available [address], [address], 11/03/2024 23:21:47 11/03/19 25 11/03/2024 CBC (INCL UDES DIFF/ PLT) absolute basophils 33 cells /uL 0-200 normal Not Available [address], [address], 11/03/2024 23:21:47 11/03/1911/03/2024 CBC (INCL UDES DIFF/ PLT) neutrophils 78.6 % normal Not Available [address], [address], 11/03/2024 23:21:47 11/03/1911/03/2024 CBC (INCL UDES DIFF/ PLT) lymphocytes 16.4 % normal Not Available [address], [address], 11/03/2024 23:21:47 11/03/1911/03/2024 CBC (INCL UDES DIFF/ PLT) monocytes 4.0 % normal Not Available [address], [address], 11/03/2024 23:21:47 11/03/1911/03/2024 CBC (INCL UDES DIFF/ PLT) eosinophils 0.6 % normal Not Available [address], [address], 11/03/2024 23:21:47 11/03/1911/03/2024 CBC (INCL UDES DIFF/ PLT) basophils 0.4 % normal Not Available [facility] [address] [address] [place], [address], 11/03/2024 23:21:47 11/03/1911/03/2024 HEPAT ITIS B SURFA CE ANTIG EN W/REF L CONFI RM hepatitis B surface antigen NON-RE ACTIVE non-re active normal For addit ional [facility], [place] starkey, mason e refer to http: //[facility] stdia gnost ics.c om/fa q/FAQ 202 (This link is being provi ded for infor matio nal/ educa chitra l purpo ses only. ) Not Available [facility] [address] [address] [place], [address], 11/03/2024 23:21:47 11/03/1911/03/2024 HEPAT ITIS C AB [...] a test for HCV RNA (test code 27433 ) is sugge sted. For addit ional infor antonino cuevas e refer to http: //[facility] n.que stdia gnost ics.c om/fa q/FAQ 22v1 (This link is being provi ded for infor matio nal/ educa chitra l purpo ses only. ) Not Available [facility] [address] [place], [address], 11/03/2024 23:21:48 11/03/1911/03/2024 RUBEL LA AB (IGG) [...] with rubel la virus . Not Available [facility] [address] [place], [address], 11/03/2024 23:21:49 11/03/1911/03/2024 HEMOG LOBIN A1C hemoglobin [...] Curre ntly, no conse nsus exist s regar cora use of hemog lobin A1c for diagn [...] Care in Diabe bharati(A DA). Not Available [facility] [address] [address] , [place], [address], 11/03/2024 23:21:50 11/03/1911/03/2024 RPR (DX) W/REF L TITER AND T. PALLI DUM AB, IA RPR (DX) w/refl titer and confirmatory testing NON-RE ACTIVE non-re active normal No labor atory evide nce of syphi lis. If recen t expos ure is suspe cted, submi t a new sampl e in 2-4 weeks . Not Available [facility] [place] [address] [place], [address], 11/03/2024 23:21:51 11/03/1911/03/2024 ABO GROUP AND RH TYPE ABO group O Not Available [address] [address] [place], [address], 11/03/2024 23:21:52 11/03/1911/03/2024 ABO GROUP AND RH TYPE Rh type RH(D) POSITI VE For addit ional infor mason mei e refer to http: //[facility] shanta Mckeeia gnost ics.c om/fa q/FAQ 111 (This link is being provi ded for infor antonino akhtar/ ina solizo ses only. ) Not Available [address] [address] [place], [address], 11/03/2024 23:21:52 11/03/1911/03/2024 DRUG MONIT OR, PANEL 1, SCREE N, URINE amphetamines NEGATI VE NG/mL <500 See Note A See Note A Not Available [address] [address] [place], [address], 11/03/2024 23:21:53 11/03/1911/03/2024 DRUG MONIT OR, PANEL 1, SCREE N, URINE barbiturates NEGATI VE NG/mL <300 See Note A See Note A Not Available [address] [address] [place], [address], 11/03/2024 23:21:53 11/03/1911/03/2024 DRUG MONIT OR, PANEL 1, SCREE N, URINE benzodiazepi kendell NEGATI VE NG/mL <100 See Note A See Note A Not Available [address] [address] [place], [address], 11/03/2024 23:21:53 11/03/1911/03/2024 DRUG MONIT OR, PANEL 1, SCREE N, URINE cocaine metabolite NEGATI VE NG/mL <150 See Note A See Note A Not Available [address] [address] [address], [place], [address], 11/03/2024 23:21:53 11/03/1911/03/2024 DRUG MONIT OR, PANEL 1, SCREE N, URINE marijuana metabolite NEGATI VE NG/mL <20 See Note A See Note A Not Available [address] [address] [address], [place], [address], 11/03/2024 23:21:53 11/03/19 25 11/03/2024 DRUG MONIT OR, PANEL 1, SCREE N, URINE methadone metabolite NEGATI VE NG/mL <100 See Note A See Note A Not Available [address] [address] [address], [place], [address], 11/03/2024 23:21:53 11/03/1911/03/2024 DRUG MONIT OR, PANEL 1, SCREE N, URINE opiates NEGATI VE NG/mL <100 See Note A See Note A Not Available [facility] [address] [address] [address], [place], [address], 11/03/2024 23:21:53 11/03/19 25 11/03/2024 DRUG MONIT OR, PANEL 1, SCREE N, URINE oxycodone NEGATI VE NG/mL <100 See Note A See Note A Not Available [facility] [address] [address] [address], [place], [address], 11/03/2024 23:21:53 11/03/1911/03/2024 DRUG MONIT OR, PANEL 1, SCREE N, URINE phencyclidin e NEGATI VE NG/mL <25 See Note A See Note A Not Available [address] [address] [address], [place], [address], 11/03/2024 23:21:53 11/03/19 25 11/03/2024 DRUG MONIT OR, PANEL 1, SCREE N, URINE creatinine 8.6 mg/dL > or = 20.0 low Not Available [address] [address] [place], [address], 11/03/2024 23:21:53 11/03/1911/03/2024 DRUG MONIT OR, PANEL 1, SCREE N, URINE specific gravity 1.003 > or = 1.003 Not Available [address] [address] [place], [address], 11/03/2024 23:21:53 11/03/1911/03/2024 DRUG MONIT OR, PANEL 1, SCREE N, URINE pH 6.6 4.5-9. 0 Not Available [facility] [address] [address] [place], [address], 11/03/2024 23:21:53 11/03/1911/03/2024 DRUG MONIT OR, PANEL 1, SCREE N, URINE oxidant NEGATI VE mcg/m L <200 Not Available [address] [address] [place], [address], 11/03/2024 23:21:53 11/03/1911/03/2024 DRUG MONIT ORING TEMPL ATE notes and comments This drug testi ng is for medic al treat ment only. Camilo sis was perfo rmed as non-f orens ic testi ng and these resul ts shoul d be used only by [facility] provi ders to rende r diagn osis or treat ment, or to monit or progr ess of medic al condi tions . Note A: The resul ts are presu mptiv e; based only on scree lauryn metho ds, and they have not been confi rmed by a defin itive methaidan mcgowan. [facility] Provi ders needi ng Inter preta tion simba tance , pleas e conta ct us at 1.877 .40.R XTOX (1.87 [phone] ) M-F, 8am to 10pm EST Not Available [address] [address] [place], [address], 11/03/2024 23:21:53 11/03/19 25 11/03/2024 CULTU RE, URINE , ROUTI NE culture, urine, routine SEE NOTE CULTU RE, URINE , ROUTI NE Micro Numbe r: [id number] Test Statu s: Final Speci men Sourc e: Urine Speci men Quali ty: Adequ ate Resul t: No Growt h Not Available [address], [address], 11/03/2024 23:21:54 11/03/19 25 11/07/2024 THINP REP TIS PAP (REFL ) HPV MRNA E6/E7 clinical information: normal Pregn ant Not Available [address], [address], 11/07/2024 18:47:29 11/03/19 25 11/07/2024 THINP REP TIS PAP (REFL ) HPV MRNA E6/E7 LMP: normal NONE GIVEN Not Available [address], [address], 11/07/2024 18:47:29 11/03/19 25 11/07/2024 THINP REP TIS PAP (REFL ) HPV MRNA E6/E7 prev. Pap: normal NONE GIVEN Not Available [address] [address] [place], [address], 11/07/2024 18:47:29 11/03/19 25 11/07/2024 THINP REP TIS PAP (REFL ) HPV MRNA E6/E7 prev. BX: normal NONE GIVEN Not Available [address], [address], 11/07/2024 18:47:29 11/03/19 25 11/07/2024 THINP REP TIS PAP (REFL ) HPV MRNA E6/E7 source: normal Cervi x, Endoc ervix Not Available [address] [address] [place], [address], 11/07/2024 18:47:29 11/03/19 25 11/07/2024 THINP REP TIS PAP (REFL ) HPV MRNA E6/E7 statement of adequacy: normal Satis facto ry for evalu ation . Endoc ervic al/tr ansfo rmati on zone compo nent absen t. Not Available [address] [address] [place], [address], 11/07/2024 18:47:29 11/03/19 25 11/07/2024 THINP REP TIS PAP (REFL ) HPV MRNA E6/E7 interpretati on/result: normal Cytol ogy Resul ts: Negat carrie for intra epith elial lesio n or earl cobian . Not Available [address] [address] [address], [place], [address], 11/07/2024 18:47:29 11/03/19 25 11/07/2024 THINP REP TIS PAP (REFL ) HPV MRNA E6/E7 infection: normal Funga l organ isms morph ologi aisha consi stent with Janie da spp. Not Available [address] [address] [place], [address], 11/07/2024 18:47:29 11/03/19 25 11/07/2024 THINP REP TIS PAP (REFL ) HPV MRNA E6/E7 comment: normal This Pap test has been evalu ated with compu ter simba britney techn ology . Not Available [address] [address] [address], [place], [address], 11/07/2024 18:47:29 11/03/19 25 11/07/2024 THINP REP TIS PAP (REFL ) HPV MRNA E6/E7 cytotechnolo gist: normal MEF, CT( CP) CT scree lauryn locat ion: [place] [address] [place] [address] Not Available [address] [address] [place], [address], 11/07/2024 18:47:29 11/03/19 25 11/07/2024 THINP REP [...] clini sury infor matio n. Not Available [address] [address] [place], [address], 11/07/2024 18:47:29 11/03/19 25 11/02/2024 CT + NG + TV, DNA, urine /swab CT + NG + TV, DNA, urine/swab negati ve Not Available [facility] ([facility]) [address] [place], [address], 11/02/2024 10:59:56 01/21/20 25 01/20/2025 CBC WBC 7.7 x10 4.0-10 .5 Not Available [facility] [address], [address], 01/20/2025 13:18:07 01/21/2001/20/2025 CBC RBC 3.41 x10 3.50-5 .50 low Not Available [facility] [address] [facility] [address], [address], 01/20/2025 13:18:07 01/21/20 25 01/20/2025 CBC HGB 10.9 g/dL 12.0-1 6.0 low Not Available [facility] [address] [facility] [address], [address], 01/20/2025 13:18:07 01/21/2001/20/2025 CBC HCT 32.5 % 37.0-4 7.0 low Not Available [facility] [address] [facility], [place], [address], 01/20/2025 13:18:07 01/21/2001/20/2025 CBC MCV 95.2 fL 80.0-9 9.9 Not Available [facility] [address], [place], [address], 01/20/2025 13:18:07 01/21/2001/20/2025 CBC MCH 31.9 pg 27.0-3 2.0 Not Available [facility] [address] [facility], [place], [address], 01/20/2025 13:18:07 01/21/2001/20/2025 CBC MCHC 33.4 g/dL 32.0-3 6.0 Not Available [facility] [address] [facility], [place], [address], 01/20/2025 13:18:07 01/21/2001/20/2025 CBC RDW 15.4 % 11.5-1 4.5 high Not Available [facility] [address] [facility] [address] [facility], [place], [address], 01/20/2025 13:18:07 01/21/2001/20/2025 CBC plt 240.5 x10 140.0- 451.0 Not Available [facility] [address] [facility], [place], [address], 01/20/2025 13:18:07 01/21/2001/20/2025 CBC lymphocytes % 14.6 % 20.0-5 0.0 low Not Available [facility] [address] [facility], [place], [address], 01/20/2025 13:18:07 01/21/20 25 01/20/2025 CBC granulcytes % 81.0 % 30.0-7 0.0 high Not Available [facility] [address], [place], [address], 01/20/2025 13:18:07 01/21/2001/20/2025 CBC monocytes % 3.6 % 2.0-16 .0 Not Available [facility] [address], [place], [address], 01/20/2025 13:18:07 01/21/2001/20/2025 CBC granulcytes# 6.2 x10 Not Renetta ilable [facility] [address] [facility], [place], [address], 01/20/2025 13:18:07 01/21/2001/20/2025 CBC lymphocytes # 1.1 x10 Not Available [facility] [address] [facility], [place], [address], 01/20/2025 13:18:07 01/21/2001/20/2025 CBC monocytes # 0.3 x10 Not Avai lable [facility] [address] [facility], [place], [address], 01/20/2025 13:18:07 01/21/2001/20/2025 HBA1C hemaglobin A1C 4.2 4.2-6. 5 Not Available [facility] [address] [facility], [place], [address], 01/20/2025 13:18:19 01/21/2001/20/2025 GLUCO SE SCREE N glucose screen 199.0 mg/dL Not Available [facility] [address] [facility], [place], [address], 01/20/2025 14:42:21 02/16/2002/15/2025 CMP (FEMA LE) glucose 100.0 mg/dL 60.0-9 9.0 high Not Available [facility] [address] [facility], [place], [address], 02/15/2025 12:46:12 02/16/2002/15/2025 CMP (FEMA LE) BUN (blood urea nitrogen) 5.0 mg/dL 10.0-2 6.0 low Not Available [facility] [address] [facility], [place], [address], 02/15/2025 12:46:12 02/16/2002/15/2025 CMP (FEMA LE) creatinine (serum) 0.5 mg/dL 0.4-1. 5 Not Available [facility] [address] [facility], [place], [address], 02/15/2025 12:46:12 02/16/2002/15/2025 CMP (FEMA LE) BUN/creatini ne ratio 10.00 ratio Not Available [facility] [address] [facility] [address] [facility], [place], [address], 02/15/2025 12:46:12 02/16/2002/15/2025 CMP (FEMA LE) eGFR calculated 147.6 Not Available [facility] [address] [facility] [address] [facility], [place], [address], 02/15/2025 12:46:12 02/16/2002/15/2025 CMP (FEMA LE) total protein 6.8 g/dL 6.0-8. 5 Not Available [facility] [address] [facility] [address] [facility], [place], [address], 02/15/2025 12:46:12 02/16/20 02/15/2025 CMP (FEMA LE) total bilirubin 0.9 mg/dL 0.2-1. 3 Not Available [facility] [address] [facility], [place], [address], 02/15/2025 12:46:12 02/16/20 25 02/15/2025 CMP (FEMA LE) albumin 3.6 g/dL 3.5-5. 5 Not Available [facility] [address] [facility], [place], [address], 02/15/2025 12:46:12 02/16/2002/15/2025 CMP (FEMA LE) globulin 3.2 calc Not Available [facility] [address] [facility], [place], [address], 02/15/2025 12:46:12 02/16/2002/15/2025 CMP (FEMA LE) AST (SGOT) 25.0 U/L 0.0-46 .0 Not Available [facility] [address] [facility], [place], [address], 02/15/2025 12:46:12 02/16/20 25 02/15/2025 CMP (FEMA LE) altv (SGPT) 14.0 U/L 13.0-6 9.0 normal Not Available [facility] [address] [facility], [place], [address], 02/15/2025 12:46:12 02/16/2002/15/2025 CMP (FEMA LE) A/G ratio 1.1 ratio Not Available [facility] [address] [facility], [place], [address], 02/15/2025 12:46:12 02/16/20 25 02/15/2025 CMP (FEMA LE) ALP phos 84.0 U/L 30.0-1 40.0 normal Not Available [facility] [address] [facility], [place], [address], 02/15/2025 12:46:12 02/16/2002/15/2025 CMP (FEMA LE) calcium 9.2 mg/dL 8.4-10 .5 Not Available [facility] [address] [facility], [place], [address], 02/15/2025 12:46:12 02/16/2002/15/2025 CMP (FEMA LE) sodium 133.0 mmol/ L 136.0- 145.0 low Not Available [facility] [address] [facility], [place], [address], 02/15/2025 12:46:12 02/16/2002/15/2025 CMP (FEMA LE) potassium 4.2 mmol/ L 3.5-5. 1 Not Available [facility] [address] [facility], [place], [address], 02/15/2025 12:46:12 02/16/2002/15/2025 CMP (FEMA LE) chloride 105.0 mmol/ L 98.0-1 10.0 normal Not Available [facility] [address] [facility], [place], [address], 02/15/2025 12:46:12 02/16/2002/15/2025 CMP (FEMA LE) C02 23.0 mmol/ L 22.0-3 1.0 Not Available [facility] [address] [facility], [place], [address], 02/15/2025 12:46:12 02/16/20 25 02/15/2025 CMP (FEMA LE) anion gap 5.0 calc Not Available [facility] [address] [facility] [address], [place], [address], 02/15/2025 12:46:12 02/16/20 25 02/15/2025 CMP (FEDERICO ALVAREZ) osmolality 272.7 calc Not Available [facility] [address], [place], [address], 02/15/2025 12:46:12 09/29/19 25 09/22/2024 US, obste tric, 1st trime ster No observ ation record ed. [facility] [address] [facility], [place], [address], 09/29/2024 09:27:23 01/01/2012/28/2024 imagi ng/di agnos tic resul t No observ ation record ed. [facility] [address] [place], [address], 01/03/2025 06:49:20 02/21/20 25 02/16/2025 US, obste tric, follo w-up No observ [facility]ion [facility] ed. [email or web address] [address] [place], [address], 02/20/2025 11:18:16 04/03/20 25 03/28/2025 US, obste tric, follo w-up No observ ation record ed. [facility] [address] [place], [address], 04/03/2025 13:18:29 Result Notes None recorded. Problems Name Problem SNOMED Code Status Onset Date Resolution Date Notes Provider Name and Address Organization Details Recorded Time Transfusion Completed 201109/22/2024 Transfu kevin; At 5-6 years of age; 012 9:50AM by Mini Roger RN, Office Visit; Promote d; acuity set as *; SAUL Miranda [place] - [facility], L.L.CCompa 14:28:45 12254377 Active 2024 SAUL DOUGLAS KISHORE null, [facility], KathiLCompaCCompa 5 14:28:34 Gestational diabetes mellitus 60228245 Active 2024 Calvin Maldonado MD [address] [place] [address], [phone], [facility], Viviana 11:00:57 Heartburn 17152691 Active 2024 Calvin Maldonado MD [address] [place] [address], [phone], [facility], Viviana 11:07:15 Spasm 52189663 Active 2024 Calvin Maldonado MD [address] [place] [address], [phone], [facility], KathiLClementina 10:33:23 Problem Notes None recorded. Procedures Surgical History Date Name Laterality Status Provider Name and Address Organization Details Recorded Time 11/03/19 25 Date of Last Pap Smear completed [facility] KathiLCompaCCompa 11/29/2024 12:06:07 11/03/19 25 sampling of cervix for Papanicolaou smear completed [facility] Viviana 11/29/2024 12:06:50 07/15/19 21 section completed [facility], KathiLClementina 09/22/2024 14:36:06 transfusion of blood product completed [facility], LCompaLClementina 09/22/2024 14:36:27 Imaging Results None recorded. Procedure [...] Organization Details Last Updated DateTime 160.02 cm 38 kg/m2 94636.8 7 g 99 % 61 /min 18 /min 97.8 [degF] 140/84 mm[Hg] SAUL NOVAK [facility] 10:03:09 Social History Question Answer Notes LastModified [...] other forms of tobacco or nicotine? No [email or web address] Information not available 09/16/2022 What is your [...] virus, trivalent, preservative 0 completed Not Available [facility] 12/06/[facility]22 02:28:54 Past Encounters Encounter ID Performer Location Encounter Start Date Encounter Closed Date Diagnosis/Indication Diagnosis SNOMED-CT Code Diagnosis ICD10 Code Diagnosis IMO Codes Diagnosis Note [id number] Calvin Maldonado MD [facility] [address] [place] [address] 03/28/2025 08:59:26 03/28/2025 13:16:29 [id number] Calvin Maldonado MD [facility] [address] [place] [address] 03/28/2025 09:30:49 04/14/2025 11:57:50 Gestational diabetes mellitus 20168169 O24.410 [id number] - Maintain current dietary and glucose monitoring practices. - No immediate need for medication ; monitor potential increase in glucose levels. 35609960 Z34.9 0 Gestation period, 33 weeks 10982505 Z3A.33 [id number] [id number] Calvin Maldonado MD [facility] ([facility]) [address] [place] [address] 04/12/2025 09:36:17 04/12/2025 10:49:52 Gestational diabetes mellitus 52563262 O24.410 78800572 - Maintain current dietary and glucose monitoring practices. - No immediate need for medication ; monitor potential increase in glucose levels. 58413514 Z34.9 0 Gestation period, 36 weeks 93978465 Z3A.36 1065614 [id number] Calvin Maldonado MD [facility] ([facility]) [address] [place] [address] 04/19/2025 09:35:28 04/26/2025 03:59:57 Gestational diabetes mellitus 66602034 O24.410 [id number] - Maintain current dietary and glucose monitoring practices. - No immediate need for medication ; monitor potential increase in glucose levels. Multigravida 540963354 Z 34.83 74689740 Gestation period, 37 weeks 84538927 Z3A.37 1953977 [id number] Calvin Maldonado MD [facility] ([facility]) [address] [place] [address] 04/19/2025 12:53:13 04/19/2025 14:15:35 [id number] Calvin Maldonado MD [facility] ([facility]) [address] [place] [address] 04/26/2025 09:43:14 04/26/2025 10:37:53 97305226 Z34.90 Gestationa l diabetes mellitus 16989686 O24.410 78290118 - Maintain current dietary and glucose monitoring practices. - No immediate need for medication ; monitor potential increase in glucose levels. Gestation period, 38 weeks 52034622 Z3A.38 6275066 [id number] Calvin Maldonado MD [facility] ([facility]) [address] [place] [address] 04/26/2025 14:39:25 04/26/2025 15:02:14 Gestational diabetes mellitus 01342170 O24.410 04191689 - Maintain current dietary and glucose monitoring practices. - No immediate need for medication ; monitor potential increase in glucose levels. Health Concerns Section Related Observation LastModified by Organization Detai ls LastModified Time None Recorded Concern Status LastModified by Organization Details LastModified Time None Recorded Payers Encounter Date Sequence Insurance Name Policy Number Policy Walsh Covered Member ID Walsh Member ID Guarantor Name 04/26/2025 1 [employer] [id number] Tiffany Solomon [id number] Tiffany Solomon Notes Date Note Type [...] constipation,no diarrhea/loose stool,no visual changes,no dizziness, andno breathlessness.heartburn , occasional vaginal pressure, pelvic painPt denies any alcohol or tobacco use or drug useROS as noted in the HPI Gravid Calvin Maldonado MD [address] [place] [address], [phone], [facility] L.LCompaCCompa 04/26/2025 10:30:40 OBGyn Episode Ob Episode Information Episode Created Date Number of Fetuses Patient Bloodtype Patient rh Status Prepregnancy Weight lbs Domestic Partner Domestic Partner Phone Father Name Hot Header Operator Status 09/23/19 25 1 O Positive Wallace [...] Weight in lbs Pre/Post Dialysis Refused Weight 209.113799729067 BP Diastolic BP Location Tested BP Systolic [...] Weight in lbs Pre/Post Dialysis Refused Weight 208.802212693126 BP Diastolic BP Location Tested BP Systolic BP Type 76 136 sitting Fetus Heart Rate Present A 164 Present Fetus Movement Comments NOB Flowsheet Date 11/29/2024 Herrera Score Blood Edema Fundus Height Fundus Units Glucose Ketones Leukocytes Nitrite Labor Signs Protein Cervic Dilation Cervic Effacement Cervic Station none none Negative neg Type Weight in lbs Pre/Post Dialysis Refused Weight 205.223450402200 BP Diastolic BP Location Tested BP Systolic [...] Weight in lbs Pre/Post Dialysis Refused Weight 204.950481551097 BP Diastolic BP Location Tested BP Systolic [...] Weight in lbs Pre/Post Dialysis Refused Weight 205.932789376204 BP Diastolic BP Location Tested BP Systolic BP Type 70 118 sitting Fetus Heart Rate Present A 144 Present Fetus Movement Comments occ SOB Flowsheet Date 02/15/2025 Herrera Score Blood Edema Fundus Height Fundus Units Glucose Ketones Leukocytes Nitrite Labor Signs Protein Cervic Dilation Cervic Effacement Cervic Station 32 cm none 1+ trace Type Weight in lbs Pre/Post Dialysis Refused Weight 207.441122243210 BP Diastolic BP Location Tested BP Systolic [...] Weight in lbs Pre/Post Dialysis Refused Weight 206.295344758512 BP Diastolic BP Location Tested BP Systolic [...] Weight in lbs Pre/Post Dialysis Refused Weight 208.83957117821 BP Diastolic BP Location Tested BP Systolic [...] Weight in lbs Pre/Post Dialysis Refused Weight 209.811205281201 BP Diastolic BP Location Tested BP Systolic [...] Weight in lbs Pre/Post Dialysis Refused Weight 213.41662041791 BP Diastolic BP Location Tested BP Systolic [...] Weight in lbs Pre/Post Dialysis Refused Weight 218.814886351152 BP Diastolic BP Location Tested BP Systolic [...] Weight in lbs Pre/Post Dialysis Refused Weight 214.965127900196 BP Diastolic BP Location Tested BP Systolic [...] Estim ated Date of Delivery true Thalassemia (Upper Sorbian, Arabic, Mediterranean, Or Background): MCV < 80 false Neural Tube Defect (Meningomyelocele, Spina Bifi da, Or Anencephaly) false Congenital Heart Defect false Down Syndrome false Wojciech-Sachs (eg, Lutheran, Cajun, Greek-[place]) f alse Enedelia Disease false Sickle Cell [...]
--- OUTSIDE RECORDS SUMMARY | 2025-04-27 05:02 | XMS_ITS | Continuity of Care Document ---
Author Organization [facility] Rajesh Cai [facility] ([facility]) Address [address] [place] [address] Care Team Providers Care Asset Administrator Name Role Phone MARGE MARIE Primary Care Provider Unavailabl e Assessment No assessment recorded. Plan of Treatment Reminders Order Date Submit Date Provider Last Modified By Organization Details Last Modified Time Details Appointments RETURN OB 2024 10:20A M Calvin Maldonado MD Not available Not available Not available RETURN OB 2024 10:20A M Calvin Maldonado MD Not available Not available Not available Lab None recorded. Referral None recorded. Procedures None recorded. Surgeries None recorded. Imaging US, obstetric , biophysic al profile - [id number] 2024 025 [facility], [address] [place], [address], 04/26/2025 18:35:37 Medication Orders None recorded. Patient TargetsNo targets recorded. Patient InstructionsNo instructions recorded. Reason for Referral None Reported. Results Created Date Observation Date Name Description Value Unit Range Abnormal Flag Note LastModifiedBy Organization Detail LastModifiedTime 11/03/1911/02/2024 GLUCO SE glucose 121.0 mg/dL 60.0-9 9.0 high Not Available [facility] [address], [place], [address], 11/02/2024 12:02:10 11/03/19 25 11/03/2024 HIV 1/2 ANTIG EN/AN TIBOD Y,FOU RTH GENER ATION W/RFL HIV final interpretati on HIV Negat carrie HIV-1 antig en and HIV-1 /HIV- 2 antib odies were not detec britney. There is no labor atory evide nce of HIV infec tion. Not Available [address], [address], 11/03/2024 23:21:44 11/03/19 25 11/03/2024 HIV 1/2 ANTIG EN/AN TIBOD Y,FOU RTH GENER ATION W/RFL HIV Ag/Ab, 4TH gen NON-RE ACTIVE non-re active normal Not Available [address], [address], 11/03/2024 23:21:44 11/03/1911/03/2024 URINA LYSIS , COMPL ETE color YELLOW yellow normal Not Available [address], [address], 11/03/2024 23:21:45 11/03/1911/03/2024 URINA LYSIS , COMPL ETE appearance CLEAR clear normal Not Available [address], [address], 11/03/2024 23:21:45 11/03/1911/03/2024 URINA LYSIS , COMPL ETE specific gravity 1.002 1.001- 1.035 normal Not Available [address], [address], 11/03/2024 23:21:45 11/03/1911/03/2024 URINA LYSIS , COMPL ETE pH 6.5 5.0-8. 0 normal Not Available [address], [address], 11/03/2024 23:21:45 11/03/1911/03/2024 URINA LYSIS , COMPL ETE glucose NEGATI VE negati ve normal Not Available [facility] [id number], [place], [address], 11/03/2024 23:21:45 11/03/19 25 11/03/2024 URINA LYSIS , COMPL ETE bilirubin NEGATI VE negati ve normal Not Available [address], [address], 11/03/2024 23:21:45 11/03/19 25 11/03/2024 URINA LYSIS , COMPL ETE ketones NEGATI VE negati ve normal Not Available [address], [address], 11/03/2024 23:21:45 11/03/19 25 11/03/2024 URINA LYSIS , COMPL ETE occult blood NEGATI VE negati ve normal Not Available [address], [address], 11/03/2024 23:21:45 11/03/19 25 11/03/2024 URINA LYSIS , COMPL ETE protein NEGATI VE negati ve normal Not Available [address], [address], 11/03/2024 23:21:45 11/03/19 25 11/03/2024 URINA LYSIS , COMPL ETE nitrite NEGATI VE negati ve normal Not Available [address], [address], 11/03/2024 23:21:45 11/03/19 25 11/03/2024 URINA LYSIS , COMPL ETE leukocyte esterase NEGATI VE negati ve normal Not Available [address], [address], 11/03/2024 23:21:45 11/03/19 25 11/03/2024 URINA LYSIS , COMPL ETE WBC NONE SEEN /hpf < or = 5 normal Not Available [address] [place], [address], 11/03/2024 23:21:45 11/03/1911/03/2024 URINA LYSIS , COMPL ETE RBC NONE SEEN /hpf < or = 2 normal Not Available [address], [address], 11/03/2024 23:21:45 11/03/1911/03/2024 URINA LYSIS , COMPL ETE squamous epithelial cells NONE SEEN /hpf < or = 5 normal Not Available [address], [address], 11/03/2024 23:21:45 11/03/19 25 11/03/2024 URINA LYSIS , COMPL ETE bacteria NONE SEEN /hpf none seen normal Not Available [address], [address], 11/03/2024 23:21:45 11/03/19 25 11/03/2024 URINA LYSIS , COMPL ETE hyaline cast NONE SEEN /lpf none seen normal Not Available [address], [address], 11/03/2024 23:21:45 11/03/19 25 11/03/2024 URINA LYSIS , COMPL ETE note This urine was camilo zed for the prese nce of WBC, RBC, bacte glenys, casts , and other forme d eleme nts. Only those eleme nts seen were repor britney. Not Available [address], [address], 11/03/2024 23:21:45 11/03/1911/03/2024 CBC (INCL UDES DIFF/ PLT) white blood cell count 8.3 thous and/u L 3.8-10 .8 normal Not Available [address], [address], 11/03/2024 23:21:47 11/03/1911/03/2024 CBC (INCL UDES DIFF/ PLT) red blood cell count 3.94 nancy on/uL 3.80-5 .10 normal Not Available [address], [address], 11/03/2024 23:21:47 11/03/1911/03/2024 CBC (INCL UDES DIFF/ PLT) hemoglobin 12.6 g/dL 11.7-1 5.5 normal Not Available [address], [address], 11/03/2024 23:21:47 11/03/1911/03/2024 CBC (INCL UDES DIFF/ PLT) hematocrit 37.7 % 35.0-4 5.0 normal Not Available [address], [address], 11/03/2024 23:21:47 11/03/1911/03/2024 CBC (INCL UDES DIFF/ PLT) MCV 95.7 fL 80.0-1 00.0 normal Not Available [address], [address], 11/03/2024 23:21:47 11/03/1911/03/2024 CBC (INCL UDES DIFF/ PLT) MCH 32.0 pg 27.0-3 3.0 normal Not Available [address], [address], 11/03/2024 23:21:47 11/03/1911/03/2024 CBC (INCL UDES DIFF/ [...] nt's clini sury condi tion. Not Available [facility] [address], [address], 11/03/2024 23:21:47 11/03/1911/03/2024 CBC (INCL UDES DIFF/ PLT) RDW 13.6 % 11.0-1 5.0 normal Not Available [address], [address], 11/03/2024 23:21:47 11/03/1911/03/2024 CBC (INCL UDES DIFF/ PLT) platelet count 259 thous and/u L 140-40 0 normal Not Available [address], [address], 11/03/2024 23:21:47 11/03/1911/03/2024 CBC (INCL UDES DIFF/ PLT) MPV 10.1 fL 7.5-12 .5 normal Not Available [address], [address], 11/03/2024 23:21:47 11/03/1911/03/2024 CBC (INCL UDES DIFF/ PLT) absolute neutrophils 6524 cells /uL 1500-7 800 normal Not Available [address], [address], 11/03/2024 23:21:47 11/03/1911/03/2024 CBC (INCL UDES DIFF/ PLT) absolute lymphocytes 1361 cells /uL 850-39 00 normal Not Available [facility] [address], [address], 11/03/2024 23:21:47 11/03/1911/03/2024 CBC (INCL UDES DIFF/ PLT) absolute monocytes 332 cells /uL 200-95 0 normal Not Available [facility] [address], [address], 11/03/2024 23:21:47 11/03/1911/03/2024 CBC (INCL UDES DIFF/ PLT) absolute eosinophils 50 cells /uL 15-500 normal Not Available [facility] [address], [address], 11/03/2024 23:21:47 11/03/1911/03/2024 CBC (INCL UDES DIFF/ PLT) absolute basophils 33 cells /uL 0-200 normal Not Available [facility] [address], [address], 11/03/2024 23:21:47 11/03/1911/03/2024 CBC (INCL UDES DIFF/ PLT) neutrophils 78.6 % normal Not Available [facility] [address], [address], 11/03/2024 23:21:47 11/03/1911/03/2024 CBC (INCL UDES DIFF/ PLT) lymphocytes 16.4 % normal Not Available [facility] [address], [address], 11/03/2024 23:21:47 11/03/1911/03/2024 CBC (INCL UDES DIFF/ PLT) monocytes 4.0 % normal Not Available [facility] [address], [address], 11/03/2024 23:21:47 11/03/1911/03/2024 CBC (INCL UDES DIFF/ PLT) eosinophils 0.6 % normal Not Available [facility] [address], [address], 11/03/2024 23:21:47 11/03/1911/03/2024 CBC (INCL UDES DIFF/ PLT) basophils 0.4 % normal Not Available [facility] [address], [address], 11/03/2024 23:21:47 11/03/1911/03/2024 HEPAT ITIS B SURFA CE ANTIG EN W/REF L CONFI RM hepatitis B surface antigen NON-RE ACTIVE non-re active normal For addit ional infor antonino starkey, mason e refer to http: //[facility] stdia gnost ics.c om/fa q/FAQ 202 (This link is being provi ded for infor matio nal/ educa chitra l purpo ses only. ) Not Available [address] [address] [place], [address], 11/03/2024 23:21:47 11/03/1911/03/2024 HEPAT ITIS C AB [...] a test for HCV RNA (test code 09816 ) is sugmp andraded. For addit ional [facility] cuevas e refer to http: //[facility] stdia gnost ics.c om/fa q/FAQ 22v1 (This link is being provi ded for infor matio nal/ educa chitra l purpo ses only. ) Not Available [facility] [address] [address] [place], [address], 11/03/2024 23:21:48 11/03/1911/03/2024 RUBEL LA AB (IGG) [...] . Not Available [facility] [address] [address] [place], [address], 11/03/2024 23:21:49 11/03/1911/03/2024 HEMOG LOBIN A1C hemoglobin [...] Care in Diabe bharati(A DA). Not Available [facility] [address] [address] [place], [address], 11/03/2024 23:21:50 11/03/19 25 11/03/2024 RPR (DX) W/REF L TITER AND T. PALLI DUM AB, IA RPR (DX) w/refl titer and confirmatory testing NON-RE ACTIVE non-re active normal No labor atory evide nce of syphi lis. If recen t expos ure is suspe cted, submi t a new sampl e in 2-4 weeks . Not Available [facility] [address] [place], [address], 11/03/2024 23:21:51 06/2511/03/2024 ABO GROUP AND RH TYPE ABO group O Not Available [address], [place], [address], 11/03/2024 23:21:52 11/03/1911/03/2024 ABO GROUP AND RH TYPE Rh type RH(D) POSITI VE For addit ional infor mason mei e refer to http: //[facility] shanta Mckeeia gnost ics.c om/fa q/FAQ 111 (This link is being provi ded for infor antonino akhtar/ educa chitra l purpo ses only. ) Not Available [facility] [address] [address] [address], [place], [address], 11/03/2024 23:21:52 11/03/1911/03/2024 DRUG MONIT OR, PANEL 1, SCREE N, URINE amphetamines NEGATI VE NG/mL <500 See Note A See Note A Not Available [facility] [address] [address] [address], [place], [address], 11/03/2024 23:21:53 11/03/1911/03/2024 DRUG MONIT OR, PANEL 1, SCREE N, URINE barbiturates NEGATI VE NG/mL <300 See Note A See Note A Not Available [facility] [address] [address] [address], [place], [address], 11/03/2024 23:21:53 11/03/1911/03/2024 DRUG MONIT OR, PANEL 1, SCREE N, URINE benzodiazepi kendell NEGATI VE NG/mL <100 See Note A See Note A Not Available [facility] [address] [address] [address], [place], [address], 11/03/2024 23:21:53 11/03/1911/03/2024 DRUG MONIT OR, PANEL 1, SCREE N, URINE cocaine metabolite NEGATI VE NG/mL <150 See Note A See Note A Not Available [facility] [address] [address] [address], [place], [address], 11/03/2024 23:21:53 11/03/1911/03/2024 DRUG MONIT OR, PANEL 1, SCREE N, URINE marijuana metabolite NEGATI VE NG/mL <20 See Note A See Note A Not Available [address] [address], [place], [address], 11/03/2024 23:21:53 11/03/1911/03/2024 DRUG MONIT OR, PANEL 1, SCREE N, URINE methadone metabolite NEGATI VE NG/mL <100 See Note A See Note A Not Available [facility] [address] [address] [address], [place], [address], 11/03/2024 23:21:53 11/03/19 25 11/03/2024 DRUG MONIT OR, PANEL 1, SCREE N, URINE opiates NEGATI VE NG/mL <100 See Note A See Note A Not Available [facility] [address] [address] [address], [place], [address], 11/03/2024 23:21:53 11/03/1911/03/2024 DRUG MONIT OR, PANEL 1, SCREE N, URINE oxycodone NEGATI VE NG/mL <100 See Note A See Note A Not Available [address], [place], [address], 11/03/2024 23:21:53 11/03/1911/03/2024 DRUG MONIT OR, PANEL 1, SCREE N, URINE phencyclidin e NEGATI VE NG/mL <25 See Note A See Note A Not Available [address], [place], [address], 11/03/2024 23:21:53 11/03/1911/03/2024 DRUG MONIT OR, PANEL 1, SCREE N, URINE creatinine 8.6 mg/dL > or = 20.0 low Not Available [address], [place], [address], 11/03/2024 23:21:53 11/03/1911/03/2024 DRUG MONIT OR, PANEL 1, SCREE N, URINE specific gravity 1.003 > or = 1.003 Not Available [address] [address] [place], [address], 11/03/2024 23:21:53 11/03/1911/03/2024 DRUG MONIT OR, PANEL 1, SCREE N, URINE pH 6.6 4.5-9. 0 Not Available [facility] [address] [address] [address], [place], [address], 11/03/2024 23:21:53 11/03/1911/03/2024 DRUG MONIT OR, PANEL 1, SCREE N, URINE oxidant NEGATI VE mcg/m L <200 Not Available [address] [address] [place], [address], 11/03/2024 23:21:53 11/03/1911/03/2024 DRUG MONIT ORING TEMPL ATE notes and comments This drug testi ng is for medic al treat ment only. Camilo sis was perfo rmed as non-f orens ic testi ng and these resul ts shoul d be used only [facility] provi ders to rende r diagn osis or treat ment, or to monit or progr ess of medic al condi tions . Note A: The resul ts are presu mptiv e; based only on screted combs metho ds, and they have not been confi rmed by a defin itive metho d. [facility] Provi ders needi ng Inter preta tion simba tance , pleas e conta ct us at 1.877 .40.R XTOX (1.87 [phone] .9869 ) M-F, 8am to 10pm EST Not Available [address] [address] , [place], [address], 11/03/2024 23:21:53 11/03/1911/03/2024 CULTU RE, URINE , ROUTI NE culture, urine, routine SEE NOTE CULTU RE, URINE , ROUTI NE Micro Numbe r: [id number] Test Statu s: Final Speci men Sourc e: Urine Speci men Quali ty: Adequ ate Resul t: No Growt h Not Available [address], [address], 11/03/2024 23:21:54 11/03/19 25 11/07/2024 THINP REP TIS PAP (REFL ) HPV MRNA E6/E7 clinical information: normal Pregn ant Not Available [address], [address], 11/07/2024 18:47:29 11/03/19 25 11/07/2024 THINP REP TIS PAP (REFL ) HPV MRNA E6/E7 LMP: normal NONE GIVEN Not Available [address], [address], 11/07/2024 18:47:29 11/03/19 25 11/07/2024 THINP REP TIS PAP (REFL ) HPV MRNA E6/E7 prev. Pap: normal NONE GIVEN Not Available [address], [address], 11/07/2024 18:47:29 11/03/19 25 11/07/2024 THINP REP TIS PAP (REFL ) HPV MRNA E6/E7 prev. BX: normal NONE GIVEN Not Available [address], [address], 11/07/2024 18:47:29 11/03/19 25 11/07/2024 THINP REP TIS PAP (REFL ) HPV MRNA E6/E7 source: normal Cervi x, Endoc ervix Not Available [address], [address], 11/07/2024 18:47:29 11/03/19 25 11/07/2024 THINP REP TIS PAP (REFL ) HPV MRNA E6/E7 statement of adequacy: normal Satis facto ry for evalu ation . Endoc ervic al/tr ansfo rmati on zone compo nent absen t. Not Available [address] [address] [place], [address], 11/07/2024 18:47:29 11/03/19 25 11/07/2024 THINP REP TIS PAP (REFL ) HPV MRNA E6/E7 interpretati on/result: normal Cytol ogy Resul ts: Negat carrie for intra epith elial lesio n or malig aranza . Not Available [address] [address] [place], [address], 11/07/2024 18:47:29 11/03/19 25 11/07/2024 THINP REP TIS PAP (REFL ) HPV MRNA E6/E7 infection: normal Funga l organ isms morph ologi aisha consi stent with Janie da spp. Not Available [address] [address] [place], [address], 11/07/2024 18:47:29 11/03/19 25 11/07/2024 THINP REP TIS PAP (REFL ) HPV MRNA E6/E7 comment: normal This Pap test has been evalu ated with compu ter simba britney techn ology . Not Available [address] [address] [place], [address], 11/07/2024 18:47:29 11/03/19 25 11/07/2024 THINP REP TIS PAP (REFL ) HPV MRNA E6/E7 cytotechnolo gist: normal MEF, CT( CP) CT scree lauryn locat ion: [address] [place] [address] Not Available [address] [address] [place], [address], 11/07/2024 18:47:29 11/03/19 25 11/07/2024 THINP REP [...] clini sury infor matio n. Not Available [facility] [address] [place], [address], 11/07/2024 18:47:29 11/03/1911/02/2024 CT + NG + TV, DNA, urine /swab CT + NG + TV, DNA, urine/swab negati ve Not Available [facility] ([facility]) [address] [place], [address], 11/02/2024 10:59:56 01/21/2001/20/2025 CBC WBC 7.7 x10 4.0-10 .5 Not Available [facility] [address], [place], [address], 01/20/2025 13:18:07 01/21/2001/20/2025 CBC RBC 3.41 x10 3.50-5 .50 low Not Available [facility] [address] [place], [address], 01/20/2025 13:18:07 01/21/20 25 01/20/2025 CBC HGB 10.9 g/dL 12.0-1 6.0 low Not Available [facility] [address], [place], [address], 01/20/2025 13:18:07 01/21/20 25 01/20/2025 CBC HCT 32.5 % 37.0-4 7.0 low Not Available [facility] [address] [place], [address], 01/20/2025 13:18:07 01/21/2001/20/2025 CBC MCV 95.2 fL 80.0-9 9.9 Not Available [facility] [address], [place], [address], 01/20/2025 13:18:07 01/21/2001/20/2025 CBC MCH 31.9 pg 27.0-3 2.0 Not Available [facility] [address] [facility] [address] [facility] [address], [place], [address], 01/20/2025 13:18:07 01/21/2001/20/2025 CBC MCHC 33.4 g/dL 32.0-3 6.0 Not Available [facility] [address] [facility] [address] [facility] [address], [place], [address], 01/20/2025 13:18:07 01/21/20 25 01/20/2025 CBC RDW 15.4 % 11.5-1 4.5 high Not Available [facility] [address] [facility] [address] [facility] [address], [place], [address], 01/20/2025 13:18:07 01/21/2001/20/2025 CBC plt 240.5 x10 140.0- 451.0 Not Available [facility] [address] [facility] [address] [facility] [address], [place], [address], 01/20/2025 13:18:07 01/21/2001/20/2025 CBC lymphocytes % 14.6 % 20.0-5 0.0 low Not Available [facility] [address] [facility] [address], [place], [address], 01/20/2025 13:18:07 01/21/20 25 01/20/2025 CBC granulcytes % 81.0 % 30.0-7 0.0 high Not Available [facility] [address] [facility] [address], [place], [address], 01/20/2025 13:18:07 01/21/20 25 01/20/2025 CBC monocytes % 3.6 % 2.0-16 .0 Not Available [facility] [address] [facility] [address] [facility], [place], [address], 01/20/2025 13:18:07 01/21/20 25 01/20/2025 CBC granulcytes# 6.2 x10 Not Renetta ilable [facility] [address] [facility] [address] [facility], [place], [address], 01/20/2025 13:18:07 01/21/20 25 01/20/2025 CBC lymphocytes # 1.1 x10 Not Available [facility] [address] [facility] [address], [place], [address], 01/20/2025 13:18:07 01/21/20 25 01/20/2025 CBC monocytes # 0.3 x10 Not Avai lable [facility] [address] [facility] [address] [facility], [place], [address], 01/20/2025 13:18:07 01/21/2001/20/2025 HBA1C hemaglobin A1C 4.2 4.2-6. 5 Not Available [facility] [address] [facility] [address] [facility] [address], [place], [address], 01/20/2025 13:18:19 01/21/20 25 01/20/2025 GLUCO SE SCREE N glucose screen 199.0 mg/dL Not Available [facility] [address] [facility] [address] [facility] [address], [place], [address], 01/20/2025 14:42:21 02/16/20 25 02/15/2025 CMP (FEMA LE) glucose 100.0 mg/dL 60.0-9 9.0 high Not Available [facility] [address] [facility], [place], [address], 02/15/2025 12:46:12 02/16/2002/15/2025 CMP (FEMA LE) BUN (blood urea nitrogen) 5.0 mg/dL 10.0-2 6.0 low Not Available [facility] [address] [facility], [place], [address], 02/15/2025 12:46:12 02/16/2002/15/2025 CMP (FEMA LE) creatinine (serum) 0.5 mg/dL 0.4-1. 5 Not Available [facility] [address], [place], [address], 02/15/2025 12:46:12 02/16/2002/15/2025 CMP (FEMA LE) BUN/creatini ne ratio 10.00 ratio Not Available [facility] [address], [place], [address], 02/15/2025 12:46:12 02/16/2002/15/2025 CMP (FEMA LE) eGFR calculated 147.6 Not Available [facility] [address], [place], [address], 02/15/2025 12:46:12 02/16/20 25 02/15/2025 CMP (FEMA LE) total protein 6.8 g/dL 6.0-8. 5 Not Available [facility] [address], [place], [address], 02/15/2025 12:46:12 02/16/20 25 02/15/2025 CMP (FEMA LE) total bilirubin 0.9 mg/dL 0.2-1. 3 Not Available [facility] [address] [facility], [place], [address], 02/15/2025 12:46:12 02/16/2002/15/2025 CMP (FEMA LE) albumin 3.6 g/dL 3.5-5. 5 Not Available [facility] [address] [facility], [place], [address], 02/15/2025 12:46:12 02/16/2002/15/2025 CMP (FEMA LE) globulin 3.2 calc Not Available [facility] [address] [facility], [place], [address], 02/15/2025 12:46:12 02/16/20 25 02/15/2025 CMP (FEMA LE) AST (SGOT) 25.0 U/L 0.0-46 .0 Not Available [facility] [address] [facility], [place], [address], 02/15/2025 12:46:12 02/16/20 25 02/15/2025 CMP (FEMA LE) altv (SGPT) 14.0 U/L 13.0-6 9.0 normal Not Available [facility] [address] [facility], [place], [address], 02/15/2025 12:46:12 02/16/20 25 02/15/2025 CMP (FEMA LE) A/G ratio 1.1 ratio Not Available [facility] [address] [facility], [place], [address], 02/15/2025 12:46:12 02/16/20 25 02/15/2025 CMP (FEMA LE) ALP phos 84.0 U/L 30.0-1 40.0 normal Not Available [facility] [address] [facility], [place], [address], 02/15/2025 12:46:12 02/16/20 25 02/15/2025 CMP (FEMA LE) calcium 9.2 mg/dL 8.4-10 .5 Not Available [facility] [address] [facility] 1, [place], [address], 02/15/2025 12:46:12 02/16/2002/15/2025 CMP (FEMA LE) sodium 133.0 mmol/ L 136.0- 145.0 low Not Available [facility] [address] [place] [facility], [place], [address], 02/15/2025 12:46:12 02/16/2002/15/2025 CMP (FEMA LE) potassium 4.2 mmol/ L 3.5-5. 1 Not Available [facility] [address] [facility] 1, [place], [address], 02/15/2025 12:46:12 02/16/20 25 02/15/2025 CMP (FEMA LE) chloride 105.0 mmol/ L 98.0-1 10.0 normal Not Available [facility] [address] [facility] [address], [place], [address], 02/15/2025 12:46:12 02/16/2002/15/2025 CMP (FEMA LE) C02 23.0 mmol/ L 22.0-3 1.0 Not Available [facility] [address] [facility] [address], [place], [address], 02/15/2025 12:46:12 02/16/2002/15/2025 CMP (FEMA LE) anion gap 5.0 calc Not Available [facility] [address] [facility] [address], [place], [address], 02/15/2025 12:46:12 02/16/2002/15/2025 CMP (FEMA LE) osmolality 272.7 calc Not Available [facility] [address] [facility] [address], [place], [address], 02/15/2025 12:46:12 09/29/19 25 09/22/2024 US, obste tric, 1st trime ster No observ ation record ed. [facility] [address] [place], [address], 09/29/2024 09:27:23 01/01/2012/28/2024 imagi ng/di agnos tic resul t No observ ation record ed. [facility] [address] [place], [address], 01/03/2025 06:49:20 02/21/2002/16/2025 US, obste tric, follo w-up No observ ation record ed. [email or web address] [facility] [address] [place], [address], 02/20/2025 11:18:16 04/03/2003/28/2025 US, obste tric, follo w-up No observ ation record ed. [email or web address] [address] [place], [address], 04/03/2025 13:18:29 Result Notes None recorded. Problems Name Problem SNOMED Code Status Onset Date Resolution Date Notes Provider Name and Address Organization Details Recorded Time Transfusion Completed 201109/22/2024 Transfu kevin; At 5-6 years of age; 012 9:50AM by Mini Roger RN, Office Visit; Promote d; acuity set as *; SAUL Miranda [place] - [facility] 14:28:45 79854143 Active 2024 SAUL Miranda [facility] 14:28:34 Gestational diabetes mellitus 03073934 Active 2024 Calvin Maldonado MD [address] [place] [address], [phone], [facility] 5 11:00:57 Heartburn 93825739 Active 2024 Calvin Maldonado MD [address] [place] [address], [phone], [facility] 11:07:15 Spasm 96147432 Active 2024 Calvin Maldonado MD [address] [place] [address], [phone], [facility] 10:33:23 Problem Notes None recorded. Procedures Surgical History Date Name Laterality Status Provider Name and Address Organization Details Recorded Time 11/03/19 25 Date of Last Pap Smear completed [facility] 11/29/2024 12:06:07 11/03/19 25 sampling of cervix for Papanicolaou smear completed [facility] 11/29/2024 12:06:50 07/15/19 21 section completed [facility] 09/22/2024 14:36:06 transfusion of blood product completed [facility] 09/22/2024 14:36:27 Imaging Results None recorded. [...] Updated DateTime 5 160.02 cm 38 kg/m2 24974.8 7 g 99 % 61 /min 18 /min 97.8 [degF] 140/84 mm[Hg] SAUL NOVAK [facility] 10:03:09 Social History Question Answer Notes LastModified by Organizat ion Details LastModified Time Tobacco Smoking Status Never Smoker SAUL jerome [facility] 09/22/2024 14:35:01 Are You Blind [...] use any illicit or recreational drugs? No [email or web address] Information not available 09/16/2022 Do you or have you ever used any other forms of tobacco or nicotine? No [email or web address] Information not available 09/16/2022 What is your [...] trivalent, preservative 0 completed Not Available [facility] 12/06/2022 02:28:54 Past Encounters Encounter ID Performer Location Encounter Start Date Encounter Closed Date Diagnosis/Indication Diagnosis SNOMED-CT Code Diagnosis ICD10 Code Diagnosis IMO Codes Diagnosis Note [id number] Calvin Maldonado MD [facility]) [address] [place] [address] 03/28/2025 08:59:26 03/28/2025 13:16:29 [id number] Calvin Maldonado MD [facility]) [address] [place] [address] 03/28/2025 09:30:49 04/14/2025 11:57:50 Gestational diabetes mellitus 30732015 O24.410 88635108 - Maintain current dietary and glucose monitoring practices. - No immediate need for medication ; monitor potential increase in glucose levels. 68730288 Z34.9 0 Gestation period, 33 weeks 16584807 Z3A.33 6780053 [id number] Calvin Maldonado MD [facility]) [address] [place] [phone] 04/12/2025 09:36:17 04/12/2025 10:49:52 Gestational diabetes mellitus 52127405 O24.410 18146439 - Maintain current dietary and glucose monitoring practices. - No immediate need for medication ; monitor potential increase in glucose levels. 73274420 Z34.9 0 Gestation period, 36 weeks 36136618 Z3A.36 0151265 [id number] Calvin Maldonado MD [facility] ([facility]) [address] [place] [phone] 04/19/2025 09:35:28 04/26/2025 03:59:57 Gestational diabetes mellitus 47837058 O24.410 42959452 - Maintain current dietary and glucose monitoring practices. - No immediate need for medication ; monitor potential increase in glucose levels. Multigravida 801699566 Z 34.83 [id number] Gestation period, 37 weeks 33468696 Z3A.37 7908817 [id number] Calvin Maldonado MD [facility] ([facility]) [address] [place] [phone] 04/19/2025 12:53:13 04/19/2025 14:15:35 [id number] Calvin Maldonado MD [facility] ([facility]) [address] [place] [phone] 04/26/2025 09:43:14 04/26/2025 10:37:53 [id number] Z34.90 Gestationa l diabetes mellitus 30989358 O24.410 03760690 - Maintain current dietary and glucose monitoring practices. - No immediate need for medication ; monitor potential increase in glucose levels. Gestation period, 38 weeks 40026197 Z3A.38 0834436 [id number] Calvin Maldonado MD [facility] ([facility]) [address] [place] [address] 04/26/2025 14:39:25 04/26/2025 15:02:14 Gestational diabetes mellitus 69180129 O24.410 [id number] - Maintain current dietary and glucose monitoring [...] Member ID Guarantor Name 04/26/2025 1 [id number] Tiffany Solomon [id number] Tiffany Solomon Notes Date Note Type [...] in the HPI Gravid Calvin Maldonado MD [address] [place] [address], [phone], [facility], [facility] 04/26/2025 10:30:40 OBGyn Episode Ob Episode Information Episode Created Date Number of Fetuses Patient Bloodtype Patient rh Status Prepregnancy Weight lbs Domestic Partner Domestic Partner Phone Father Name Sdc Teacher Status 09/23/19 25 1 O Positive Wallace [...] Weight in lbs Pre/Post Dialysis Refused Weight 209.179477820293 BP Diastolic BP Location Tested BP Systolic [...] Weight in lbs Pre/Post Dialysis Refused Weight 208.117439175088 BP Diastolic BP Location Tested BP Systolic BP Type 76 136 sitting Fetus Heart Rate Present A 164 Present Fetus Movement Comments NOB Flowsheet Date 11/29/2024 Herrera Score Blood Edema Fundus Height Fundus Units Glucose Ketones Leukocytes Nitrite Labor Signs Protein Cervic Dilation Cervic Effacement Cervic Station none none Negative neg Type Weight in lbs Pre/Post Dialysis Refused Weight 205.636315550311 BP Diastolic BP Location Tested BP Systolic [...] Weight in lbs Pre/Post Dialysis Refused Weight 204.340736149626 BP Diastolic BP Location Tested BP Systolic [...] Weight in lbs Pre/Post Dialysis Refused Weight 205.234661824387 BP Diastolic BP Location Tested BP Systolic BP Type 70 118 sitting Fetus Heart Rate Present A 144 Present Fetus Movement Comments occ SOB Flowsheet Date 02/15/2025 Herrera Score Blood Edema Fundus Height Fundus Units Glucose Ketones Leukocytes Nitrite Labor Signs Protein Cervic Dilation Cervic Effacement Cervic Station 32 cm none 1+ trace Type Weight in lbs Pre/Post Dialysis Refused Weight 207.086244169438 BP Diastolic BP Location Tested BP Systolic [...] Weight in lbs Pre/Post Dialysis Refused Weight 206.552577595318 BP Diastolic BP Location Tested BP Systolic [...] Weight in lbs Pre/Post Dialysis Refused Weight 208.23026271294 BP Diastolic BP Location Tested BP Systolic [...] Weight in lbs Pre/Post Dialysis Refused Weight 209.586275672109 BP Diastolic BP Location Tested BP Systolic [...] Weight in lbs Pre/Post Dialysis Refused Weight 213.35734886828 BP Diastolic BP Location Tested BP Systolic [...] Weight in lbs Pre/Post Dialysis Refused Weight 218.418518181986 BP Diastolic BP Location Tested BP Systolic [...] Fetus Movement Comments u/s on 04/19/25, BPP 8/, AF I 13.97, Flowsheet Date 04/20/2025 Herrera [...] Weight in lbs Pre/Post Dialysis Refused Weight 214.704759843976 BP Diastolic BP Location Tested BP Systolic [...] ated Date of Delivery true Thalassemia (Tamazight, Venezuelan, Mediterranean, Or Background): MCV < 80 false Neural Tube Defect (Meningomyelocele, Spina Bifi da, Or Anencephaly) false Congenital Heart Defect false Down Syndrome false Wojciech-Sachs (eg, Shinto, Cajun, Czech-Senegalese) f alse Enedelia Disease false Sickle Cell Disease Or Trait () false Hemophilia Or Other Blood Disorders false Muscular Dystrophy false Cystic Fibrosis false Montpelier's Chorea false Intellectual Disability/Autism false If Yes, [...]
[2025-04-27 05:39] LABS: Hematocrit 35.3 % (36-47); Hemoglobin 12.60 g/dL (11.27-16.99); Mean Corpuscular HGB Conc 35.7 g/dL (30-55); Mean Corpuscular Hemoglobin 31.3 pg (27-33); Mean Corpuscular Volume 87.8 fl (85-98); Nucleated Red Blood Cells % 0 %; Platelet Count 224 10^3/cmm (157-399); Red Blood Count 4.02 10^6/uL (3.85-5.65); White Blood Count 8.69 10^3/uL (3.29-11.43)
[2025-04-27] MEDS: labetalol 5 mg/mL SDV 20mL 20 MG IVP (06:06)
[2025-04-27] MEDS: metoclopramide 5 mg/mL SDV 2 mL 10 MG IVP (06:07)
--- NOTE | 2025-04-27 06:07 | P.ANESUD_ITS ---
Pre-Anesthetic Update Pre-Anesthetic Assessment: Date of Surgery/Procedure: 04/27/25 Proposed Procedure: Operation Date: 04/27/25 07:20 Proposed Procedures p Section Repeat With Tubal(Bilateral) - Calvin Maldonado MD Changes from Pre-Anesthetic Assessment: Patient seen this morning and is hypertensive. BP 180/88. Pre-E labs pending. May start mag. Will review labs prior to procedure today. Plan for routine C- section with spinal ASA 3 Labs Last 48hrs: Short CBC 04/27/25 Range/Units 05:32 WBC 8.69 (3.29-11.43) 10^ 3/uL Hgb 12.60 (11.27-16.99) g/ dL Hct 35.3 L (36-47) % MCV 87.8 (85-98) fl Plt Count 224 (157-399) 10^3/c mm Neut % (Auto) 69.1 % Neut # (Auto) 6.00 (1.8-7.7) 10^3/u L Vitals: Pulse Rate 75 04/27/25 05:53 Pulse Rhythm Regular 04/27/25 05:21 Pulse Strength 3+ Normal 04/27/25 05:21 Respiratory Effort Spontaneous, Easy 04/27/25 05:21 Respiratory Depth Normal 04/27/25 05:21 Respiratory Patter n Normal 04/27/25 05:21 Blood Pressure 180/88 04/27/25 05:53 Oxygen Delivery Me thod Room Air 04/27/25 05:21
[2025-04-27 06:29] LABS: Alanine Aminotransferase 13 U/L (0-33); Albumin Level 3.4 g/dL (3.5-5.2); Alkaline Phosphatase 119 U/L (35-105); Anion Gap 16.0 (5-19); Aspartate Amino Transferase 23 U/L (0-32); Blood Urea Nitrogen 11 mg/dL (6-20); Calcium 8.4 mg/dL (8.5-10.5); Carbon Dioxide 21 mmol/L (22-29); Chloride 104 mmol/L (98-107); Globulin 2.4 g/dL (1.3-4.6); Glucose 81 mg/dL (65-115); Osmolality Calculated 282 mOsm/kg (285-295); Potassium 4.0 mmol/L (3.5-5.1); Sodium 137 mmol/L (136-145); Total Protein 5.8 g/dL (6.6-8.7); Uric Acid 6.3 mg/dL (2.4-5.7)
[2025-04-27 06:35] LABS: Glucose Urine UA Negative (Normal); Nitrate Urine Negative (Negative); Specific Gravity, Urine 1.018 (1.005-1.030)
[2025-04-27 06:37] LABS: Add Urine Microscopic? YES
[2025-04-27] MEDS: magnesium sulfate premix 4 GM/100 ML PREMIX IV (06:41)
--- NOTE | 2025-04-27 06:46 | PM.OBGYHP ---
Providers/Chief Complaint Admitting Physician: Calvin Maldonado MD Primary Care Provider: Calvin Maldonado MD Chief Complaint: updated 04/12/2025 HPI VASC TECH History of Present Illness Tiffany Solomon is a 39 year old 7 para 3-0-3-3 female at 38 weeks estimated gestational age presenting for a repeat section as well as a bilateral tubal ligation. The patient's is been remarkable for having gestational diabetes is been very well-controlled with diet. Otherwise she has a consistent care. And her labs have been largely unremarkable. Her blood type is O+. Her antibody screen is negative. She is rubella immune. As previously mentioned she failed her glucose screen. The remainder of her infectious disease profile is within normal limits. After arriving at the hospital she was noted to have multiple severe blood pressures. They continue to be severe, and as result she was put on the blood pressure protocol. We also initiated a magnesium. Her preeclamptic labs are currently pending. She is having no symptoms of preeclampsia otherwise. Present Details : 7 Para: 3 Labs Rubella: Immune RPR: Negative GBS: Negative Review of Systems General: Reports: 10 or more systems reviewed and unremarkable except in HPI and below Const: Reports: fatigue; Denies: fever(s) Eyes: Denies: change in vision Card: Denies: chest pain Musc: Reports: back pain Mitchell/Lymph: Denies: easy bruising Medications/Allergies Home Medications ?Medication ?Instructions ?Recorded ?Confirmed ?Last Taken ?Type 1 cap PO DAILY 06/21/20 04/27/25 04/26/25 History Allergies Allergy/AdvReac Type Severity Reaction Status Date / Time No Known Allergies Allergy Verified 04/27/25 05:04 PFSH VASC TECH PFSH: Surgical History Hx of section No significant past surgical history Social History Smoking and tobacco/nicotine status: never used tobacco/nicotine Alcohol intake: never Substance/Drug Use: never History History History 6 Term 3 0 Miscarriages/Ectopic 2 Living Children 3 Past Pregnancies Del. Date GA/Weeks Outcome Route Wt Inf Gender Labor Lgth Comp. Anesthesia Location 10/09/10 9 spontaneous 07/02/13 39 live - full term Vaginal 8 lb Female 12 hr regional [place], [place] 11/04/15 spontaneous 11/21/16 39 live - full term Vaginal 6 lb 8 oz Male C - [place] 08/03/20 39 live - full term 7 lb 7 oz Female OZ - [place] Delivery Date: 10/09/10 Last Updated by: Kurt Carpio MD Miscarriage around 9 weeks Delivery Date: 11/21/16 Last Updated by: Kurt Carpio MD gDM Delivery Date: 08/03/20 Last Updated by: Kurt Carpio MD pLTCS due to intolerance of labor, gDM Vitals/I&O/Wt Last Vital Signs Pulse 84 04/27/25 06:39 BP 195/100 04/27/25 06:39 O2 Del Method Room Air 04/27/25 05:21 Weight last 48 hrs Weight 212 lb 8 oz Physical Exam Const: COMMON NORMALS: patient oriented x3 and alert HENMT: COMMON NORMALS: moist oral mucous membranes HEAD & SCALP: normal to inspection Chest: COMMONS NORMALS: normal inspection of the chest Resp: COMMON NORMALS: clear to auscultation bilaterally AUSCULTATION: clear to auscultation bilaterally Cardio: COMMON NORMALS: regular rate and regular rhythm RATE: regular rate RHYTHM: regular rhythm GI: INSPECTION: Yes normal to inspection and Yes other (Gravid) Extremity: COMMON NORMALS: normal to inspection GENERAL: Yes edema (Trace) Neuro: COMMON NORMALS: patient oriented x3, moves all extremities and no sensory deficits noted SENSORIUM/ORIENTATION: Yes alert Psych: COMMON NORMALS: mental status grossly normal Skin: COMMON NORMALS: no rashes or lesions noted GENERAL SKIN EXAM: no rashes or lesions noted Data 04/27/25 05:32 04/27/25 05:51 Results Labs OB ([facility]): Obstetrics 12/03/23 Blood Type O Positive Today Antibody Screen Negative Today Hct, (36-47) 35.3 % L Today Hgb, (11.27-16.99) 12.60 g/dL Today Rho(D) Type Rh positive Today Plt Count, (157-399) 224 10^3/cmm Today Hep Bs Antigen, (Nonreactive) Non-reactive 11/23/23 Hepatitis C Antibody, (Nonreactive) Non-reactive 11/23/23 Rubella IgG Antibody, (0.0-10.0) 290.7 IU/mL H 11/23/23 RPR, (Nonreactive) Nonreactive 11/23/23 HIV 1&2 Ab & HIV 1 Ag, (Non-Reactiv) Non-reactive 11/23/23 TSH, (0.27-4.20) 1.44 uIU/mL 11/23/23 C.trachomatis RNA (TMA), (NOT DETECTED) Not detected 11/23/23 N.gonorrhoeae RNA (TMA), (NOT DETECTED) Not detected 11/23/23 T. vaginalis Amp RNA, (NOT DETECTED) Not detected 11/23/23 Chlamydia/GC Comment See note 11/23/23 Hemoglobin A1c, (4.0-6.0) 4.7 % 11/23/23 Uric Acid, (2.4-5.7) 6.3 mg/dL H Today Progesterone 7.28 ng/mL 11/23/23 Ser , Semi-Qnt 30987.00 mIU/mL 12/03/23 HCG, Qual, (Negative) Positive H 11/23/23 Urine Opiates Screen, (Negative) Negative ng/mL 11/23/23 Ur Barbiturates Screen, (Negative) Negative ng/mL 11/23/23 Ur Phencyclidine Scrn, (Negative) Negative ng/mL 11/23/23 Ur Amphetamines Screen, (Negative) Negative ng/mL 11/23/23 U Benzodiazepines Scrn, (Negative) Negative ng/mL 11/23/23 Urine Cocaine Screen, (Negative) Negative ng/mL 11/23/23 U Marijuana (THC) Screen, (Negative) Negative ng/mL 11/23/23 Micro Urine Specimen 11/23/23 Pap Smear Interpret See note 11/23/23 A&P Assessment and plan 1. Diet controlled gestational diabetes mellitus (GDM) in third trimester: We will proceed with a section. 2. 38 weeks gestation of : 3. Gestational hypertension: 4. Supervision of high-risk of elderly multigravida: 5. Encounter for sterilization: 6. Hx of section: PDMP PDMP Reviewed: Not Reviewed Attestations Medical Necessity Statement*: The patient will have and post care. Her various complications including gestational diabetes, severe gestational hypertension, and advanced gestational age, may impact the length of her hospital stay Coding Level of Care Code Acute Code for Chg Fwd Diagnoses Diet controlled gestational diabetes mellitus (GDM) in third trimester O24.410 Gestational diabetes mellitus control: diet-controlled Trimester: third trimester 38 weeks gestation of Z3A.38 Gestational hypertension O13.9 Supervision of high-risk of elderly multigravida O09.529 Encounter for sterilization Z30.2 Hx of section Z98.891
[2025-04-27 06:55] LABS: UPRO/UCREAT Ratio 0.93 mg/mg CR
[2025-04-27] MEDS: ceFAZolin 2,000 mg SDV 2000 MG IVP (07:27)
[2025-04-27] MEDS: magnesium sulfate premix 20 GM/500 ML BAG IV ×2 (07:27→16:37)
--- NOTE | 2025-04-27 08:22 | P.OP_ITS ---
Operative Report Date of procedure: April 27, 2025 Pre-op diagnosis: 39-year-old 6 para 3-0-3-3 at 38 weeks estimated gestational age presenting for a repeat section Well-controlled, diet-controlled gestational diabetes Desires sterilization Post-op diagnosis: Status post low-transverse section with intraoperative bilateral tubal ligation Procedure done: 1. Repeat lower transverse section 2. Intraoperative bilateral tubal ligation using modified Custer technique Specimens removed/disposition: 1. Male infant with a weight of 5 pounds 11 ounces and Apgars of 8 and 9 2. Bilateral fallopian tube segments with the right segment being tagged 3. Placenta with a three-vessel cord delivered intact Pathology: Bilateral fallopian tubes with the right segment being tagged Surgeon: Calvin Maldonado MD Anesthesia: Spinal Estimated blood loss: 500 Complications: None Procedure: The patient was brought back to the operating room where she was prepped and draped in usual sterile fashion. Anesthesia was found to be adequate. A lower transverse skin incision was then made with a #10 blade. I then dissected down to the underlying subcutaneous tissue until arriving at the prerectal fascia. The fascia was then nicked with the scalpel bilaterally. The fascial incisions were then carried laterally with Whittaker scissors. Attention was then turned to the superior aspect of the incision which was grasped with kochers and tented up away from the underlying rectus abdominis muscles. The muscles were then dissected away from the fascia manually, and later with Whittaker scissors. Attention was then turned to the inferior aspect of the incision, and the fascia was dissected away from the underlying muscle in similar fashion. The rectus abdominis muscles were then spread manually. The peritoneum was entered manually. Excellent visualization of the uterus was noted. A lower transverse uterine incision was then made with a #10 blade. Upon arriving at the intrauterine cavity, the uterine incision was then extended manually. The infant was noted to be in vertex position. The baby was delivered without difficulty. After delivery of the head, the mouth and nose were suctioned at the site of the incision. There was no meconium. There was no nuchal cord. The remainder of the body was then delivered and placed on the abdomen. The cord was cut and clamped. The baby was then handed to the waiting nurse. The placenta was removed intact. The uterus was externalized. The intrauterine cavity was cleansed of any remaining debris. The uterine incision was reapproximated in 2 layers. The first layer was pe rformed with 0 Vicryl in a running locked stitch. The second layer was an imbricating stitch also using 0 Vicryl. 2 [id number] stitches were then placed to maintain excellent hemostasis. Attention was then turned to the right fallopian tube which was ligated cut and cauterized in a modified Custer fashion using 0 chromic. Attention was then turned to the left fallopian tube which was also ligated cut and cauterized in similar fashion. The uterus was easily replaced into the abdomen. The peritoneum was then irrigated with warm saline. I reexamined the uterine incision and found it to be hemostatic. The rectus abdominis muscles were then reapproximated using 0 Vicryl in a running stitch. The fascia was then reapproximated using 0 Vicryl in running stitch. The skin was reapproximated using lorelei. A sterile dressing was placed. All counts were correct x2. Both the mother and baby were in stable condition.
[2025-04-27] MEDS: BUPivacaine 0.5% INJ 30 mL INJECTION (08:26)
--- NOTE | 2025-04-27 08:50 | ANE.PACU2 ---
Inpatient post-anesthesia follow up: Airway intact: Yes Vital signs: Temperature 98.3 F Pulse Rate 80 Respiratory Rate 16 Blood Pressure 143/70 Pulse Oximetry 97 Oxygen Delivery Me thod Room Air Oxygen Flow Rate Fraction of Inspir ed Oxygen Hydration adequate: Yes Nausea and vomiting: No Pain level: 1 Mental status: Baseline
[2025-04-27] MEDS: HYDROcodone-acetaminophen 5-325 mg Tablet PO (11:21)
[2025-04-27 20:12] LABS: Hematocrit 26.9 % (36-47); Hemoglobin 9.50 g/dL (11.27-16.99); Mean Corpuscular HGB Conc 35.3 g/dL (30-55); Mean Corpuscular Hemoglobin 31.8 pg (27-33); Mean Corpuscular Volume 90.0 fl (85-98); Platelet Count 226 10^3/cmm (157-399); Red Blood Count 2.99 10^6/uL (3.85-5.65); White Blood Count 12.68 10^3/uL (3.29-11.43)
[2025-04-28 02:37] VITALS: BP 145/74; PULSE 79
[2025-04-28] MEDS: alum-mag-hydroxide-sime 30 mL UDC PO (02:56)
[2025-04-28 03:42] VITALS: BP 127/70; PULSE 77; TEMP 36.8
[2025-04-28] MEDS: PRENATAL VIT NO.130/IRON/FOLIC 1 EACH TABLET PO (05:04)
[2025-04-28] MEDS: HYDROcodone-acetaminophen 5-325 mg Tablet PO ×2 (10:21→18:45)
[2025-04-28 10:22] VITALS: BP 143/70; PULSE 80
--- NOTE | 2025-04-28 10:23 | P.PN_ITS ---
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 Her blood pressure is about in normal range and she received a single dose of IV labetalol yesterday morning at around 630. Her bleeding has been within normal limits. She is having some pain this morning but she has not had any narcotics in almost 24 hours. She has passed gas and is tolerating regular diet. Labor: Amniotic Membrane Status: Intact Monitor Mode: External C ontraction Pattern: Irregular Vitals/I&O/Wt Last Vital Signs Temp 98.3 F 04/28/25 03:42 Pulse 77 04/28/25 03:42 Resp 16 04/27/25 08:50 BP 127/70 04/28/25 03:42 Pulse Ox 97 04/27/25 10:31 O2 Del Method Room Air 04/27/25 08:50 04/27/25 04/28/25 04/28/25 22:59 06:59 14:59 Intake Total 998.750 / 1798.750 Output Total 290 / 1300 1000 / 2300 Balance 708.750 / 498.750 -1000 / -501.250 Weight last 48 hrs Weight 212 lb 8 oz Physical Exam 2 Narrative: She is in no acute distress Lungs are clear auscultation bilaterally Her heart has a regular rate and rhythm Her fundus is below the umbilicus and firm Her dressing is clean, dry and intact Her extremities have trace edema Urinary Catheter Management: [place] Latex Free: Cath Placed During This Visit: yes, but has since been removed by the nurse Reason for Continuing Indwelling Catheter: Decision to DC Catheter Urinary Catheter Date of Insertion: 04/27/25 Urinary Catheter Time of Insertion: 07:20 Date Urinary Catheter Removed: 04/27/25 Time Urinary Catheter Discontinued: 23:43 Data 04/27/25 19:29 04/27/25 05:51 A&P Assessment and plan 1. Status post : The patient is doing well. She is also doing well post magnesium infusion. Anticipate should be discharged home tomorrow if she continues to have an unremarkable course 2. Preeclampsia: PDMP PDMP Reviewed: Not Reviewed Attestations 2 Medical Necessity Statement*: Routine care. The patient does have preeclampsia, advanced maternal age, and gestational diabetes. These things could have an impact on her hospital stay. Coding Level of Care Code Acute Code for Chg Fwd Diagnoses Status post Z98.891 Preeclampsia O14.90
[2025-04-28 16:06] VITALS: BP 143/69; PULSE 81
[2025-04-28 17:45] LABS: High Risk PP Hemorrhage BBK Notified
[2025-04-28] MEDS: ferrous sulfate EC 325 mg Tablet PO (22:06)
[2025-04-28 22:08] VITALS: BP 142/70; PULSE 82
[2025-04-29] MEDS: HYDROcodone-acetaminophen 5-325 mg Tablet PO ×2 (01:57→11:55)
[2025-04-29 04:21] VITALS: BP 142/69; PULSE 79
[2025-04-29] MEDS: PRENATAL VIT NO.130/IRON/FOLIC 1 EACH TABLET PO (04:26)
[2025-04-29 05:02] VITALS: BP 153/77; PULSE 86
[2025-04-29 05:18] VITALS: BP 153/79; PULSE 89
[2025-04-29 07:32] VITALS: BP 123/59; PULSE 91
[2025-04-29 08:00] VITALS: RESP 18; TEMP 37.1
--- NOTE | 2025-04-29 10:26 | PM.OBGYDC ---
Discharge Providers BAKER CHEF Date of Admission: 04/27/25 04:57 Date of Discharge: 04/29/25 Attending Provider at Admission: Calvin Maldonado MD Attending Provider at Discharge: Calvin Maldonado MD Primary Care Provider: Calvin Maldonado MD Diagnoses at Discharge Discharge Diagnosis 1. Status post : 2. Preeclampsia: Reason for Visit Reason for Visit: updated 04/12/2025 Hospital Course Hospital Course The patient presented to the hospital for a repeat section and a bilateral tubal ligation. Both procedures were unremarkable. Her hospital stay was remarkable for noting that she had high blood pressures prior to the procedure. She had 7 the severe range. Preeclamptic profile was performed. She was found to have an elevated protein creatinine ratio. She was treated per protocol as well as given magnesium. She had no other symptoms of preeclampsia. Her course was relatively unremarkable. She was having no symptoms of preeclampsia other than some visual changes and is unclear if they are related to her preeclampsia. She was kept on magnesium for 12 hours postprocedure. Her blood pressures remained in normal range or minimally elevated after her . The day of her discharge she did have some mildly elevated blood pressures and she was placed on labetalol 200 mg. Her bleeding was within normal limits. Her pain was well-controlled. Her blood sugars were within normal limits. Her hospital stay was otherwise unremarkable. Information Peripartum Data: Delivery Method: Physical Exam Narrative: She is in no acute distress Lungs are clear auscultation bilaterally Her heart has a regular rate and rhythm Her fundus is below the umbilicus and firm Her dressing is clean, dry and intact Her extremities have trace edema Urinary Catheter Management: [place] Latex Free: Cath Placed During This Visit: yes, but has since been removed by the nurse Reason for Continuing Indwelling Catheter: Decision to DC Catheter Urinary Catheter Date of Insertion: 04/27/25 Urinary Catheter Time of Insertion: 07:20 Date Urinary Catheter Removed: 04/27/25 Time Urinary Catheter Discontinued: 23:43 History History History 6 Term 3 0 Miscarriages/Ectopic 2 Living Children 3 Past Pregnancies Del. Date GA/Weeks Outcome Route Wt Inf Gender Labor Lgth Comp. Anesthesia Location 10/09/10 9 spontaneous 07/02/13 39 live - full term Vaginal 8 lb Female 12 hr [place], [place] 11/04/15 spontaneous 11/21/16 39 live - full term Vaginal 6 lb 8 oz Male [facility] [place] [facility] 08/03/20 39 live - full term 7 lb 7 oz Female [facility] [place] Delivery Date: 10/09/10 Last Updated by: Kurt Carpio MD Miscarriage around 9 weeks Delivery Date: 11/21/16 Last Updated by: Kurt Carpio MD gDM Delivery Date: 08/03/20 Last Updated by: Kurt Carpio MD pLTCS due to intolerance of labor, gDM Discharge Data Studies Completed and Pending Pending at discharge Category Date Time Status Pathology: Surgical [PTH] Routine Pth 04/27/25 10:23 Received Laboratory Results WBC 12.68 10^3/uL (3.29-11.43) H 04/27/25 19:29 RBC 2.99 10^6/uL (3.85-5.65) L 04/27/25 19:29 Hgb 9.50 g/dL (11.27-16.99) L 04/27/25 19:29 Hct 26.9 % (36-47) L 04/27/25 19:29 MCV 90.0 fl (85-98) 04/27/25 19:29 MCH 31.8 pg (27-33) 04/27/25 19:29 MCHC 35.3 g/dL (30-55) 04/27/25 19:29 RDW 14.5 % (12.1-15.1) 04/27/25 19:29 Plt Count 226 10^3/cmm (157-399) 04/27/25 19:29 MPV 11.4 fL (7.4-10.4) H 04/27/25 19:29 Neut % (Auto) 69.1 % 04/27/25 05:32 Lymph % (Auto) 22.8 % 04/27/25 05:32 [place] % (Auto) 7.2 % 04/27/25 05:32 Eos % (Auto) 0.5 % 04/27/25 05:32 Baso % (Auto) 0.2 % 04/27/25 05:32 Neut # (Auto) 6.00 10^3/uL (1.8-7.7) 04/27/25 05:32 Lymph # (Auto) 2.0 10^3/uL (0.8-4.8) 04/27/25 05:32 [place] # (Auto) 0.6 10^3/uL (0.2-0.9) 04/27/25 05:32 Eos # (Auto) 0.0 10^3/uL (0.0-0.8) 04/27/25 05:32 Baso # (Auto) 0.0 10^3/uL (0.0-0.1) 04/27/25 05:32 Nucleated RBC % (auto) 0 % 04/27/25 05:32 Nucleated RBCs # 0.0 /100WBC 04/27/25 05:32 Sodium 137 mmol/L (136-145) 04/27/25 05:51 Potassium 4.0 mmol/L (3.5-5.1) 04/27/25 05:51 Chloride 104 mmol/L (98-107) 04/27/25 05:51 Carbon Dioxide 21 mmol/L (22-29) L 04/27/25 05:51 Anion Gap 16.0 (5-19) 04/27/25 05:51 BUN 11 mg/dL (6-20) 04/27/25 05:51 Creatinine 0.6 mg/dL (0.5-0.9) 04/27/25 05:51 GFR Calculation 112.5 mL/min (90-130) 04/27/25 05:51 Glucose 81 mg/dL (65-115) 04/27/25 05:51 Calculated Osmolality 282 mOsm/kg (285-295) L 04/27/25 05:51 Uric Acid 6.3 mg/dL (2.4-5.7) H 04/27/25 05:51 Calcium 8.4 mg/dL (8.5-10.5) L 04/27/25 05:51 Total Bilirubin 0.6 mg/dL (0.15-1.2) 04/27/25 05:51 AST 23 U/L (0-32) 04/27/25 05:51 ALT 13 U/L (0-33) 04/27/25 05:51 Alkaline Phosphatase 119 U/L (35-105) H 04/27/25 05:51 Total Protein 5.8 g/dL (6.6-8.7) L 04/27/25 05:51 Albumin 3.4 g/dL (3.5-5.2) L 04/27/25 05:51 Globulin 2.4 g/dL (1.3-4.6) 04/27/25 05:51 Urine Color Yellow (Yellow) 04/27/25 05:55 Urine Appearance Clear (CLEAR) 04/27/25 05:55 Urine pH 6.0 (5-7) 04/27/25 05:55 Ur Specific [place] 1.018 (1.005-1.030) 04/27/25 05:55 Urine Protein 2+ (Negative) A 04/27/25 05:55 Urine Glucose (UA) Negative (Normal) 04/27/25 05:55 Urine Ketones Negative (Negative) 04/27/25 05:55 Urine Blood Negative (Negative) 04/27/25 05:55 Urine Nitrate Negative (Negative) 04/27/25 05:55 Urine Bilirubin Negative (Negative) 04/27/25 05:55 Urine Urobilinogen 1.0 mg/dL (Negative) 04/27/25 05:55 Ur Leukocyte Esterase Negative (Negative) 04/27/25 05:55 Urine RBC 0-2 /hpf (0-2) 04/27/25 05:55 Urine WBC 0-5 /hpf (0-5) 04/27/25 05:55 Ur Squamous Epith Cells 0-5 /hpf (0-5) 04/27/25 05:55 Amorphous Sediment Not Reportable 04/27/25 05:55 Urine Bacteria None seen /hpf (NONE) 04/27/25 05:55 Hyaline Casts 0.40 /lpf 04/27/25 05:55 U Random Total Protein 100 mg/dL 04/27/25 05:55 Urine Creatinine 108 mg/dL (28-217) 04/27/25 05:55 Protein/Creatinin Ratio 0.93 mg/mg CR 04/27/25 05:55 Blood Type O Positive 04/27/25 05:32 Rho(D) Type Rh positive 04/27/25 05:32 Antibody Screen Negative 04/27/25 05:32 Vitals Last Vital Signs Temp 98.7 F 04/29/25 08:00 Pulse 91 04/29/25 07:32 Resp 18 04/29/25 08:00 BP 123/59 04/29/25 07:32 Pulse Ox 97 04/27/25 10:31 O2 Del Method Room Air 04/27/25 08:50 Results Labs OB ([facility]): Obstetrics US 12/03/23 Blood Type O Positive 04/27/25 Antibody Screen Negative 04/27/25 Hct, (36-47) 26.9 % L 04/27/25 Hgb, (11.27-16.99) 9.50 g/dL L 04/27/25 Rho(D) Type Rh positive 04/27/25 Plt Count, (157-399) 226 10^3/cmm 04/27/25 Hep Bs Antigen, (Nonreactive) Non-reactive 11/23/23 Hepatitis C Antibody, (Nonreactive) Non-reactive 11/23/23 Rubella IgG Antibody, (0.0-10.0) 290.7 IU/mL H 11/23/23 RPR, (Nonreactive) Nonreactive 11/23/23 HIV 1&2 Ab & HIV 1 Ag, (Non-Reactiv) Non-reactive 11/23/23 TSH, (0.27-4.20) 1.44 uIU/mL 11/23/23 C.trachomatis RNA (TMA), (NOT DETECTED) Not detected 11/23/23 N.gonorrhoeae RNA (TMA), (NOT DETECTED) Not detected 11/23/23 T. vaginalis Amp RNA, (NOT DETECTED) Not detected 11/23/23 Chlamydia/GC Comment See note 11/23/23 Hemoglobin A1c, (4.0-6.0) 4.7 % 11/23/23 Uric Acid, (2.4-5.7) 6.3 mg/dL H 04/27/25 Progesterone 7.28 ng/mL 11/23/23 Ser , Semi-Qnt 52436.00 mIU/mL 12/03/23 HCG, Qual, (Negative) Positive H 11/23/23 Urine Opiates Screen, (Negative) Negative ng/mL 11/23/23 Ur Barbiturates Screen, (Negative) Negative ng/mL 11/23/23 Ur Phencyclidine Scrn, (Negative) Negative ng/mL 11/23/23 Ur Amphetamines Screen, (Negative) Negative ng/mL 11/23/23 U Benzodiazepines Scrn, (Negative) Negative ng/mL 11/23/23 Urine Cocaine Screen, (Negative) Negative ng/mL 11/23/23 U Marijuana (THC) Screen, (Negative) Negative ng/mL 11/23/23 Micro Urine Specimen 11/23/23 Pap Smear Interpret See note 11/23/23 Discharge Plan Discharge Patient Disposition: Home Condition: Stable Prescriptions: New labetalol 200 mg Tablet 200 mg PO BID Qty: 60 1RF ibuprofen 800 mg Tablet 800 mg PO Q8H Qty: 45 0RF docusate sodium 100 mg Capsule 100 mg PO BID Qty: 30 0RF hydrocodone-acetaminophen 5-325 mg Tablet 1 tab PO Q6H PRN (Reason: Moderate To Severe Pain) Qty: 28 0RF Continued capsule 1 cap PO DAILY Discharge Order = DC NOW: Discharge Order (Routine); Ordered 04/29/25 Ordered By: Calvin Maldonado Referrals: Calvin Maldonado MD [Primary Care Provider, [facility] [place]] - 05/02/25 Referral Note: Discharge Diet: Usual diet Discharge Activity: Limit activity as instructed Patient Instructions: Labetalol (By mouth), Depression (DC), Bleeding (DC), Preeclampsia and Eclampsia After Delivery (GEN), Hemorrhage (DC), OB - Erica/Kerline, OB Discharge Report, OB Food/Drug Interaction Guide, Opioid Safety, OB Home Care, OB Proud Parent Packet, Patient Portal & Miguelina Instructions Discharge Attestations BAKER CHEF Time Spent in Discharge Care*: less than 30 min Coding Level of Care Code Acute Code for Chg Fwd Diagnoses Status post Z98.891 Preeclampsia O14.90
[2025-04-29 11:01] VITALS: BP 154/75; PULSE 110
== END 2025-04-29 12:05 | disposition home or self-care (01) | DRG 785 ==
PROVIDERS: Admitting Provider Family Medicine; PCP Family Medicine; Visit Provider Family Medicine
PROC: 10D00Z1 Extraction of Products of Conception, Low, Open Approach (ICD-10-PCS; CPT 59514; principal; 2025-04-27 07:00)
DX: O14.94 Unspecified pre-eclampsia, complicating childbirth (principal); O24.420 Gestational diabetes mellitus in childbirth, diet controlled; Z37.0 Single live birth; Z3A.38 38 weeks gestation of pregnancy; O34.211 Maternal care for low transverse scar from previous cesarean delivery; N85.8 Other specified noninflammatory disorders of uterus
CPT/HCPCS: 36415; 51702; 59025; 59409; 80053; 81001; 82570; 84156; 84550; 85025; 85027; 86850; 86900; 88302; J0690; J1885; J2274; J2371; J2405; J2590; J2765; J3010; J3475; J3490; J7030; J7121; J9999